=== PATIENT | male | born 1955 | race African-American/Black ===

== ENCOUNTER 2018-10-28 05:47 | Inpatient (IN) | payer OTHER ==
[2018-10-28] VITALS (26 sets, daily range): BP systolic 64–133; BP diastolic 48–82
[~2018-10-28] VITALS: Ht 170.2 cm; Wt 77.1 kg
[2018-10-28] MEDS: D5 1/2NS w/KCl 20mEq 1,000 ML IV SCH
[2018-10-28] MEDS ORDERED: LR 1000ml 1,000 ML IVLG SCH ×2 (06:23→19:17)
[2018-10-28] MEDS ORDERED: Zemuron 50mg/5ml Inj IV ONE ×2 (06:29→20:00)
[2018-10-28] MEDS ORDERED: HYDROcodone/Acetamin 5/325 tab ORAL PRN ×2 (06:30→19:30)
[2018-10-28] MEDS ORDERED: LORazepam Inj 2mg/ml 1ml IV PRN ×2 (06:30→19:30)
[2018-10-28] MEDS ORDERED: DiphenhydrAMINE 50mg/ml Inj IVP PRN ×3 (06:30→19:30)
[2018-10-28] MEDS ORDERED: Ketorolac 30mg Inj IV PRN ×4 (06:30→19:30)
[2018-10-28] MEDS ORDERED: HYDROcodone/Acetamin 7.5/325 tab ORAL PRN ×2 (06:30→19:30)
[2018-10-28] MEDS ORDERED: Acetaminophen (Non formulary) 100 ML IV ONE (06:30)
[2018-10-28] MEDS ORDERED: Hydromorphone 0.5mg/0.5ml inj IVP PRN ×2 (06:30→19:30)
[2018-10-28] MEDS ORDERED: Midazolam 2mg/2ml Inj IVP PRN ×2 (06:30→19:30)
[2018-10-28] MEDS ORDERED: Atropine Sulfate 0.4mg/ml inj IVP PRN ×2 (06:30→19:30)
[2018-10-28] MEDS ORDERED: Metoclopramide 10mg/2ml Inj IVP PRN ×3 (06:30→23:00)
[2018-10-28] MEDS ORDERED: Meperidine 50mg/ml Inj(FOR RIGORS ONLY) IVP PRN ×2 (06:30→19:30)
[2018-10-28] MEDS ORDERED: oxyCODONE HCL/Acetaminophen 5/325mg ORAL PRN ×2 (06:30→19:30)
[2018-10-28] MEDS ORDERED: fentaNYL 100 mcg/2 mL IV PRN ×2 (06:30→19:30)
[2018-10-28] MEDS ORDERED: Lidocaine 1% MPF 10mg/ml 5ml ONE ×2 (06:39→19:29)
[2018-10-28] MEDS ORDERED: Dexamethasone 4mg/ml vial ONE ×2 (06:39→19:29)
[2018-10-28] MEDS ORDERED: Sodium Chloride 10ml vial INJ ONE ×2 (06:39→19:29)
[2018-10-28] MEDS ORDERED: Lidocaine 1% Plain 30 ml INJ ONE ×2 (06:40→09:17)
[2018-10-28] MEDS ORDERED: SOMA350 MG PO (06:41)
[2018-10-28] MEDS ORDERED: IBUPROFEN600 MG ORAL (06:41)
[2018-10-28] MEDS ORDERED: fentaNYL 100 mcg/2 mL IV ONE ×3 (06:52→19:38)
[2018-10-28] MEDS ORDERED: Gelfoam Size TOPIC ONE ×2 (06:54→19:27)
[2018-10-28] MEDS ORDERED: Thrombin 5000 units TOPIC ONE ×3 (06:54→21:23)
[2018-10-28] MEDS ORDERED: Bacitracin 50000 Units Vial ONE ×2 (06:54→19:28)
[2018-10-28] MEDS ORDERED: Bupivacaine w/Epi 0.5% 30ml Vial INJ ONE ×2 (06:54→19:27)
[2018-10-28] MEDS ORDERED: LR 1000ml ONE ×2 (07:00→20:00)
--- NOTE | 2018-10-28 07:03 | Pre-Procedure Note/Attestation ---
Pre-Procedure Note/Attestation Complete Prior to Procedure Planned Procedure: not applicable Procedure Narrative: Disc degeneration with compression C3-4, C4-5, For ACDF at c3-4 and Disc arthroplasty C4-5 Indications for Procedure Pre-Operative Diagnosis: Disc Disease with compression C3-4, C4-5 Attestation I attest that I discussed the nature of the procedure; its benefits; risks and complications; and alternatives (and the risks and benefits of such alternatives ), prior to the procedure, with the patient (or the patient's legal wine sales representative). I attest that, if there was a reasonable possibility of needing a blood transfusion, the patient (or the patient's legal wine sales representative) was given the [place] Department [employer] [facility] standardized written summary, pursuant to the [employer] Blood Safety Act ([place] Health and Safety Code # 1645, as amended). I attest that I re-evaluated the patient just prior to the surgery and that there has been no change in the patient's H&P, except as documented below: Leoncio Ventura Oct 28, 2018 07:03
--- NOTE | 2018-10-28 07:07 | Anethesia Preoperative Eval ---
Anesthesia Pre-op PMH/ROS General Date of Evaluation: Oct 28, 2018 Time of Evaluation: 07:11 Anesthesiologist: Chaya ASA Score: ASA 2 Mallampati Score Class I : Soft palate, uvula, fauces, pillars visible Class II: Soft palate, uvula, fauces visible Class III: Soft palate, base of uvula visible Class IV: Only hard plate visible Mallampati Classification: Class II Surgeon: Steve Diagnosis: Neck Pain Surgical Procedure: ACDF C3-4, ADR C4-5 Anesthesia History: none Family History: no anesthesia problems Allergies: Coded Allergies: No Known Allergies (Unverified , 10/28/18) Medications: see eMAR Patient NPO?: Yes NPO Date: Oct 27, 2018 NPO Time: 2100 Past Medical History Musculoskeletal/Integumentary: Reports: OA PSxH Narrative: Bilateral Knee arthroscopy Anesthesia Pre-op Phys. Exam Physician Exam Last Vital Signs Date Time Temp Pulse Resp B/P (MAP) Pulse Ox O2 Delivery O2 Flow Rate FiO2 10/28/18 06:29 97.1 49 18 133/82 (99) 97 10/28/18 06:20 Room Air Constitutional: NAD Neurologic: CN 2-12 intact Cardiovascular: RRR Respiratory: CTA Gastrointestinal: S/NT/ND Airway Exam Mallampati Score: Class II MO: full ROM: limited Teeth: missing, intact Anesthesia Pre-op A/P Risk Assessment & Plan Assessment: ASA 2 Plan: GA, SED, GlideScope Go Status Change Before Surgery: No Pre-Antibiotics Dru grams Ancef IV Given Within 1 Hr of Incision: Yes Time Given: 07:31 Trey Larkni MD Oct 28, 2018 07:07
--- NOTE | 2018-10-28 07:08 | Immediate Post-Op Evaluation ---
Immediate Post-Op Evalulation Immediate Post-Op Evalulation Procedure: ACDF C3-4, C4-5 Date of Evaluation: Oct 28, 2018 Time of Evaluation: 11:08 IV Fluids: 900 LR Blood Products: 0 Estimated Blood Loss: 50 Urinary Output: 150 Blood Pressure Systolic: 118 Blood Pressure Diastolic: 67 Pulse Rate: 65 Respiratory Rate: 16 O2 Sat by Pulse Oximetry: 99 Temperature (Fahrenheit): 97 Pain Score (1-10): 2 Nausea: No Vomiting: No Complications 0 Patient Status: awake, reacts, patent, extubated, none Hydration Status: adequate Dru Grams Ancef IV Given Within 1 Hr of Incision: Yes Time Given: 07:31 Trey Larkin MD Oct 28, 2018 07:08
[2018-10-28] MEDS ORDERED: Glycopyrrolate 0.2mg/ml 1ml Vial ONE ×3 (10:12→22:05)
[2018-10-28] MEDS ORDERED: Neostigmine 1mg/ml 10ml Inj ONE ×2 (10:12→20:00)
--- NOTE | 2018-10-28 10:13 | NUR ---
CASE MANAGEMENT:REVIEW 63 YR OLD MALE HERE FOR ELECTIVE SURGERY SI: DEGENERATIVE DISC DISEASE 97.1 49 18 133/82 97% ON RA IS: TO SURGERY FOR: ACDF AT C3-4. DISC ARTHROPLASTY C4-5 : CURRENTLY IN SURGERY : INTERQUAL CRITERIA MET
[2018-10-28] MEDS ORDERED: Naloxone 0.4mg/ml Inj ONE ×2 (10:19→22:21)
--- NOTE | 2018-10-28 10:37 | Operative Note - PDOC ---
Operative Note Operative Note Pre-op Diagnosis: Disc Disease with compression C3-4, C4-5 Procedure: ACDF C3-4, Disc Arthroplasty C4-5 Post-op Diagnosis: same as pre-op Surgeon: Steve Automotive Exhaust Emissions Technician: TROY Ventura Anesthesiologist: Chaya Specimen: yes Complications: none Estimated Blood Loss: minimal Drains: none Implant(s) used?: Yes - Medtronic Zevo Plate, Bone C3-4, Synthes ProDisc C C4-5 Leoncio Ventura Oct 28, 2018 10:37
[2018-10-28] MEDS ORDERED: PCA Education Pamphlet MISC ONE ×5 (10:45→11:00)
[2018-10-28] MEDS ORDERED: Rate Change PCA 1 Each MISC PRN ×5 (10:45→11:00)
[2018-10-28] MEDS ORDERED: Naloxone 0.4mg/ml Inj IVP PRN ×2 (11:00→23:00)
[2018-10-28] MEDS ORDERED: PCA HYDROmorphone 1mg/ml 30 ML IV PRN (12:00)
--- NOTE | 2018-10-28 12:40 | NUR ---
NURSE NOTES: Received report from Mamie Kidd RN. Patient drowsy and 3L O2 on. Elkins catheter is patent. Cervical surgical site dressing is stained. No strength on bilateral hands and foot noted. INDUSTRIAL PSYCHOLOGIST will contact to MD. IV patent. Call light within reach and will continue to monitor.
--- NOTE | 2018-10-28 12:50 | NUR ---
NURSE NOTES: Lorenzo LORA called asked about the patient's condition. Information for neurological assessment was given. Lorenzo LORA said will call later.
--- NOTE | 2018-10-28 13:00 | NUR ---
PATIENT BARELY WIGGLE TOES NO FLEXION OR DORSI FLEXION OF BOTH LOWER EXTREMITIES. ALSO BARELY MOVE ARMS AND ABSENT HAND GAS PUMPING STATION HELPER . STATES WITH SENSATION OF BOTH UPPER AND LOWER EXTREMITIES . Eleanor GOMEZ CALLED TO NOTIFY MESSAGE LEFT AND CALLED BACK SPOKE TO FLOOR RN
--- NOTE | 2018-10-28 13:15 | NUR ---
NURSE NOTES: GUIDO Ventura called and ordered CT of cervical spinal. Noted and carried out.
--- NOTE | 2018-10-28 13:30 | NUR ---
NURSE NOTES: Patient off the unit for checking CT of cervical spine.
[2018-10-28] MEDS ORDERED: D5 1/2NS w/KCl 20mEq 1,000 ML IV SCH (14:00)
--- NOTE | 2018-10-28 14:00 | NUR ---
NURSE NOTES: Patient came back to the unit.
--- NOTE | 2018-10-28 14:36 | Diagnostic Imaging Report ---
Indication: Neck pain. Technique: Continuous helical imaging of the cervical spine was obtained transaxially from the skull base to the upper thoracic spine. 2-D coronal and sagittal reformatted images were obtained. Automatic Exposure Control was utilized. Total Dose length Product (DLP): 463.[address] Dose Index Volume (CTDIvol): 19.77 mGy Comparison: None Findings: Patient is status post anterior discectomy and fusion at C3-4 with the vertebral screws and anterior plate noted. There is also evidence of a prior discectomy at C4-5. Moderate ossification of the posterior longitudinal ligament from C3 through C7. There is no obvious hematoma or fluid collection identified postoperatively. Postoperative changes also include moderate degree of prevertebral and right-sided soft tissue air. Foramen magnum, C1-2 and C2-3 unremarkable. C3-4 shows evidence of a moderate to severe central stenosis of the bony canal secondary to ossification of the posterior longitudinal ligament which extends posteriorly. There is moderate bilateral foraminal stenosis. C4-5 shows evidence of disc replacement. Stenosis of the central canal also suspected at this level. Moderate bilateral foraminal stenosis as well. C5-6 shows bilateral foraminal stenosis and suspected mild central stenosis. C6-7 shows similar findings with mild to moderate bilateral foraminal stenosis and probable central stenosis. Impression: No obvious postoperative hematoma or abnormal fluid collection. Status post anterior cervical corpectomy-discectomy at C3-4 and corpectomy/discectomy C4-5. Multilevel central spinal stenosis of the bony canal largely on the basis of posterior longitudinal ligament ossification. Multilevel neural foraminal stenosis. Findings discussed via telephone with the neurosurgical physician periodicals library assistant at approximately 2:30 PM, 10/28/[address] scanner at [facility] is accredited by the [employer] and the scans are performed using dose optimization techniques as appropriate to a performed exam including Automatic Exposure control.
--- NOTE | 2018-10-28 15:49 | Diagnostic Imaging Report ---
Indication: Neck Pain Findings: 4 fluoroscopic views of the cervical spine were obtained. Intraoperative imaging demonstrating anterior cervical discectomy and fusion at C3-4 and disc replacement at C4-5. Fluoroscopic time 16 seconds. IMPRESSION: Intraoperative imaging
--- NOTE | 2018-10-28 17:20 | NUR ---
NURSE NOTES: GUIDO Ventura came and ordered NPO except for ice chips and meds. Noted and carried out.
[2018-10-28] MEDS: DEXAMETHASONE IVPB SCH (18:08)
[2018-10-28] MEDS: D5W IVPB SCH (18:08)
--- NOTE | 2018-10-28 18:35 | NUR ---
NURSE NOTES: Got the consent for surgery from his daughter.
[2018-10-28] MEDS ORDERED: PCA shift volume MISC SCH ×4 (19:00)
[2018-10-28] MEDS: PCA shift volume MISC SCH (19:00)
--- NOTE | 2018-10-28 19:02 | General Surgery Progress Note ---
General Surgery-Progress Note Subjective Procedure Performed ACDF C3-4, Disc Arthroplasty C4-5 Chief Complaint: can not feel and / or move arms and legs Objective Last 24 Hour Vital Signs Date Time Temp Pulse Resp B/P (MAP) Pulse Ox O2 Delivery O2 Flow Rate FiO2 10/28/18 16:00 16 10/28/18 16:00 98.5 70 16 64/56 (59) 98 10/28/18 15:45 97.1 66 16 96/56 (69) 96 10/28/18 14:45 97.5 70 16 94/56 (69) 98 10/28/18 13:15 97.8 68 16 96/55 (69) 95 10/28/18 13:00 13 10/28/18 12:45 97.1 69 16 97/55 (69) 98 10/28/18 12:45 97.2 63 14 92/56 98 Nasal Cannula 3 10/28/18 12:35 64 13 92/54 97 Nasal Cannula 3 10/28/18 12:25 67 15 96/56 98 Nasal Cannula 3 10/28/18 12:15 12 10/28/18 12:05 60 14 95/53 99 Simple Mask 6 10/28/18 12:00 14 10/28/18 11:55 61 15 92/50 99 Simple Mask 6 10/28/18 11:45 13 10/28/18 11:45 60 13 88/54 99 Simple Mask 6 10/28/18 11:35 61 13 82/48 99 Simple Mask 6 10/28/18 11:30 63 13 88/49 99 Simple Mask 6 10/28/18 11:30 12 10/28/18 11:25 60 12 83/60 99 Simple Mask 6 10/28/18 11:15 60 12 86/50 99 Simple Mask 6 10/28/18 11:05 61 12 89/49 99 Simple Mask 6 10/28/18 11:00 68 13 96/59 98 Simple Mask 6 10/28/18 10:57 97.0 68 14 118/67 99 Simple Mask 6 10/28/18 10:56 65 16 99 10/28/18 06:29 97.1 49 18 133/82 (99) 97 10/28/18 06:20 Room Air I&O Intake and Output 10/27/18 10/28/18 18:59 06:59 # Voids 1 Dressing: dry Wound: clean Drains: none Additional Comments When this patient arrived on the floor, he complained about his arms and legs being numb. His exam before transfer showed mild weakness but recovery nurse documented arm and keg movement and sensation. the floor nurse could no elicit arm, hand nor leg movement and minimal sensation. A CT scan was done and radiologist verbally represented the canal was narrowed but not acutely. Exam at 5:15 PM documented a neuro level at C3 with minimal motor and sensation on left upper and lower extremities. aA non reactive babinski was negative. Review of CT images shows osteophyte material protruding into canal beyond screws into the upper body of C4 (ACDF level). This information was relayed to Dr. Wilson and the decision to re-operate urgently was made. The patient is aware of findings and recommendation to re=operate and agrees. Leoncio Ventura Oct 28, 2018 19:02
--- NOTE | 2018-10-28 19:37 | NUR ---
HAND-OFF: Report given to GRAHAM Flores.
[2018-10-28] MEDS ORDERED: Midazolam 2mg/2ml Inj ONE (19:39)
--- NOTE | 2018-10-28 19:45 | NUR ---
NURSE NOTES: Pt lying in bed w/bed in lowest position and call light within reach. Pt A&Ox4, VSS, and c/o 10/10 pain; will administer pain medication. IV site intact/asymptomatic w/IVF @ 100 ml/hr; F/C patent/draining well; and surgical dressing stained but otherwise C/D/I w/cervical collar in place. Pt's neuro assessment is abnormal & pt scheduled for surgical revision this evening. Will continue to monitor.
[2018-10-28] MEDS ORDERED: Sterile Water Irrig 1000ml IRRIG ONE (20:00)
--- NOTE | 2018-10-28 20:15 | NUR ---
NURSE NOTES: Pt taken down to OR in stable condition. Will continue to monitor.
--- NOTE | 2018-10-28 20:56 | Immediate Post-Op Evaluation ---
Immediate Post-Op Evalulation Immediate Post-Op Evalulation Procedure: Redo ACDF C3-4 Date of Evaluation: Oct 28, 2018 Time of Evaluation: 22:57 IV Fluids: 500 LR Blood Products: 0 Estimated Blood Loss: 25 Urinary Output: 200 Blood Pressure Systolic: 98 Blood Pressure Diastolic: 62 Pulse Rate: 56 Respiratory Rate: 16 O2 Sat by Pulse Oximetry: 100 Temperature (Fahrenheit): 97.3 Pain Score (1-10): 3 Nausea: No Vomiting: No Complications 0 Patient Status: awake, reacts, patent, extubated, none Hydration Status: adequate Dru Grams Ancef IV Given Within 1 Hr of Incision: Yes Time Given: 20:31 Trey Larkin MD Oct 28, 2018 20:56
[2018-10-28] MEDS ORDERED: NS Irrig 1000ml IRRIG ONE (21:22)
--- NOTE | 2018-10-28 22:57 | Operative Note - PDOC ---
Operative Note Operative Note Chief Complaint: can not feel and / or move arms and legs Pre-op Diagnosis: Disc Disease with compression C3-4, C4-5 Procedure: ACDF C3-4, Disc Arthroplasty C4-5 Post-op Diagnosis: Spinal Cord compression Post-op Diagnosis: same as pre-op Surgeon: Steve Middleware Consultant: TROY Ventura Anesthesiologist: Chaya Specimen: yes Complications: none Estimated Blood Loss: minimal Drains: none Implant(s) used?: Yes - Replace same implants as initial surgery, see dictated op note Leoncio Ventura Oct 28, 2018 22:57
[2018-10-29] VITALS (27 sets, daily range): BP systolic 93–120; BP diastolic 51–68
--- NOTE | 2018-10-29 | NUR ---
NURSE NOTES: : pt s/p revision of discectomy and fusion cervical 3-4 exploration of acdf c3 4pt awake and alert no movement upper and lower extremities md aware NO C/O PAIN COLD BAG TO S/P WOUND
--- NOTE | 2018-10-29 | Operative Note - Dictated ---
DATE OF OPERATION: 10/28/2018 SURGEON: Leoncio Wilson M.D. [employer]PER[employer]ENT [employer]CHO[employer]: GUIDO Woodward. ANESTHESIOLOGIST: Trey Larkin M.D. ANESTHESIA: General endotracheal with arterial blood pressure monitoring. PREOPERATIVE DIAGNOSIS: Severe cervical spondylosis, posttraumatic with spinal stenosis, grade 3 at both the C3-4 and C4-5 levels causing significant neck pain, radicular pain, and limitation of cervical motion. POSTOPERATIVE DIAGNOSIS: Severe cervical spondylosis, posttraumatic with spinal stenosis, grade 3 at both the C3-4 and C4-5 levels causing significant neck pain, radicular pain, and limitation of cervical motion. OPERATIVE PROCEDURE: Right anterior approach to the cervical spine with dissection between the sternocleidomastoid and carotid sheath laterally, trachea and esophagus medially to reach the anterior spine at both levels, a complete decompression was done by anterior annulotomy, partial vertebrectomy, bilateral microneurolysis. At the C3-4 level, a fusion was done with fibula allograft using a 7 mm fibular corticocancellous allograft and a [employer] dynamic compression anterior plate 21 mm with four 15 mm compression screws at C4-5 level. After a complete decompression, a TDA medium 6 mm in height was placed at the C4-5 interval. The image intensifier was used throughout the procedure. DESCRIPTION OF PROCEDURE: The patient was induced in the supine position. Bolster was placed between the shoulder blades and the pad behind the neck to create support, normal lordosis. The arms and shoulders retracted distally and the head was retracted proximally with a canvas harness and 10 pounds of traction over a jessee. A lateral x-ray was taken to identify the level of the skin incision. A right-sided incision was made in the skin crease 2 inches in length. The platysma was divided. The jugular venous plexus was identified and protected. The sternocleidomastoid and carotid sheath were identified and protected laterally. The trachea and esophagus were dissected medially and retracted over the anterior spine. The spine was uncovered using a blunt dissection with a peanut. A North-South and East-West self-retaining retractor was then positioned and a lateral x-ray was taken to confirm the initial placement of C4-5 level. Once the position was secured, an anterior annulotomy was done with an 11 blade. The anterior lip of osteophytes from the body of C4 was then removed with a 3 mm Kerrison and larger to smaller and straight angled curettes were used to dissect posteriorly to the posterior aspect of the disc space where large superior and inferior osteophytes were noted narrowing the disc so that there was no access to the canal. The posterior osteophytes were removed sequentially using a Midas with an AMA bur. The dissection was slow and careful eventually reaching the PLL where angled curettes were used to free the posterior longitudinal ligament and then a 2 mm Kerrison was used to remove the posterior osteophytic remnant of the bodies of C4-5. The cord was well visualized over distance of 5 to 6 mm and was pulsating normally with respiration. Each foramen was widely opened using a 2 mm Kerrison. A similar dissection was then done at the C3-4 level, beginning anteriorly with an annulotomy removing the inferior osteophytic ridge of the body 3 and then working backward to the posterior third of the space using curettes. Once the posterior osteophytes were identified, they were removed similarly using a Midas until the PLL was identified and a small angled curette was used to release the PLL and then a 2 mm Kerrison to decompress the posterior canal at C3-4 as well as the C3-4 foramina on both the right and left. A 7 mm corticocancellous allograft was chosen at C3-4 and was tapped into place, checked on x-ray with good support with overall alignment and lordosis of the spine. A 21 mm Medtronic dynamic plate was then positioned, checked in AP, lateral, and fastened with four 15 mm compression screws. The total disc arthroplasty was then templated at C4-5, a 6 mm in height and standard width and depth was chosen. A template was placed, position was checked, and the jorge were placed with a drill inferiorly and superiorly. The final arthroplasty was then slowly tapped into place adjusting for its alignment in depth until good positioning was obtained. The handle was removed and it was checked on AP and lateral positioning again. There was no significant bleeding. The wound was closed in layers including the platysma, subcutaneous and skin placed in a compression bandage and a supportive cervical collar. Returned to recovery room in good condition. Leoncio Wilson M.D. DR: MEGAN JOB#: [id number] CC: JAY
--- NOTE | 2018-10-29 02:00 | NUR ---
NURSE NOTES: ASKING FOR SLEEPING PILL GIVEN ORDER
--- NOTE | 2018-10-29 03:15 | Operative Note - Dictated ---
DATE OF OPERATION: 10/28/2018 LOCATION: [facility]. SURGEON: Leoncio Wilson M.D. REAL ESTATE OPERATIONS MANAGER: GUIDO Woodward. ANESTHESIOLOGIST: Trey Larkin M.D. ANESTHESIA: General endotracheal. PREOPERATIVE DIAGNOSIS: The patient is status post procedure this morning for disk arthroplasty at the 4-5 cervical level and anterior decompression and fusion with placement of a fibular allograft and an anterior compression plate at the C3-C4 level. Postoperatively, the patient had some weakness that progressed to paresis of his arms and legs. A CT scan was done showing some material, possibly pressing on the cord just posterior to the upper edge of the C4 vertebra just at below the level of the two C4 screws, which were well contained within bone. POSTOPERATIVE DIAGNOSIS: The patient is status post procedure this morning for disk arthroplasty at the 4-5 cervical level and anterior decompression and fusion with placement of a fibular allograft and an anterior compression plate at the C3-C4 level. Postoperatively, the patient had some weakness that progressed to paresis of his arms and legs. A CT scan was done showing some material, possibly pressing on the cord just posterior to the upper edge of the C4 vertebra just at below the level of the two C4 screws, which were well contained within bone. OPERATIVE PROCEDURE: Exploration at C3-C4 with removal of fibular allograft and partial vertebrectomy at C4 with removal of about 3 to 4 mm, beginning anteriorly and bevelling posteriorly from superficial to deep in order to decompress the superior posterior edge of the body of C4 and allowed access to the canal to relieve whatever debris or pressure was visualized on the CT scan. This was done, and the anterior plate was replaced with the allograft. Two of the 15 mm lower screws were placed with 13 mm compression screws and angled more distally. Postoperative x-rays revealed good placement. DESCRIPTION OF PROCEDURE: The patient was prepped and draped supine on the operating table after induction of satisfactory general endotracheal anesthesia. His arms were tucked. A head halter was placed on his head and a bolster between the shoulder blades. His old operative incision was opened, all sutures were removed, and the wound was copiously irrigated. The path of dissection to the anterior aspect of the spine was easily reconstituted. East-West and North-South retractors were repositioned. The plate at C3-C4 was removed as was the fibular allograft and dissection was started beginning at the anterior superior edge of the body of C4 using a Midas to remove 2 mm anteriorly and 4 posteriorly in order to uncover the canal posterior to the superior posterior edge of the body of C4. Once bone had been removed, angled curettes were used to free the soft tissue, which was stabbed along with a couple of spicules of bone. Any posterior osteophytes were removed, and the dural sac was well visualized from the posterior resected body of C3 to the posterior resected body of C4 with normal pulsation flush with the posterior edge of the additionally resected posterior body of C4. The space was copiously irrigated and explored. The canal appeared nicely opened. The fibular allograft was repositioned as was the 21 mm Medtronic compression plate. The upper two screws were reutilized; however, the lower end was angled downward with shorter screws going from 15 to 13 to gain purchase in the body of C4 above the disk arthroplasty at C4-C5. Plate was checked on x-ray and found to be in good position with good stability. The graft was likewise stable. The wound was copiously irrigated and closed in layers including the subcutaneous platysma and skin. The patient was placed in a dressing and cervical collar, returned to the recovery room in good condition. Leoncio Wilson M.D. DR: TITO JOB#: [id number] CC: JAY
--- NOTE | 2018-10-29 04:00 | NUR ---
NURSE NOTES: AWAKE AND ALERT NO C/O PAIN WITH SLIGHT MOVEMENT FINGERS BUT ON LOWER EXT
[2018-10-29] MEDS: DEXAMETHASONE IVPB SCH ×4 (06:15→14:25)
[2018-10-29] MEDS: ceFAZolin sod 1 GM in D5W 55 ML IV SCH ×3 (06:15→22:04)
[2018-10-29] MEDS: D5W IVPB SCH ×4 (06:15→14:25)
[2018-10-29] MEDS: PCA shift volume MISC SCH ×2 (07:00→19:00)
--- NOTE | 2018-10-29 07:10 | NUR ---
NURSE NOTES: Report received from GRAHAM Yanes. Pt is awake, alert and oriented x4. Sinus rhythm on cardiac technologist. Pt is on cervical collar. Complaining of throat pain. Placed ice pack on front neck as per order. On N/C 2L. Kept NPO as per order. Pt is able to move shoulders but not other extremities. Temp 98.9. Bear hugger turned off. Elkins in place draining to gravity. IV t right FA G20 and left hand G18 patent and asymptomatic. D5 1/2NS with 20 meq KCL is running at 75cc/hr. Bed in lowest position. Side rails up x3. Will resume plan of care.
--- NOTE | 2018-10-29 07:30 | NUR ---
NURSE NOTES: Dr Todd, anesthesiologist, and Dr Alvarado here to see the patient. Notified Dr Todd regarding SOCIAL SCIENCE TEACHER not started since pt is not able to use it and not complaining of pain for now.
--- NOTE | 2018-10-29 07:45 | NUR ---
HAND-OFF: Report given to miguel styles rn
--- NOTE | 2018-10-29 07:51 | General Progress Note ---
Assessment/Plan Assessment/Plan Status post anterior cervical corpectomy-discectomy at C3-4 and corpectomy/ discectomy C4-5. ACDF C3-4, Disc Arthroplasty C4-5 Spinal Cord compression PLAN post op neuro evaluation ICU care pain control IV hydration Subjective Allergies: Coded Allergies: No Known Allergies (Unverified , 10/28/18) Subjective returned back for second surgery neuro called Objective Last 24 Hour Vital Signs Date Time Temp Pulse Resp B/P (MAP) Pulse Ox O2 Delivery O2 Flow Rate FiO2 10/29/18 07:00 75 16 100/63 (75) 97 10/29/18 06:00 97.8 64 16 100/57 (71) 97 10/29/18 05:00 65 16 103/55 (71) 97 10/29/18 04:00 Nasal Cannula 2.0 10/29/18 04:00 97.8 64 16 103/55 (71) 97 10/29/18 03:00 65 16 102/61 (75) 97 10/29/18 02:00 67 13 106/61 (76) 97 10/29/18 02:00 Nasal Cannula 2.0 10/29/18 01:00 66 16 100/62 (75) 97 10/29/18 00:30 55 16 120/60 (80) 97 10/29/18 00:00 97.5 60 16 120/60 (80) 97 10/29/18 00:00 Nasal Cannula 2.0 10/28/18 23:39 97.9 62 19 131/77 97 Nasal Cannula 3 10/28/18 23:30 61 14 120/70 98 Nasal Cannula 3 10/28/18 23:15 50 16 124/66 100 Simple Mask 6 10/28/18 23:05 51 14 133/79 99 Simple Mask 6 10/28/18 22:55 51 17 101/55 99 Simple Mask 6 10/28/18 22:50 52 18 93/51 99 Simple Mask 6 10/28/18 22:46 97.3 59 16 98/62 100 Simple Mask 6 10/28/18 22:44 56 16 100 10/28/18 20:30 Nasal Cannula 3.0 10/28/18 20:00 16 10/28/18 20:00 98.5 55 12 102/58 (73) 97 10/28/18 16:00 16 2/25/19 16:00 98.5 70 16 64/56 (59) 98 10/28/18 15:45 97.1 66 16 96/56 (69) 96 10/28/18 14:45 97.5 70 16 94/56 (69) 98 10/28/18 13:15 97.8 68 16 96/55 (69) 95 10/28/18 13:00 13 10/28/18 12:45 97.1 69 16 97/55 (69) 98 10/28/18 12:45 97.2 63 14 92/56 98 Nasal Cannula 3 10/28/18 12:35 64 13 92/54 97 Nasal Cannula 3 10/28/18 12:25 67 15 96/56 98 Nasal Cannula 3 10/28/18 12:15 12 10/28/18 12:05 60 14 95/53 99 Simple Mask 6 10/28/18 12:00 14 10/28/18 11:55 61 15 92/50 99 Simple Mask 6 10/28/18 11:45 13 10/28/18 11:45 60 13 88/54 99 Simple Mask 6 10/28/18 11:35 61 13 82/48 99 Simple Mask 6 10/28/18 11:30 63 13 88/49 99 Simple Mask 6 10/28/18 11:30 12 10/28/18 11:25 60 12 83/60 99 Simple Mask 6 10/28/18 11:15 60 12 86/50 99 Simple Mask 6 10/28/18 11:05 61 12 89/49 99 Simple Mask 6 10/28/18 11:00 68 13 96/59 98 Simple Mask 6 10/28/18 10:57 97.0 68 14 118/67 99 Simple Mask 6 10/28/18 10:56 65 16 99 Intake and Output 10/28/18 10/29/18 19:00 07:00 Intake Total 2465 ml 1165 ml Output Total 675 ml 735 ml Balance 1790 ml 430 ml Intake IV Total 2465 ml 1165 ml Output Urine Total 625 ml 710 ml Estimated Blood Loss 50 ml 25 ml Height (Feet): 5 Height (Inches): 7.00 Weight (Pounds): 170 Objective WDWN NAD clear breath sounds bilaterally without rhonchi or wheeze [id number] without MRG NABS nontender no HSM no CCE alert and weak Pradeep Alvarado MD Oct 29, 2018 07:51
[2018-10-29] MEDS: HYDROmorphone 1mg/ml Carpuject SUBQ PRN (08:04)
--- NOTE | 2018-10-29 09:06 | 48 Hour Post Anesthesia Eval ---
Post Anesthesia Evaluation Procedure: Redo ACDF C3-4 Date of Evaluation: Oct 29, 2018 Time of Evaluation: 07:06 Blood Pressure Systolic: 111 0: 82 Pulse Rate: 78 Respiratory Rate: 16 Temperature (Fahrenheit): 97.8 O2 Sat by Pulse Oximetry: 97 Airway: patent Nausea: No Vomiting: No Pain Intensity: 0 Hydration Status: adequate Cardiopulmonary Status: Stable Mental Status/LOC: patient returned to baseline Follow-up Care/Observations: Still has upper arm weakness and lower ext paralysis. Post-Anesthesia Complications: 0 Follow-up care needed: N/A Trey Larkin MD Oct 29, 2018 09:06
--- NOTE | 2018-10-29 09:50 | NUR ---
NURSE NOTES: Pt refused to be turned to one side completely. Pulled mid body to one side as per pt's request. Daughter at bedside. Placed pillows under bilateral arms and hands.
--- NOTE | 2018-10-29 09:58 | Diagnostic Imaging Report ---
INDICATION: Pain, intraoperative TECHNIQUE: Intraoperative imaging Fluoroscopy time: 5.6 seconds Total dose: 0.84086 mGym2 Total number of images: 2 COMPARISON: 12 hours earlier FINDINGS: Images demonstrate previously placed anterior fusion hardware and disc prosthesis IMPRESSION: Intraoperative imaging, as described
--- NOTE | 2018-10-29 10:37 | General Surgery Progress Note ---
General Surgery-Progress Note Subjective Procedure Performed ACDF C3-4, Disc Arthroplasty C4-5 Objective Last 24 Hour Vital Signs Date Time Temp Pulse Resp B/P (MAP) Pulse Ox O2 Delivery O2 Flow Rate FiO2 10/29/18 09:06 78 16 97 10/29/18 09:00 72 12 93/53 (66) 98 10/29/18 08:00 98.9 78 16 111/68 (82) 98 10/29/18 08:00 Nasal Cannula 2.0 10/29/18 07:00 75 16 100/63 (75) 97 10/29/18 06:00 97.8 64 16 100/57 (71) 97 10/29/18 05:00 65 16 103/55 (71) 97 10/29/18 04:00 Nasal Cannula 2.0 10/29/18 04:00 97.8 64 16 103/55 (71) 97 10/29/18 03:00 65 16 102/61 (75) 97 10/29/18 02:00 67 13 106/61 (76) 97 10/29/18 02:00 Nasal Cannula 2.0 10/29/18 01:00 66 16 100/62 (75) 97 10/29/18 00:30 55 16 120/60 (80) 97 10/29/18 00:00 97.5 60 16 120/60 (80) 97 10/29/18 00:00 Nasal Cannula 2.0 10/28/18 23:39 97.9 62 19 131/77 97 Nasal Cannula 3 10/28/18 23:30 61 14 120/70 98 Nasal Cannula 3 10/28/18 23:15 50 16 124/66 100 Simple Mask 6 10/28/18 23:05 51 14 133/79 99 Simple Mask 6 10/28/18 22:55 51 17 101/55 99 Simple Mask 6 10/28/18 22:50 52 18 93/51 99 Simple Mask 6 10/28/18 22:46 97.3 59 16 98/62 100 Simple Mask 6 10/28/18 22:44 56 16 100 10/28/18 20:30 Nasal Cannula 3.0 10/28/18 20:00 16 10/28/18 20:00 98.5 55 12 102/58 (73) 97 10/28/18 16:00 16 10/28/18 16:00 98.5 70 16 64/56 (59) 98 10/28/18 15:45 97.1 66 16 96/56 (69) 96 10/28/18 14:45 97.5 70 16 94/56 (69) 98 10/28/18 13:15 97.8 68 16 96/55 (69) 95 10/28/18 13:00 13 10/28/18 12:45 97.1 69 16 97/55 (69) 98 10/28/18 12:45 97.2 63 14 92/56 98 Nasal Cannula 3 10/28/18 12:35 64 13 92/54 97 Nasal Cannula 3 10/28/18 12:25 67 15 96/56 98 Nasal Cannula 3 10/28/18 12:15 12 10/28/18 12:05 60 14 95/53 99 Simple Mask 6 10/28/18 12:00 14 10/28/18 11:55 61 15 92/50 99 Simple Mask 6 10/28/18 11:45 13 10/28/18 11:45 60 13 88/54 99 Simple Mask 6 10/28/18 11:35 61 13 82/48 99 Simple Mask 6 10/28/18 11:30 63 13 88/49 99 Simple Mask 6 10/28/18 11:30 12 10/28/18 11:25 60 12 83/60 99 Simple Mask 6 10/28/18 11:15 60 12 86/50 99 Simple Mask 6 10/28/18 11:05 61 12 89/49 99 Simple Mask 6 10/28/18 11:00 68 13 96/59 98 Simple Mask 6 10/28/18 10:57 97.0 68 14 118/67 99 Simple Mask 6 10/28/18 10:56 65 16 99 I&O Intake and Output 10/28/18 10/29/18 19:00 07:00 Intake Total 2465 ml 1165 ml Output Total 675 ml 735 ml Balance 1790 ml 430 ml Intake IV Total 2465 ml 1165 ml Output Urine Total 625 ml 710 ml Estimated Blood Loss 50 ml 25 ml Additional Comments This patient was returned to operating room last evening to remove spinal cord compression. The patient is in ICU, showing improving neurological recovery. He can now feel both arms and legs and has return of motor function in left arm and both lower legs / feet. A neurology evaluation is pending. Dr. Wilson has communicated with the family. Dr. Pimentel is following. residential care may be needed and authorizations are requested from insurance carrier. Assessment Post-op Diagnosis Spinal Cord compression Leoncio Ventura Oct 29, 2018 10:37
--- NOTE | 2018-10-29 11:10 | NUR ---
NURSE NOTES: Oral care done. Head elevated and pt is watching TV. Pt is still complaining of neck pain. BP is 95/53. Will wait for next Dilaudid due.
[2018-10-29] MEDS: D5 1/2NS w/KCl 20mEq 1,000 ML IV SCH (12:16)
--- NOTE | 2018-10-29 13:08 | NUR ---
[facility] PT NOTE CONSULT RECEIVED, FLO COMPLETED ONLY, HOWEVER DUE TO PATIENT CURRENT WEAKNESS IN BUE AND BLE AND DECREASE SENSATION AND TRANSFER TO ICU. PHYSICAL THERAPY TEAM WILL HOLD PHYSICAL THERAPY FOLLOW UP AND TREATMENT OF PATIENT UNTIL CLEARED BY NEURO SURGEON FOR OOB ACTIVITY. EVALUATION AND ASSESSMENT DONE ONLY. THANK YOU FOR CONSULT. MANISH AUSTIN PT DPT Addendum: 10/29/18 at 1309 by MANISH AUSTIN PT Amended: Links added.
--- NOTE | 2018-10-29 13:39 | NUR ---
CASE MANAGEMENT:REVIEW 10/29/18 SI: POD #1 98.9 78 16 111/68 98% ON 2L/NC IS: IV ANCEF Q8HRS DILAUDID SQ Q4HRS PRN IVF@75/HR : ICU STATUS
--- NOTE | 2018-10-29 13:41 | NUR ---
NURSE NOTES: Pt refused to be turned and repositioned. Risks explained. Massage and ROM exercise done on bilateral upper and lower extremities. Temp 99.4. [place] removed. No acute distress noted. Addendum: 11/01/18 at 1105 by BECK ELAM RN RN NURSE NOTES: Pt refused to be turned and repositioned. Risks explained. Bilateral upper and lower extremities repositioned and elevated with pillows. Temp 99.4. [place] removed. No acute distress noted.
--- NOTE | 2018-10-29 14:25 | NUR ---
NURSE NOTES: Administered Decadron late since it was not available from pharmacy.
--- NOTE | 2018-10-29 14:38 | NUR ---
NURSE NOTES: Cleaned pt for moderate amount of loose bloody BM and repositioned pt. Pt is complaining of abdominal pain. Order for Morphine received, noted, and carried out. Addendum: 10/29/18 at 1440 by BECK ELAM RN RN Wrong patient
--- NOTE | 2018-10-29 14:41 | NUR ---
NURSE NOTES: Temp 98.8. Visitor at bedside. Dr Wilson is assessing the patient at bedside. Updated him with pt's current condition. Neurologist will come and assess patient as per Dr Wilson.
--- NOTE | 2018-10-29 16:17 | NUR ---
NURSE NOTES: Pt was pulled up in bed and turned to supine position. ROM exercise done on all upper and lower extremities. No acute distress noted. Pt is in high solano's position, watching TV. Addendum: 11/01/18 at 1103 by BECK ELAM RN RN NURSE NOTES: Pt was pulled up in bed and placed to supine position. Also repositioned all upper and lower extremities. No acute distress noted. Pt is in high solano's position, watching TV.
--- NOTE | 2018-10-29 17:22 | Cardiology Report ---
APPROVED REPORT EKG Measurement Heart [id number] Normal sinus rhythm T wave abnormalityin the inferior leads Abnormal ECG
--- NOTE | 2018-10-29 17:46 | NUR ---
NURSE NOTES: Dr Solorio here to see the patient. Doctor is assessing the patient at bedside. Daughter is waiting in the lounge.
[2018-10-29] MEDS ORDERED: Gadavist 7.5mMol/7.5ml vial IV PRN (19:00)
--- NOTE | 2018-10-29 19:00 | NUR ---
NURSE NOTES: Pt suddenly developed SOB due to saliva on throat. Elevated HOB to high howler's. Suctioned secretion. No much secretion suctioned. Increased O2 sat to 3.5L. O2 sat 98%. RR 13. bindery library technical assistant notified. Will hold MRI of cervical spine and notified GUIDO Woodward.
--- NOTE | 2018-10-29 19:14 | NUR ---
10/29 @1905 HRS. pt IS UNABLE TO LAY FLAT FOR MRI. C/O SOB. REQUESTING TO HAVE MRI DONE TOMORROW MORNING. BECK ELAM (GRAHAM) WAS IN THE ROOM WHILE I HAD THIS DISCUSSION WITH THE PATIENT. I LEFT A VOICE MAIL WITH DR. LUCINA LORA (SHARRON) INFORMING HIM OF THE EXAM DELAY. - CS
--- NOTE | 2018-10-29 19:35 | NUR ---
HAND-OFF: Report given to GRAHAM Saab.
--- NOTE | 2018-10-29 19:40 | NUR ---
Recvd.quiet in Bed watching TV Alert oriented,Stated positive sensation on Both upper and Lower ext.but unable to move.Denies pain.Repositioned,Pos.as desired straight align with HOB elev.Cx Collar in placed.Post-op drsng.intact clean and dry.Resp.unlabored.P.Ox-98-99%on 2L/NC inh.See V/S Scope SR-SB.NPO ice chips given per Req.
[2018-10-29] MEDS ORDERED: D5W IVPB SCH (20:00)
[2018-10-29] MEDS ORDERED: DEXAMETHASONE IVPB SCH (20:00)
--- NOTE | 2018-10-29 22:20 | NUR ---
NURSE NOTES: HS care rendered.c/o post op pain and discomfort.Medicated with releif.ice chips given per req.IV thera.in progress.F/Cath patent diuresis well.See I/O.Due internet media planner.
[2018-10-29] MEDS ORDERED: Tubing IV Secondary IV ONE (22:36)
[2018-10-30] VITALS (22 sets, daily range): BP systolic 81–107; BP diastolic 46–65
--- NOTE | 2018-10-30 00:10 | NUR ---
NURSE NOTES: Sound asleep,Resp unlabored.P.Ox-98%.Cardioscope SB goes to as low as 40's Asymptomatic.Per mother as stated its has been always like that for him for being a very athletic kathy. Aware.
--- NOTE | 2018-10-30 02:00 | NUR ---
NURSE NOTES: Asleep,Repositioned.No Distress.Sat.98%.Scope Sr.Cont.monitoring.
[2018-10-30] MEDS: D5 1/2NS w/KCl 20mEq 1,000 ML IV SCH ×2 (02:13→15:19)
--- NOTE | 2018-10-30 05:35 | NUR ---
NURSE NOTES: Slept at short interval.No resp.distress.Sat.98-99%.Neuro status same.Remain with sensation when touch on upper and Lower ext.but unable to move.Med.for c/o post op pain medicated.
[2018-10-30] MEDS: ceFAZolin sod 1 GM in D5W 55 ML IV SCH ×3 (05:39→21:51)
[2018-10-30] MEDS: PCA shift volume MISC SCH (07:00)
--- NOTE | 2018-10-30 07:09 | NUR ---
HAND-OFF: Report given to BECK LOCKE RN.
--- NOTE | 2018-10-30 07:10 | NUR ---
NURSE NOTES: Report received from GRAHAM Saab. Pt is awake, alert and oriented x4. Ex- at bedside, stayed all night with the patient. Sinus rhythm on phototypesetting equipment monitor. Pt is on cervical collar. On N/C 2L. O2 sat 98%. Kept NPO as per order. Pt is able to move shoulders but not other extremities. Pt is able to feel bilateral upper and lower extremities with some improvement compared to yesterday. Temp 99.4. Blankets removed. El[place] in place draining to gravity. IV t right FA G20 and left hand G18 patent and asymptomatic. D5 1/2NS with 20 meq KCL is running at 75cc/hr. Bed in lowest position. Side rails up x3. Will resume plan of care.
--- NOTE | 2018-10-30 09:13 | NUR ---
NURSE NOTES: Dr Alvarado here to see the patient. Updated him with pt's current condition. No new orders. Will go down for MRI of the cervical spine at 10AM.
--- NOTE | 2018-10-30 09:21 | General Progress Note ---
Assessment/Plan Assessment/Plan Status post anterior cervical corpectomy-discectomy at C3-4 and corpectomy/ discectomy C4-5. ACDF C3-4, Disc Arthroplasty C4-5 Spinal Cord compression PLAN post op neuro evaluation noted and MRI ordere ICU care pain control IV hydration monitor for aspiration Subjective Allergies: Coded Allergies: No Known Allergies (Unverified , 10/28/18) Subjective seen by neuro MRI ordered Objective Last 24 Hour Vital Signs Date Time Temp Pulse Resp B/P (MAP) Pulse Ox O2 Delivery O2 Flow Rate FiO2 10/30/18 09:00 60 11 91/52 (65) 98 10/30/18 08:00 Nasal Cannula 2.0 10/30/18 08:00 99.4 61 13 98/53 (68) 98 10/30/18 07:00 63 13 101/52 (68) 98 10/30/18 06:10 98.6 10/30/18 06:00 65 16 104/56 (72) 98 10/30/18 05:00 61 13 105/58 (74) 98 10/30/18 04:00 Nasal Cannula 2.0 10/30/18 04:00 98.6 60 12 100/54 (69) 98 10/30/18 03:00 59 15 98/53 (68) 98 10/30/18 02:00 57 12 100/54 (69) 98 10/30/18 01:00 50 16 100/48 (65) 98 10/30/18 00:00 Nasal Cannula 2.0 10/30/18 00:00 59 13 107/60 (76) 98 10/29/18 23:00 40 14 100/52 (68) 99 10/29/18 22:00 60 12 99/53 (68) 98 10/29/18 21:00 61 12 102/55 (71) 98 10/29/18 20:30 62 11 97/51 (66) 99 10/29/18 20:00 Nasal Cannula 2.0 10/29/18 20:00 98.3 60 11 97/54 (68) 99 10/29/18 19:30 63 14 98/56 (70) 98 10/29/18 19:00 65 14 103/58 (73) 98 10/29/18 18:00 62 13 98/55 (69) 98 10/29/18 17:00 64 12 98/55 (69) 97 10/29/18 16:00 Nasal Cannula 2.0 10/29/18 16:00 98.6 64 13 97/54 (68) 98 10/29/18 15:00 67 15 103/52 (69) 98 10/29/18 14:00 69 10 101/54 (70) 15 10/29/18 13:00 69 10 101/57 (72) 98 10/29/18 12:00 Nasal Cannula 2.0 10/29/18 12:00 99.4 72 12 103/53 (70) 97 10/29/18 11:00 70 11 99/54 (69) 98 10/29/18 10:00 73 11 98/53 (68) 98 Intake and Output 10/29/18 10/30/18 19:00 07:00 Intake Total 955 ml 955 ml Output Total 1680 ml 1300 ml Balance -725 ml -345 ml Intake IV Total 955 ml 955 ml Output Urine Total 1680 ml 1300 ml Height (Feet): 5 Height (Inches): 7.00 Weight (Pounds): 170 Objective WDWN NAD clear breath sounds bilaterally without rhonchi or wheeze [id number] without MRG NABS nontender no HSM no CCE alert and weak poor mobility of extremities Pradeep Alvarado MD Oct 30, 2018 09:21
--- NOTE | 2018-10-30 09:42 | NUR ---
NURSE NOTES: Dilaudid 2 mg Subq given for neck pain. Get pt ready to go for MRI. Blood work ordered to check BUN and creatinine level for contrast. Lab is on the way to ICU. emissions repair technicianMicha, is explaining about MRI and contrast at bedside. Pt is tolerating flat position good. Awaiting lab work to be done.
[2018-10-30 10:22] LABS: BASOPHILS % (AUTO) 0.5 % (0.0-2.0); HEMATOCRIT 32.5 % (42.0-52.0); HEMOGLOBIN 11.1 G/DL (14.2-18.0); MEAN CORPUSCULAR VOLUME 85 FL (80-99); MONOCYTES % (AUTO) 10.5 % (1.0-10.0); NEUTROPHILS % (AUTO) 82.1 % (45.0-75.0); PLATELET COUNT 105 K/UL (150-450); RED BLOOD COUNT 3.84 M/UL (4.70-6.10); RED CELL DISTRIBUTION WIDTH 11.9 % (11.6-14.8); WHITE BLOOD COUNT 9.8 K/UL (4.8-10.8)
[2018-10-30 10:24] LABS: ANION GAP 4 mmol/L (5-15); BLOOD UREA NITROGEN 20 mg/dL (7-18); CALCIUM 8.2 MG/DL (8.5-10.1); CARBON DIOXIDE 30 MMOL/L (21-32); CHLORIDE 102 MMOL/L (98-107); POTASSIUM 4.9 MMOL/L (3.5-5.1); SODIUM 136 MMOL/L (136-145)
--- NOTE | 2018-10-30 10:37 | NUR ---
*-* INSURANCE *-* ALL CLINICALS, REVIEW AND INTERQUAL FAXED TO: [employer] FAXED TO : FX: [phone] PER BAR NOTES
--- NOTE | 2018-10-30 12:36 | NUR ---
MRI CERVICAL W/WO COMPLETED.
--- NOTE | 2018-10-30 12:52 | NUR ---
NURSE NOTES: Pt came back from MRI. Daughter and ex- at bedside. Repositioned pt. Oral care done. VSS. Pt is on 2L Oxygen.
[2018-10-30] MEDS: HYDROmorphone 1mg/ml Carpuject SUBQ PRN ×3 (13:26→21:20)
--- NOTE | 2018-10-30 13:26 | NUR ---
NURSE NOTES: Dilaudid 1mg subq given for neck pain. Suction as needed. Attended all needs.
--- NOTE | 2018-10-30 13:51 | Diagnostic Imaging Report ---
Indication: History of recent cervical discectomy fusion. Postoperative neurologic symptoms/signs. Technique: MRI examination of the cervical spine was performed in a 1.5 Lesa magnet. Sequences obtained include sagittal and axial T1 and T2 fast spin echo, and sagittal STIR. Comparison: CT 10/28/2018 Findings: Since 10/28/2018 patient had a second surgery for decompression of the canal. Current examination demonstrates susceptibility artifact at C3-4 due to presence of a anterior compression plate and screws and the disc prosthesis. C4-5 discectomy/prosthesis related susceptibility also noted. The susceptibility artifact results in nonvisualization of the central canal at C4-5. There is distortion of the central canal and spinal cord at C3-4. These 2 levels are therefore not adequately visualized or evaluated on the current study. 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 Above C3-4, the spinal cord appears normal without evidence of intrinsic edema or hemorrhage or compression of the cord from an extrinsic focus such as a hematoma or fluid collection. Similarly, below C4-5 the canal and cord appear unremarkable. Gadolinium-enhanced sequences are noncontributory. There is prevertebral edema as expected in keeping with recent surgery. IMPRESSION: Essentially nondiagnostic examination at the level of C4-5 and very limited evaluation of C3-4 due to hardware-related magnetic susceptibility artifact. The visualized portions of the spinal canal and cord show no acute findings above and below these levels. Findings discussed via telephone with Dr. Wilson 12:20 pm, 10/30/2018.
--- NOTE | 2018-10-30 14:41 | NUR ---
CASE MANAGEMENT:REVIEW 10/30/18 SI: POD #2 S/P DISC ARTHROPLASTY AND DECOMPRESSION 99.4 61 13 98/53 98% ON 2L/NC H/H-11.1/32.5 PLT-105 BUN+20 GLUCOSE+123 IS: IV ANCEF Q8HRS DILAUDID SQ Q4HRS PRN IVF@75/HR : ICU STATUS
--- NOTE | 2018-10-30 15:06 | NUR ---
INSURANCE FAXED TO [facility] CONSULTANT: ENRIQUETA T:[phone] F: [phone] CLAIM #[id number] CALLED TO SPEAK WITH ENRIQUETA REGARDING DISCHARGE PLANNING POSSIBLY AT [facility] IN[facility] BY ENRIQUETA TO CONTACT THEIR UR NURSE [place] T:[phone] F: [phone] SPOKE WITH NATHANIEL WHO REQUESTED CLINICALS BE FAXED TO HER. SHE ALSO SAID PLACEMENT AT [facility] MIGHT BE A POSSIBILITY ONCE WE HAVE A DOCTORS ORDER CLINICALS FAXED TO [place]
--- NOTE | 2018-10-30 15:40 | NUR ---
NURSE NOTES: Suctioned PRN. Scant amount of white secretion noted. Head of the bed elevated in high howler's position. Repositioned pt. O2 sat 100%. RR 13. Will continue to monitor.
--- NOTE | 2018-10-30 16:12 | NUR ---
NURSE NOTES: Repositioned pt with supine position. Oral care done. at bedside. Notified Dr Alvarado regarding thick gurgling secretion that bothers pt's breathing. Order for ST eval and breathing tx from Dr Alvarado received, noted, and carried out. Notified RT.
--- NOTE | 2018-10-30 16:19 | NUR ---
Social Service Note Possible IDT meeting once determined services upon discharge and authorized by machine adjuster leader. SW has been in communication with CM and GUIDO Ventura. Will continue to monitor and assist as needed.
--- NOTE | 2018-10-30 17:28 | General Surgery Progress Note ---
General Surgery-Progress Note Subjective Procedure Performed ACDF C3-4, Disc Arthroplasty C4-5 Objective Last 24 Hour Vital Signs Date Time Temp Pulse Resp B/P (MAP) Pulse Ox O2 Delivery O2 Flow Rate FiO2 10/30/18 13:00 98.8 59 12 81/65 (70) 100 10/30/18 12:00 Nasal Cannula 2.0 10/30/18 10:00 58 13 92/52 (65) 98 10/30/18 09:00 60 11 91/52 (65) 98 10/30/18 08:00 Nasal Cannula 2.0 10/30/18 08:00 99.4 61 13 98/53 (68) 98 10/30/18 07:00 63 13 101/52 (68) 98 10/30/18 06:10 98.6 10/30/18 06:00 65 16 104/56 (72) 98 10/30/18 05:00 61 13 105/58 (74) 98 10/30/18 04:00 Nasal Cannula 2.0 10/30/18 04:00 98.6 60 12 100/54 (69) 98 10/30/18 03:00 59 15 98/53 (68) 98 10/30/18 02:00 57 12 100/54 (69) 98 10/30/18 01:00 50 16 100/48 (65) 98 10/30/18 00:00 Nasal Cannula 2.0 10/30/18 00:00 59 13 107/60 (76) 98 10/29/18 23:00 40 14 100/52 (68) 99 10/29/18 22:00 60 12 99/53 (68) 98 10/29/18 21:00 61 12 102/55 (71) 98 10/29/18 20:30 62 11 97/51 (66) 99 10/29/18 20:00 Nasal Cannula 2.0 10/29/18 20:00 98.3 60 11 97/54 (68) 99 10/29/18 19:30 63 14 98/56 (70) 98 10/29/18 19:00 65 14 103/58 (73) 98 10/29/18 18:00 62 13 98/55 (69) 98 10/29/18 17:00 64 12 98/55 (69) 97 I&O Intake and Output 10/29/18 10/30/18 19:00 07:00 Intake Total 955 ml 955 ml Output Total 1680 ml 1300 ml Balance -725 ml -345 ml Intake IV Total 955 ml 955 ml Output Urine Total 1680 ml 1300 ml Laboratory Tests Test 10/30/18 10:05 White Blood Count 9.8 K/UL (4.8-10.8) Red Blood Count 3.84 M/UL (4.70-6.10) L Hemoglobin 11.1 G/DL (14.2-18.0) L Hematocrit 32.5 % (42.0-52.0) L Mean Corpuscular Volume 85 FL (80-99) Mean Corpuscular Hemoglobin 28.8 PG (27.0-31.0) Mean Corpuscular Hemoglobin Concent 34.0 G/DL (32.0-36.0) Red Cell Distribution Width 11.9 % (11.6-14.8) Platelet Count 105 K/UL (150-450) L Mean Platelet Volume 5.9 FL (6.5-10.1) L Neutrophils (%) (Auto) 82.1 % (45.0-75.0) H Lymphocytes (%) (Auto) 7.0 % (20.0-45.0) L Monocytes (%) (Auto) 10.5 % (1.0-10.0) H Eosinophils (%) (Auto) 0.0 % (0.0-3.0) Basophils (%) (Auto) 0.5 % (0.0-2.0) Sodium Level 136 MMOL/L (136-145) Potassium Level 4.9 MMOL/L (3.5-5.1) Chloride Level 102 MMOL/L (98-107) Carbon Dioxide Level 30 MMOL/L (21-32) Anion Gap 4 mmol/L (5-15) L Blood Urea Nitrogen 20 mg/dL (7-18) H Creatinine 1.0 MG/DL (0.55-1.30) Estimat Glomerular Filtration Rate > 60 mL/min (>60) Glucose Level 123 MG/DL (74-106) H Calcium Level 8.2 MG/DL (8.5-10.1) L Additional Comments General Update: Dr Misty Solorio / Neurologist consulted on this patients condition and recommended MRI of Cervical Spine. The patient was not considered stable by ICU staff last night, therefore exam was completed today with some difficulty. This patient had Contrast and non-contrast MRI of cervical spine today. Dr. Wilson reviewed findings with radiologist: Conclusion: no pressure found on spinal cord at C3-4 and C4-5, thus no further surgical intervention. The immediate plan is to observe and support patient awaiting improvement in neuro function. Physical Therapy is engaged in appropriate therapy modalities and will assist with preservation of function bracing. Dr. Alvarado / Internal Medicine is following. Request for Reducer support is pending. Assessment Post-op Diagnosis Spinal Cord compression Plan Additional Comments The patient is very frightened of his current situation and is complaining to family that he is not getting the care he needs. His requests are out of fear and do not reflect the care he is receiving by the ICU Staff. A multi-disciplinary conference with family may be needed. Leoncio Ventura Oct 30, 2018 17:28
[2018-10-30] MEDS ORDERED: Tubing IV Secondary IV ONE (18:08)
[2018-10-30] MEDS: Albuterol ud Inhalation HHN SCH ×2 (18:22→22:36)
--- NOTE | 2018-10-30 19:30 | NUR ---
NURSE NOTES: Received pt in no acute distress. On High solano's position with all extremities elevated. Pt also wearing cervical collar. Awake, alert, oriented x4, currently denies pain, denies SOB. Pt able to shrug shoulders but still unable to move hands and feet. Pt able to feel touch on fingers and feet. Anterior neck with clean and dry surgical dressing. Currently afebrile, SR/SB on the monitor, on O2 at 3l/m via NC, saturating 92-97%. encouraged to do deep breathing and coughing exercises. at the bedside, plan of care explained. Will continue to monitor neuro/motor status. PIV site on RFA intact; IVF of D51/2NS with 20meqKCL infuses at 75ml/h. FCpatent, good UOP.
--- NOTE | 2018-10-30 19:41 | NUR ---
HAND-OFF: Report given to GRAHAM Kirby.
--- NOTE | 2018-10-30 20:00 | Consultation ---
DATE OF CONSULTATION: 10/29/2018 NOTE: POOR AUDIO. CONSULTING PHYSICIAN: Jeffrey Solorio M.D. HISTORY OF PRESENT ILLNESS: The patient is a 63-year-old right-handed man who had cervical spine surgery yesterday. I was asked the see the patient due to muscle weakness and lkkoss okkfkkkkk sensation after his first surgery. The patient is a [employer] patient. His date of injury was 03/25/2015. The patient was admitted here through [employer] for surgery because he had progressive neck pain 05/13, radiating down both arms and hands with numbness and tingling. He also had headache, loss of balance. The patient has not had incontinence, hesitancy, or urgency prior to this surgery. The patient noted to have numbness on his feet prior to his surgery. He was brought in to the hospital for surgery. He was also seen by Dr. Pradeep Alvarado. The patient's laboratory data on 10/01/2018 revealed a normal chemistry profile, normal CBC, normal PT and PTT. The patient's MRI done on 07/31/2017 in the chart with mild to severe bilateral neuroforaminal stenosis, degenerative disc disease at C4-C5 and neuroforaminal stenosis. He had bilateral C5 nerve root compression. degenerative joint disease at C6-C7. It is also suggested at C3- C4 that he might have bilateral C4 nerve root impingement. The patient underwent a surgery had severe cord compression at C3-C4 and C4-C5. After the first surgery, he had a second surgery later that day. The patient had a CT scan of the cervical spine after the surgery, which showed some material possibly he had exploration in C3-C4 at that time. The patient was placed on steroids. I was called this morning to see the . The patient states that he can feel when he has to urinate. He denies any diplopia, dysarthria, dysphagia. mouth. Denies any hearing loss or tinnitus. The patient could walk prior to surgery. He had neck pain for about a year. He also had EMG and nerve conduction study of the upper and lower extremities. The patient states he has muscle spasms in his lower extremities. He can shrug his shoulders. The patient has no family history of neurologic disease. PAST MEDICAL HISTORY/PAST ILLNESSES: Degenerative joint disease in his ALLERGIES: He denies any allergies. HABITS: He drank occasionally. Did not smoke. Occasionally uses drugs. SOCIAL HISTORY: He is . He lives in the city of [place]. 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 He has 1 child in good health. FAMILY HISTORY: His father of myocardial infarction. SURGERIES: He had bilateral surgeries on his knees. REVIEW OF SYSTEMS: Appetite is good. Weight is stable. PHYSICAL EXAMINATION: GENERAL: He is a well-developed, well-nourished man. VITAL SIGNS: The blood pressure 98/55, pulse of 64, respirations 12, pulse oximetry is 97. HEENT: Examination of the head is normal. NECK: Could not be examined. CHEST: The anterior chest sounds are intact. LUNGS: Clear. CARDIOVASCULAR: PMI could not be felt. JVP could not be visualized. Heart sounds are distant. No S3, S4, murmurs, or rubs. ABDOMEN: Mildly obese. Bowel sounds are increased. There is no tenderness, masses, or organomegaly. EXTREMITIES: There is no pitting edema, lower extremities. Peripheral pulses are +2. NEUROLOGIC: MENTAL STATUS: . Judgment cannot be tested. Affect is appropriate. He can spell world backwards. Apprehension is intact. Orientation, . CRANIAL NERVE EXAMINATION: CRANIAL NERVE II: Visual nickerson are intact to confrontation. Fundi are not well visualized. CRANIAL NERVES III, IV, AND : Extraocular motility is full. Pupils were approximately 4 mm, round, and reactive. CRANIAL NERVE V: Facial and corneal sensation was intact to fine touch. CRANIAL NERVE VII: Facial strength was 5/5 bilaterally. CRANIAL NERVE VIII: Auditory acuity was impaired bilaterally. CRANIAL NERVES IX AND X: Gag was basically intact bilaterally; however, could swallow ice chips. CRANIAL NERVE XI: Could not be tested. CRANIAL NERVE XII: Tongue protrudes in the midline without fasciculations or atrophy. MUSCLE EXAMINATION: Muscle appears to be normal bulk and tone is flacid. Strength is 0/5 except for shoulder shrug. Reflexes are 0 in the right upper extremity, +1 in the left upper extremity, 0 at the knees and ankles. The toes were mute on testing for Babinski response. COORDINATION: Could not be done. GAIT AND STATION: The patient is bedbound. SENSORY: Had a pinprick along the left side up to c-4. On the right side, it was up to c-3. He had loss of vibration, appeared to be in all 4 extremities. Proprioception absent probably in all 4 extremities.. IMPRESSION: The patient has spinal shock, probably at c-3,4 spinal cord at the cervical level. The shoulder shrug is intact. Steroids should be stopped since it is not effective and causing more complications. PLAN: 1. MRI of the cervical spine. 2. Stop the decadron. 3. The patient should have a good bowel clearance. 4. Per Dr. Wilson. 5. Continue to treat deep venous thrombosis prevention. 6. The patient thinks he has actually improved somewhat probably after the second surgery. Prognosis, however, may be guarded. Thank you for this interesting case, Dr. Wilson. Jeffrey Solorio MD DR: LATIA JOB#: [id number] CC: JAY
--- NOTE | 2018-10-30 21:20 | NUR ---
NURSE NOTES: c/o pain on operated area 06/12. Dilaudid 1 mg subcut given. Oral care and suctioning done.
--- NOTE | 2018-10-30 23:00 | NUR ---
NURSE NOTES: Remains on high solano's position. Denies pain. Breathing treatment given by RT
[2018-10-31] VITALS (24 sets, daily range): BP systolic 99–131; BP diastolic 48–68
--- NOTE | 2018-10-31 00:15 | Progress Note ---
DATE: 10/30/2018 NOTE: POOR AUDIO SUBJECTIVE: The patient is not changed from yesterday. He was complaining of some difficulty breathing, expressed to have pulmonary treatment this evening. He does not appear to have much in the way of improvement in his muscle strength or sensation. PHYSICAL EXAMINATION: VITAL SIGNS: Blood pressure is 81/65, pulse is 59, temperature is 98.8 degrees, pulse oximetry is 100% on nasal cannula. MENTAL STATUS: The patient is more awake and answers questions. CRANIAL NERVE EXAMINATION: CRANIAL NERVE II: Visual nickerson intact to confrontation. CRANIAL NERVES III, IV, AND : Extraocular motility is full. CRANIAL NERVE V: Facial and corneal sensation was intact. CRANIAL NERVE VII: Facial strength was 5/5. CRANIAL NERVE VIII: Auditory acuity was intact. CRANIAL NERVES IX AND X: Gag was decreased. CRANIAL NERVE XI: Could not be tested. CRANIAL NERVE XII: Tongue protrudes in the midline. MUSCLE EXAMINATION: He has flaccid quadriplegia. SENSORY EXAMINATION: no change. IMPRESSION: The patient is unchanged. His prognosis is guarded to poor. MRI scan of the cervical spine c-3,4 not well visualized because of susceptibility artifact. above and below the spinal cord appeared to be normal . There is prevertebral edema noted prior to surgery. No acute findings noted on the MRI enhancement is noncontributory. he has a patchy cord lesion with associated dorsal and ventral cord damage. I notified Dr. Alvarado today about the spinal cord problems. His lungs revealed some bilateral rhonchi, little worse on the right than the left. No rales could be appreciated. PLAN: 1. Maintain good and respiratory function. 2. Physical therapy consultation. Jeffrey Solorio MD DR: LATIA JOB#: [id number] CC: JAY
--- NOTE | 2018-10-31 00:30 | NUR ---
NURSE NOTES: Feels chilly; extra blankets given, Fede Hugger applied at mod heat. Sensory intact; still unable to move fingers and toes but able to shrug shoulders. Will continue to monitor neuro status
[2018-10-31] MEDS: Albuterol ud Inhalation HHN SCH ×3 (02:55→10:47)
--- NOTE | 2018-10-31 03:00 | NUR ---
NURSE NOTES: Awake and c/o pain on ant. neck area. Also c/o "something stuck on my throat" pt verbalized. RT suctioned orally, breathing treatment administered and pain med with Dilaudid 1mg subcut given. Pt anxious, demanded that he speak with his daughter Mar on the phone. Mar will call again later.
[2018-10-31] MEDS: HYDROmorphone 1mg/ml Carpuject SUBQ PRN ×5 (03:03→23:21)
--- NOTE | 2018-10-31 04:00 | NUR ---
NURSE NOTES: Pt still c/o some short of breath; O2 sat 95%; no distress otherwise, on High solano's position; O2 @ 4l/m via NC. Stat ABg done. No significant changes. Feels hot and cold.
[2018-10-31] MEDS: D5 1/2NS w/KCl 20mEq 1,000 ML IV SCH ×2 (04:37→17:49)
[2018-10-31] MEDS: Acetaminophen 650 MG SUPP RECTAL PRN ×3 (04:59→19:59)
--- NOTE | 2018-10-31 05:00 | NUR ---
NURSE NOTES: Skin hot to touch; face flushed. Temp 102.4 orally. Tylenol 650mg supp given; Tepid sponge bath given. No BM. IV site intact. Still no movement of hands and toes but feels touch. Still able to shrug shoulders. Denies choking. DB&C exercise done.
[2018-10-31] MEDS: ceFAZolin sod 1 GM in D5W 55 ML IV SCH (05:40)
--- NOTE | 2018-10-31 06:00 | NUR ---
NURSE NOTES: Ex at the bedside and concerned about the fever. Explained all the measures done to relieve it. Called GUIDO Silva of Dr Bhatia who suggested I also call the manager career, Dr Alvarado. Dr Alvarado paged twice
--- NOTE | 2018-10-31 06:30 | NUR ---
NURSE NOTES: Cooling measures continues. Temp 100.5 orally. Orders received from Dr Alvarado.
--- NOTE | 2018-10-31 07:23 | NUR ---
HAND-OFF: Report given to Shanon Ley.
--- NOTE | 2018-10-31 07:40 | NUR ---
NURSE NOTES: Report received from Myrtle Brown RN. Patient received sleeping, easily arousable to speech. No s/sx of distress with oxygen saturation of 97% on oxygen via NC at 3.5LPM. C-collar in place. SR on the monitor with rate on 60s. 2 family members at the bedside and made aware of the plans for today. With on going IVF of D5 1/2 NS with 20 mEq KCL at 75 ml/hour. With patent and intact indwelling apodaca catheter, noted yellow colored urine. Will be monitoring for fever, neuro checks as ordered. Encouraged and will do more instructions and informed on the importance on incentive spirometer. On IV abt. Repositioning done. Pending swallow eval today and will follow up on the scheduled PT. Will do passive ROM. Placed bed on lowest position. SCDs in place. Addendum: 10/31/18 at 1152 by Shanon Ley RN NURSE NOTES: Patient noted alert and oriented x4, follows commands but noted only able to move left upper extremity, very minimal movement noted. Normal sensation on left upper and left lower extremities and noted diminished sensation on right upper extremity and no noted sensation on right lower extremity. Equal and normal sensation noted on face. PERRLA, 2-3 mm in size. No visual neglect noted, follows all directions, no nystagmus noted. Able to move head with minimal movement of shoulders.
[2018-10-31 07:45] LABS: ALANINE AMINOTRANSFERASE 29 U/L (12-78); ALBUMIN 2.8 G/DL (3.4-5.0); ALBUMIN/GLOBULIN RATIO 0.9 (1.0-2.7); ALKALINE PHOSPHATASE 96 U/L (46-116); ANION GAP 3 mmol/L (5-15); ASPARTATE AMINO TRANSFERASE 24 U/L (15-37); BILIRUBIN,TOTAL 0.6 MG/DL (0.2-1.0); BLOOD UREA NITROGEN 23 mg/dL (7-18); CALCIUM 8.3 MG/DL (8.5-10.1); CARBON DIOXIDE 32 MMOL/L (21-32); CHLORIDE 100 MMOL/L (98-107); CREATININE 1.2 MG/DL (0.55-1.30); POTASSIUM 3.8 MMOL/L (3.5-5.1); SODIUM 135 MMOL/L (136-145)
[2018-10-31 07:46] LABS: HEMATOCRIT 31.5 % (42.0-52.0); MEAN CORPUSCULAR VOLUME 84 FL (80-99); PLATELET COUNT 90 K/UL (150-450); RED BLOOD COUNT 3.77 M/UL (4.70-6.10); RED CELL DISTRIBUTION WIDTH 11.4 % (11.6-14.8); WHITE BLOOD COUNT 4.6 K/UL (4.8-10.8)
--- NOTE | 2018-10-31 08:00 | NUR ---
NURSE NOTES: Incentive spirometry done and patient was able to do x5 at 600 ml level.
--- NOTE | 2018-10-31 08:31 | General Progress Note ---
Assessment/Plan Assessment/Plan Status post anterior cervical corpectomy-discectomy at C3-4 and corpectomy/ discectomy C4-5. ACDF C3-4, Disc Arthroplasty C4-5 Spinal Cord compression fevers concern for aspiration spinal cord shock PLAN post op neuro evaluation appreciated pancultures IV antibiotics ID evaluation ICU care pain control IV hydration likely will need extensive rehab swallow evaluation monitor for aspiration Subjective Allergies: Coded Allergies: No Known Allergies (Unverified , 10/28/18) Subjective seen by neuro- discussed concerns MRI ordered and reviewed had fevers Objective Last 24 Hour Vital Signs Date Time Temp Pulse Resp B/P (MAP) Pulse Ox O2 Delivery O2 Flow Rate FiO2 10/31/18 06:00 77 17 119/60 (79) 96 10/31/18 05:30 102.4 10/31/18 05:00 102.4 93 23 123/57 (79) 95 10/31/18 04:00 Nasal Cannula 2.0 10/31/18 04:00 83 15 117/50 (72) 95 10/31/18 03:04 87 20 96 Nasal Cannula 3.0 32 10/31/18 03:00 86 22 118/52 (74) 95 10/31/18 02:54 85 19 93 Nasal Cannula 2.0 28 10/31/18 02:00 86 19 109/54 (72) 96 10/31/18 01:00 74 16 103/48 (66) 96 10/31/18 00:00 100.5 69 13 102/52 (69) 95 10/31/18 00:00 Nasal Cannula 2.0 10/30/18 23:00 72 17 107/51 (69) 90 10/30/18 22:46 68 19 97 Nasal Cannula 2.0 28 10/30/18 22:36 61 15 97 Nasal Cannula 2.0 28 10/30/18 22:00 56 12 95/49 (64) 97 10/30/18 21:00 60 13 103/56 (72) 96 10/30/18 20:00 Nasal Cannula 2.0 10/30/18 20:00 98.6 55 12 94/57 (69) 92 10/30/18 19:00 57 16 98/56 (70) 91 10/30/18 18:33 99 Nasal Cannula 2.0 28 10/30/18 18:33 Nasal Cannula 2.0 28 10/30/18 18:32 51 12 99 Nasal Cannula 2.0 28 10/30/18 18:22 52 19 97 Nasal Cannula 2.0 10/30/18 18:20 52 19 Nasal Cannula 2.0 10/30/18 18:00 98.3 64 18 93/56 (68) 96 10/30/18 17:00 52 16 95/54 (68) 100 10/30/18 16:00 48 14 91/46 (61) 100 10/30/18 16:00 Nasal Cannula 2.0 10/30/18 15:00 54 16 86/50 (62) 100 10/30/18 14:00 53 13 90/54 (66) 100 10/30/18 13:00 98.8 59 12 81/65 (70) 100 10/30/18 12:00 Nasal Cannula 2.0 10/30/18 10:00 58 13 92/52 (65) 98 10/30/18 09:00 60 11 91/52 (65) 98 Intake and Output 10/30/18 10/31/18 19:00 07:00 Intake Total 730 ml 860.0 ml Output Total 475 ml 930 ml Balance 255 ml -70.0 ml Intake Oral 0 ml 0 ml IV Total 730 ml 860.0 ml Output Urine Total 475 ml 930 ml Laboratory Tests 10/30/18 10:05: White Blood Count 9.8, Red Blood Count 3.84L, Hemoglobin 11.1L, Hematocrit 32.5L , Mean Corpuscular Volume 85, Mean Corpuscular Hemoglobin 28.8, Mean Corpuscular Hemoglobin Concent 34.0, Red Cell Distribution Width 11.9, Platelet Count 105L, Mean Platelet Volume 5.9L, Neutrophils (%) (Auto) 82.1H, Lymphocytes (%) (Auto) 7.0L, Monocytes (%) (Auto) 10.5H, Eosinophils (%) (Auto) 0.0, Basophils (%) (Auto) 0.5, Sodium Level 136, Potassium Level 4.9, Chloride Level 102, Carbon Dioxide Level 30, Anion Gap 4L, Blood Urea Nitrogen 20H, Creatinine 1.0, Estimat Glomerular Filtration Rate > 60, Glucose Level 123H, Calcium Level 8.2L 10/31/18 04:11: Arterial Blood pH 7.466H, Arterial Blood Partial Pressure CO2 41.8, Arterial Blood Partial Pressure O2 79.9, Arterial Blood HCO3 29.5H, Arterial Blood Oxygen Saturation 95.5, Arterial Blood Base Excess 5.3H, Carroll Test Positive 10/31/18 06:45: White Blood Count 4.6#L, Red Blood Count 3.77L, Hemoglobin 11.0L, Hematocrit 31.5L, Mean Corpuscular Volume 84, Mean Corpuscular Hemoglobin 29.3, Mean Corpuscular Hemoglobin Concent 35.0, Red Cell Distribution Width 11.4L, Platelet Count 90L, Mean Platelet Volume 6.9, Neutrophils (%) (Auto) , Lymphocytes (%) (Auto) , Monocytes (%) (Auto) , Eosinophils (%) (Auto) , Basophils (%) (Auto) , Sodium Level 135L, Potassium Level 3.8, Chloride Level 100, Carbon Dioxide Level 32, Anion Gap 3L, Blood Urea Nitrogen 23H, Creatinine 1.2, Estimat Glomerular Filtration Rate > 60, Glucose Level 112H, Calcium Level 8.3L, Neutrophils % (Manual) [Pending], Lymphocytes % (Manual) [Pending], Platelet Estimate [Pending], Platelet Morphology [Pending], Lactic Acid Level 1.40, Total Bilirubin 0.6, Aspartate Amino Transf (AST/SGOT) 24, Alanine Aminotransferase (ALT/SGPT) 29, Alkaline Phosphatase 96, Total Protein 5.8L, Albumin 2.8L, Globulin 3.0, Albumin/Globulin Ratio 0.9L Height (Feet): 5 Height (Inches): 7.00 Weight (Pounds): 170 Objective WDWN NAD clear breath sounds bilaterally without rhonchi or wheeze [id number] without MRG NABS nontender no HSM no CCE alert and weak poor mobility of extremities Pradeep Alvarado MD Oct 31, 2018 08:31
[2018-10-31] MEDS: Cefepime HCl 1 GM in D5W 55 ML IVPB SCH ×2 (08:52→21:13)
[2018-10-31] MEDS: Vancomycin 1gm/D5W 275ml IVPB SCH ×4 (08:53→20:09)
--- NOTE | 2018-10-31 09:15 | NUR ---
NURSE NOTES: Incentive spirometry done and patient was able to have more control and was able to do 10 x at 500 ml level. Reports of dizziness noted after staring but improved per patient as compared when it was first done. He stated that breathing is better and congestion is better.
--- NOTE | 2018-10-31 09:58 | NUR ---
NURSE NOTES: Patient and family voiced out concern on the surgical wound. Called and spoke with GUIDO Ventura and made aware of the concern and that patient and family reports it has not been seen yet. GUIDO Ventura stated dressing was changed and no complication on wound. Asked if it is okay to remove collar and assess wound but not advisable at this time. Explained to family and patient and all verbalized understanding.
--- NOTE | 2018-10-31 10:16 | NUR ---
NURSE NOTES: Called Dr. Alvarado and informed on the report of feelings of anxiety, chest tightness and tingling sensations when he gets albuterol treatments and is now concern and afraid to have the medication. Education given to patient and family but requests if another medication can be administered. Awaiting for further orders. Addendum: 10/31/18 at 1102 by Shanon Ley RN NURSE NOTES: ordered Xopenex TID and DC albuterol. Patient also did IS with RT.
--- NOTE | 2018-10-31 10:54 | NUR ---
RADIOLOGY DEPT CHEST X-RAY DONE.-P.DYE
--- NOTE | 2018-10-31 11:01 | NUR ---
NURSE NOTES: Called and spoke with Dr. Alvarado because ST came and assessed pt with recommendation of Liquid pureed consistency with nectar thickened liquid. ordered okay to order diet.
--- NOTE | 2018-10-31 11:06 | NUR ---
ST NOTES: SEE SWALLOW EVAL REPORT REFERRED BY DR YU PATIENT OF DR MARIE DYSPHAGIA RISK FACTORS FOR THIS 63 Y.O.AA MALE: ADMITTED WITH DEGENERATIVE DISC DZ AND INSTABILITY AT C3-4 ACD AND F AND TDA C4-6 (SEE REPORT FOR OTHER RISKS FACTORS) H/O WORK-RELATED INJURY 03/27/15, THROAT AND NECK PAIN, OA, NEED FOR ASPEN RIGID CERVICAL COLLAR POLST AND ADVANCE DIRECTIVE NOT IN CHART REGARDING TF PRIOR TO ADMIT ON A REG DIET/THIN LIQUIDS C/O GERD AND WAS TAKING MEDS BEFORE. WANTS BLAND DIET. CURRENTLY NPO PER DR GOMEZ. GOOD DENTITION, NO THROAT PAIN DENIES SWALLOWING PROBLEMS WITH ICE CHIPS TAKEN PREVIOUSLY. ON 2 LITERS 02 NC INITIAL IMPRESSIONS S/S OF AT LEAST A MILD MOSTLY PHARYNGEAL DYSPHAGIA 3 DAYS POST SURGERY MOSTLY WITH THIN LIQUIDS APPARENT REDUCED HYOLARYNEGAL EXCURSION GIVEN SIP VIA CUP NEEDS 2 SWALLOWS TO CLEAR RESIDUE FROM THROAT NO OVERT S/S OF ASP (?SILENT RISK) BUT FEELS RESIDUE GROSSLY FUNCTIONAL WITH PUREED AND REFUSED MASTICATED SOLIDS COUGH REDUCED BUT FUNCTIONAL VOLITIONAL (NOT OBSERVED FOR SPONTANEOUS) PT SAID VOICE GURGLY YESTERDAY COUGHED OUT, NO NEED FOR SUCTION TODAY. RECOMMENDATIONS: CONSIDER MOD BARIUM SWALLOW STUDY IP OR OP IF DC TO FURTHER ASSESS SWALLOW, DETERMINE SILENT ASP RISK/ETIOLOGY, AND ATTEMPT TRIAL TX IF PO GIVEN FOR QOL, (PT WANTS TO EAT/DRINK NOW), CONSIDER INITIATING LIQUIFIED PUREED LIKE NECTAR THICK SOUP DIET AND NECTAR THICK LIQUIDS WITH POSTED ASP/REFLUX PRECAUTIONS. OK TO HAVE TSP THIN LIQUIDS IF SO DESIRES FOR QOL PURPOSES VERY TIRED (SLEEP-DEPRIVED) AND ON PAIN MEDS (NO PAIN NOW) PREFERS BLAND SOUP DIET NOT PUREED AT THIS TIME. SEND HIGH NENA SUP PER RD F/UP WITH DYSPHAGIA MANAGEMENT AND TX (SEE REPORT) D/W RN BÁRBARA, PT AND HIS RN TO CALL DR YU
--- NOTE | 2018-10-31 11:09 | Diagnostic Imaging Report ---
Indication: Cough Technique: One view of the chest Comparison: none Findings: There is some atelectasis at the right lung base. The lungs and pleural spaces are otherwise clear. Heart size is normal. Impression: Right basilar atelectasis No acute process otherwise
--- NOTE | 2018-10-31 12:20 | NUR ---
REHAB MED PT NOTE REASSESSMENT(GROSS SCREENING) AND RECOMMENDATIONS S. PATIENT VISITED AT BEDSIDE, STABLE IN NO SIGN OF DISTRESS. PATIENT STATES HE FEELS TIRED AND IS TRYING TO DEAL WITH SPASMS IN HIS BUE TRICEPS O. VITALS 112/61 78 96% O2, MMT: 5/5 SHOULDER SHRUGS, 0/5 IN ALL OTHER EXTREMITIES. UPON ASSESSING AROM OF BUE PATIENT INVOLUNTARILY EXTENDS BILATERAL UE. SENSATION: INTACT BUE AND LLE, DIMINISHED IN RIGHT LE. PROPRIOCEPTION DIMINISHED THROUGHOUT. 10/10 PAIN CENTRALIZED TO HEAD AND NECK AND UPPER TRAPS, RN NOTIFIED. MAXIMAL ASSISTANCE FOR ALL TRANSFERS AND MOBILITY. C-COLLAR INTACT, ICU MONITORING. PILLOWS PROPPED AT BUE AND BLE WITH HEEL CUSHIONS AND SCD PUMPS INTACT. A. PATIENT CURRENTLY PRESENTS WITH DECREASED MOVEMENT IN ALL EXTREMITIES EXCEPT BUE SHOULDER SHRUGS. SENSATION SEEMS TO BE IMPROVING BUT REMAINS DIMINISHED IN RIGHT LE. PATIENT HOPEFUL FOR CONTINUED PROGRESS WITH MOVEMENT AND SENSATION. PATIENT FAMILY PRESENT, ROM TRAINING FOR FAMILY COMPLETED. P. AT THIS TIME, PATIENT REMAINS LIMITED IN MOBILITY, BUT IS MOTIVATED FOR CONTINUED REHAB, RECOMMEND ACUTE REHAB FOR INTENSIVE PHYSICAL THERAPY AND FAMILY TRAINING. AT THIS TIME, PATIENT WILL BE UNDER THE CARE OF NURSING STAFF FOR COMFORT AND CARE ROM, AND BODY POSITIONING. WILL CONTINUE TO SCREEN DAILY FOR ADDITIONAL QUESTIONS THE FAMILY MAY HAVE PATIENT PROGRESSES BUT NO SKILLED PT WILL BE PERFORMED AT INPATIENT ACUTE LEVEL AT THIS TIME, UNLESS CHANGE IN FUNCTIONAL MOBILITY FULL EVAL IN ASSESSMENT SECTION OF CHART. THANK YOU MANISH AUSTIN PT DPT
[2018-10-31] MEDS: Levalbuterol Inh UD 1.25mg/0.5ml HHN SCH ×2 (13:10→19:37)
--- NOTE | 2018-10-31 13:25 | NUR ---
RD ASSESSMENT & RECOMMENDATIONS SEE CARE ACTIVITY FOR COMPLETE ASSESSMENT DAILY ESTIMATED NEEDS: Needs based on Surgery, bedbound currently 75kg 25-30 kcals/kg [id number] total kcals 1-2 g protein/kg 75-150 g total protein 25-30 mL/kg [id number] total fluid mLs NUTRITION DIAGNOSIS: Swallowing difficulty r/t cervical spinal surgery as evidenced by pt is s/p anterior cervical corpectomy-discectomy at C3-4 and corpectomy/discectomy, currently w/ cervical collar, s/p ZYGLO TECHNICIAN eval w/ recs for liquify puree texture w/ NTL. CURRENT DIET: Regular liquify puree NTL per ZYGLO TECHNICIAN PO DIET RECOMMENDATIONS: REGULAR DIET (maintain current texture as per ZYGLO TECHNICIAN) ADDITIONAL RECOMMENDATIONS: 1) Add Ensure Enlive TID w/ liquify puree diet 2) Obtain a calibrated bed scale wt as able 3) Monitor lytes daily, replete as needed 4) Consider ATIYA BID to maintain skin integrity as pt is currently bedbound - At risk for pressure related skin injuries
--- NOTE | 2018-10-31 14:00 | NUR ---
NURSE NOTES: Resting comfortably at this time. Warm to touch. Temperature of 100.4F, Tylenol suppository given as ordered. Family at bedside. Noted secretions on thoat, patient encouraged and isntructions of proper deep breathing and coughing given but patient noted with very weak cough. Apolinar SINGH was called and he suctioned patient. Patient verbalized relief. Offered but patient refused ice pack for the fever. Agreed to remove 2 covers. informed the importance of preventing or managing fever and he verbalized understanding. Also IS done every hours no 400-500 ml level. Patient reports he feels tired at this time. Repositioned to comfortable position, kept HOB elevated.
--- NOTE | 2018-10-31 15:39 | General Surgery Progress Note ---
General Surgery-Progress Note Subjective Procedure Performed ACDF C3-4, Disc Arthroplasty C4-5 Objective Last 24 Hour Vital Signs Date Time Temp Pulse Resp B/P (MAP) Pulse Ox O2 Delivery O2 Flow Rate FiO2 10/31/18 15:00 71 17 131/68 (89) 96 10/31/18 14:00 72 17 129/65 (86) 96 10/31/18 13:10 82 20 95 Nasal Cannula 2.0 28 10/31/18 13:00 66 17 123/67 (85) 96 10/31/18 12:00 Nasal Cannula 3.5 10/31/18 12:00 99.0 65 13 112/61 (78) 96 10/31/18 11:00 64 17 104/53 (70) 96 10/31/18 10:30 Nasal Cannula 10/31/18 10:30 Nasal Cannula 10/31/18 10:00 66 17 106/56 (73) 96 10/31/18 09:00 99.4 65 23 101/55 (70) 95 10/31/18 08:05 99 Nasal Cannula 2.0 28 10/31/18 08:05 Nasal Cannula 2.0 28 10/31/18 08:05 Nasal Cannula 10/31/18 08:05 Nasal Cannula 10/31/18 08:00 Nasal Cannula 3.5 10/31/18 08:00 100.0 93 23 99/51 (67) 95 10/31/18 07:18 102.4 10/31/18 07:00 77 17 99/50 (66) 96 10/31/18 06:00 77 17 119/60 (79) 96 10/31/18 05:30 102.4 10/31/18 05:00 102.4 93 23 123/57 (79) 95 10/31/18 04:00 Nasal Cannula 2.0 10/31/18 04:00 83 15 117/50 (72) 95 10/31/18 03:04 87 20 96 Nasal Cannula 3.0 32 10/31/18 03:00 86 22 118/52 (74) 95 10/31/18 02:54 85 19 93 Nasal Cannula 2.0 28 10/31/18 02:00 86 19 109/54 (72) 96 10/31/18 01:00 74 16 103/48 (66) 96 10/31/18 00:00 100.5 69 13 102/52 (69) 95 10/31/18 00:00 Nasal Cannula 2.0 10/30/18 23:00 72 17 107/51 (69) 90 10/30/18 22:46 68 19 97 Nasal Cannula 2.0 28 10/30/18 22:36 61 15 97 Nasal Cannula 2.0 28 10/30/18 22:00 56 12 95/49 (64) 97 10/30/18 21:00 60 13 103/56 (72) 96 10/30/18 20:00 Nasal Cannula 2.0 10/30/18 20:00 98.6 55 12 94/57 (69) 92 10/30/18 19:00 57 16 98/56 (70) 91 10/30/18 18:33 99 Nasal Cannula 2.0 28 10/30/18 18:33 Nasal Cannula 2.0 28 10/30/18 18:32 51 12 99 Nasal Cannula 2.0 28 10/30/18 18:22 52 19 97 Nasal Cannula 2.0 10/30/18 18:20 52 19 Nasal Cannula 2.0 10/30/18 18:00 98.3 64 18 93/56 (68) 96 10/30/18 17:00 52 16 95/54 (68) 100 10/30/18 16:00 48 14 91/46 (61) 100 10/30/18 16:00 Nasal Cannula 2.0 I&O Intake and Output 10/30/18 10/31/18 19:00 07:00 Intake Total 730 ml 935.0 ml Output Total 475 ml 1005 ml Balance 255 ml -70.0 ml Intake Oral 0 ml 0 ml IV Total 730 ml 935.0 ml Output Urine Total 475 ml 1005 ml Laboratory Tests Test 10/31/18 04:11 10/31/18 06:45 Arterial Blood pH 7.466 (7.350-7.450) Arterial Blood Partial Pressure CO2 41.8 mmHg (35.0-45.0) Arterial Blood Partial Pressure O2 79.9 mmHg (75.0-100.0) Arterial Blood HCO3 29.5 mmol/L (22.0-26.0) H Arterial Blood Oxygen Saturation 95.5 % (95-100) Arterial Blood Base Excess 5.3 (-2-2) H Carroll Test Positive White Blood Count 4.6 K/UL (4.8-10.8) #L Red Blood Count 3.77 M/UL (4.70-6.10) L Hemoglobin 11.0 G/DL (14.2-18.0) L Hematocrit 31.5 % (42.0-52.0) L Mean Corpuscular Volume 84 FL (80-99) Mean Corpuscular Hemoglobin 29.3 PG (27.0-31.0) Mean Corpuscular Hemoglobin Concent 35.0 G/DL (32.0-36.0) Red Cell Distribution Width 11.4 % (11.6-14.8) L Platelet Count 90 K/UL (150-450) L Mean Platelet Volume 6.9 FL (6.5-10.1) Neutrophils (%) (Auto) % (45.0-75.0) Lymphocytes (%) (Auto) % (20.0-45.0) Monocytes (%) (Auto) % (1.0-10.0) Eosinophils (%) (Auto) % (0.0-3.0) Basophils (%) (Auto) % (0.0-2.0) Differential Total Cells Counted 100 Neutrophils % (Manual) 84 % (45-75) H Lymphocytes % (Manual) 10 % (20-45) L Monocytes % (Manual) 6 % (1-10) Eosinophils % (Manual) 0 % (0-3) Basophils % (Manual) 0 % (0-2) Band Neutrophils 0 % (0-8) Platelet Estimate Decreased L Platelet Morphology Normal Hypochromasia 1+ Sodium Level 135 MMOL/L (136-145) L Potassium Level 3.8 MMOL/L (3.5-5.1) Chloride Level 100 MMOL/L (98-107) Carbon Dioxide Level 32 MMOL/L (21-32) Anion Gap 3 mmol/L (5-15) L Blood Urea Nitrogen 23 mg/dL (7-18) H Creatinine 1.2 MG/DL (0.55-1.30) Estimat Glomerular Filtration Rate > 60 mL/min (>60) Glucose Level 112 MG/DL (74-106) H Lactic Acid Level 1.40 mmol/L (0.4-2.0) Calcium Level 8.3 MG/DL (8.5-10.1) L Total Bilirubin 0.6 MG/DL (0.2-1.0) Aspartate Amino Transf (AST/SGOT) 24 U/L (15-37) Alanine Aminotransferase (ALT/SGPT) 29 U/L (12-78) Alkaline Phosphatase 96 U/L (46-116) Total Protein 5.8 G/DL (6.4-8.2) L Albumin 2.8 G/DL (3.4-5.0) L Globulin 3.0 g/dL Albumin/Globulin Ratio 0.9 (1.0-2.7) L Additional Comments Patient had feaver spike this AM and is being addressed by Dr. Alvarado. His overall neurological status has not changed. 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 Assessment Post-op Diagnosis Spinal Cord compression Leoncio Ventura Oct 31, 2018 15:39
--- NOTE | 2018-10-31 16:00 | NUR ---
NURSE NOTES: Patient's fever improved with current temperature of 99.5F. Sponge bath given. Oral care done. Done IS with noted improved result. Was able to do 600-800ml level. Patient reports lesser dizziness when doing IS. Denies pain at this time. Patient still refuses ice compress and agreed to remove blanket. Seen on rounds by GUIDO Ventura and he was made aware that patient has been having temperature and asked if it will benefit patient from Tylenol RTC since after surgery with instruction to ask Dr. Small. Also informed that there is no noted BM since admission, no new order at this time. He added will monitor and will plan to give suppository if needed but not at this time. Also informed on the secretions after nasotracheal suctioning. With order to keep HOB atleast 45 degrees to help facilitate lung expansion. Also instructed to call Dr. small if MD may add saline HHN every 4 hours in between current HHN therapy.
--- NOTE | 2018-10-31 16:06 | NUR ---
CASE MANAGEMENT:REVIEW 10/31/18 SI: POD #3 S/P DISC ARTHROPLASTY AND DECOMPRESSION 102.4 93 99/51 95% ON 3.5L/NC H/H-11.0/31.5 PLT-90 BUN+23 PH+7.466 HCO3+29.5 IS: XOPENEX HHN TID IV CEFEPIME Q12 IV VANCOMYCIN Q12 DILAUDID SQ Q3 TYLENOL PO Q4HRS PRN TEMP IVF@75/HR : ICU STATUS
--- NOTE | 2018-10-31 16:30 | Consultation ---
DATE OF CONSULTATION: 10/31/2018 INFECTIOUS DISEASE CONSULT: This consult for coverage of Dr. Moran. CONSULTING PHYSICIAN: Robert Ellison M.D. PRIMARY ATTENDING: Leoncio Wilson M.D. REASON FOR CONSULT: Postoperative fever, likely aspiration pneumonia. HISTORY OF PRESENT ILLNESS: This 63-year-old male admitted on 10/28/2018 for elective cervical spine surgery. On the day of admission, the patient had anterior central corpectomy and diskectomy at C3 and C4 and C4 and C5. The patient states that after operation cannot move the legs. According to neurologist, also gag was decreased. The patient developed fever since this morning with a maximum temperature of 102.4. Currently he is in ICU. PAST MEDICAL HISTORY: Work-related cervical spine injury in 2015. ALLERGIES: No known drug allergies. MEDICATIONS: Getting cefepime, vancomycin, albuterol, hydromorphone, naloxone, Zofran, metoclopramide, Tylenol. REVIEW OF SYSTEMS: [place] cold yesterday. Fever today. Denies cough, chest pain. Significant nausea, vomiting. Has Elkins catheter. Weakness especially in the lower extremities. States that he can move shoulders. PHYSICAL EXAMINATION: VITAL SIGNS: Temperature 102.4, blood pressure 119/60, pulse is 99. GENERAL APPEARANCE: No acute distress. HEAD AND NECK: Has neck collar. Getting oxygen by nasal cannula. HEART: Normal rate. LUNGS: Clear. ABDOMEN: Soft, nontender. GENITOURINARY: Has Elkins catheter. EXTREMITIES: Have no edema. 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 LABORATORIES: Sodium 135, potassium 3.8, chloride 100, bicarbonate 32, BUN 23, creatinine 1.2, glucose 112, albumin 2.8. WBC 4.6, hemoglobin 11, hematocrit 31.5, platelets 90. Blood gas showed pH of 7.466, pCO2 of 41, pO2 of 79.9. MRSA screen was negative. Chest x-ray was done today, report is pending. IMPRESSION: 1. Postoperative fever. 2. May have aspiration pneumonia. 3. Spinal cord compression, status post cervical diskectomy, corpectomy of C3-C4 and C4-C5. 4. Paraplegia. 5. spinal cord shock RECOMMENDATION: 1. We will continue with cefepime and vancomycin. 2. We will follow up chest x-ray report. 3. We will ask for UA, urine culture. At the end of my exam, I thank Dr. Wilson and Dr. Alvarado, for involving me in the care of this patient. Robert Ellison M.D. DR: TIKI JOB#: [id number] CC: JAY
--- NOTE | 2018-10-31 17:00 | NUR ---
NURSE NOTES: Patient sleepy at this time, with report that he got tired after the sponge bath. IS done with results at 400-500 ml.
--- NOTE | 2018-10-31 17:09 | General Surgery Progress Note ---
General Surgery-Progress Note Subjective Procedure Performed ACDF C3-4, Disc Arthroplasty C4-5 Objective Last 24 Hour Vital Signs Date Time Temp Pulse Resp B/P (MAP) Pulse Ox O2 Delivery O2 Flow Rate FiO2 10/31/18 15:00 71 17 131/68 (89) 96 10/31/18 14:00 72 17 129/65 (86) 96 10/31/18 13:10 82 20 95 Nasal Cannula 2.0 28 10/31/18 13:00 66 17 123/67 (85) 96 10/31/18 12:00 Nasal Cannula 3.5 10/31/18 12:00 99.0 65 13 112/61 (78) 96 10/31/18 11:00 64 17 104/53 (70) 96 10/31/18 10:30 Nasal Cannula 10/31/18 10:30 Nasal Cannula 10/31/18 10:00 66 17 106/56 (73) 96 10/31/18 09:00 99.4 65 23 101/55 (70) 95 10/31/18 08:05 99 Nasal Cannula 2.0 28 10/31/18 08:05 Nasal Cannula 2.0 28 10/31/18 08:05 Nasal Cannula 10/31/18 08:05 Nasal Cannula 10/31/18 08:00 Nasal Cannula 3.5 10/31/18 08:00 100.0 93 23 99/51 (67) 95 10/31/18 07:18 102.4 10/31/18 07:00 77 17 99/50 (66) 96 10/31/18 06:00 77 17 119/60 (79) 96 10/31/18 05:30 102.4 10/31/18 05:00 102.4 93 23 123/57 (79) 95 10/31/18 04:00 Nasal Cannula 2.0 10/31/18 04:00 83 15 117/50 (72) 95 10/31/18 03:04 87 20 96 Nasal Cannula 3.0 32 10/31/18 03:00 86 22 118/52 (74) 95 10/31/18 02:54 85 19 93 Nasal Cannula 2.0 28 10/31/18 02:00 86 19 109/54 (72) 96 10/31/18 01:00 74 16 103/48 (66) 96 10/31/18 00:00 100.5 69 13 102/52 (69) 95 10/31/18 00:00 Nasal Cannula 2.0 10/30/18 23:00 72 17 107/51 (69) 90 10/30/18 22:46 68 19 97 Nasal Cannula 2.0 28 10/30/18 22:36 61 15 97 Nasal Cannula 2.0 28 10/30/18 22:00 56 12 95/49 (64) 97 10/30/18 21:00 60 13 103/56 (72) 96 10/30/18 20:00 Nasal Cannula 2.0 10/30/18 20:00 98.6 55 12 94/57 (69) 92 10/30/18 19:00 57 16 98/56 (70) 91 10/30/18 18:33 99 Nasal Cannula 2.0 28 10/30/18 18:33 Nasal Cannula 2.0 28 10/30/18 18:32 51 12 99 Nasal Cannula 2.0 28 10/30/18 18:22 52 19 97 Nasal Cannula 2.0 10/30/18 18:20 52 19 Nasal Cannula 2.0 10/30/18 18:00 98.3 64 18 93/56 (68) 96 10/30/18 17:00 52 16 95/54 (68) 100 I&O Intake and Output 10/30/18 10/31/18 19:00 07:00 Intake Total 730 ml 935.0 ml Output Total 475 ml 1005 ml Balance 255 ml -70.0 ml Intake Oral 0 ml 0 ml IV Total 730 ml 935.0 ml Output Urine Total 475 ml 1005 ml Dressing: dry Wound: clean Drains: none Laboratory Tests Test 10/31/18 04:11 10/31/18 06:45 Arterial Blood pH 7.466 (7.350-7.450) Arterial Blood Partial Pressure CO2 41.8 mmHg (35.0-45.0) Arterial Blood Partial Pressure O2 79.9 mmHg (75.0-100.0) Arterial Blood HCO3 29.5 mmol/L (22.0-26.0) H Arterial Blood Oxygen Saturation 95.5 % (95-100) Arterial Blood Base Excess 5.3 (-2-2) H Carroll Test Positive White Blood Count 4.6 K/UL (4.8-10.8) #L Red Blood Count 3.77 M/UL (4.70-6.10) L Hemoglobin 11.0 G/DL (14.2-18.0) L Hematocrit 31.5 % (42.0-52.0) L Mean Corpuscular Volume 84 FL (80-99) Mean Corpuscular Hemoglobin 29.3 PG (27.0-31.0) Mean Corpuscular Hemoglobin Concent 35.0 G/DL (32.0-36.0) Red Cell Distribution Width 11.4 % (11.6-14.8) L Platelet Count 90 K/UL (150-450) L Mean Platelet Volume 6.9 FL (6.5-10.1) Neutrophils (%) (Auto) % (45.0-75.0) Lymphocytes (%) (Auto) % (20.0-45.0) Monocytes (%) (Auto) % (1.0-10.0) Eosinophils (%) (Auto) % (0.0-3.0) Basophils (%) (Auto) % (0.0-2.0) Differential Total Cells Counted 100 Neutrophils % (Manual) 84 % (45-75) H Lymphocytes % (Manual) 10 % (20-45) L Monocytes % (Manual) 6 % (1-10) Eosinophils % (Manual) 0 % (0-3) Basophils % (Manual) 0 % (0-2) Band Neutrophils 0 % (0-8) Platelet Estimate Decreased L Platelet Morphology Normal Hypochromasia 1+ Sodium Level 135 MMOL/L (136-145) L Potassium Level 3.8 MMOL/L (3.5-5.1) Chloride Level 100 MMOL/L (98-107) Carbon Dioxide Level 32 MMOL/L (21-32) Anion Gap 3 mmol/L (5-15) L Blood Urea Nitrogen 23 mg/dL (7-18) H Creatinine 1.2 MG/DL (0.55-1.30) Estimat Glomerular Filtration Rate > 60 mL/min (>60) Glucose Level 112 MG/DL (74-106) H Lactic Acid Level 1.40 mmol/L (0.4-2.0) Calcium Level 8.3 MG/DL (8.5-10.1) L Total Bilirubin 0.6 MG/DL (0.2-1.0) Aspartate Amino Transf (AST/SGOT) 24 U/L (15-37) Alanine Aminotransferase (ALT/SGPT) 29 U/L (12-78) Alkaline Phosphatase 96 U/L (46-116) Total Protein 5.8 G/DL (6.4-8.2) L Albumin 2.8 G/DL (3.4-5.0) L Globulin 3.0 g/dL Albumin/Globulin Ratio 0.9 (1.0-2.7) L Additional Comments Neuro: sensation intact in both uppers and [place] lowers. DTR"S: Rt. Upper Trace BR, Absent TRI, Biceps, LT Upper; 2+ BR and Biceps Absent Tr Lowers: Right Absent, [place] Tr Patella, Absent Ach. Gordon's: absent both. Assessment Post-op Diagnosis Spinal Cord compression Plan Additional Comments Patient will begin Oral intake. Dr. Alvarado following. Leoncio Ventura Oct 31, 2018 17:09
--- NOTE | 2018-10-31 18:00 | NUR ---
NURSE NOTES: Patient resting comfortably. No s/sx of distress with oxygen saturation of 97% while on nasal cannula at 4 LPM. Denies pain at this time. Repositioning done. Placed bed on lowest position. Ex- at the bedside.
--- NOTE | 2018-10-31 18:25 | NUR ---
NURSE NOTES: Called Dr. Alvarado to inform on the recommendation of GUIDO Ventura on the additional Saline HHN every 4 hours in between Xopenex. Also informed that patient still has fever and asked if patient will benefit on RTC tylenol and instructed to ask by PA. Awaiting for further orders.
--- NOTE | 2018-10-31 19:32 | NUR ---
HAND-OFF: Report given to Myrtle Brown RN. Endorsed that Dr. small was called for the recommendation of additional HHN and to ask for tylenol for the fever. Also endorsed on the order to check patient every 30 minutes. Patient has been checked every 30 minutes during shift.
--- NOTE | 2018-10-31 20:00 | NUR ---
NURSE NOTES: Received pt in no acute distress. Awake, alert, oriented x4, on high solano's position with cervical collar on.Breathing without difficulty on 3.5l/m via NC, saturating 96-98%. Anterior neck with clean and dry dressing. Denies any choking. Still with weak cough. Pt able to shrug shoulders and move upper arms but still with difficulty moving fingers and toes. Sensation on those extremities intact. PIV site on RFA and R hand intact, IVf of D51/2NS with 20meqKCL infuses at 75ml/h. NSR on the monitor. FC patent, draining good amt of urine. Skin warm to touch, temp 100.8 orally. c/O neck pain 10/10. Tylenol supp 650mg given and Dilaudid 1mg subcut given. Plan of care explained to family and pt. RT here and gave breathing tx as well as instructions on IS.
--- NOTE | 2018-10-31 22:00 | NUR ---
NURSE NOTES: remains at the bedside. Repositioned pt for comfort. Able to do IS at 750 with mod effort. Denies pain, denies choking and SOB.
[2018-11-01] VITALS (24 sets, daily range): BP systolic 98–119; BP diastolic 54–69
--- NOTE | 2018-11-01 | NUR ---
NURSE NOTES: Skin sl warm to touch, temp 99 orally. Repositioned. VSS. No SOB, no distress. Still with sensations on hands and feet but 0-1 motor.
[2018-11-01 00:28] LABS: APPEARANCE,URINE CLEAR; BILIRUBIN, URINE NEGATIVE (NEGATIVE); GLUCOSE, URINE (UA) 2+ (NEGATIVE); KETONES,URINE NEGATIVE (NEGATIVE); LEUKOCYTE ESTERASE ,URINE 1+ (NEGATIVE); NITRITE,URINE NEGATIVE (NEGATIVE); PH,URINE 7 (4.5-8.0); PROTEIN,URINE 2+ (NEGATIVE); UROBILINOGEN,URINE 4 MG/DL (0.0-1.0)
[2018-11-01 00:36] LABS: COLOR,URINE YELLOW
[2018-11-01] MEDS: HYDROmorphone 1mg/ml Carpuject SUBQ PRN ×4 (03:00→13:23)
--- NOTE | 2018-11-01 03:00 | NUR ---
NURSE NOTES: awake and c/o pain on ant neck. Op area dry and intact; cervical collar remains in place. Dilaudid 1 mg subcut given. Pt slept thereafter
--- NOTE | 2018-11-01 05:30 | NUR ---
NURSE NOTES: Awake and complete bed bath done. Oral hygiene given as well. Temp 99 orally. Rest of VS stable. Wants his pain med but explained that its not due yet. Repositioned for comfort. Skin intact, no BM. good UOP. Denies swallowing difficulty. Encouraged on the use of IS, pt able to blow up to 750x10 with mod effort.
[2018-11-01] MEDS: D5 1/2NS w/KCl 20mEq 1,000 ML IV SCH ×2 (07:00→19:40)
[2018-11-01] MEDS: Levalbuterol Inh UD 1.25mg/0.5ml HHN SCH ×3 (07:06→20:10)
--- NOTE | 2018-11-01 07:26 | NUR ---
HAND-OFF: Report given to Raquel STEVENSON.
--- NOTE | 2018-11-01 08:00 | NUR ---
NURSE NOTES: Received pt from GRAHAM Kirby Pt in no acute distress. Awake, alert, oriented x4, on high solano's position with cervical collar on.Breathing without difficulty on 3.5l/m via NC, saturating 96-98%. Anterior neck with clean and dry dressing. Denies any choking. Still with weak cough. Pt able to shrug shoulders and move upper arms but still with difficulty moving fingers and toes. Sensation on those extremities intact. PIV site on RFA and R hand intact, IVf of D51/2NS with 20meqKCL infuses at 75ml/h. NSR on the monitor. FC patent, draining good amt of urine. Skin warm to touch, temp 100.8 orally. c/O neck pain 10/10. Tylenol supp 650mg given and Dilaudid 1mg subcut given. Plan of care explained to family and pt. RT here and gave breathing tx as well as instructions on IS.
[2018-11-01] MEDS: Cefepime HCl 1 GM in D5W 55 ML IVPB SCH ×2 (09:19→21:25)
[2018-11-01] MEDS: Vancomycin 1gm/D5W 275ml IVPB SCH ×4 (09:19→19:40)
--- NOTE | 2018-11-01 09:31 | NUR ---
CASE MANAGEMENT:REVIEW 11/01/18 SI: POD #4 S/P DISC ARTHROPLASTY AND DECOMPRESSION 99.0 53 11 105/55 98% ON 3.5L/NC NO CURRENT LABS NOTED AT THIS TIME IS: XOPENEX HHN TID IV CEFEPIME Q12 IV VANCOMYCIN Q12 DILAUDID SQ Q3 TYLENOL PO Q4HRS PRN TEMP IVF@75/HR : ICU STATUS PLAN: PHYSICAL THERAPY DAILY CONTINUE TO MONITOR
--- NOTE | 2018-11-01 09:45 | NUR ---
INSURANCE CLINICALS AND REVIEWS FAXED TO [employer] T: [phone] F: [phone] CLAIM# [id number] AND [facility] [employer] SET UP OPERATOR: ENRIQUETA T: [phone] F: [phone] CLAIM#[id number]
--- NOTE | 2018-11-01 09:46 | NUR ---
REHAB MED PT NOTE SCREENING S. PATIENT VISITED AT BEDSIDE, STABLE IN NO SIGN OF DISTRESS. C-COLLAR INTACT, ICU MONITORING. PILLOWS PROPPED AT BUE AND BLE WITH HEEL CUSHIONS AND SCD PUMPS INTACT. O. VITALS 114/64 76 99%, MMT: 5/5 SHOULDER SHRUGS, 0/5 IN ALL OTHER EXTREMITIES. SENSATION: INTACT BUE AND LLE, DIMINISHED IN RIGHT LE. PROPRIOCEPTION DIMINISHED THROUGHOUT. 4/10 PAIN CENTRALIZED TO HEAD AND NECK AND UPPER TRAPS(RECENT PAIN MEDICATION ADMINISTERED), RN NOTIFIED. MAXIMAL ASSISTANCE FOR ALL TRANSFERS AND MOBILITY. A. PATIENT REMAINS LIMITED BY NEUROLOGICAL DEFICITS, STILL NO MOVEMENT IN EXTREMITIES. SENSATION INTACT HOWEVER DIMINISHED IN BLE RLE>LLE. PRESSURE RELIEF AND TURNING PROTOCOL REINFORCED P. RECOMMEND ACUTE REHAB, REHAB TEAM WILL CONTINUE TO FOLLOW MANISH AUSTIN PT DPT
--- NOTE | 2018-11-01 10:00 | NUR ---
NURSE NOTES: Fed patient, repositioned, oral care provided. Explained to him plan of care. We are in contact with his daughter via his cellphone at bedside. No concerns at the moment. will continue to monitor.
--- NOTE | 2018-11-01 10:11 | General Surgery Progress Note ---
General Surgery-Progress Note Subjective Procedure Performed ACDF C3-4, Disc Arthroplasty C4-5 Chief Complaint: i has some movement in my left toe. Objective Last 24 Hour Vital Signs Date Time Temp Pulse Resp B/P (MAP) Pulse Ox O2 Delivery O2 Flow Rate FiO2 11/01/18 07:15 62 18 96 Nasal Cannula 2.0 28 11/01/18 07:06 Nasal Cannula 4.0 36 11/01/18 07:06 97 Nasal Cannula 4.0 36 11/01/18 07:06 57 14 97 Nasal Cannula 4.0 36 11/01/18 06:00 57 10 110/62 (78) 97 11/01/18 05:00 61 11 106/59 (75) 96 11/01/18 04:00 Nasal Cannula 3.5 11/01/18 04:00 99.0 53 11 105/55 (72) 98 11/01/18 03:00 57 11 113/60 (77) 98 11/01/18 02:00 61 11 102/57 (72) 98 11/01/18 01:00 57 11 98/59 (72) 98 11/01/18 00:00 97.5 52 10 104/54 (71) 98 11/01/18 00:00 Nasal Cannula 3.5 10/31/18 23:00 55 12 101/60 (74) 97 10/31/18 22:00 59 12 113/55 (74) 97 10/31/18 21:00 61 11 113/55 (74) 98 10/31/18 20:30 100.1 10/31/18 20:00 100.8 67 17 117/55 (75) 95 10/31/18 20:00 Nasal Cannula 3.5 10/31/18 19:48 64 14 97 Nasal Cannula 4.0 36 10/31/18 19:47 36 10/31/18 19:43 95 Nasal Cannula 4.0 36 10/31/18 19:43 Nasal Cannula 4.0 36 10/31/18 19:43 66 16 Nasal Cannula 4.0 36 10/31/18 19:40 66 16 96 Nasal Cannula 4.0 36 10/31/18 19:00 64 17 114/62 (79) 96 10/31/18 18:00 66 17 123/63 (83) 96 10/31/18 17:00 66 17 114/57 (76) 96 10/31/18 16:00 99.5 69 17 129/68 (88) 92 10/31/18 16:00 63 10/31/18 16:00 Nasal Cannula 3.5 10/31/18 15:58 100.4 10/31/18 15:00 71 17 131/68 (89) 96 10/31/18 15:00 100.4 10/31/18 14:00 72 17 129/65 (86) 96 10/31/18 13:10 82 20 95 Nasal Cannula 2.0 28 10/31/18 13:00 66 17 123/67 (85) 96 10/31/18 12:00 Nasal Cannula 3.5 10/31/18 12:00 99.0 65 13 112/61 (78) 96 10/31/18 12:00 60 10/31/18 11:00 64 17 104/53 (70) 96 10/31/18 10:30 Nasal Cannula 10/31/18 10:30 Nasal Cannula 10/31/18 10:00 66 17 106/56 (73) 96 I&O Intake and Output 10/31/18 11/01/18 19:00 07:00 Intake Total 1382.416 ml 1117.500 ml Output Total 1100 ml 1195 ml Balance 282.416 ml -77.500 ml Intake Oral 60 ml IV Total 1322.416 ml 1117.500 ml Output Urine Total 1100 ml 1195 ml Dressing: dry Wound: clean Drains: none Extremities: no edema Laboratory Tests Test 10/31/18 23:00 Urine Color Yellow Urine Appearance Clear Urine pH 7 (4.5-8.0) Urine Specific [place] 1.005 (1.005-1.035) Urine Protein 2+ (NEGATIVE) H Urine Glucose (UA) 2+ (NEGATIVE) H Urine Ketones Negative (NEGATIVE) Urine Blood 2+ (NEGATIVE) H Urine Nitrite Negative (NEGATIVE) Urine Bilirubin Negative (NEGATIVE) Urine Urobilinogen 4 MG/DL (0.0-1.0) H Urine Leukocyte Esterase 1+ (NEGATIVE) H Urine RBC 10-15 /HPF (0 - 0) H Urine WBC 5-10 /HPF (0 - 0) H Urine Squamous Epithelial Cells Few /LPF (NONE/OCC) Urine Bacteria Few /HPF (NONE) Additional Comments Sensation in both upper and lower extremities intact (per patient). DTR's: absent at Biceps, Triceps, Brachioradialis, Patellar and Achilles. Babinski no response. Assessment Post-op Diagnosis Spinal Cord compression Additional Comments Dr. Alvarado managing cardiac, pulmonary and internal medicine issues. Oral feeding to begin. Requested nurse to elevate head of bed to 70 degrees (as tolerated) to improve pulmonary function. Had discussion with patient / family about motivation and outlook last night and patient is more alert and engaged today. Eyes open and asking appropriate questions. Plans for Rehabilitation are pending. Patient to remain in ICU until rehab is available. Leoncio Ventura Nov 01, 2018 10:10
--- NOTE | 2018-11-01 10:24 | Infectious Diseases Prog Note ---
Assessment/Plan Assessment/Plan antibiotics : vancomycin iv, cefepime A 1. aspiration pneumonia 2. cervical spondylosis s/p surgery 3. fever P 1. continue iv vancomycin, cefepime 2. UA and urine culture 3. sputum culture Subjective ROS Limited/Unobtainable: Yes Constitutional: Denies: fever, chills Respiratory: Reports: shortness of breath; Denies: dry cough Gastrointestinal/Abdominal: Denies: nausea, vomiting, diarrhea Musculoskeletal: Reports: pain Allergies: Coded Allergies: No Known Allergies (Unverified , 10/28/18) Objective Vital Signs Last 24 Hour Vital Signs Date Time Temp Pulse Resp B/P (MAP) Pulse Ox O2 Delivery O2 Flow Rate FiO2 11/01/18 09:52 100.0 11/01/18 07:15 62 18 96 Nasal Cannula 2.0 28 11/01/18 07:06 Nasal Cannula 4.0 36 11/01/18 07:06 97 Nasal Cannula 4.0 36 11/01/18 07:06 57 14 97 Nasal Cannula 4.0 36 11/01/18 06:00 57 10 110/62 (78) 97 11/01/18 05:00 61 11 106/59 (75) 96 11/01/18 04:00 Nasal Cannula 3.5 11/01/18 04:00 99.0 53 11 105/55 (72) 98 11/01/18 03:00 57 11 113/60 (77) 98 11/01/18 02:00 61 11 102/57 (72) 98 11/01/18 01:00 57 11 98/59 (72) 98 11/01/18 00:00 97.5 52 10 104/54 (71) 98 11/01/18 00:00 Nasal Cannula 3.5 10/31/18 23:00 55 12 101/60 (74) 97 10/31/18 22:00 59 12 113/55 (74) 97 10/31/18 21:00 61 11 113/55 (74) 98 10/31/18 20:30 100.1 10/31/18 20:00 100.8 67 17 117/55 (75) 95 10/31/18 20:00 Nasal Cannula 3.5 10/31/18 19:48 64 14 97 Nasal Cannula 4.0 36 10/31/18 19:47 36 2/28/19 19:43 95 Nasal Cannula 4.0 36 10/31/18 19:43 Nasal Cannula 4.0 36 10/31/18 19:43 66 16 Nasal Cannula 4.0 36 10/31/18 19:40 66 16 96 Nasal Cannula 4.0 36 10/31/18 19:00 64 17 114/62 (79) 96 10/31/18 18:00 66 17 123/63 (83) 96 10/31/18 17:00 66 17 114/57 (76) 96 10/31/18 16:00 99.5 69 17 129/68 (88) 92 10/31/18 16:00 63 10/31/18 16:00 Nasal Cannula 3.5 10/31/18 15:00 71 17 131/68 (89) 96 10/31/18 15:00 100.4 10/31/18 14:00 72 17 129/65 (86) 96 10/31/18 13:10 82 20 95 Nasal Cannula 2.0 28 10/31/18 13:00 66 17 123/67 (85) 96 10/31/18 12:00 Nasal Cannula 3.5 10/31/18 12:00 99.0 65 13 112/61 (78) 96 10/31/18 12:00 60 10/31/18 11:00 64 17 104/53 (70) 96 10/31/18 10:30 Nasal Cannula 10/31/18 10:30 Nasal Cannula Height (Feet): 5 Height (Inches): 7.00 Weight (Pounds): 170 HEENT: other - neck in collar, dressings Respiratory/Chest: lungs clear Cardiovascular: normal rate, regular rhythm, no gallop/murmur Abdomen: soft, non tender Extremities: no edema Laboratory Tests Test 10/31/18 23:00 Urine Color Yellow Urine Appearance Clear Urine pH 7 (4.5-8.0) Urine Specific [place] 1.005 (1.005-1.035) Urine Protein 2+ (NEGATIVE) H Urine Glucose (UA) 2+ (NEGATIVE) H Urine Ketones Negative (NEGATIVE) Urine Blood 2+ (NEGATIVE) H Urine Nitrite Negative (NEGATIVE) Urine Bilirubin Negative (NEGATIVE) Urine Urobilinogen 4 MG/DL (0.0-1.0) H Urine Leukocyte Esterase 1+ (NEGATIVE) H Urine RBC 10-15 /HPF (0 - 0) H Urine WBC 5-10 /HPF (0 - 0) H Urine Squamous Epithelial Cells Few /LPF (NONE/OCC) Urine Bacteria Few /HPF (NONE) Current Medications Medications (Trade) Dose Ordered Sig/Sharon Route PRN Reason Start Time Stop Time Status Last Admin Dose Admin Acetaminophen (Tylenol) 650 mg Q4H PRN ORAL headache or temp>101 10/28/18 23:00 11/27/18 22:59 Acetaminophen (Tylenol) 650 mg Q4H PRN RECTAL headache or temp>101 10/28/18 23:00 11/27/18 22:59 10/31/18 19:59 Acetaminophen (Tylenol) 650 mg Q6H PRN ORAL Mild Pain (Pain Scale 1-3) 10/28/18 23:00 11/27/18 22:59 Cefepime HCl 1 gm/ Dextrose 55 ml @ 110 mls/hr EVERY 12 HOURS IVPB 10/31/18 09:00 11/07/18 08:59 11/01/18 09:19 Dextrose/ Electrolytes 1,000 ml @ 75 mls/hr [id number] IV 10/28/18 22:46 11/27/18 22:45 11/01/18 07:00 Gadobutrol (Gadavist) 7.5 mmol NOW PRN IV Radiology Procedure 10/29/18 19:00 11/02/18 18:47 Hydromorphone HCl (Dilaudid) 1 mg Q3H PRN SUBQ Moderate Pain (Pain Scale 4-6) 10/30/18 16:15 11/06/18 16:14 11/01/18 09:20 Levalbuterol HCl (Xopenex) 0.63 mg TIDRT HHN 10/31/18 13:00 11/05/18 12:59 11/01/18 07:06 Metoclopramide HCl (Reglan) 10 mg Q6H PRN IVP Nausea & Vomiting 10/28/18 23:00 11/27/18 22:59 Naloxone HCl (Narcan) 0.1 mg PRN PRN IVP RR<12/min, pt unarousable 10/28/18 23:00 11/27/18 22:59 Ondansetron HCl (Zofran) 4 mg Q6H PRN IVP Nausea & Vomiting 10/28/18 23:00 11/27/18 22:59 Vancomycin HCl (Vanco rx to dose) 1 ea DAILY PRN MISC Per rx protocol 10/31/18 06:30 11/30/18 06:29 Vancomycin HCl 1 gm/Dextrose 275 ml @ 183.708 mls/hr Q12HR@0800,2000 IVPB 10/31/18 08:00 11/05/18 07:59 11/01/18 09:19 Kenyon Moran MD Nov 01, 2018 10:24
--- NOTE | 2018-11-01 12:00 | NUR ---
NURSE NOTES: Dr. Wilson rounded on patient, new orders in- will continue plan of care.
--- NOTE | 2018-11-01 14:00 | NUR ---
NURSE NOTES: Changed patients collar to soft collar via Dr. Wilson's orders. Patients vitals stable at the moment.
--- NOTE | 2018-11-01 16:00 | NUR ---
NURSE NOTES: Pt resting in bed, at bedside. VSS. Will continue plan of care.
[2018-11-01] MEDS ORDERED: NS 275ml ONE ×2 (16:40→16:44)
[2018-11-01] MEDS: Albuterol/Ipratropium 3ml neb HHN PRN (16:40)
[2018-11-01] MEDS ORDERED: Tubing IV Secondary IV ONE (16:44)
--- NOTE | 2018-11-01 19:03 | NUR ---
HAND-OFF: Report given to GRAHAM Blankenship.
--- NOTE | 2018-11-01 19:15 | NUR ---
NURSE NOTES: Report received from GRAHAM García. Pt A/Ox4, bedridden. monitoring engineer shows SR. Pt currently on 3L NC, O2 saturation @ 99%. Pt on a nectar thick diet. Elkins catheter present and draining well. No skin issues noted. Pt has a RFA20 and a RH18g with D1/2BJ82YBp running @ 75 ml/hr. Family at bedside. Bed in lowest position. Bed alarms placed. Call light within reach. Will continue to monitor and with patients plan of care.
--- NOTE | 2018-11-01 19:17 | Pulmonolgy Critical Care Note ---
Critical Care - Asmt/Plan Assessment/Plan: Pulmonary CCM Progress Note Assessment/Plan Status post anterior cervical corpectomy-discectomy at C3-4 and corpectomy/ discectomy C4-5. ACDF C3-4, Disc Arthroplasty C4-5 Spinal Cord compression fevers concern for aspiration spinal cord shock PLAN post op neuro evaluation appreciated pancultures IV antibiotics ID evaluation ICU care pain control IV hydration likely will need extensive rehab swallow evaluation monitor for aspiration Subjective Allergies: Coded Allergies: No Known Allergies (Unverified , 10/28/18) Subjective seen by neuro- discussed concerns MRI ordered and reviewed had fevers Objective Vital Signs Noted Laboratory Tests 10/30/18 10:05: White Blood Count 9.8, Red Blood Count 3.84L, Hemoglobin 11.1L, Hematocrit 32.5L , Mean Corpuscular Volume 85, Mean Corpuscular Hemoglobin 28.8, Mean Corpuscular Hemoglobin Concent 34.0, Red Cell Distribution Width 11.9, Platelet Count 105L, Mean Platelet Volume 5.9L, Neutrophils (%) (Auto) 82.1H, Lymphocytes (%) (Auto) 7.0L, Monocytes (%) (Auto) 10.5H, Eosinophils (%) (Auto) 0.0, Basophils (%) (Auto) 0.5, Sodium Level 136, Potassium Level 4.9, Chloride Level 102, Carbon Dioxide Level 30, Anion Gap 4L, Blood Urea Nitrogen 20H, Creatinine 1.0, Estimat Glomerular Filtration Rate > 60, Glucose Level 123H, Calcium Level 8.2L 10/31/18 04:11: Arterial Blood pH 7.466H, Arterial Blood Partial Pressure CO2 41.8, Arterial Blood Partial Pressure O2 79.9, Arterial Blood HCO3 29.5H, Arterial Blood Oxygen Saturation 95.5, Arterial Blood Base Excess 5.3H, Carroll Test Positive 10/31/18 06:45: White Blood Count 4.6#L, Red Blood Count 3.77L, Hemoglobin 11.0L, Hematocrit 31.5L, Mean Corpuscular Volume 84, Mean Corpuscular Hemoglobin 29.3, Mean Corpuscular Hemoglobin Concent 35.0, Red Cell Distribution Width 11.4L, Platelet Count 90L, Mean Platelet Volume 6.9, Neutrophils (%) (Auto) , Lymphocytes (%) (Auto) , Monocytes (%) (Auto) , Eosinophils (%) (Auto) , Basophils (%) (Auto) , Sodium Level 135L, Potassium Level 3.8, Chloride Level 100, Carbon Dioxide Level 32, Anion Gap 3L, Blood Urea Nitrogen 23H, Creatinine 1.2, Estimat Glomerular Filtration Rate > 60, Glucose Level 112H, Calcium Level 8.3L, Neutrophils % (Manual) [Pending], Lymphocytes % (Manual) [Pending], Platelet Estimate [Pending], Platelet Morphology [Pending], Lactic Acid Level 1.40, Total Bilirubin 0.6, Aspartate Amino Transf (AST/SGOT) 24, Alanine Aminotransferase (ALT/SGPT) 29, Alkaline Phosphatase 96, Total Protein 5.8L, Albumin 2.8L, Globulin 3.0, Albumin/Globulin Ratio 0.9L Height (Feet): 5 Height (Inches): 7.00 Weight (Pounds): 170 Objective WDWN NAD clear breath sounds bilaterally without rhonchi or wheeze [id number] without MRG NABS nontender no HSM no CCE alert and weak poor mobility of extremities Critical Care - Objective Last 24 Hour Vital Signs Date Time Temp Pulse Resp B/P (MAP) Pulse Ox O2 Delivery O2 Flow Rate FiO2 11/01/18 19:00 65 14 105/62 (76) 97 11/01/18 18:00 68 14 111/58 (75) 97 11/01/18 17:00 62 10 106/68 (81) 97 11/01/18 16:51 68 14 99 Nasal Cannula 3.0 32 11/01/18 16:41 60 16 97 Room Air 3.0 32 11/01/18 16:00 Nasal Cannula 3.5 11/01/18 16:00 98.2 60 12 110/57 (74) 98 11/01/18 15:00 68 10 100/69 (79) 97 11/01/18 14:00 70 10 99/66 (77) 97 11/01/18 13:52 98.9 11/01/18 13:00 66 10 102/65 (77) 97 11/01/18 12:10 59 18 97 Nasal Cannula 2.0 28 11/01/18 12:00 58 18 98 Nasal Cannula 2.0 28 11/01/18 12:00 98.7 69 12 105/57 (73) 98 11/01/18 12:00 Nasal Cannula 3.5 11/01/18 11:00 66 10 100/65 (77) 97 11/01/18 10:00 70 14 112/62 (79) 97 11/01/18 09:52 100.0 11/01/18 09:00 65 12 115/67 (83) 97 11/01/18 08:00 Nasal Cannula 3.5 11/01/18 08:00 99.0 67 12 102/55 (71) 98 11/01/18 07:15 62 18 96 Nasal Cannula 2.0 28 11/01/18 07:06 Nasal Cannula 4.0 36 11/01/18 07:06 97 Nasal Cannula 4.0 36 11/01/18 07:06 57 14 97 Nasal Cannula 4.0 36 11/01/18 07:00 62 10 99/59 (72) 97 11/01/18 06:00 57 10 110/62 (78) 97 11/01/18 05:00 61 11 106/59 (75) 96 11/01/18 04:00 Nasal Cannula 3.5 11/01/18 04:00 99.0 53 11 105/55 (72) 98 11/01/18 03:00 57 11 113/60 (77) 98 11/01/18 02:00 61 11 102/57 (72) 98 11/01/18 01:00 57 11 98/59 (72) 98 11/01/18 00:00 97.5 52 10 104/54 (71) 98 11/01/18 00:00 Nasal Cannula 3.5 10/31/18 23:00 55 12 101/60 (74) 97 10/31/18 22:00 59 12 113/55 (74) 97 10/31/18 21:00 61 11 113/55 (74) 98 10/31/18 20:30 100.1 10/31/18 20:00 100.8 67 17 117/55 (75) 95 10/31/18 20:00 Nasal Cannula 3.5 10/31/18 19:48 64 14 97 Nasal Cannula 4.0 36 10/31/18 19:47 36 10/31/18 19:43 95 Nasal Cannula 4.0 36 10/31/18 19:43 Nasal Cannula 4.0 36 10/31/18 19:43 66 16 Nasal Cannula 4.0 36 10/31/18 19:40 66 16 96 Nasal Cannula 4.0 36 Micro: Microbiology Date/Time Source Procedure Growth Status 10/31/18 07:00 Blood Blood Culture - Preliminary NO GROWTH AFTER 24 HOURS Resulted 10/31/18 06:45 Blood Blood Culture - Preliminary NO GROWTH AFTER 24 HOURS Resulted Critical Care - Subjective ROS Limited/Unobtainable: No FI02: 32 Sputum Amount: None I&O: Intake and Output 10/31/18 11/01/18 19:00 07:00 Intake Total 1382.416 ml 1117.500 ml Output Total 1100 ml 1295 ml Balance 282.416 ml -177.500 ml Intake Oral 60 ml IV Total 1322.416 ml 1117.500 ml Output Urine Total 1100 ml 1295 ml Ho Painter MD Nov 01, 2018 19:17
--- NOTE | 2018-11-01 20:30 | NUR ---
NURSE NOTES: Temperature rechecked. Continues to stay at 102. Cooling measures applied. VSS otherwise. Will continue to monitor.
--- NOTE | 2018-11-01 22:00 | NUR ---
NURSE NOTES: Temperature now down to 100.1. Oral care provided. All needs were met. Daughter at bedside. VSS. Will continue to monitor.
[2018-11-02] VITALS (24 sets, daily range): BP systolic 102–123; BP diastolic 53–72
--- NOTE | 2018-11-02 | NUR ---
NURSE NOTES: Pt continues with elevated temp. Tylenol administered. Cooling measures applied. VSS otherwise.
--- NOTE | 2018-11-02 02:00 | NUR ---
NURSE NOTES: Pt awake and alert. Bed wilkins provided for excretion. States he is experiencing nausea once more. Will administer zofran once due. Addendum: 11/02/18 at 0230 by Felisa Zavala RN NOTE FOR INCORRECT PATIENT.
--- NOTE | 2018-11-02 02:15 | Progress Note ---
DATE: 11/01/2018 NOTE: POOR AUDIO SUBJECTIVE: The patient has not changed. Still cannot move except for shoulder shrugs. The patient has fevers and has been put on antibiotics by Dr. Alvarado. Lactic acid on 10/31/2018 was 1.4. The patient's chest x-ray on 10/31/2018 revealed some atelectasis in the right lung base. has been normal. PHYSICAL EXAMINATION: VITAL SIGNS: Temperature is 99 degrees, pulse rate is 53, respiratory rate is 11, pulse oximetry is 98% on nasal cannula, the blood pressure is 110/62. MENTAL STATUS: The patient is alert and . The patient has been able to spell world forwards and backwards. from the ICU. CRANIAL NERVE EXAMINATION: CRANIAL NERVE II: Visual nickerson intact to confrontation. CRANIAL NERVES III, IV, AND : Extraocular motility is full. Pupils approximately 3 mm, round, reactive to light. CRANIAL NERVE V: Corneal and facial sensations are intact. CRANIAL NERVE VII: Facial strength is 5/5. CRANIAL NERVE VIII: Auditory acuity is intact. CRANIAL NERVES IX AND X: Gag was decreased. CRANIAL NERVE XI: Could not be tested. CRANIAL NERVE XII: Tongue protrudes in the midline without fasciculations or atrophy. MUSCLE EXAMINATION: He has flaccid quadriplegia except for shoulder shrug. SENSORY EXAMINATION: toes are positive for Babinski response. The patient states he can feel touching, but he has a sensory level still about on the left, little bit higher on the right. There is no pain sensation in the extremities. IMPRESSION: Spinal shock at C3-C4 level. The patient is unchanged. I think he may be developing ICU delirium, probably related to his infection and/or ICU psychosis. We will have to watch this. The patient is not a candidate of a skilled rehabilitation at this point because of possible infection. PLAN: 1. As above. 2. I explained . Jeffrey Solorio MD DR: LATIA JOB#: [id number] CC:
--- NOTE | 2018-11-02 02:30 | NUR ---
NURSE NOTES: Pt resting comfortably. Continuing cooling measures. Temperature remains elevated after tylenol. Resting comfortably. Will continue to monitor.
[2018-11-02] MEDS: Vancomycin 1gm/D5W 275ml IVPB SCH ×4 (05:07→12:38)
--- NOTE | 2018-11-02 05:15 | NUR ---
NURSE NOTES: After cleaning pt, O2 saturation dropped down to 81%. Pt states he felt fine and no SOB. Pt placed on venturi mask 15 L @ 45%. Will continue to monitor.
--- NOTE | 2018-11-02 06:00 | NUR ---
NURSE NOTES: Pt resting comfortably. Pain medication given. Currently on venturi mask 15 L @ 45%. O2 saturation @ 96%. Shows no signs of distress. VSS. Will continue to monitor.
[2018-11-02] MEDS: Levalbuterol Inh UD 1.25mg/0.5ml HHN SCH ×3 (06:54→19:25)
--- NOTE | 2018-11-02 07:15 | NUR ---
NURSE NOTES: Report received from GRAHAM DRISCOLL. Pt A/Ox4, bedridden, drowsy. awake to name and light shaking. environmental monitoring technician SR. Pt currently on venturi mask 15L 45% 99%. Pt on a nectar thick diet. request lots of fluid for thirst. Elkins catheter present and draining well, dark kahlil urine. skin- surgical wound, dressing minimal drainage. Pt has a RFA 20G and a RT Hand 18G with D1/2NS +20KCl running @ 75 ml/hr. Bed in lowest position. Bed alarms placed. Call light within reach. Will continue to monitor and with patients plan of care.
[2018-11-02] MEDS: D5 1/2NS w/KCl 20mEq 1,000 ML IV SCH ×2 (08:32→21:01)
[2018-11-02] MEDS: Cefepime HCl 1 GM in D5W 55 ML IVPB SCH ×2 (08:38→21:27)
--- NOTE | 2018-11-02 09:00 | NUR ---
NURSE NOTES: temperature now down to 100. Oral care provided. All needs were met. VSS. Will continue to monitor.
--- NOTE | 2018-11-02 09:14 | General Surgery Progress Note ---
General Surgery-Progress Note Subjective Procedure Performed ACDF C3-4, Disc Arthroplasty C4-5 Additional Comments having pulmonary issues. Objective Last 24 Hour Vital Signs Date Time Temp Pulse Resp B/P (MAP) Pulse Ox O2 Delivery O2 Flow Rate FiO2 11/02/18 06:56 62 16 98 Venturi Mask 10.0 45 11/02/18 06:54 Venturi Mask 10.0 45 11/02/18 06:54 97 Nasal Cannula 14.0 55 11/02/18 06:50 54 16 97 Venturi Mask 14.0 55 11/02/18 06:23 99.4 11/02/18 06:23 99.4 11/02/18 06:00 99.4 65 13 119/60 (79) 96 11/02/18 05:00 66 16 120/66 (84) 87 11/02/18 04:00 Nasal Cannula 3.5 11/02/18 04:00 59 11/02/18 04:00 52 14 109/60 (76) 97 11/02/18 03:00 52 12 117/72 (87) 98 11/02/18 02:00 54 9 118/62 (80) 98 11/02/18 01:00 61 10 108/55 (72) 97 11/02/18 00:00 Nasal Cannula 3.5 11/02/18 00:00 69 11/02/18 00:00 100.1 63 10 118/61 (80) 97 11/01/18 23:00 102.0 63 11 119/63 (81) 98 11/01/18 22:00 100.4 67 13 118/62 (80) 98 11/01/18 21:00 102.1 67 10 117/59 (78) 97 11/01/18 20:21 66 18 99 Nasal Cannula 2.0 28 11/01/18 20:10 64 16 98 Nasal Cannula 3.0 32 11/01/18 20:10 Nasal Cannula 3.0 32 11/01/18 20:10 98 Nasal Cannula 3.0 32 11/01/18 20:00 Nasal Cannula 3.5 11/01/18 20:00 65 11/01/18 20:00 68 12 111/58 (75) 97 11/01/18 19:00 65 14 105/62 (76) 97 11/01/18 18:00 68 14 111/58 (75) 97 11/01/18 17:00 62 10 106/68 (81) 97 11/01/18 16:51 68 14 99 Nasal Cannula 3.0 32 11/01/18 16:41 60 16 97 Room Air 3.0 32 11/01/18 16:00 Nasal Cannula 3.5 11/01/18 16:00 98.2 60 12 110/57 (74) 98 11/01/18 15:00 68 10 100/69 (79) 97 11/01/18 14:00 70 10 99/66 (77) 97 11/01/18 13:00 66 10 102/65 (77) 97 11/01/18 12:10 59 18 97 Nasal Cannula 2.0 28 11/01/18 12:00 58 18 98 Nasal Cannula 2.0 28 11/01/18 12:00 98.7 69 12 105/57 (73) 98 11/01/18 12:00 Nasal Cannula 3.5 11/01/18 11:00 66 10 100/65 (77) 97 11/01/18 10:00 70 14 112/62 (79) 97 11/01/18 09:52 100.0 I&O Intake and Output 11/01/18 11/02/18 19:00 07:00 Intake Total 1105.000 ml 1380.000 ml Output Total 1040 ml 1500 ml Balance 65.000 ml -120.000 ml Intake Oral 250 ml IV Total 855.000 ml 1380.000 ml Output Urine Total 1040 ml 1500 ml Dressing: dry Wound: clean Drains: none Laboratory Tests Test 11/01/18 18:49 Vancomycin Level Trough 8.0 ug/mL (5.0-12.0) Additional Comments Random movement (flexion) Left Great toe, not on command. Sensation present in both uppers and left lower. decreased in right low leg. DTR"s 1+ Right upper, 2+ Left upper Trace Left lower, absent Right lower, Babinski non reactive. Assessment Post-op Diagnosis Spinal Cord compression Additional Comments Lorenzo Ma Michael PA Nov 02, 2018 09:14
--- NOTE | 2018-11-02 09:24 | NUR ---
NURSE NOTES: pt c/o pain 10/10 neck sharp to shoulders. Dilaudid 2mg ivp q3hr.
--- NOTE | 2018-11-02 12:30 | NUR ---
NURSE NOTES: Pt resting comfortably. Continuing cooling measures. Temperature remains elevated after tylenol. Resting comfortably. Will continue to monitor.
--- NOTE | 2018-11-02 12:30 | General Progress Note ---
Assessment/Plan Problem List: (1) Weakness ICD Codes: R53.1 - Weakness SNOMED: 93232692 (2) Cervical spine arthritis ICD Codes: M47.812 - Spondylosis without myelopathy or radiculopathy, cervical region SNOMED: 602677735 (3) Cervical disc disorder ICD Codes: M50.90 - Cervical disc disorder, unspecified, unspecified cervical region SNOMED: 402320825 Status: stable, not improved Assessment/Plan resp care o2 pain rx ivf spine follow up Subjective ROS Limited/Unobtainable: No Constitutional: Reports: weakness HEENT: Reports: no symptoms Cardiovascular: Reports: no symptoms Respiratory: Reports: no symptoms Gastrointestinal/Abdominal: Reports: no symptoms Genitourinary: Reports: no symptoms Neurologic/Psychiatric: Reports: no symptoms Endocrine: Reports: no symptoms Hematologic/Lymphatic: Reports: no symptoms Allergies: Coded Allergies: No Known Allergies (Unverified , 10/28/18) All Systems: reviewed and negative except above Subjective c/o pain in the shoulders and arms. still unable to move arms or legs. Objective Last 24 Hour Vital Signs Date Time Temp Pulse Resp B/P (MAP) Pulse Ox O2 Delivery O2 Flow Rate FiO2 11/02/18 06:56 62 16 98 Venturi Mask 10.0 45 11/02/18 06:54 Venturi Mask 10.0 45 11/02/18 06:54 97 Nasal Cannula 14.0 55 11/02/18 06:50 54 16 97 Venturi Mask 14.0 55 11/02/18 06:23 99.4 11/02/18 06:23 99.4 11/02/18 06:00 99.4 65 13 119/60 (79) 96 11/02/18 05:00 66 16 120/66 (84) 87 11/02/18 04:00 Nasal Cannula 3.5 11/02/18 04:00 59 11/02/18 04:00 52 14 109/60 (76) 97 11/02/18 03:00 52 12 117/72 (87) 98 11/02/18 02:00 54 9 118/62 (80) 98 11/02/18 01:00 61 10 108/55 (72) 97 11/02/18 00:00 Nasal Cannula 3.5 11/02/18 00:00 69 11/02/18 00:00 100.1 63 10 118/61 (80) 97 11/01/18 23:00 102.0 63 11 119/63 (81) 98 11/01/18 22:00 100.4 67 13 118/62 (80) 98 11/01/18 21:00 102.1 67 10 117/59 (78) 97 11/01/18 20:21 66 18 99 Nasal Cannula 2.0 28 11/01/18 20:10 64 16 98 Nasal Cannula 3.0 32 11/01/18 20:10 Nasal Cannula 3.0 32 11/01/18 20:10 98 Nasal Cannula 3.0 32 11/01/18 20:00 Nasal Cannula 3.5 11/01/18 20:00 65 11/01/18 20:00 68 12 111/58 (75) 97 11/01/18 19:00 65 14 105/62 (76) 97 11/01/18 18:00 68 14 111/58 (75) 97 11/01/18 17:00 62 10 106/68 (81) 97 11/01/18 16:51 68 14 99 Nasal Cannula 3.0 32 11/01/18 16:41 60 16 97 Room Air 3.0 32 11/01/18 16:00 Nasal Cannula 3.5 11/01/18 16:00 98.2 60 12 110/57 (74) 98 11/01/18 15:00 68 10 100/69 (79) 97 11/01/18 14:00 70 10 99/66 (77) 97 11/01/18 13:00 66 10 102/65 (77) 97 Intake and Output 11/01/18 11/02/18 19:00 07:00 Intake Total 1105.000 ml 1380.000 ml Output Total 1040 ml 1500 ml Balance 65.000 ml -120.000 ml Intake Oral 250 ml IV Total 855.000 ml 1380.000 ml Output Urine Total 1040 ml 1500 ml Laboratory Tests 11/01/18 18:49: Vancomycin Level Trough 8.0 Height (Feet): 5 Height (Inches): 7.00 Weight (Pounds): 170 General Appearance: WD/WN, alert Neck: supple Cardiovascular: normal rate Respiratory/Chest: chest wall non-tender, lungs clear, normal breath sounds Abdomen: normal bowel sounds, non tender, soft, no organomegaly Edema: no edema noted Arm (L), no edema noted Arm (R), no edema noted Leg (L), no edema noted Leg (R), no edema noted Pedal (L), no edema noted Pedal (R), no edema noted Generalized Neurologic: no motor/sensory deficits Terrance Donahue MD Nov 02, 2018 12:30
--- NOTE | 2018-11-02 14:02 | NUR ---
NURSE NOTES: pt c/o pain 10/10 neck sharp to shoulders. Dilaudid 2mg ivp q3hr.
[2018-11-02 14:52] LABS: HEMATOCRIT 29.4 % (42.0-52.0); HEMOGLOBIN 10.4 G/DL (14.2-18.0); MEAN CORPUSCULAR VOLUME 83 FL (80-99); PLATELET COUNT 99 K/UL (150-450); RED BLOOD COUNT 3.54 M/UL (4.70-6.10); RED CELL DISTRIBUTION WIDTH 11.2 % (11.6-14.8)
--- NOTE | 2018-11-02 16:00 | NUR ---
NURSE NOTES: cleaning and lying pt supine, O2 saturation dropped down to 86%. Pt states he feels SOB. Pt placed on venturi mask 15 L @ 100%. pt c/o cervical collar too big and causing pain around neck and ears. will contact central supply, closed early. Will continue to monitor.
[2018-11-02 17:08] LABS: ALANINE AMINOTRANSFERASE 178 U/L (12-78); ALBUMIN 2.2 G/DL (3.4-5.0); ALBUMIN/GLOBULIN RATIO 0.8 (1.0-2.7); ALKALINE PHOSPHATASE 277 U/L (46-116); ANION GAP 5 mmol/L (5-15); ASPARTATE AMINO TRANSFERASE 82 U/L (15-37); BILIRUBIN,TOTAL 3.6 MG/DL (0.2-1.0); BLOOD UREA NITROGEN 19 mg/dL (7-18); CALCIUM 8.2 MG/DL (8.5-10.1); CARBON DIOXIDE 30 MMOL/L (21-32); CHLORIDE 99 MMOL/L (98-107); POTASSIUM 4.4 MMOL/L (3.5-5.1); SODIUM 134 MMOL/L (136-145)
[2018-11-02 17:32] LABS: BILIRUBIN,DIRECT 2.6 MG/DL (0.0-0.3)
--- NOTE | 2018-11-02 20:07 | NUR ---
HAND-OFF: Report given to ellie. pt in no acute distress.:
--- NOTE | 2018-11-02 20:16 | NUR ---
NURSE NOTES: Report received from GRAHAM Porter. Pt awake, alert X4, able to verbalize needs to staff. family member at bedside.embedded software programmer SR 77. Pt currently on venturi mask 15L 45% 99%. Pt on a nectar thick diet. complained of 8/10 neck and shoulder pain repositioned and talk therapy provided not effective, Dilaudid 2mg IVP given. Temp 98.4 axillary. Elkins catheter present and draining well, dark kahlil urine. cervical collar checked. HOB elevated. Pt has a RFA 20G and a RT Hand 18G with D1/2NS +20KCl running @ 75 ml/hr. Bed in lowest position. Bed alarms placed. Call light within reach. Will continue to monitor plan of care.
--- NOTE | 2018-11-02 20:42 | NUR ---
NURSE NOTES: Patient in bed awake, denies any pain or discomfort at this time. Family at bedside patients ate 25% dinner tolerated well, no coughing. HOB elevated. Patient able to use incentive spirometer X10 , volume 500ml. Oral care done. Will continue plan of care.
--- NOTE | 2018-11-02 22:32 | NUR ---
NURSE NOTES: Temp 101.2 oral Tylenol 650mg given, cooling measure provided. Will continue to monitor patient.
[2018-11-02] MEDS: Vancomycin 1.5gm/D5W 275ml IVPB SCH ×2 (23:00)
--- NOTE | 2018-11-02 23:00 | NUR ---
NURSE NOTES: Recheck Temp 99.0 oral, offered ice chips. Encouraged patient to verbalize needs, fears and feelings to staff. at bedside. Offered to repositioned patient, per patient he is okay, Inform patient and to call when patient wants to repositioned. Frequent visual checks continued.
[2018-11-03] VITALS (23 sets, daily range): BP systolic 100–128; BP diastolic 53–66
--- NOTE | 2018-11-03 00:37 | NUR ---
NURSE NOTES: Temp 100.2 oral, offered ice chips and cooling measure continue. Removed socks and offered Fan. patient awake,alert denies any pain or discomfort. No s/s of acute distress noted. On Oxygen 2L N/C satting 98%. HOB elevated. Skin warm to dry to touch. Patient and refused turning and repositioning and cooling blanket explained the importance v/s the risk and benefits per and patient later. Will continue to monitor patient and plan of care.
--- NOTE | 2018-11-03 01:09 | NUR ---
NURSE NOTES: Patient complained of 8/10- neck and shoulder pain, repositioned, TV and talk therapy provided not effective. Dilaudid 2mg IVP given BP 122/59 HR 66 Resp 16. Will continue to monitor patient.
--- NOTE | 2018-11-03 01:30 | Progress Note ---
DATE: 11/02/2018 SUBJECTIVE: The patient desaturated last night and is on a gentle mask, cause of which is unclear and otherwise is unchanged. PHYSICAL EXAMINATION: VITAL SIGNS: His temperature is 99.4. Pulse oximetry is 97 on the Venturi mask at 14 liters/min. FiO2 is 55%. Pulse rate is 65. Respiratory rate is 14. Blood pressure earlier at 6 a.m. is 119/60. MENTAL STATUS: Little bit lethargic. The patient is taking Dilaudid and on Sunday [facility] person. He did spell world backwards wound. CRANIAL NERVE EXAMINATION: Cranial Nerves III, IV, and : Extraocular motility is full. CRANIAL NERVE V: Corneal and facial sensation are intact. CRANIAL NERVE VII: Facial strength 5/5. CRANIAL NERVE VIII: Auditory acuity intact. CRANIAL NERVES IX AND X: The patient is swallowing his food. CRANIAL NERVE XII: Tongue protrudes in midline. MUSCLE EXAMINATION: He has flaccid quadriplegia except for shoulder shrugs. Reflexes are 0 in the upper and lower extremities and he has upgoing toe on the left. Indefinite toe on the right on testing for Babinski response. SENSORY EXAMINATION: He has a sensory level at about T2-T3 in the left and about T1-T2 on the right. IMPRESSION: Neurologically, the patient has not changed. He does have medical problems, which will be taken care of by his other physicians. He is a candidate for rehabilitation after he is stabilized. PLAN: As above. Jeffrey Solorio MD DR: REGLA JOB#: [id number] CC:
--- NOTE | 2018-11-03 03:09 | NUR ---
NURSE NOTES: Patient in bed sleeping comfortably. at bedside. No s/s of acute distress. Temp 97.9 Oral. Will continue plan of care.
[2018-11-03] MEDS: Vancomycin 1.5gm/D5W 275ml IVPB SCH ×4 (04:00→09:19)
--- NOTE | 2018-11-03 04:00 | NUR ---
NURSE NOTES: Temp 98.0 oral. Oxygen 2L via N/C satting 96%. HOB elevated.
[2018-11-03] MEDS: Albuterol/Ipratropium 3ml neb HHN PRN ×2 (05:32→23:51)
--- NOTE | 2018-11-03 05:58 | NUR ---
NURSE NOTES: Repositioned patient in bed. Temp 100.6 continue cooling measure. Patient complained of 8/10 neck and shoulders pain repositioned, talk therapy provided not effective. Dilaudid 2mg IVP given will continue to monitor patient. at bedside.
--- NOTE | 2018-11-03 06:39 | NUR ---
NURSE NOTES: Changed soft cervical collar to small size per Patient request. Per patient its much better than the big soft cervical Collar. Denies any pain or discomfort. Patient and verbalized appreciation of taking care of the patient. Continue cooling measure. Patient awake,alert no s/s of cardiac and acute distress noted. Will continue plan of care.
[2018-11-03] MEDS: Levalbuterol Inh UD 1.25mg/0.5ml HHN SCH ×3 (07:11→19:29)
--- NOTE | 2018-11-03 07:15 | NUR ---
HAND-OFF: Report given to GRAHAM Porter. patient in bed awake,alert RT at bedside giving Breathing treatment. at bedside. Continue cooling measure. Denies any pain or discomfort. No s/s of cardiac and acute distress noted.
--- NOTE | 2018-11-03 07:35 | NUR ---
NURSE NOTES: Report received from GRAHAM DRISCOLL. Pt A/Ox4, bedridden, drowsy. awakes to name. pvc monitor SR. Pt on 3L NC, sating 99%. Pt remains on regular nectar thick diet. Placed call to dietary per pt request for additional beverage with each meal. Elkins catheter secure and draining well, dark kahlil urine. skin-surgical wound, dressing minimal drainage. Pt has a RFA 20G and a RT Hand 18G with D1/2NS +20KCl running @ 75 ml/hr. Bed in lowest position. Bed alarms placed. Call light within reach. Will continue to monitor and with patients plan of care.
--- NOTE | 2018-11-03 08:00 | NUR ---
NURSE NOTES: md morton here to see pt. no new orders.
[2018-11-03] MEDS: Cefepime HCl 1 GM in D5W 55 ML IVPB SCH ×2 (08:09→20:40)
--- NOTE | 2018-11-03 09:53 | General Surgery Progress Note ---
General Surgery-Progress Note Subjective Procedure Performed ACDF C3-4, Disc Arthroplasty C4-5 Additional Comments Patient taking PO feedings. Objective Last 24 Hour Vital Signs Date Time Temp Pulse Resp B/P (MAP) Pulse Ox O2 Delivery O2 Flow Rate FiO2 11/03/18 07:20 77 15 95 Nasal Cannula 3.0 32 11/03/18 07:12 68 13 98 Nasal Cannula 3.0 32 11/03/18 07:12 Nasal Cannula 2.0 28 11/03/18 07:12 98 Nasal Cannula 3.0 32 11/03/18 07:00 64 13 117/62 (80) 95 11/03/18 06:28 100.0 11/03/18 06:00 100.3 69 13 112/56 (74) 94 11/03/18 05:40 66 17 99 Nasal Cannula 3.0 32 11/03/18 05:32 66 17 95 Nasal Cannula 3.0 32 11/03/18 05:00 100.2 62 13 116/63 (80) 97 11/03/18 04:00 Nasal Cannula 2.0 11/03/18 04:00 98.0 58 14 108/59 (75) 98 11/03/18 03:00 97.9 52 12 100/53 (69) 97 11/03/18 02:00 58 11 104/54 (71) 98 11/03/18 01:00 67 13 122/59 (80) 97 11/03/18 00:00 68 13 120/63 (82) 98 11/03/18 00:00 100.2 68 13 120/63 (82) 98 11/03/18 00:00 Nasal Cannula 2.0 11/02/18 23:00 99.0 69 15 119/56 (77) 96 11/02/18 22:54 99.0 11/02/18 22:15 101.2 11/02/18 22:00 99.4 68 14 118/56 (76) 95 11/02/18 21:00 66 14 118/56 (76) 98 11/02/18 20:00 98.4 71 14 111/53 (72) 98 11/02/18 20:00 Venturi Mask 15.0 11/02/18 19:43 71 11/02/18 19:35 67 13 99 Venturi Mask 14.0 55 11/02/18 19:25 60 13 98 Venturi Mask 14.0 55 11/02/18 19:22 Venturi Mask 14.0 55 11/02/18 19:21 97 Venturi Mask 14.0 55 11/02/18 19:00 66 14 116/57 (76) 98 11/02/18 18:00 62 14 123/64 (83) 97 11/02/18 17:00 65 13 120/66 (84) 98 11/02/18 16:00 101.0 60 12 121/66 (84) 97 11/02/18 16:00 Venturi Mask 15.0 11/02/18 15:00 61 16 115/57 (76) 95 11/02/18 14:00 67 14 120/66 (84) 95 11/02/18 13:00 79 14 121/58 (79) 96 11/02/18 12:57 65 14 97 Venturi Mask 14.0 55 11/02/18 12:50 64 13 97 Venturi Mask 14.0 55 11/02/18 12:00 Venturi Mask 15.0 11/02/18 12:00 101.8 58 14 111/54 (73) 95 11/02/18 11:00 63 16 110/59 (76) 91 11/02/18 10:00 56 14 114/59 (77) 88 I&O Intake and Output 11/02/18 11/03/18 18:59 06:59 Intake Total 1527.416 ml 1865.0 ml Output Total 1377 ml 860 ml Balance 150.416 ml 1005.0 ml Intake Oral 300 ml 360 ml IV Total 1227.416 ml 1505.0 ml Output Urine Total 1377 ml 860 ml Dressing: dry Wound: clean Drains: none Cardiovascular: RSR Respiratory: clear Abdomen: soft, flat Laboratory Tests Test 11/02/18 14:10 11/02/18 19:15 White Blood Count 5.0 K/UL (4.8-10.8) Red Blood Count 3.54 M/UL (4.70-6.10) L Hemoglobin 10.4 G/DL (14.2-18.0) L Hematocrit 29.4 % (42.0-52.0) L Mean Corpuscular Volume 83 FL (80-99) Mean Corpuscular Hemoglobin 29.3 PG (27.0-31.0) Mean Corpuscular Hemoglobin Concent 35.3 G/DL (32.0-36.0) Red Cell Distribution Width 11.2 % (11.6-14.8) L Platelet Count 99 K/UL (150-450) L Mean Platelet Volume 8.1 FL (6.5-10.1) Neutrophils (%) (Auto) % (45.0-75.0) Lymphocytes (%) (Auto) % (20.0-45.0) Monocytes (%) (Auto) % (1.0-10.0) Eosinophils (%) (Auto) % (0.0-3.0) Basophils (%) (Auto) % (0.0-2.0) Neutrophils % (Manual) 78 % (45-75) H Lymphocytes % (Manual) 10 % (20-45) L Monocytes % (Manual) 10 % (1-10) Eosinophils % (Manual) 2 % (0-3) Basophils % (Manual) 0 % (0-2) Band Neutrophils 0 % (0-8) Platelet Estimate Decreased L Platelet Morphology Normal Hypochromasia 1+ Sodium Level 134 MMOL/L (136-145) L Potassium Level 4.4 MMOL/L (3.5-5.1) Chloride Level 99 MMOL/L (98-107) Carbon Dioxide Level 30 MMOL/L (21-32) Anion Gap 5 mmol/L (5-15) Blood Urea Nitrogen 19 mg/dL (7-18) H Creatinine 1.0 MG/DL (0.55-1.30) Estimat Glomerular Filtration Rate > 60 mL/min (>60) Glucose Level 149 MG/DL (74-106) H Calcium Level 8.2 MG/DL (8.5-10.1) L Total Bilirubin 3.6 MG/DL (0.2-1.0) H Direct Bilirubin 2.6 MG/DL (0.0-0.3) H Aspartate Amino Transf (AST/SGOT) 82 U/L (15-37) H Alanine Aminotransferase (ALT/SGPT) 178 U/L (12-78) H Alkaline Phosphatase 277 U/L (46-116) H Total Protein 5.1 G/DL (6.4-8.2) L Albumin 2.2 G/DL (3.4-5.0) L Globulin 2.9 g/dL Albumin/Globulin Ratio 0.8 (1.0-2.7) L Vancomycin Level Trough 5.8 ug/mL (5.0-12.0) Additional Comments Sensation intact in both upper and lower extremities. DTR's: R Upper Triceps 1= , BR2+, BIP 1+. L Upper: Triceps 1+, Tri 1+ Biceps 1+ BR 2+. Babinski no response. Assessment Post-op Diagnosis Spinal Cord compression Additional Comments Dr. Alvarado following. Infectious disease consulting. Neurology following. Patient stable last 24 hours. Leoncio Ventura Nov 03, 2018 09:53
--- NOTE | 2018-11-03 09:58 | Infectious Diseases Prog Note ---
Assessment/Plan Assessment/Plan A 1. aspiration pneumonia 2. cervical spondylosis s/p surgery 3. fever 4. Quadriplegia 5. Spinal canal shock P 1. continue iv vancomycin, cefepime 2. will f/u cultures Subjective ROS Limited/Unobtainable: Yes Constitutional: Reports: fever, other - low grade Respiratory: Reports: shortness of breath Gastrointestinal/Abdominal: Reports: no symptoms Neurologic: Reports: weakness Allergies: Coded Allergies: No Known Allergies (Unverified , 10/28/18) Objective Vital Signs Last 24 Hour Vital Signs Date Time Temp Pulse Resp B/P (MAP) Pulse Ox O2 Delivery O2 Flow Rate FiO2 11/03/18 07:20 77 15 95 Nasal Cannula 3.0 32 11/03/18 07:12 68 13 98 Nasal Cannula 3.0 32 11/03/18 07:12 Nasal Cannula 2.0 28 11/03/18 07:12 98 Nasal Cannula 3.0 32 11/03/18 07:00 64 13 117/62 (80) 95 11/03/18 06:28 100.0 11/03/18 06:00 100.3 69 13 112/56 (74) 94 11/03/18 05:40 66 17 99 Nasal Cannula 3.0 32 11/03/18 05:32 66 17 95 Nasal Cannula 3.0 32 11/03/18 05:00 100.2 62 13 116/63 (80) 97 11/03/18 04:00 Nasal Cannula 2.0 11/03/18 04:00 98.0 58 14 108/59 (75) 98 11/03/18 03:00 97.9 52 12 100/53 (69) 97 11/03/18 02:00 58 11 104/54 (71) 98 11/03/18 01:00 67 13 122/59 (80) 97 11/03/18 00:00 68 13 120/63 (82) 98 11/03/18 00:00 100.2 68 13 120/63 (82) 98 11/03/18 00:00 Nasal Cannula 2.0 11/02/18 23:00 99.0 69 15 119/56 (77) 96 11/02/18 22:54 99.0 11/02/18 22:15 101.2 11/02/18 22:00 99.4 68 14 118/56 (76) 95 11/02/18 21:00 66 14 118/56 (76) 98 11/02/18 20:00 98.4 71 14 111/53 (72) 98 11/02/18 20:00 Venturi Mask 15.0 11/02/18 19:43 71 11/02/18 19:35 67 13 99 Venturi Mask 14.0 55 11/02/18 19:25 60 13 98 Venturi Mask 14.0 55 11/02/18 19:22 Venturi Mask 14.0 55 11/02/18 19:21 97 Venturi Mask 14.0 55 11/02/18 19:00 66 14 116/57 (76) 98 11/02/18 18:00 62 14 123/64 (83) 97 11/02/18 17:00 65 13 120/66 (84) 98 11/02/18 16:00 101.0 60 12 121/66 (84) 97 11/02/18 16:00 Venturi Mask 15.0 11/02/18 15:00 61 16 115/57 (76) 95 11/02/18 14:00 67 14 120/66 (84) 95 11/02/18 13:00 79 14 121/58 (79) 96 11/02/18 12:57 65 14 97 Venturi Mask 14.0 55 11/02/18 12:50 64 13 97 Venturi Mask 14.0 55 11/02/18 12:00 Venturi Mask 15.0 11/02/18 12:00 101.8 58 14 111/54 (73) 95 11/02/18 11:00 63 16 110/59 (76) 91 11/02/18 10:00 56 14 114/59 (77) 88 Height (Feet): 5 Height (Inches): 7.00 Weight (Pounds): 170 General Appearance: no acute distress HEENT: other - neck collar Cardiovascular: normal rate Abdomen: soft, non tender Extremities: no edema Neurologic/Psychiatric: alert, responsive, motor weakness, sensory deficit, other - Quadriplegia Microbiology Date/Time Source Procedure Growth Status 11/02/18 12:30 Sputum Gram Stain - Final Resulted 11/02/18 12:30 Sputum Sputum Culture Pending Resulted 10/31/18 23:00 Indwelling Cath Urine Culture - Final NO GROWTH AFTER 48 HOURS Complete Laboratory Tests Test 11/02/18 14:10 3/2/19 19:15 White Blood Count 5.0 K/UL (4.8-10.8) Red Blood Count 3.54 M/UL (4.70-6.10) L Hemoglobin 10.4 G/DL (14.2-18.0) L Hematocrit 29.4 % (42.0-52.0) L Mean Corpuscular Volume 83 FL (80-99) Mean Corpuscular Hemoglobin 29.3 PG (27.0-31.0) Mean Corpuscular Hemoglobin Concent 35.3 G/DL (32.0-36.0) Red Cell Distribution Width 11.2 % (11.6-14.8) L Platelet Count 99 K/UL (150-450) L Mean Platelet Volume 8.1 FL (6.5-10.1) Neutrophils (%) (Auto) % (45.0-75.0) Lymphocytes (%) (Auto) % (20.0-45.0) Monocytes (%) (Auto) % (1.0-10.0) Eosinophils (%) (Auto) % (0.0-3.0) Basophils (%) (Auto) % (0.0-2.0) Neutrophils % (Manual) 78 % (45-75) H Lymphocytes % (Manual) 10 % (20-45) L Monocytes % (Manual) 10 % (1-10) Eosinophils % (Manual) 2 % (0-3) Basophils % (Manual) 0 % (0-2) Band Neutrophils 0 % (0-8) Platelet Estimate Decreased L Platelet Morphology Normal Hypochromasia 1+ Sodium Level 134 MMOL/L (136-145) L Potassium Level 4.4 MMOL/L (3.5-5.1) Chloride Level 99 MMOL/L (98-107) Carbon Dioxide Level 30 MMOL/L (21-32) Anion Gap 5 mmol/L (5-15) Blood Urea Nitrogen 19 mg/dL (7-18) H Creatinine 1.0 MG/DL (0.55-1.30) Estimat Glomerular Filtration Rate > 60 mL/min (>60) Glucose Level 149 MG/DL (74-106) H Calcium Level 8.2 MG/DL (8.5-10.1) L Total Bilirubin 3.6 MG/DL (0.2-1.0) H Direct Bilirubin 2.6 MG/DL (0.0-0.3) H Aspartate Amino Transf (AST/SGOT) 82 U/L (15-37) H Alanine Aminotransferase (ALT/SGPT) 178 U/L (12-78) H Alkaline Phosphatase 277 U/L (46-116) H Total Protein 5.1 G/DL (6.4-8.2) L Albumin 2.2 G/DL (3.4-5.0) L Globulin 2.9 g/dL Albumin/Globulin Ratio 0.8 (1.0-2.7) L Vancomycin Level Trough 5.8 ug/mL (5.0-12.0) Current Medications Medications (Trade) Dose Ordered Sig/Sharon Route PRN Reason Start Time Stop Time Status Last Admin Dose Admin Acetaminophen (Tylenol) 650 mg Q4H PRN ORAL headache or temp>101 10/28/18 23:00 11/27/18 22:59 11/03/18 08:11 Acetaminophen (Tylenol) 650 mg Q4H PRN RECTAL headache or temp>101 10/28/18 23:00 11/27/18 22:59 10/31/18 19:59 Acetaminophen (Tylenol) 650 mg Q6H PRN ORAL Mild Pain (Pain Scale 1-3) 10/28/18 23:00 11/27/18 22:59 Albuterol/ Ipratropium (Albuterol/ Ipratropium) 3 ml Q4H PRN HHN Shortness of Breath 11/01/18 16:30 11/06/18 16:29 11/03/18 05:32 Cefepime HCl 1 gm/ Dextrose 55 ml @ 110 mls/hr EVERY 12 HOURS IVPB 10/31/18 09:00 11/07/18 08:59 11/03/18 08:09 Dextrose/ Electrolytes 1,000 ml @ 75 mls/hr [id number] IV 10/28/18 22:46 11/27/18 22:45 11/02/18 21:01 Hydromorphone HCl (Dilaudid) 2 mg Q3H PRN IVP Severe Breakthru Pain (>7) 11/01/18 14:00 11/08/18 13:59 11/03/18 08:55 Levalbuterol HCl (Xopenex) 0.63 mg TIDRT HHN 10/31/18 13:00 11/05/18 12:59 11/03/18 07:11 Metoclopramide HCl (Reglan) 10 mg Q6H PRN IVP Nausea & Vomiting 10/28/18 23:00 11/27/18 22:59 Naloxone HCl (Narcan) 0.1 mg PRN PRN IVP RR<12/min, pt unarousable 10/28/18 23:00 11/27/18 22:59 Ondansetron HCl (Zofran) 4 mg Q6H PRN IVP Nausea & Vomiting 10/28/18 23:00 11/27/18 22:59 Vancomycin HCl (Vanco rx to dose) 1 ea DAILY PRN MISC Per rx protocol 10/31/18 06:30 11/30/18 06:29 Vancomycin HCl 1.5 gm/Dextrose 275 ml @ 137.5 mls/ hr Q6H IVPB 11/02/18 22:00 11/07/18 21:59 11/03/18 09:19 Robert Ellison MD Nov 03, 2018 09:58
--- NOTE | 2018-11-03 10:00 | NUR ---
NURSE NOTES: MD GOMEZ HERE TO SEE PT. INQUIRED MEDIUM SIZED NECK COLLAR, ON INSTEAD OF LARGE COLLAR. OK WHILE PT STATIONARY, NEEDS LARGE COLLAR ON FOR REPOSITIONING. PER MD REQUEST HE WILL DO DRESSING CHANGE. NO NEW ORDERS AT THIS TIME.
[2018-11-03] MEDS ORDERED: NS 275ml ONE (11:48)
[2018-11-03] MEDS: D5 1/2NS w/KCl 20mEq 1,000 ML IV SCH (12:46)
--- NOTE | 2018-11-03 13:05 | General Progress Note ---
Assessment/Plan Problem List: (1) Weakness ICD Codes: R53.1 - Weakness SNOMED: 52672888 (2) Cervical spine arthritis ICD Codes: M47.812 - Spondylosis without myelopathy or radiculopathy, cervical region SNOMED: 162579841 (3) Cervical disc disorder ICD Codes: M50.90 - Cervical disc disorder, unspecified, unspecified cervical region SNOMED: 502502862 Status: stable, not improved Assessment/Plan resp care o2 pain rx ivf spine follow up repeat lfts abd ricardo gi eval Subjective ROS Limited/Unobtainable: No Constitutional: Reports: malaise, weakness HEENT: Reports: no symptoms Cardiovascular: Reports: no symptoms Respiratory: Reports: no symptoms Gastrointestinal/Abdominal: Reports: no symptoms Genitourinary: Reports: no symptoms Neurologic/Psychiatric: Reports: pre-existing deficit Endocrine: Reports: no symptoms Hematologic/Lymphatic: Reports: no symptoms Allergies: Coded Allergies: No Known Allergies (Unverified , 10/28/18) All Systems: reviewed and negative except above Subjective no events. w/o complaints. still cant move arms or legs. elevated lfts noted. denies abd pain Objective Last 24 Hour Vital Signs Date Time Temp Pulse Resp B/P (MAP) Pulse Ox O2 Delivery O2 Flow Rate FiO2 11/03/18 10:00 66 12 119/58 (78) 97 11/03/18 09:00 67 12 114/65 (81) 96 11/03/18 08:00 74 14 94 11/03/18 08:00 Nasal Cannula 3.0 11/03/18 07:20 77 15 95 Nasal Cannula 3.0 32 11/03/18 07:12 68 13 98 Nasal Cannula 3.0 32 11/03/18 07:12 Nasal Cannula 2.0 28 11/03/18 07:12 98 Nasal Cannula 3.0 32 11/03/18 07:00 64 13 117/62 (80) 95 11/03/18 06:28 100.0 11/03/18 06:00 100.3 69 13 112/56 (74) 94 11/03/18 05:40 66 17 99 Nasal Cannula 3.0 32 11/03/18 05:32 66 17 95 Nasal Cannula 3.0 32 11/03/18 05:00 100.2 62 13 116/63 (80) 97 11/03/18 04:00 Nasal Cannula 2.0 11/03/18 04:00 98.0 58 14 108/59 (75) 98 11/03/18 03:00 97.9 52 12 100/53 (69) 97 11/03/18 02:00 58 11 104/54 (71) 98 11/03/18 01:00 67 13 122/59 (80) 97 11/03/18 00:00 68 13 120/63 (82) 98 11/03/18 00:00 100.2 68 13 120/63 (82) 98 11/03/18 00:00 Nasal Cannula 2.0 11/02/18 23:00 99.0 69 15 119/56 (77) 96 11/02/18 22:54 99.0 11/02/18 22:15 101.2 11/02/18 22:00 99.4 68 14 118/56 (76) 95 11/02/18 21:00 66 14 118/56 (76) 98 11/02/18 20:00 98.4 71 14 111/53 (72) 98 11/02/18 20:00 Venturi Mask 15.0 11/02/18 19:43 71 11/02/18 19:35 67 13 99 Venturi Mask 14.0 55 11/02/18 19:25 60 13 98 Venturi Mask 14.0 55 11/02/18 19:22 Venturi Mask 14.0 55 11/02/18 19:21 97 Venturi Mask 14.0 55 11/02/18 19:00 66 14 116/57 (76) 98 11/02/18 18:00 62 14 123/64 (83) 97 11/02/18 17:00 65 13 120/66 (84) 98 11/02/18 16:00 101.0 60 12 121/66 (84) 97 11/02/18 16:00 Venturi Mask 15.0 11/02/18 15:00 61 16 115/57 (76) 95 11/02/18 14:00 67 14 120/66 (84) 95 Intake and Output 11/02/18 11/03/18 19:00 07:00 Intake Total 1502.416 ml 1865.0 ml Output Total 1372 ml 855 ml Balance 130.416 ml 1010.0 ml Intake Oral 200 ml 360 ml IV Total 1302.416 ml 1505.0 ml Output Urine Total 1372 ml 855 ml Laboratory Tests 11/02/18 14:10: White Blood Count 5.0, Red Blood Count 3.54L, Hemoglobin 10.4L, Hematocrit 29.4L , Mean Corpuscular Volume 83, Mean Corpuscular Hemoglobin 29.3, Mean Corpuscular Hemoglobin Concent 35.3, Red Cell Distribution Width 11.2L, Platelet Count 99L, Mean Platelet Volume 8.1, Neutrophils (%) (Auto) , Lymphocytes (%) (Auto) , Monocytes (%) (Auto) , Eosinophils (%) (Auto) , Basophils (%) (Auto) , Neutrophils % (Manual) 78H, Lymphocytes % (Manual) 10L, Monocytes % (Manual) 10, Eosinophils % (Manual) 2, Basophils % (Manual) 0, Band Neutrophils 0, Platelet Estimate DecreasedL, Platelet Morphology Normal, Hypochromasia 1+, Sodium Level 134L, Potassium Level 4.4, Chloride Level 99, Carbon Dioxide Level 30, Anion Gap 5, Blood Urea Nitrogen 19H, Creatinine 1.0, Estimat Glomerular Filtration Rate > 60, Glucose Level 149H, Calcium Level 8.2L , Total Bilirubin 3.6H, Direct Bilirubin 2.6H, Aspartate Amino Transf (AST/SGOT ) 82H, Alanine Aminotransferase (ALT/SGPT) 178H, Alkaline Phosphatase 277H, Total Protein 5.1L, Albumin 2.2L, Globulin 2.9, Albumin/Globulin Ratio 0.8L 11/02/18 19:15: Vancomycin Level Trough 5.8 Height (Feet): 5 Height (Inches): 7.00 Weight (Pounds): 170 General Appearance: WD/WN, alert Cardiovascular: regular rhythm Respiratory/Chest: lungs clear Abdomen: normal bowel sounds, non tender, soft, no organomegaly Edema: no edema noted Arm (L), no edema noted Arm (R), no edema noted Leg (L), no edema noted Leg (R), no edema noted Pedal (L), no edema noted Pedal (R), no edema noted Generalized Terrance Donahue MD Nov 03, 2018 13:05
--- NOTE | 2018-11-03 13:28 | NUR ---
NURSE NOTES: pt will be made NPO after Lunch, pt started eating at 1235. pt ate 25% lunch. no c/o n/v. will continue to monitor pt.
--- NOTE | 2018-11-03 13:38 | NUR ---
NURSE NOTES: house worker general here to draw blood.
--- NOTE | 2018-11-03 14:08 | NUR ---
RD ASSESSMENT & RECOMMENDATIONS SEE CARE ACTIVITY FOR COMPLETE ASSESSMENT DAILY ESTIMATED NEEDS: Needs based on Surgery, bedbound currently 75kg 25-30 kcals/kg 4913-1726 total kcals 1-2 g protein/kg 75-150 g total protein 25-30 mL/kg 1811-2467 total fluid mLs NUTRITION DIAGNOSIS: Swallowing difficulty r/t cervical spinal surgery as evidenced by pt is s/p anterior cervical corpectomy-discectomy at C3-4 and corpectomy/discectomy, currently w/ cervical collar, s/p LAUNCH ENGINEER eval w/ recs for liquify puree texture w/ NTL. CURRENT DIET: Regular liquify puree NTL per LAUNCH ENGINEER PO DIET RECOMMENDATIONS: REGULAR DIET (texture per LAUNCH ENGINEER) ADDITIONAL RECOMMENDATIONS: 1) Add Ensure Enlive TID w/ liquify puree diet 2) Obtain a calibrated bed scale wt as able 3) Monitor lytes daily, replete as needed 4) Consider ATIYA BID to maintain skin integrity as pt is currently bedbound - At risk for pressure related skin injuries 5) F/up w/ Abd US as pt is NPO at this time
[2018-11-03 14:32] LABS: ALANINE AMINOTRANSFERASE 126 U/L (12-78); ALBUMIN/GLOBULIN RATIO 0.6 (1.0-2.7); ALKALINE PHOSPHATASE 297 U/L (46-116); ANION GAP 6 mmol/L (5-15); ASPARTATE AMINO TRANSFERASE 50 U/L (15-37); BILIRUBIN,TOTAL 4.6 MG/DL (0.2-1.0); BLOOD UREA NITROGEN 21 mg/dL (7-18); CALCIUM 8.3 MG/DL (8.5-10.1); CARBON DIOXIDE 28 MMOL/L (21-32); CHLORIDE 99 MMOL/L (98-107); CREATININE 1.1 MG/DL (0.55-1.30); POTASSIUM 4.8 MMOL/L (3.5-5.1); SODIUM 133 MMOL/L (136-145)
[2018-11-03 14:34] LABS: BILIRUBIN,DIRECT 3.6 MG/DL (0.0-0.3)
--- NOTE | 2018-11-03 15:00 | NUR ---
NURSE NOTES: md nixon removed surgical dressing. applied 4x4 and tape. will remove steri strips by sunday
[2018-11-03] MEDS ORDERED: Hydromorphone 0.5mg/0.5ml inj IVP PRN ×2 (15:45→17:45)
[2018-11-03] MEDS: Docusate 250mg cap ORAL SCH (17:32)
--- NOTE | 2018-11-03 18:50 | NUR ---
HAND-OFF: Report given to justyna. assisted pt with repositioning. in no acute distress
--- NOTE | 2018-11-03 19:15 | NUR ---
NURSE NOTES: Received pt in bed, sinus rhythm on the monitor with HR 60's. AOx4. Able to verbalize needs. Patient has no movements at this time. On 3L NC sat 98-100%. Patient is on thicken liquids with meds. NPO at this time for Abdominal ultrasound in the AM. Right FA and Right Hand IV sites patent and intact. running 1/2 NS with 20 KCL @ 75 cc/hr. Elkins cath draining dark kahlil urine by gravity. Family at the bedside. Will continue to monitor
--- NOTE | 2018-11-03 19:35 | NUR ---
NURSE NOTES: Patient has a temp of 101 oral. tylenol 650 mg given at this time with thicken liquids. Will continue to monitor
--- NOTE | 2018-11-03 20:25 | NUR ---
NURSE NOTES: Temp now 99.6, Fan on at this time. surrounding pillows removed at this time. Two pillows placed on each side to provide support. Will continue to monitor.
--- NOTE | 2018-11-03 22:01 | NUR ---
NURSE NOTES: patient sleeping at this time. sinus rhythm on the monitor with HR 62, Room door open, patient viable from the nurse station. High fowlers positions. bed in lowest position. Elkins cath draining by gravity. Sat 95% on 3 L NC. No SOB or distress noted. Patient noted to have left leg twitching movement when sleeping. Will continue to monitor
--- NOTE | 2018-11-03 22:33 | NUR ---
NURSE NOTES: Mar Daughter at the Bedside at this time. Provided me with her number and wants to be called when Father is awake. Patient sleeping. Will continue to monitor.
--- NOTE | 2018-11-03 23:45 | NUR ---
NURSE NOTES: Patient able to converse with daughter on the phone. Pain meds given for pain 10/10. Repositioned patient at this time. Will continue to monitor
[2018-11-04] VITALS (24 sets, daily range): BP systolic 94–138; BP diastolic 53–80
[2018-11-04] MEDS: D5 1/2NS w/KCl 20mEq 1,000 ML IV SCH ×2 (01:32→15:43)
--- NOTE | 2018-11-04 01:35 | NUR ---
NURSE NOTES: Temp 99.6 oral. patient request for Tylenol. 650 MG given. Will continue to monitor
--- NOTE | 2018-11-04 02:00 | NUR ---
NURSE NOTES: Patient noted to desaturate to 86%. Congested when arrived. Called RT to deep suction the patient. After suctioning patient sats 94%.
--- NOTE | 2018-11-04 04:00 | NUR ---
NURSE NOTES: Morning bath given at this time. patient request pain medication or Tylenol but they are due yet. Will continue to monitor
--- NOTE | 2018-11-04 05:00 | NUR ---
NURSE NOTES: Patient noted to desaturate 86%. RT called for Deep suctioning. Patient noted to have Rhonchi on right side. saturation back up to 98%
--- NOTE | 2018-11-04 05:50 | NUR ---
NURSE NOTES: Message left for MD Alvarado in regards to patient right lung sounds Ronchi. Current sats 95% on 4 L NC. awaiting call back
--- NOTE | 2018-11-04 05:57 | NUR ---
NURSE NOTES: MD Alvarado called back with orders for chest X-ray this morning.
--- NOTE | 2018-11-04 06:56 | NUR ---
NURSE NOTES: 650 mg Tylenol wasted at this time. patient reached limit of Tylenol given. Wasted medication with Krzysztof STEVENSON,
[2018-11-04] MEDS: Levalbuterol Inh UD 1.25mg/0.5ml HHN SCH ×3 (07:09→19:44)
--- NOTE | 2018-11-04 07:33 | NUR ---
HAND-OFF: Report given to Velia STEVENSON using SBAR.
--- NOTE | 2018-11-04 07:46 | NUR ---
NURSE NOTES: Report received from GRAHAM Norris
--- NOTE | 2018-11-04 08:00 | NUR ---
NURSE NOTES: Report received from GRAHAM Norris. Patient awake and alert and oriented x4, able to make needs known. Afebrile and on nasal canula at 3LPM with no apparent acute distress.NPO at this time,pending US abdomen. Right FA and Right Hand peripheral line intact with no apparent infiltration. Bowel sounds hypoactive with abdomen soft and rounded. Refused repositioning and incentive spirometer at this time.Spinal and cervical precaution to be maintained at all the times.Denied of any sensation on both lower extremities at this time.HOB elevated at all the time to prevent aspiration. Kept clean and dry, goal is to maintained patient free of pain at this time.Elkins catheter draining dark kahlil urine with no apparent sediments. Patient kept on close monitoring.
--- NOTE | 2018-11-04 08:14 | General Progress Note ---
Assessment/Plan Assessment/Plan Status post anterior cervical corpectomy-discectomy at C3-4 and corpectomy/ discectomy C4-5. ACDF C3-4, Disc Arthroplasty C4-5 Spinal Cord compression fevers concern for aspiration spinal cord shock elevated LFT PLAN post op neuro follow up cultures negative IV antibiotics ? dc ICU care pain control plan for extensive rehab monitor for aspiration Subjective Allergies: Coded Allergies: No Known Allergies (Unverified , 10/28/18) Subjective seen by neuro- needs rehab taking PO Objective Last 24 Hour Vital Signs Date Time Temp Pulse Resp B/P (MAP) Pulse Ox O2 Delivery O2 Flow Rate FiO2 11/04/18 07:09 49 12 99 Nasal Cannula 4.0 36 11/04/18 07:08 Nasal Cannula 4.0 36 11/04/18 07:08 99 Nasal Cannula 4.0 36 11/04/18 07:00 54 12 99 Nasal Cannula 4.0 36 11/04/18 07:00 61 13 101/61 (74) 98 11/04/18 06:00 57 13 94/57 (69) 98 11/04/18 05:00 98.9 59 14 108/60 (76) 97 11/04/18 04:00 57 13 105/58 (74) 98 11/04/18 04:00 Nasal Cannula 3.0 Nasal Cannula 3.0 11/04/18 04:00 55 11/04/18 03:00 60 14 106/55 (72) 95 11/04/18 02:05 99.3 11/04/18 02:00 99.6 65 16 119/57 (77) 94 11/04/18 01:00 62 11 114/57 (76) 96 11/04/18 00:00 58 11/04/18 00:00 Nasal Cannula 3.0 11/04/18 00:00 99.5 66 14 112/53 (72) 98 11/03/18 23:52 62 14 96 Nasal Cannula 4.0 36 11/03/18 23:00 72 15 128/65 (86) 96 11/03/18 22:00 60 14 115/64 (81) 96 11/03/18 21:00 61 12 119/62 (81) 96 11/03/18 20:00 72 11/03/18 20:00 79 15 119/57 (77) 92 11/03/18 20:00 Nasal Cannula 3.0 3/3/19 19:40 77 18 98 Nasal Cannula 4.0 36 11/03/18 19:30 75 16 95 Nasal Cannula 4.0 36 11/03/18 19:30 Nasal Cannula 4.0 36 11/03/18 19:30 95 Nasal Cannula 4.0 36 11/03/18 19:00 66 12 121/61 (81) 90 11/03/18 18:00 99.7 72 14 127/64 (85) 93 11/03/18 17:00 69 16 120/61 (80) 98 11/03/18 16:00 65 13 123/62 (82) 98 11/03/18 16:00 Nasal Cannula 3.0 11/03/18 15:00 59 12 112/60 (77) 96 11/03/18 14:00 70 15 118/61 (80) 97 11/03/18 13:19 Nasal Cannula 3.0 32 11/03/18 13:19 Nasal Cannula 3.0 32 11/03/18 13:00 100.5 70 17 120/66 (84) 97 11/03/18 12:00 65 13 116/58 (77) 97 11/03/18 12:00 Nasal Cannula 3.0 11/03/18 11:00 65 15 118/58 (78) 97 11/03/18 10:00 66 12 119/58 (78) 97 11/03/18 09:00 67 12 114/65 (81) 96 Intake and Output 11/03/18 11/04/18 19:00 07:00 Intake Total 1545.0 ml 955 ml Output Total 1045 ml 1445 ml Balance 500.0 ml -490 ml Intake Oral 390 ml IV Total 1155.0 ml 955 ml Output Urine Total 1045 ml 1445 ml Laboratory Tests 11/03/18 13:20: Sodium Level 133L, Potassium Level 4.8, Chloride Level 99, Carbon Dioxide Level 28, Anion Gap 6, Blood Urea Nitrogen 21H, Creatinine 1.1, Estimat Glomerular Filtration Rate > 60, Glucose Level 157H, Calcium Level 8.3L, Total Bilirubin 4.6H, Direct Bilirubin 3.6H, Aspartate Amino Transf (AST/SGOT) 50H, Alanine Aminotransferase (ALT/SGPT) 126H, Alkaline Phosphatase 297H, Total Protein 5.1L , Albumin 2.0L, Globulin 3.1, Albumin/Globulin Ratio 0.6L 11/03/18 14:00: Vancomycin Level Trough 31.2H 11/04/18 05:05: Random Vancomycin Level 12.0 Height (Feet): 5 Height (Inches): 7.00 Weight (Pounds): 170 Objective WDWN NAD clear breath sounds bilaterally without rhonchi or wheeze [id number] without MRG NABS nontender no HSM no CCE alert and weak poor mobility of extremities Pradeep Alvarado MD Nov 04, 2018 08:14
[2018-11-04] MEDS: Cefepime HCl 1 GM in D5W 55 ML IVPB SCH ×2 (08:27→21:23)
[2018-11-04] MEDS: Vancomycin 750mg/NS 275ml IVPB SCH ×4 (08:28→15:43)
[2018-11-04] MEDS: Docusate 250mg cap ORAL SCH (08:28)
--- NOTE | 2018-11-04 08:46 | NUR ---
RADIOLOGY DEPT CHEST X-RAY DONE.-P.DYE
--- NOTE | 2018-11-04 09:02 | NUR ---
NURSE NOTES: Patient seen by Dr Solorio and Dr Alvarado,will follow up with new orders
--- NOTE | 2018-11-04 09:21 | NUR ---
INSURANCE THIS ACADEMIC INTERN RECEIVED VMM THAT WAS LEFT ON VOICE MAIL ON Sunday11/01/18 @ 1830 FROM PATIENT'S DAUGHTER,ELIANA, REQUESTING HER FATHER BE TRANSFERRED TO A DIFFERENT HOSPITAL. ACADEMIC INTERN CALLED ELIANA BACK @ [phone] AND LEFT A MESSAGE STATING SHE WOULD CONTACT HER FATHERS WORKERS COMP SHEAR ASSEMBLER AND NURSE REGARDING HER REQUEST ACADEMIC INTERN LEFT VMM FOR SHEAR ASSEMBLER~ ENRIQUETA REGARDING DAUGHTERS REQUEST ACADEMIC INTERN ALSO CALLED [facility] COMP NURSE NATHANIEL AND PASSED ON DAUGHTER'S REQUEST FOR TRANSFER. ASKED NATHANIEL IF SHE OR SOMEONE FROM [facility] WOULD BE COMING OUT TO VISUALIZE PATIENT WE DISCUSSED LAST WEEK. NATHANIEL SAID SHE WOULD LOOK INTO IT FURTHER PROVIDED [facility] WITH NAMES AND PHONE NUMBERS LISTED BELOW ELIANA EDWARD T: [phone] PADMINI EDWARD T: [phone] DR MARIE T: [phone] DR YU T: [phone] [facility] SAID SHE WOULD CONTACT ALL OF THE ABOVE AND COME UP WITH A PLAN [facility] WORKERS COMP SHEAR ASSEMBLER: ENRIQUETA Lugo; [phone] F: [phone] [facility] WORK[employer] COMP NURSE ACADEMIC INTERN : CAMERON T: [phone] F: [phone] ALL OF 'S WEEKEND PROGRESS NOTES FAXED TO BOTH ENRIQUETA AND [facility] Addendum: 11/04/18 at 1536 by ANSLEY KELLY LVN LVN SPOKE WITH [facility] ACADEMIC INTERN AKASH T: [phone] AKASH WILL BE OUT TOMORROW TO SEE PATIENT SPOKE WITH , PADMINI [facility] FAXED TO BOTH LISETTE ROBISON AND ACADEMIC INTERN CAMERON
--- NOTE | 2018-11-04 10:15 | NUR ---
NURSE NOTES: Ongoing US abdomen,assisting tech in positioning.Patient comfortable at this time.Spinal and cervical precaution observed at all the times
--- NOTE | 2018-11-04 10:35 | General Surgery Progress Note ---
General Surgery-Progress Note Subjective Procedure Performed ACDF C3-4, Disc Arthroplasty C4-5 Objective Last 24 Hour Vital Signs Date Time Temp Pulse Resp B/P (MAP) Pulse Ox O2 Delivery O2 Flow Rate FiO2 11/04/18 10:00 57 15 111/64 (80) 96 11/04/18 09:00 60 14 105/61 (76) 97 11/04/18 08:00 Nasal Cannula 3.0 Nasal Cannula 3.0 11/04/18 08:00 97.7 64 17 111/60 (77) 95 11/04/18 07:09 49 12 99 Nasal Cannula 4.0 36 11/04/18 07:08 Nasal Cannula 4.0 36 11/04/18 07:08 99 Nasal Cannula 4.0 36 11/04/18 07:00 54 12 99 Nasal Cannula 4.0 36 11/04/18 07:00 61 13 101/61 (74) 98 11/04/18 06:00 57 13 94/57 (69) 98 11/04/18 05:00 98.9 59 14 108/60 (76) 97 11/04/18 04:00 57 13 105/58 (74) 98 11/04/18 04:00 Nasal Cannula 3.0 Nasal Cannula 3.0 11/04/18 04:00 55 11/04/18 03:00 60 14 106/55 (72) 95 11/04/18 02:05 99.3 11/04/18 02:00 99.6 65 16 119/57 (77) 94 11/04/18 01:00 62 11 114/57 (76) 96 11/04/18 00:00 58 11/04/18 00:00 Nasal Cannula 3.0 11/04/18 00:00 99.5 66 14 112/53 (72) 98 11/03/18 23:52 62 14 96 Nasal Cannula 4.0 36 11/03/18 23:00 72 15 128/65 (86) 96 11/03/18 22:00 60 14 115/64 (81) 96 11/03/18 21:00 61 12 119/62 (81) 96 11/03/18 20:00 72 11/03/18 20:00 79 15 119/57 (77) 92 11/03/18 20:00 Nasal Cannula 3.0 11/03/18 19:40 77 18 98 Nasal Cannula 4.0 36 11/03/18 19:30 75 16 95 Nasal Cannula 4.0 36 11/03/18 19:30 Nasal Cannula 4.0 36 11/03/18 19:30 95 Nasal Cannula 4.0 36 11/03/18 19:00 66 12 121/61 (81) 90 11/03/18 18:00 99.7 72 14 127/64 (85) 93 11/03/18 17:00 69 16 120/61 (80) 98 11/03/18 16:00 65 13 123/62 (82) 98 11/03/18 16:00 Nasal Cannula 3.0 11/03/18 15:00 59 12 112/60 (77) 96 11/03/18 14:00 70 15 118/61 (80) 97 11/03/18 13:19 Nasal Cannula 3.0 32 11/03/18 13:19 Nasal Cannula 3.0 32 11/03/18 13:00 100.5 70 17 120/66 (84) 97 11/03/18 12:00 65 13 116/58 (77) 97 11/03/18 12:00 Nasal Cannula 3.0 11/03/18 11:00 65 15 118/58 (78) 97 I&O Intake and Output 11/03/18 11/04/18 18:59 06:59 Intake Total 1545.0 ml 955 ml Output Total 945 ml 1470 ml Balance 600.0 ml -515 ml Intake Oral 390 ml IV Total 1155.0 ml 955 ml Output Urine Total 945 ml 1470 ml Dressing: dry Wound: clean Drains: none Laboratory Tests Test 11/03/18 13:20 11/03/18 14:00 11/04/18 05:05 Sodium Level 133 MMOL/L (136-145) L Potassium Level 4.8 MMOL/L (3.5-5.1) Chloride Level 99 MMOL/L (98-107) Carbon Dioxide Level 28 MMOL/L (21-32) Anion Gap 6 mmol/L (5-15) Blood Urea Nitrogen 21 mg/dL (7-18) H Creatinine 1.1 MG/DL (0.55-1.30) Estimat Glomerular Filtration Rate > 60 mL/min (>60) Glucose Level 157 MG/DL (74-106) H Calcium Level 8.3 MG/DL (8.5-10.1) L Total Bilirubin 4.6 MG/DL (0.2-1.0) H Direct Bilirubin 3.6 MG/DL (0.0-0.3) H Aspartate Amino Transf (AST/SGOT) 50 U/L (15-37) H Alanine Aminotransferase (ALT/SGPT) 126 U/L (12-78) H Alkaline Phosphatase 297 U/L (46-116) H Total Protein 5.1 G/DL (6.4-8.2) L Albumin 2.0 G/DL (3.4-5.0) L Globulin 3.1 g/dL Albumin/Globulin Ratio 0.6 (1.0-2.7) L Vancomycin Level Trough 31.2 ug/mL (5.0-12.0) H Random Vancomycin Level 12.0 ug/mL Additional Comments DTR"s: Right Upper: Trace, Left Upper: 2+, Right Lower: Absent, Left Lower: 1+, Gordon's: Absent, Babinski: non reactive. Sensory: present in all extremities, decreased in Right Leg. Assessment Post-op Diagnosis Spinal Cord compression Additional Comments Dr. Alvarado following. ID following. Neurology following. Awaiting rehabilitation placement. Leocnio Ventura Nov 04, 2018 10:35
--- NOTE | 2018-11-04 11:00 | Infectious Diseases Prog Note ---
Assessment/Plan Assessment/Plan antibiotics : vancomycin iv, cefepime A 1. aspiration pneumonia 2. cervical spondylosis s/p surgery 3. fever P 1. continue iv vancomycin, cefepime 2. will follow up cultures Subjective Constitutional: Denies: fever, chills Respiratory: Reports: shortness of breath, dry cough Gastrointestinal/Abdominal: Denies: nausea, vomiting, diarrhea Musculoskeletal: Reports: pain Allergies: Coded Allergies: No Known Allergies (Unverified , 10/28/18) Objective Vital Signs Last 24 Hour Vital Signs Date Time Temp Pulse Resp B/P (MAP) Pulse Ox O2 Delivery O2 Flow Rate FiO2 11/04/18 10:00 57 15 111/64 (80) 96 11/04/18 09:00 60 14 105/61 (76) 97 11/04/18 08:00 Nasal Cannula 3.0 Nasal Cannula 3.0 11/04/18 08:00 97.7 64 17 111/60 (77) 95 11/04/18 07:09 49 12 99 Nasal Cannula 4.0 36 11/04/18 07:08 Nasal Cannula 4.0 36 11/04/18 07:08 99 Nasal Cannula 4.0 36 11/04/18 07:00 54 12 99 Nasal Cannula 4.0 36 11/04/18 07:00 61 13 101/61 (74) 98 11/04/18 06:00 57 13 94/57 (69) 98 11/04/18 05:00 98.9 59 14 108/60 (76) 97 11/04/18 04:00 57 13 105/58 (74) 98 11/04/18 04:00 Nasal Cannula 3.0 Nasal Cannula 3.0 11/04/18 04:00 55 11/04/18 03:00 60 14 106/55 (72) 95 11/04/18 02:05 99.3 11/04/18 02:00 99.6 65 16 119/57 (77) 94 11/04/18 01:00 62 11 114/57 (76) 96 11/04/18 00:00 58 11/04/18 00:00 Nasal Cannula 3.0 11/04/18 00:00 99.5 66 14 112/53 (72) 98 11/03/18 23:52 62 14 96 Nasal Cannula 4.0 36 11/03/18 23:00 72 15 128/65 (86) 96 11/03/18 22:00 60 14 115/64 (81) 96 11/03/18 21:00 61 12 119/62 (81) 96 11/03/18 20:00 72 11/03/18 20:00 79 15 119/57 (77) 92 11/03/18 20:00 Nasal Cannula 3.0 11/03/18 19:40 77 18 98 Nasal Cannula 4.0 36 11/03/18 19:30 75 16 95 Nasal Cannula 4.0 36 11/03/18 19:30 Nasal Cannula 4.0 36 11/03/18 19:30 95 Nasal Cannula 4.0 36 11/03/18 19:00 66 12 121/61 (81) 90 11/03/18 18:00 99.7 72 14 127/64 (85) 93 11/03/18 17:00 69 16 120/61 (80) 98 11/03/18 16:00 65 13 123/62 (82) 98 11/03/18 16:00 Nasal Cannula 3.0 11/03/18 15:00 59 12 112/60 (77) 96 11/03/18 14:00 70 15 118/61 (80) 97 11/03/18 13:19 Nasal Cannula 3.0 32 11/03/18 13:19 Nasal Cannula 3.0 32 11/03/18 13:00 100.5 70 17 120/66 (84) 97 11/03/18 12:00 65 13 116/58 (77) 97 11/03/18 12:00 Nasal Cannula 3.0 11/03/18 11:00 65 15 118/58 (78) 97 Height (Feet): 5 Height (Inches): 7.00 Weight (Pounds): 170 Respiratory/Chest: lungs clear Cardiovascular: normal rate, regular rhythm, no gallop/murmur Abdomen: soft, non tender Extremities: no edema Microbiology Date/Time Source Procedure Growth Status 11/02/18 12:30 Sputum Gram Stain - Final Resulted 11/02/18 12:30 Sputum Sputum Culture - Preliminary NORMAL UPPER RESPIRATORY DORIS AT 24 ... Resulted Laboratory Tests Test 11/03/18 13:20 11/03/18 14:00 11/04/18 05:05 Sodium Level 133 MMOL/L (136-145) L Potassium Level 4.8 MMOL/L (3.5-5.1) Chloride Level 99 MMOL/L (98-107) Carbon Dioxide Level 28 MMOL/L (21-32) Anion Gap 6 mmol/L (5-15) Blood Urea Nitrogen 21 mg/dL (7-18) H Creatinine 1.1 MG/DL (0.55-1.30) Estimat Glomerular Filtration Rate > 60 mL/min (>60) Glucose Level 157 MG/DL (74-106) H Calcium Level 8.3 MG/DL (8.5-10.1) L Total Bilirubin 4.6 MG/DL (0.2-1.0) H Direct Bilirubin 3.6 MG/DL (0.0-0.3) H Aspartate Amino Transf (AST/SGOT) 50 U/L (15-37) H Alanine Aminotransferase (ALT/SGPT) 126 U/L (12-78) H Alkaline Phosphatase 297 U/L (46-116) H Total Protein 5.1 G/DL (6.4-8.2) L Albumin 2.0 G/DL (3.4-5.0) L Globulin 3.1 g/dL Albumin/Globulin Ratio 0.6 (1.0-2.7) L Vancomycin Level Trough 31.2 ug/mL (5.0-12.0) H Random Vancomycin Level 12.0 ug/mL Current Medications Medications (Trade) Dose Ordered Sig/Sharon Route PRN Reason Start Time Stop Time Status Last Admin Dose Admin Acetaminophen (Tylenol) 650 mg Q4H PRN ORAL headache or temp>101 10/28/18 23:00 11/27/18 22:59 11/04/18 01:35 Acetaminophen (Tylenol) 650 mg Q4H PRN RECTAL headache or temp>101 10/28/18 23:00 11/27/18 22:59 10/31/18 19:59 Acetaminophen (Tylenol) 650 mg Q6H PRN ORAL Mild Pain (Pain Scale 1-3) 10/28/18 23:00 11/27/18 22:59 Albuterol/ Ipratropium (Albuterol/ Ipratropium) 3 ml Q4H PRN HHN Shortness of Breath 11/01/18 16:30 11/06/18 16:29 11/03/18 23:51 Cefepime HCl 1 gm/ Dextrose 55 ml @ 110 mls/hr EVERY 12 HOURS IVPB 10/31/18 09:00 11/07/18 08:59 11/04/18 08:27 Dextrose/ Electrolytes 1,000 ml @ 75 mls/hr [id number] IV 10/28/18 22:46 11/27/18 22:45 11/04/18 01:32 Docusate Sodium (Colace) 250 mg DAILY ORAL 11/03/18 15:45 12/03/18 15:44 11/04/18 08:28 Hydromorphone HCl (Dilaudid) 0.5 mg Q3H PRN IVP Mild Pain (Pain Scale 1-3) 11/03/18 17:45 11/10/18 17:44 Hydromorphone HCl (Dilaudid) 1 mg Q3H PRN IVP moderate pain 5-7 11/03/18 17:45 11/10/18 17:44 Hydromorphone HCl (Dilaudid) 2 mg Q3H PRN IVP Severe Breakthru Pain (>7) 11/01/18 14:00 11/08/18 13:59 11/04/18 08:30 Hydromorphone HCl (Dilaudid) 2 mg Q3H PRN IVP severe pain 8-10 11/03/18 17:45 11/10/18 17:44 Levalbuterol HCl (Xopenex) 0.63 mg TIDRT HHN 10/31/18 13:00 11/05/18 12:59 11/04/18 07:09 Metoclopramide HCl (Reglan) 10 mg Q6H PRN IVP Nausea & Vomiting 10/28/18 23:00 11/27/18 22:59 Naloxone HCl (Narcan) 0.1 mg PRN PRN IVP RR<12/min, pt unarousable 10/28/18 23:00 11/27/18 22:59 Ondansetron HCl (Zofran) 4 mg Q6H PRN IVP Nausea & Vomiting 10/28/18 23:00 11/27/18 22:59 Vancomycin HCl (Vanco rx to dose) 1 ea DAILY PRN MISC Per rx protocol 10/31/18 06:30 11/30/18 06:29 Vancomycin HCl 750 mg/Sodium Chloride 275 ml @ 183.333 mls/hr Q8H IVPB 11/04/18 08:00 11/09/18 07:59 11/04/18 08:28 Kenyon Moran MD Nov 04, 2018 11:00
--- NOTE | 2018-11-04 11:09 | Diagnostic Imaging Report ---
Indication: Shortness of breath, cough Technique: One view of the chest Comparison: 10/31/2017 Findings: There is increased dense consolidation at the right lung base. There is a triangular opacity at the left lung base which is not evident previously. The heart size is normal. Impression: Increasing infiltrate at the right lung base, likely pneumonia New left basilar opacity, may reflect patchy pneumonia or atelectasis
[2018-11-04] MEDS: Albuterol/Ipratropium 3ml neb HHN PRN ×3 (11:14→23:36)
--- NOTE | 2018-11-04 12:02 | NUR ---
NURSE NOTES: US done awaiting result. Family visit and update done, per patient request " I do not want any visitor at this time, I need to rest a little bit". Family made aware and in waiting room.Keep on close monitoring and rounding done Q 30mn
--- NOTE | 2018-11-04 13:10 | NUR ---
NURSE NOTES: P200 mattress placed for skin management and comfort.Skin intact,will continue to monitor. Spinal and cervical precaution observed during positioning . Kept on close monitoring
--- NOTE | 2018-11-04 14:05 | NUR ---
NURSE NOTES: Patient asleep and refused to be turned at this time and refused to used spirometer. Explained risks and benefits still refusing as stated " I want to rest ". Patient kept comfortable,call light remains within reach. Kept on close monitoring.
--- NOTE | 2018-11-04 15:02 | Diagnostic Imaging Report ---
Indication: Abnormal liver function tests and renal function tests Technique: Junior-scale and duplex images of the upper abdomen were obtained. Doppler interrogation of the hepatic and pancreatic vessels Comparison: none Findings: Exam is limited, as patient was unable to lie supine and therefore position optimally due to neck brace. Patient also unable to suspend respiration. Gallbladder is unremarkable, without stones, wall thickening, nor pericholecystic fluid. Sonographic Allison's sign is negative. Common bile duct measures 4 mm in diameter. No intrahepatic biliary ductal dilatation. Liver demonstrates normal echogenicity, no focal abnormality. It is borderline enlarged. Portal vein and hepatic veins are patent. Pancreas is unremarkable. Spleen is unremarkable. Left kidney measures 11.8 cm in length. Right kidney measures 11.7 cm length. Both kidneys demonstrate normal echogenicity. There is no hydronephrosis. Echogenic focus in the right renal sinus may reflect a small calculus . Abdominal aorta is partially obscured by bowel gas, visualized portions are non-aneurysmal . Impression: Somewhat limited exam, as described. Note inability to visualize portions of the abdominal aorta Negative for gallstones or dilated bile ducts Borderline hepatomegaly Possible nonobstructive right renal calyceal calculus
--- NOTE | 2018-11-04 15:19 | NUR ---
CASE MANAGEMENT:REVIEW 11/04/18 SI: POD #7 S/P DISC ARTHROPLASTY AND DECOMPRESSION 100.0 65 17 100/55 95% ON 3L/NC NO LABS NOTED FOR TODAY IS: IV VANCOMYCIN Q8HRS DUONEB HHN Q4HRS PRN IV DILAUDID Q3HRS PRN XOPENEX HHN TID IV CEFEPIME Q12 TYLENOL PO Q4HRS PRN IVF@75/HR : ICU STATUS PLAN: NEEDS ACUTE REHAB
--- NOTE | 2018-11-04 16:24 | NUR ---
NURSE NOTES: Patient noted with fever 100.5 and Tylenol given and effective T 99.5.Cooling measure applied, patient encouraged to use spirometer and repositioning, as stated by the patient " I want to rest" . Diet order resumed per Dr Alvarado and also made aware of chest X ray result. Will continue to monitor.
--- NOTE | 2018-11-04 17:07 | NUR ---
NURSE NOTES: Patient seen by Dr Wilson, will follow up with new orders
--- NOTE | 2018-11-04 18:04 | NUR ---
NURSE NOTES: Patient asleep, daughter visited but awaiting in visitor room per patient request. No signs acute distress, will continue to monitor.Kept clean and dry.
--- NOTE | 2018-11-04 19:23 | NUR ---
HAND-OFF: Report given to GRAHAM Bravo.
--- NOTE | 2018-11-04 19:30 | NUR ---
NURSE NOTES:Received pt awake and alert oriented x4 , with very light movement only to 4 extremities but with sensation to all extremities. SR on the monitor, bp stable,. afebrile. IVF infusing well D51/2NS + 20meqkcl at 75ml/hr, through Rt Forearm. site atraumatic, neck brace on Ant. drsg dry and intact, Logrolled when turned, on cspine precaution, neurocheck done q 1hr and PRN.. Elkins to gravity wth lg amt of kahlil yellow urine. Monitor I and O. monitor lytes,
[2018-11-04] MEDS ORDERED: Gadavist 7.5mMol/7.5ml vial IV PRN (20:00)
[2018-11-04] MEDS ORDERED: NS 275ml ONE (20:12)
--- NOTE | 2018-11-04 20:20 | General Progress Note ---
Assessment/Plan Assessment/Plan Assessment - sudden rise in LFT, likely hypotensive liver injury - s/p C spine operation - post op fever Recommendations - Follow LFT - check viral markers, although not typically a cause of sudden rise as seen here - Avoid hepatotoxic meds - d/c Tylenol - avoid volume depletion / hypotension - If LFT continue to rise, will consider MRCP Thank you Devante Sinha MD Subjective Allergies: Coded Allergies: No Known Allergies (Unverified , 10/28/18) Objective Last 24 Hour Vital Signs Date Time Temp Pulse Resp B/P (MAP) Pulse Ox O2 Delivery O2 Flow Rate FiO2 11/04/18 19:40 65 10 99 Nasal Cannula 4.0 36 11/04/18 19:40 Nasal Cannula 4.0 36 11/04/18 19:40 99 Nasal Cannula 4.0 36 11/04/18 18:00 60 13 105/54 (71) 98 11/04/18 17:49 99.4 11/04/18 17:00 99.5 60 13 113/58 (76) 99 11/04/18 16:14 99.5 11/04/18 16:00 Nasal Cannula 3.0 Nasal Cannula 3.0 11/04/18 16:00 100.5 66 17 117/58 (77) 95 11/04/18 15:45 62 10 99 Nasal Cannula 4.0 36 11/04/18 15:40 60 12 99 Nasal Cannula 4.0 36 11/04/18 15:00 66 15 117/55 (75) 96 11/04/18 14:00 78 15 126/60 (82) 96 11/04/18 13:48 61 12 100 Nasal Cannula 4.0 36 11/04/18 13:40 61 12 98 Nasal Cannula 4.0 36 11/04/18 13:00 65 13 106/56 (73) 97 11/04/18 12:00 100.0 65 17 100/55 (70) 95 11/04/18 12:00 Nasal Cannula 3.0 Nasal Cannula 3.0 11/04/18 11:14 54 12 99 Nasal Cannula 4.0 36 11/04/18 11:04 66 12 99 Nasal Cannula 4.0 36 11/04/18 11:00 66 12 107/55 (72) 100 11/04/18 10:00 57 15 111/64 (80) 96 11/04/18 09:00 60 14 105/61 (76) 97 11/04/18 08:00 Nasal Cannula 3.0 Nasal Cannula 3.0 11/04/18 08:00 97.7 64 17 111/60 (77) 95 11/04/18 07:09 49 12 99 Nasal Cannula 4.0 36 11/04/18 07:08 Nasal Cannula 4.0 36 11/04/18 07:08 99 Nasal Cannula 4.0 36 11/04/18 07:00 54 12 99 Nasal Cannula 4.0 36 11/04/18 07:00 61 13 101/61 (74) 98 11/04/18 06:00 57 13 94/57 (69) 98 11/04/18 05:00 98.9 59 14 108/60 (76) 97 11/04/18 04:00 57 13 105/58 (74) 98 11/04/18 04:00 Nasal Cannula 3.0 Nasal Cannula 3.0 11/04/18 04:00 55 11/04/18 03:00 60 14 106/55 (72) 95 11/04/18 02:00 99.6 65 16 119/57 (77) 94 11/04/18 01:00 62 11 114/57 (76) 96 11/04/18 00:00 58 11/04/18 00:00 Nasal Cannula 3.0 11/04/18 00:00 99.5 66 14 112/53 (72) 98 11/03/18 23:52 62 14 96 Nasal Cannula 4.0 36 11/03/18 23:00 72 15 128/65 (86) 96 11/03/18 22:00 60 14 115/64 (81) 96 11/03/18 21:00 61 12 119/62 (81) 96 Intake and Output 11/03/18 11/04/18 19:00 07:00 Intake Total 1545.0 ml 955 ml Output Total 1045 ml 1445 ml Balance 500.0 ml -490 ml Intake Oral 390 ml IV Total 1155.0 ml 955 ml Output Urine Total 1045 ml 1445 ml Laboratory Tests 11/04/18 05:05: Random Vancomycin Level 12.0 Height (Feet): 5 Height (Inches): 7.00 Weight (Pounds): 170 Oscar Sinha MD Nov 04, 2018 20:20
--- NOTE | 2018-11-04 20:50 | NUR ---
NURSE NOTES:Pt complaining of neck pain radiatingto his shoulder scale of 8 characterized by stabbing pain- Dilauded 2mgivp was given.
--- NOTE | 2018-11-04 21:00 | NUR ---
NURSE NOTES:Totally feed with his thickened liquids diet. HOB at 45 degree. - Tolerated only 40%.- On aspiration precaution.
--- NOTE | 2018-11-04 22:00 | NUR ---
NURSE NOTES: at bedside. Updated with pts condition. verbalized understanding. Will continue to monitor.
--- NOTE | 2018-11-04 23:00 | NUR ---
NURSE NOTES:Encouraged to use incentive spirometer- Tolerated x5, raises up 500 ml.02 sat >95%. No SOB noted.
[2018-11-05] VITALS (24 sets, daily range): BP systolic 110–149; BP diastolic 53–69
[2018-11-05] MEDS: Vancomycin 750mg/NS 275ml IVPB SCH ×6 (00:04→16:00)
--- NOTE | 2018-11-05 00:05 | NUR ---
NURSE NOTES:Dilauded 2mg ivp given for pain in his neck radiating to shoulder scale of 8.
--- NOTE | 2018-11-05 02:00 | NUR ---
NURSE NOTES:Sleeping well at this time. frequently checked every 30min PRN as ordered.- will continue to monitor.
--- NOTE | 2018-11-05 02:15 | Consultation ---
DATE OF CONSULTATION: 11/04/2018 GASTROLOGY CONSULTATION CHIEF COMPLAINT: I was asked to see this patient by Dr. Pradeep Alvarado for evaluation of abnormal liver tests. HISTORY OF PRESENT ILLNESS: The patient is a pleasant 63-year-old man who has been admitted to the hospital after cervical spine surgery. The details of the surgery and its outcome are outlined in the chart in detail. The patient has been admitted to the ICU and his liver panel on 10/23/2018 was normal. However 2 days later on 11/02/2018, his bilirubin jumped from 0.6 to 3.6 and his transaminases and alkaline phosphatase were all also changed significantly. Bilirubin now is up to 4.6 yesterday. The patient's had an abdominal ultrasound today, which did not show any clear pathology that would explain the abnormalities. Specifically, there is no evidence of gallstones or dilated bile ducts. However, the liver did seem borderline enlarged. The patient himself denies any history of liver disease or alcohol use. He has had no history of gallstone disease or any family history of liver disease. He has no nausea or vomiting and he has had no history of liver test abnormalities in the past. He says his last colonoscopy was perhaps about 10 years ago. PAST MEDICAL HISTORY: Remarkable for cervical spine disc disease and spinal cord compression. ALLERGIES: No known drug allergies. MEDICATIONS: See the chart list for details. FAMILY HISTORY: Negative for liver disorders. SOCIAL HISTORY: The patient denies alcohol use. REVIEW OF SYSTEMS: Otherwise negative. PHYSICAL EXAMINATION: GENERAL: A pleasant man, seen in the ICU. HEENT: Normocephalic. NECK: cervical collar was not examined. CHEST: Reveals coarse breath sounds. CARDIOVASCULAR: Revealed a regular rate. ABDOMEN: Soft without tenderness. EXTREMITIES: Revealed no edema. LABORATORY DATA: Noted. ASSESSMENT: This patient had an abrupt change in his liver tests. He at times was seen with shock liver. I reviewed his blood pressure recordings and his minimal systolic blood pressure is 94 in a pattern, which is very rapid and typically seen with ischemic injury to the liver. The review of his blood pressure measurements showed that he was hypotensive down to the 80s on 10/30/2018 and hypertension was seen at other times around that date. It is possible that his liver test abnormalities are from acute ischemic liver injury, which could then resolve uneventfully once his hemodynamics have improved. The patient has already had an ultrasound, which did not show any biliary ductal dilation. However should his liver test abnormalities progress or worsen, then an MRI and MRCP of his liver can be done to rule out any common bile duct stones. In the meantime, I would follow his liver tests and also I would also order infectious etiologies of the liver. However, typically these infections dont change sudden liver test abnormalities. The patient's blood pressure should be supported as much as possible and I would hold any medications, which may have side effects on the liver. RECOMMENDATIONS: 1. Follow liver profile on a daily basis. 2. Check hepatitis serology. 3. Avoid hypotension. 4. Avoid hepatotoxic medications. 5. Should liver tests progressively worsen, then an MRCP of the abdomen will be ordered. Thank you for asking me to participate in the care of this patient. Oscar Sinha M.D. DR: HUBERT JOB#: [id number] CC: JAY
--- NOTE | 2018-11-05 03:13 | NUR ---
NURSE NOTES:[id number] ivp given due to stabbing pain on pts neck radiating to shoulder scale of 8.
--- NOTE | 2018-11-05 04:15 | NUR ---
NURSE NOTES:Pain free and resting well at this time.
[2018-11-05] MEDS: D5 1/2NS w/KCl 20mEq 1,000 ML IV SCH ×2 (05:45→17:46)
--- NOTE | 2018-11-05 06:00 | NUR ---
NURSE NOTES:Temp 102.4F- cooling measures was done - called to Dr Moran- Awaiting for md to call back
--- NOTE | 2018-11-05 06:20 | NUR ---
NURSE NOTES:Dilauded 2mg ivp was given due to stabbing pain on pts neck radiating to shoulder scale of 10.
--- NOTE | 2018-11-05 06:23 | NUR ---
NURSE NOTES:Daughter at bedside -updated with p[ts condition- Verbalized understanding.
--- NOTE | 2018-11-05 06:30 | NUR ---
NURSE NOTES:Re called Dr Moran- awaiting for md to call back
--- NOTE | 2018-11-05 06:55 | NUR ---
NURSE NOTES:called dr Donahue for pts fever- awaiting for md to call back
--- NOTE | 2018-11-05 07:00 | NUR ---
NURSE NOTES:Neuro unchanged. Temp 100.8F
[2018-11-05 07:06] LABS: BASOPHILS % (AUTO) 0.7 % (0.0-2.0); EOSINOPHILS % (AUTO) 0.6 % (0.0-3.0); HEMOGLOBIN 9.8 G/DL (14.2-18.0); LYMPHOCYTES % (AUTO) 4.4 % (20.0-45.0); MEAN CORPUSCULAR VOLUME 84 FL (80-99); MONOCYTES % (AUTO) 10.9 % (1.0-10.0); NEUTROPHILS % (AUTO) 83.4 % (45.0-75.0); PLATELET COUNT 131 K/UL (150-450); RED BLOOD COUNT 3.34 M/UL (4.70-6.10); RED CELL DISTRIBUTION WIDTH 11.8 % (11.6-14.8); WHITE BLOOD COUNT 6.8 K/UL (4.8-10.8)
[2018-11-05 07:18] LABS: ALANINE AMINOTRANSFERASE 98 U/L (12-78); ALBUMIN 1.8 G/DL (3.4-5.0); ALBUMIN/GLOBULIN RATIO 0.4 (1.0-2.7); ALKALINE PHOSPHATASE 441 U/L (46-116); ANION GAP 6 mmol/L (5-15); ASPARTATE AMINO TRANSFERASE 65 U/L (15-37); BILIRUBIN,TOTAL 3.1 MG/DL (0.2-1.0); BLOOD UREA NITROGEN 27 mg/dL (7-18); CARBON DIOXIDE 30 MMOL/L (21-32); CHLORIDE 101 MMOL/L (98-107); CREATININE 1.2 MG/DL (0.55-1.30); POTASSIUM 4.6 MMOL/L (3.5-5.1); SODIUM 136 MMOL/L (136-145)
[2018-11-05 07:19] LABS: BILIRUBIN,DIRECT 2.4 MG/DL (0.0-0.3)
[2018-11-05] MEDS: Levalbuterol Inh UD 1.25mg/0.5ml HHN SCH ×2 (07:29→12:38)
--- NOTE | 2018-11-05 07:45 | NUR ---
HAND-OFF: Report given to Raquel STEVENSON.
--- NOTE | 2018-11-05 08:00 | NUR ---
NURSE NOTES: Received pt from GRAHAM Bravo. Pt awake and alert oriented x4 , with very light movement only to 4 extremities but with sensation to all extremities. SR on the monitor, bp stable,. afebrile. IVF infusing well D51/2NS + 20meqkcl at 75ml/hr, through Rt Forearm. site atraumatic, neck brace on Ant. drsg dry and intact, Logrolled when turned, on cspine precaution, neurocheck done q 1hr and PRN.. Elkins to gravity wth lg amt of kahlil yellow urine. Monitor I and O. monitor lytes,
--- NOTE | 2018-11-05 08:21 | General Progress Note ---
Assessment/Plan Assessment/Plan Status post anterior cervical corpectomy-discectomy at C3-4 and corpectomy/ discectomy C4-5. ACDF C3-4, Disc Arthroplasty C4-5 Spinal Cord compression fevers concern for aspiration spinal cord shock elevated LFT possible shock liver PLAN post op care neuro follow up cultures negative IV antibiotics ID follow up ICU care pain control plan for extensive rehab monitor for aspiration repeat cultures Subjective Allergies: Coded Allergies: No Known Allergies (Unverified , 10/28/18) Subjective spoking fevers d/w ID and surgery Objective Last 24 Hour Vital Signs Date Time Temp Pulse Resp B/P (MAP) Pulse Ox O2 Delivery O2 Flow Rate FiO2 11/05/18 07:47 76 17 97 Nasal Cannula 4.0 36 11/05/18 07:29 Nasal Cannula 4.0 36 11/05/18 07:29 98 Nasal Cannula 4.0 36 11/05/18 07:29 73 16 99 Nasal Cannula 4.0 36 11/05/18 06:00 83 18 140/58 (85) 97 11/05/18 05:00 103.2 79 16 143/66 (91) 97 11/05/18 04:00 Nasal Cannula 3.0 Nasal Cannula 3.0 Nasal Cannula 3.0 11/05/18 04:00 80 16 140/64 (89) 97 11/05/18 03:00 81 15 149/61 (90) 95 11/05/18 02:00 79 15 140/63 (88) 96 11/05/18 01:00 79 15 140/63 (88) 96 11/05/18 00:00 83 11/05/18 00:00 99.0 74 15 139/63 (88) 96 11/05/18 00:00 Nasal Cannula 3.0 Nasal Cannula 3.0 Nasal Cannula 3.0 11/04/18 23:54 85 15 98 Nasal Cannula 3.0 32 11/04/18 23:34 71 14 95 Nasal Cannula 3.0 32 11/04/18 23:00 74 16 138/71 (93) 96 11/04/18 22:00 68 16 120/80 (93) 96 11/04/18 21:00 69 17 118/60 (79) 96 11/04/18 20:00 76 11/04/18 20:00 Nasal Cannula 3.0 Nasal Cannula 3.0 Nasal Cannula 3.0 11/04/18 20:00 98.5 68 13 111/61 (78) 99 11/04/18 19:53 67 11 100 Nasal Cannula 4.0 36 11/04/18 19:40 65 10 99 Nasal Cannula 4.0 36 11/04/18 19:40 Nasal Cannula 4.0 36 11/04/18 19:40 99 Nasal Cannula 4.0 36 11/04/18 19:00 66 13 111/61 (78) 99 11/04/18 18:00 60 13 105/54 (71) 98 11/04/18 17:49 99.4 11/04/18 17:00 99.5 60 13 113/58 (76) 99 11/04/18 16:14 99.5 11/04/18 16:00 Nasal Cannula 3.0 Nasal Cannula 3.0 11/04/18 16:00 100.5 66 17 117/58 (77) 95 11/04/18 15:45 62 10 99 Nasal Cannula 4.0 36 11/04/18 15:40 60 12 99 Nasal Cannula 4.0 36 11/04/18 15:00 66 15 117/55 (75) 96 11/04/18 14:00 78 15 126/60 (82) 96 11/04/18 13:48 61 12 100 Nasal Cannula 4.0 36 11/04/18 13:40 61 12 98 Nasal Cannula 4.0 36 11/04/18 13:00 65 13 106/56 (73) 97 11/04/18 12:00 100.0 65 17 100/55 (70) 95 11/04/18 12:00 Nasal Cannula 3.0 Nasal Cannula 3.0 11/04/18 11:14 54 12 99 Nasal Cannula 4.0 36 11/04/18 11:04 66 12 99 Nasal Cannula 4.0 36 11/04/18 11:00 66 12 107/55 (72) 100 11/04/18 10:00 57 15 111/64 (80) 96 11/04/18 09:00 60 14 105/61 (76) 97 Intake and Output 11/04/18 11/05/18 19:00 07:00 Intake Total 1551.999 ml 1123.333 ml Output Total 1140 ml 1260 ml Balance 411.999 ml -136.667 ml Intake Oral 30 ml 60 ml IV Total 1521.999 ml 1063.333 ml Output Urine Total 1140 ml 1260 ml Laboratory Tests 11/05/18 06:26: White Blood Count 6.8, Red Blood Count 3.34L, Hemoglobin 9.8L, Hematocrit 28.0L , Mean Corpuscular Volume 84, Mean Corpuscular Hemoglobin 29.4, Mean Corpuscular Hemoglobin Concent 35.1, Red Cell Distribution Width 11.8, Platelet Count 131L, Mean Platelet Volume 6.3L, Neutrophils (%) (Auto) 83.4H, Lymphocytes (%) (Auto) 4.4L, Monocytes (%) (Auto) 10.9H, Eosinophils (%) (Auto) 0.6, Basophils (%) (Auto) 0.7, Sodium Level 136, Potassium Level 4.6, Chloride Level 101, Carbon Dioxide Level 30, Anion Gap 6, Blood Urea Nitrogen 27H, Creatinine 1.2, Estimat Glomerular Filtration Rate > 60, Glucose Level 125H, Lactic Acid Level 1.20, Calcium Level 9.0, Total Bilirubin 3.1H, Direct Bilirubin 2.4H, Aspartate Amino Transf (AST/SGOT) 65H, Alanine Aminotransferase (ALT/SGPT) 98H, Alkaline Phosphatase 441H, Total Protein 6.1L, Albumin 1.8L, Globulin 4.3, Albumin/Globulin Ratio 0.4L, Vancomycin Level Trough 15.3H, Evens-Church Virus Capsid Ag IgM Ab [Pending], Hepatitis A IgM Antibody [Pending ], Hepatitis B Surface Antigen [Pending], Hepatitis B Core IgM Antibody [Pending ], Hepatitis C Antibody [Pending], Herpes Simplex Virus I IgM Ab (IFA) [Pending] , Herpes Simplex Virus II IgM Ab (IFA [Pending], Monoscreen [Pending] Height (Feet): 5 Height (Inches): 7.00 Weight (Pounds): 170 Objective WDWN NAD clear breath sounds bilaterally without rhonchi or wheeze [id number] without MRG NABS nontender no HSM no CCE alert and weak poor mobility of extremities Pradeep Alvarado MD Nov 05, 2018 08:21
[2018-11-05] MEDS: Docusate 250mg cap ORAL SCH (09:19)
[2018-11-05] MEDS: Cefepime HCl 1 GM in D5W 55 ML IVPB SCH (09:19)
--- NOTE | 2018-11-05 10:00 | NUR ---
NURSE NOTES: Pt refused repositioning. Ate 50% of breakfast. Will continue plan of care.
--- NOTE | 2018-11-05 10:12 | NUR ---
ST NOTE: SWALLOW STATUS: FOLLOWED UP PT'S CONDITIONS. CHART REVIEWED. PER RECENT CXR: Increasing infiltrate at the right lung base, likely pneumonia New left basilar opacity, may reflect patchy pneumonia or atelectasis. CONCERN ASPIRATION OBSERVED PT DURING MEAL, PT HAS SOFT COLLAR, NO OVERT S/S OF ASPIRATION WAS NOTED. AND PER PT, NO SWALLOWING WAS NOTED. VIDEOSWALLOW STUDY IS RECOMMENDED. DISCUSSED WITH ESTEBAN STEVENSON RE:PT'S CONDITIONS AND VIDEOSWALLOW STUDY. RN AGREED WITH THE RECOMMENDATIONS, BUT NEEDED TO CHECK WITH , DR. MARIE RE: TRANSPORTATION AND POSITIONING PT DURING THE VIDEOS. WILL FOLLOW UP.
--- NOTE | 2018-11-05 10:44 | NUR ---
CASE MANAGEMENT:REVIEW 11/05/18 SI: POD #8 S/P DISC ARTHROPLASTY AND DECOMPRESSION 100.5 83 18 120/62 97% ON 3L/NC H/H-9.8/28.0 BUN+27 TBILI+3.1 DBILI+2.4 AST/ALT+65/98 ALB-1.8 IS: IV VANCOMYCIN Q8HRS DUONEB HHN Q4HRS PRN IV DILAUDID Q3HRS PRN XOPENEX HHN TID IV CEFEPIME Q12 TYLENOL PO Q4HRS PRN IVF@75/HR : ICU STATUS PLAN: NEEDS ACUTE REHAB
--- NOTE | 2018-11-05 11:15 | Infectious Diseases Prog Note ---
Assessment/Plan Assessment/Plan antibiotics : vancomycin iv, cefepime A 1. aspiration pneumonia 2. cervical spondylosis s/p surgery 3. fever increased P 1. continue iv vancomycin 2. d/c cefepime 3. start zosyn 4. blood culture 5. UA and urine culture 6. sputum culture 7. will follow up cultures Subjective Constitutional: Denies: fever, chills Respiratory: Denies: shortness of breath, dry cough Gastrointestinal/Abdominal: Denies: nausea, vomiting, diarrhea Musculoskeletal: Denies: pain Allergies: Coded Allergies: No Known Allergies (Unverified , 10/28/18) Objective Vital Signs Last 24 Hour Vital Signs Date Time Temp Pulse Resp B/P (MAP) Pulse Ox O2 Delivery O2 Flow Rate FiO2 11/05/18 10:00 83 18 110/60 (77) 97 11/05/18 09:56 100.5 11/05/18 09:00 80 18 120/62 (81) 97 11/05/18 08:00 100.0 79 16 129/66 (87) 97 11/05/18 08:00 Nasal Cannula 3.0 Nasal Cannula 3.0 Nasal Cannula 3.0 11/05/18 07:47 76 17 97 Nasal Cannula 4.0 36 11/05/18 07:29 Nasal Cannula 4.0 36 11/05/18 07:29 98 Nasal Cannula 4.0 36 11/05/18 07:29 73 16 99 Nasal Cannula 4.0 36 11/05/18 07:00 83 18 145/58 (87) 97 11/05/18 06:00 83 18 140/58 (85) 97 11/05/18 05:00 103.2 79 16 143/66 (91) 97 11/05/18 04:00 Nasal Cannula 3.0 Nasal Cannula 3.0 Nasal Cannula 3.0 11/05/18 04:00 80 16 140/64 (89) 97 11/05/18 03:00 81 15 149/61 (90) 95 11/05/18 02:00 79 15 140/63 (88) 96 11/05/18 01:00 79 15 140/63 (88) 96 11/05/18 00:00 83 11/05/18 00:00 99.0 74 15 139/63 (88) 96 11/05/18 00:00 Nasal Cannula 3.0 Nasal Cannula 3.0 Nasal Cannula 3.0 3/4/19 23:54 85 15 98 Nasal Cannula 3.0 32 11/04/18 23:34 71 14 95 Nasal Cannula 3.0 32 11/04/18 23:00 74 16 138/71 (93) 96 11/04/18 22:00 68 16 120/80 (93) 96 11/04/18 21:00 69 17 118/60 (79) 96 11/04/18 20:00 76 11/04/18 20:00 Nasal Cannula 3.0 Nasal Cannula 3.0 Nasal Cannula 3.0 11/04/18 20:00 98.5 68 13 111/61 (78) 99 11/04/18 19:53 67 11 100 Nasal Cannula 4.0 36 11/04/18 19:40 65 10 99 Nasal Cannula 4.0 36 11/04/18 19:40 Nasal Cannula 4.0 36 11/04/18 19:40 99 Nasal Cannula 4.0 36 11/04/18 19:00 66 13 111/61 (78) 99 11/04/18 18:00 60 13 105/54 (71) 98 11/04/18 17:00 99.5 60 13 113/58 (76) 99 11/04/18 16:14 99.5 11/04/18 16:00 Nasal Cannula 3.0 Nasal Cannula 3.0 11/04/18 16:00 100.5 66 17 117/58 (77) 95 11/04/18 15:45 62 10 99 Nasal Cannula 4.0 36 11/04/18 15:40 60 12 99 Nasal Cannula 4.0 36 11/04/18 15:00 66 15 117/55 (75) 96 11/04/18 14:00 78 15 126/60 (82) 96 11/04/18 13:48 61 12 100 Nasal Cannula 4.0 36 11/04/18 13:40 61 12 98 Nasal Cannula 4.0 36 11/04/18 13:00 65 13 106/56 (73) 97 11/04/18 12:00 100.0 65 17 100/55 (70) 95 11/04/18 12:00 Nasal Cannula 3.0 Nasal Cannula 3.0 11/04/18 11:14 54 12 99 Nasal Cannula 4.0 36 Height (Feet): 5 Height (Inches): 7.00 Weight (Pounds): 170 Respiratory/Chest: lungs clear Cardiovascular: normal rate, regular rhythm, no gallop/murmur Abdomen: soft, non tender Extremities: no edema Microbiology Date/Time Source Procedure Growth Status 11/02/18 12:30 Sputum Gram Stain - Final Complete 11/02/18 12:30 Sputum Sputum Culture - Final NORMAL UPPER RESPIRATORY DORIS PRESENT Complete Laboratory Tests Test 11/05/18 06:26 White Blood Count 6.8 K/UL (4.8-10.8) Red Blood Count 3.34 M/UL (4.70-6.10) L Hemoglobin 9.8 G/DL (14.2-18.0) L Hematocrit 28.0 % (42.0-52.0) L Mean Corpuscular Volume 84 FL (80-99) Mean Corpuscular Hemoglobin 29.4 PG (27.0-31.0) Mean Corpuscular Hemoglobin Concent 35.1 G/DL (32.0-36.0) Red Cell Distribution Width 11.8 % (11.6-14.8) Platelet Count 131 K/UL (150-450) L Mean Platelet Volume 6.3 FL (6.5-10.1) L Neutrophils (%) (Auto) 83.4 % (45.0-75.0) H Lymphocytes (%) (Auto) 4.4 % (20.0-45.0) L Monocytes (%) (Auto) 10.9 % (1.0-10.0) H Eosinophils (%) (Auto) 0.6 % (0.0-3.0) Basophils (%) (Auto) 0.7 % (0.0-2.0) Sodium Level 136 MMOL/L (136-145) Potassium Level 4.6 MMOL/L (3.5-5.1) Chloride Level 101 MMOL/L (98-107) Carbon Dioxide Level 30 MMOL/L (21-32) Anion Gap 6 mmol/L (5-15) Blood Urea Nitrogen 27 mg/dL (7-18) H Creatinine 1.2 MG/DL (0.55-1.30) Estimat Glomerular Filtration Rate > 60 mL/min (>60) Glucose Level 125 MG/DL (74-106) H Lactic Acid Level 1.20 mmol/L (0.4-2.0) Calcium Level 9.0 MG/DL (8.5-10.1) Total Bilirubin 3.1 MG/DL (0.2-1.0) H Direct Bilirubin 2.4 MG/DL (0.0-0.3) H Aspartate Amino Transf (AST/SGOT) 65 U/L (15-37) H Alanine Aminotransferase (ALT/SGPT) 98 U/L (12-78) H Alkaline Phosphatase 441 U/L (46-116) H Total Protein 6.1 G/DL (6.4-8.2) L Albumin 1.8 G/DL (3.4-5.0) L Globulin 4.3 g/dL Albumin/Globulin Ratio 0.4 (1.0-2.7) L Vancomycin Level Trough 15.3 ug/mL (5.0-12.0) H Evens-Church Virus Capsid Ag IgM Ab Pending Hepatitis A IgM Antibody Pending Hepatitis B Surface Antigen Pending Hepatitis B Core IgM Antibody Pending Hepatitis C Antibody Pending Herpes Simplex Virus I IgM Ab (IFA) Pending Herpes Simplex Virus II IgM Ab (IFA Pending Monoscreen Pending Current Medications Medications (Trade) Dose Ordered Sig/Sharon Route PRN Reason Start Time Stop Time Status Last Admin Dose Admin Albuterol/ Ipratropium (Albuterol/ Ipratropium) 3 ml Q4H PRN HHN Shortness of Breath 11/01/18 16:30 11/06/18 16:29 11/04/18 23:36 Cefepime HCl 1 gm/ Dextrose 55 ml @ 110 mls/hr EVERY 12 HOURS IVPB 10/31/18 09:00 11/07/18 08:59 11/05/18 09:19 Dextrose/ Electrolytes 1,000 ml @ 75 mls/hr [id number] IV 10/28/18 22:46 11/27/18 22:45 11/05/18 05:45 Docusate Sodium (Colace) 250 mg DAILY ORAL 11/03/18 15:45 12/03/18 15:44 11/05/18 09:19 Hydromorphone HCl (Dilaudid) 0.5 mg Q3H PRN IVP Mild Pain (Pain Scale 1-3) 11/03/18 17:45 11/10/18 17:44 Hydromorphone HCl (Dilaudid) 1 mg Q3H PRN IVP moderate pain 5-7 11/03/18 17:45 11/10/18 17:44 Hydromorphone HCl (Dilaudid) 2 mg Q3H PRN IVP Severe Breakthru Pain (>7) 11/01/18 14:00 11/08/18 13:59 11/05/18 09:26 Levalbuterol HCl (Xopenex) 0.63 mg TIDRT HHN 10/31/18 13:00 11/05/18 12:59 11/05/18 07:29 Metoclopramide HCl (Reglan) 10 mg Q6H PRN IVP Nausea & Vomiting 10/28/18 23:00 11/27/18 22:59 Naloxone HCl (Narcan) 0.1 mg PRN PRN IVP RR<12/min, pt unarousable 10/28/18 23:00 11/27/18 22:59 Ondansetron HCl (Zofran) 4 mg Q6H PRN IVP Nausea & Vomiting 10/28/18 23:00 11/27/18 22:59 Vancomycin HCl (Vanco rx to dose) 1 ea DAILY PRN MISC Per rx protocol 10/31/18 06:30 11/30/18 06:29 Vancomycin HCl 750 mg/Sodium Chloride 275 ml @ 183.333 mls/hr Q8H IVPB 11/04/18 08:00 11/09/18 07:59 11/05/18 08:00 Kenyon Moran MD Nov 05, 2018 11:15
--- NOTE | 2018-11-05 12:00 | NUR ---
NURSE NOTES: Pt resting in bed, pain medication given. will continue plan of care.
[2018-11-05] MEDS: Piperacillin/Tazobactam 3.375 GM in D5W 110 ML IVPB SCH ×2 (14:00→22:41)
--- NOTE | 2018-11-05 14:00 | NUR ---
NURSE NOTES: NURSE NOTES: Pt resting in bed. refused to be turned. will continue plan of care
--- NOTE | 2018-11-05 16:00 | NUR ---
NURSE NOTES: Pt resting in bed. family at bedside.
[2018-11-05] MEDS ORDERED: NS 275ml ONE (16:05)
--- NOTE | 2018-11-05 19:17 | NUR ---
HAND-OFF: Report given to GRAHAM Cross.
--- NOTE | 2018-11-05 19:18 | NUR ---
NURSE NOTES: Endorsement received from GRAHAM García. Patient awake and alert x4. On 2 liters oxygen per nasal cannula. Elkins catheter draining to urimeter. Noted with dark kahlil color urine. Dressing at anterior neck dry and intact. With right forearm g 20 and right hand g20. Ongoing D5 1/2NS with KCl 20meq at 75 ml/hr. On P200 mattress. Head of bed kept at 45degrees. Bed alarm on
--- NOTE | 2018-11-05 19:38 | NUR ---
NURSE NOTES: Patient reported 8/10 pain. PRN dilaudid given.
[2018-11-05] MEDS: Albuterol/Ipratropium 3ml neb HHN PRN (20:01)
--- NOTE | 2018-11-05 21:01 | General Progress Note ---
Assessment/Plan Assessment/Plan Assessment - sudden rise in LFT, likely hypotensive liver injury - improving - s/p C spine operation - post op fever Recommendations - Follow LFT - check viral markers, although not typically a cause of sudden rise as seen here - Avoid hepatotoxic meds - avoid volume depletion / hypotension Subjective Allergies: Coded Allergies: No Known Allergies (Unverified , 10/28/18) Subjective Above noted feels OK no new complaints Objective Last 24 Hour Vital Signs Date Time Temp Pulse Resp B/P (MAP) Pulse Ox O2 Delivery O2 Flow Rate FiO2 11/05/18 20:08 99.8 11/05/18 20:00 69 16 100 Nasal Cannula 3.0 32 11/05/18 19:55 Nasal Cannula 3.0 32 11/05/18 19:54 98 Nasal Cannula 3.0 32 11/05/18 19:45 64 18 98 Nasal Cannula 3.0 32 11/05/18 19:00 70 16 120/59 (79) 97 11/05/18 18:00 69 16 116/59 (78) 97 11/05/18 17:00 75 16 110/59 (76) 97 11/05/18 16:00 99.0 79 16 129/69 (89) 97 11/05/18 16:00 Nasal Cannula 3.0 Nasal Cannula 3.0 Nasal Cannula 3.0 11/05/18 15:00 66 16 110/59 (76) 97 11/05/18 14:00 65 16 116/69 (85) 97 11/05/18 13:00 72 16 110/59 (76) 97 11/05/18 12:45 60 16 100 Nasal Cannula 4.0 36 11/05/18 12:39 66 18 98 Nasal Cannula 4.0 36 11/05/18 12:00 98.7 79 16 130/66 (87) 97 11/05/18 12:00 Nasal Cannula 3.0 Nasal Cannula 3.0 Nasal Cannula 3.0 11/05/18 11:00 69 16 113/59 (77) 97 11/05/18 10:00 83 18 110/60 (77) 97 11/05/18 09:00 80 18 120/62 (81) 97 11/05/18 08:00 100.0 79 16 129/66 (87) 97 11/05/18 08:00 Nasal Cannula 3.0 Nasal Cannula 3.0 Nasal Cannula 3.0 11/05/18 07:47 76 17 97 Nasal Cannula 4.0 36 11/05/18 07:29 Nasal Cannula 4.0 36 11/05/18 07:29 98 Nasal Cannula 4.0 36 11/05/18 07:29 73 16 99 Nasal Cannula 4.0 36 11/05/18 07:00 83 18 145/58 (87) 97 11/05/18 06:00 83 18 140/58 (85) 97 11/05/18 05:00 103.2 79 16 143/66 (91) 97 11/05/18 04:00 Nasal Cannula 3.0 Nasal Cannula 3.0 Nasal Cannula 3.0 11/05/18 04:00 80 16 140/64 (89) 97 11/05/18 03:00 81 15 149/61 (90) 95 11/05/18 02:00 79 15 140/63 (88) 96 11/05/18 01:00 79 15 140/63 (88) 96 11/05/18 00:00 83 11/05/18 00:00 99.0 74 15 139/63 (88) 96 11/05/18 00:00 Nasal Cannula 3.0 Nasal Cannula 3.0 Nasal Cannula 3.0 11/04/18 23:54 85 15 98 Nasal Cannula 3.0 32 11/04/18 23:34 71 14 95 Nasal Cannula 3.0 32 11/04/18 23:00 74 16 138/71 (93) 96 11/04/18 22:00 68 16 120/80 (93) 96 11/04/18 21:00 69 17 118/60 (79) 96 Intake and Output 11/04/18 11/05/18 19:00 07:00 Intake Total 1551.999 ml 1123.333 ml Output Total 1140 ml 1360 ml Balance 411.999 ml -236.667 ml Intake Oral 30 ml 60 ml IV Total 1521.999 ml 1063.333 ml Output Urine Total 1140 ml 1360 ml Laboratory Tests 11/05/18 06:26: White Blood Count 6.8, Red Blood Count 3.34L, Hemoglobin 9.8L, Hematocrit 28.0L , Mean Corpuscular Volume 84, Mean Corpuscular Hemoglobin 29.4, Mean Corpuscular Hemoglobin Concent 35.1, Red Cell Distribution Width 11.8, Platelet Count 131L, Mean Platelet Volume 6.3L, Neutrophils (%) (Auto) 83.4H, Lymphocytes (%) (Auto) 4.4L, Monocytes (%) (Auto) 10.9H, Eosinophils (%) (Auto) 0.6, Basophils (%) (Auto) 0.7, Sodium Level 136, Potassium Level 4.6, Chloride Level 101, Carbon Dioxide Level 30, Anion Gap 6, Blood Urea Nitrogen 27H, Creatinine 1.2, Estimat Glomerular Filtration Rate > 60, Glucose Level 125H, Lactic Acid Level 1.20, Calcium Level 9.0, Total Bilirubin 3.1H, Direct Bilirubin 2.4H, Aspartate Amino Transf (AST/SGOT) 65H, Alanine Aminotransferase (ALT/SGPT) 98H, Alkaline Phosphatase 441H, Total Protein 6.1L, Albumin 1.8L, Globulin 4.3, Albumin/Globulin Ratio 0.4L, Vancomycin Level Trough 15.3H, Evens-Church Virus Capsid Ag IgM Ab [Pending], Hepatitis A IgM Antibody [Pending ], Hepatitis B Surface Antigen [Pending], Hepatitis B Core IgM Antibody [Pending ], Hepatitis C Antibody [Pending], Herpes Simplex Virus I IgM Ab (IFA) [Pending] , Herpes Simplex Virus II IgM Ab (IFA [Pending], Monoscreen [Pending] Height (Feet): 5 Height (Inches): 7.00 Weight (Pounds): 170 Objective Thin AA man NCAT C spine collar CTA RRR soft ND NT no edema Oscar Sinha MD Nov 05, 2018 21:01
--- NOTE | 2018-11-05 21:30 | NUR ---
NURSE NOTES: Eleanor Solorio ([employer] BOSS for Dr Wilson) called. Updated him of patient's current status. No new order was given.
--- NOTE | 2018-11-05 23:00 | NUR ---
NURSE NOTES: Patient with eyes closed. Daughter at bedside.
[2018-11-06] VITALS (24 sets, daily range): BP systolic 111–136; BP diastolic 53–64
[2018-11-06] MEDS: Vancomycin 750mg/NS 275ml IVPB SCH ×8 (00:01→23:30)
[2018-11-06] MEDS: Albuterol/Ipratropium 3ml neb HHN PRN ×6 (00:04→23:54)
--- NOTE | 2018-11-06 01:00 | NUR ---
NURSE NOTES: Patient with eyes closed. Sinus rhythm on the monitor.
--- NOTE | 2018-11-06 01:00 | Progress Note ---
DATE: 11/05/2018 NOTE: "POOR AUDIO QUALITY" SUBJECTIVE: The patient notes he can feel some tingling in his dorsum of forearms, otherwise it has not changed much. PHYSICAL EXAMINATION: VITAL SIGNS: The pulse is 60 and regular, blood pressure is 113/59, pulse oximetry is 100% on nasal cannula, his temperature is 100.5 degrees. NEUROLOGIC: Mental status, his mental status is unchanged. He is alert, awake, and talking with his family. CRANIAL NERVE II: Visual nickerson intact to confrontation. CRANIAL NERVES III, IV, AND : Extraocular motility is full. Saccadic smooth pursuit noted. CRANIAL NERVE V: Corneal sensation is intact to fine touch and facial sensation is intact to fine touch. CRANIAL NERVE VII: Facial strength is 5/5 bilaterally. CRANIAL NERVE VIII: Auditory acuity is intact. CRANIAL NERVES IX AND X: Gag was decreased. CRANIAL NERVE XI: Could not be tested. CRANIAL NERVE XII: Tongue protrudes in the midline without fasciculations or atrophy. MUSCLE EXAMINATION: Muscle tone is decreased. Bulk is unchanged. He has flaccid quadriplegia although he can shrug both shoulders. There is no movement from the deltoids and below. REFLEXES: Zero in the extremities with an upgoing toe on the left and downgoing toe on the right side in testing for Babinski response. SENSORY: Pinprick is lost in the extremities and the trunk. He has about a sensory level at the cervical spine level on the right and at T2 on the left. He can feel fine touch on the C6 dermatomes bilaterally. IMPRESSION: This patient has both ventral and dorsal cord injury and he is pretty much fairly stable with perhaps minimal improvement. The patient will need aggressive physical therapy and see how he does. I think still the prognosis is somewhat guarded; however, it is still early. The patient is still . White count is today 6800. His hemoglobin is dropping. The sodium is now 136. His bilirubin is going up. His liver functions are increasing, the cause of that is unclear at this time. PLAN: 1. Set up for physical therapy. 2. Investigate elevated liver function tests. 3. I will follow this patient with you. Jeffrey Solorio MD DR: LATIA JOB#: [id number] CC:
--- NOTE | 2018-11-06 01:46 | NUR ---
NURSE NOTES: Offered patient bed bath after giving the PRN Dilaudid so that he will be more comfortable during the activity. Patient refused bath tonight. As per him he would like to get more rest and sleep for tonight.
[2018-11-06] MEDS: Acetaminophen 500mg (ES) tab ORAL PRN ×3 (03:44→23:30)
--- NOTE | 2018-11-06 03:50 | NUR ---
NURSE NOTES: Temperature noted 102.2F. Cooling measures initiated. PRN tylenol given. Refused bed bath and repositioning.
[2018-11-06] MEDS: Piperacillin/Tazobactam 3.375 GM in D5W 110 ML IVPB SCH ×3 (05:52→21:38)
--- NOTE | 2018-11-06 06:00 | NUR ---
NURSE NOTES: Repositioned. Refused bed bath or change of pads at this time
--- NOTE | 2018-11-06 07:32 | NUR ---
HAND-OFF: Report given to
[2018-11-06] MEDS: Docusate 250mg cap ORAL SCH (08:17)
--- NOTE | 2018-11-06 08:30 | NUR ---
NURSE NOTES: patient assessed to be alert and oriented to name, time, place, and situation, patient is on the neck region radiating to the shoulders, and describes it at 10/10 sharp, he is on nasal cannula at 2L/min with no distress noted, patient has a Elkins draining clear urine, patient is unable to move upper and lower but has a slight 0.5/5 pincher squeeze on basilateral hands, will continue plan of care.
[2018-11-06] MEDS: D5 1/2NS w/KCl 20mEq 1,000 ML IV SCH ×2 (08:39→20:38)
--- NOTE | 2018-11-06 10:15 | NUR ---
NURSE NOTES: Dr. Wilson rounded and assessed patient at the bedside, no verbal orders given at this time.
--- NOTE | 2018-11-06 11:14 | Infectious Diseases Prog Note ---
Assessment/Plan Assessment/Plan A 1. aspiration pneumonia 2. cervical spondylosis s/p surgery 3. fever 4. Quadriplegia 5. Spinal canal shock P 1. continue iv vancomycin, Zosyn 2. will f/u CXR Subjective ROS Limited/Unobtainable: Yes Constitutional: Reports: fever Respiratory: Reports: no symptoms Cardiovascular: Reports: no symptoms Gastrointestinal/Abdominal: Reports: no symptoms Neurologic: Reports: weakness Allergies: Coded Allergies: No Known Allergies (Unverified , 10/28/18) Objective Vital Signs Last 24 Hour Vital Signs Date Time Temp Pulse Resp B/P (MAP) Pulse Ox O2 Delivery O2 Flow Rate FiO2 11/06/18 11:00 68 13 121/63 (82) 98 11/06/18 10:00 99.8 74 12 117/55 (75) 97 11/06/18 09:00 85 17 127/64 (85) 94 11/06/18 08:09 75 18 95 Nasal Cannula 3.0 28 11/06/18 08:07 66 16 Nasal Cannula 3.0 11/06/18 08:06 98 Nasal Cannula 3.0 32 11/06/18 08:05 Nasal Cannula 3.0 32 11/06/18 08:00 100.4 76 16 129/58 (81) 95 11/06/18 07:00 82 17 127/60 (82) 96 11/06/18 06:31 100.8 11/06/18 06:00 100.8 83 16 130/58 (82) 96 11/06/18 05:00 101.0 93 17 136/58 (84) 93 11/06/18 04:37 103.3 11/06/18 04:04 82 18 100 Nasal Cannula 3.0 32 11/06/18 04:00 102.2 100 16 133/58 (83) 95 11/06/18 04:00 74 11/06/18 04:00 Nasal Cannula 2.0 Nasal Cannula 2.0 Nasal Cannula 2.0 11/06/18 03:50 81 18 99 Nasal Cannula 2.0 28 11/06/18 03:00 102.2 78 16 126/60 (82) 95 11/06/18 02:00 75 16 134/61 (85) 95 11/06/18 01:00 80 16 134/61 (85) 95 11/06/18 00:05 76 18 100 Nasal Cannula 3.0 32 11/06/18 00:00 81 11/06/18 00:00 99.5 80 18 127/60 (82) 97 11/06/18 00:00 Nasal Cannula 3.0 Nasal Cannula 3.0 Nasal Cannula 3.0 11/06/18 00:00 72 18 99 Nasal Cannula 3.0 32 11/05/18 23:00 99.5 77 15 115/56 (75) 97 11/05/18 22:00 71 14 121/53 (75) 97 11/05/18 21:00 78 15 123/55 (77) 96 11/05/18 20:00 Nasal Cannula 3.0 Nasal Cannula 3.0 Nasal Cannula 3.0 11/05/18 20:00 99.7 67 12 117/56 (76) 100 11/05/18 20:00 69 16 100 Nasal Cannula 3.0 32 11/05/18 20:00 65 11/05/18 19:55 Nasal Cannula 3.0 32 11/05/18 19:54 98 Nasal Cannula 3.0 32 11/05/18 19:45 64 18 98 Nasal Cannula 3.0 32 11/05/18 19:00 70 16 120/59 (79) 97 11/05/18 18:00 69 16 116/59 (78) 97 11/05/18 17:00 75 16 110/59 (76) 97 11/05/18 16:00 99.0 79 16 129/69 (89) 97 11/05/18 16:00 Nasal Cannula 3.0 Nasal Cannula 3.0 Nasal Cannula 3.0 11/05/18 15:00 66 16 110/59 (76) 97 11/05/18 14:00 65 16 116/69 (85) 97 11/05/18 13:00 72 16 110/59 (76) 97 11/05/18 12:45 60 16 100 Nasal Cannula 4.0 36 11/05/18 12:39 66 18 98 Nasal Cannula 4.0 36 11/05/18 12:00 98.7 79 16 130/66 (87) 97 11/05/18 12:00 Nasal Cannula 3.0 Nasal Cannula 3.0 Nasal Cannula 3.0 Height (Feet): 5 Height (Inches): 7.00 Weight (Pounds): 170 General Appearance: no acute distress HEENT: mucous membranes moist Respiratory/Chest: lungs clear Cardiovascular: normal rate Abdomen: soft, non tender Extremities: no edema Neurologic/Psychiatric: alert, responsive, other - flaccid quadriplegia Current Medications Medications (Trade) Dose Ordered Sig/Sharon Route PRN Reason Start Time Stop Time Status Last Admin Dose Admin Acetaminophen (Tylenol) 500 mg Q4H PRN ORAL Mild Pain/Temp > 100.5 11/05/18 19:00 12/05/18 18:59 11/06/18 03:44 Albuterol/ Ipratropium (Albuterol/ Ipratropium) 3 ml Q4H PRN HHN Shortness of Breath 11/01/18 16:30 11/06/18 16:29 11/06/18 08:09 Dextrose/ Electrolytes 1,000 ml @ 75 mls/hr [id number] IV 10/28/18 22:46 11/27/18 22:45 11/06/18 08:39 Docusate Sodium (Colace) 250 mg DAILY ORAL 11/03/18 15:45 12/03/18 15:44 11/06/18 08:17 Hydromorphone HCl (Dilaudid) 0.5 mg Q3H PRN IVP Mild Pain (Pain Scale 1-3) 11/03/18 17:45 11/10/18 17:44 Hydromorphone HCl (Dilaudid) 1 mg Q3H PRN IVP moderate pain 5-7 11/03/18 17:45 11/10/18 17:44 Hydromorphone HCl (Dilaudid) 2 mg Q3H PRN IVP Severe Breakthru Pain (>7) 11/01/18 14:00 11/08/18 13:59 11/06/18 08:16 Metoclopramide HCl (Reglan) 10 mg Q6H PRN IVP Nausea & Vomiting 10/28/18 23:00 11/27/18 22:59 Naloxone HCl (Narcan) 0.1 mg PRN PRN IVP RR<12/min, pt unarousable 10/28/18 23:00 11/27/18 22:59 Ondansetron HCl (Zofran) 4 mg Q6H PRN IVP Nausea & Vomiting 10/28/18 23:00 11/27/18 22:59 Piperacillin Sod/ Tazobactam Sod 3.375 gm/Dextrose 110 ml @ 27.5 mls/hr EVERY 8 HOURS IVPB 11/05/18 14:00 11/10/18 13:59 11/06/18 05:52 Vancomycin HCl (Vanco rx to dose) 1 ea DAILY PRN MISC Per rx protocol 10/31/18 06:30 11/30/18 06:29 Vancomycin HCl 750 mg/Sodium Chloride 275 ml @ 183.333 mls/hr Q8H IVPB 11/04/18 08:00 11/09/18 07:59 11/06/18 08:17 Robert Ellison MD Nov 06, 2018 11:14
--- NOTE | 2018-11-06 11:15 | NUR ---
NURSE NOTES: Dr. Sinha updated of patient condition at the bedside, ordered to have patient given sorbitol since patient has not had a bowel movement, will place orders.
--- NOTE | 2018-11-06 11:30 | NUR ---
NURSE NOTES: Patient remains on 2L/min nasal cannula with no distress noted, patient is sleeping with light turned off, he remains alert to name and situation able to answer question coherently and accurately, will continue plan of care.
[2018-11-06] MEDS ORDERED: Sorbitol Solution UD 30ml ORAL SCH (11:50)
--- NOTE | 2018-11-06 12:11 | NUR ---
RD ASSESSMENT & RECOMMENDATIONS SEE CARE ACTIVITY FOR COMPLETE ASSESSMENT DAILY ESTIMATED NEEDS: Needs based on Surgery, bedbound currently 75kg 25-30 kcals/kg 7073-5474 total kcals 1-2 g protein/kg 75-150 g total protein 25-30 mL/kg 3024-1877 total fluid mLs NUTRITION DIAGNOSIS: Swallowing difficulty r/t cervical spinal surgery as evidenced by pt is s/p anterior cervical corpectomy-discectomy at C3-4 and corpectomy/discectomy, currently w/ cervical collar, s/p CODING QUALITY COORDINATOR eval w/ recs for liquify puree texture w/ NTL. CURRENT DIET:Regular liquify puree NTL + Ensure Enlive TID PO DIET RECOMMENDATIONS: REGULAR DIET (texture per CODING QUALITY COORDINATOR) ADDITIONAL RECOMMENDATIONS: 1) Continue Ensure Enlive TID 2) Obtain a calibrated bed scale wt as able 3) Monitor lytes daily, replete as needed 4) Consider ATIYA BID to maintain skin integrity as pt is currently bedbound - At risk for pressure related skin injuries .
--- NOTE | 2018-11-06 12:24 | NUR ---
RADIOLOGY DEPT CHEST X-RAY DONE.-P.DYE
--- NOTE | 2018-11-06 12:47 | Diagnostic Imaging Report ---
Indication: Shortness of breath Technique: One view of the chest Comparison: 11/04/2018 Findings: Less optimal inspiration currently. Bilateral basilar infiltrates are probably unchanged. Increased density in the upper lungs bilaterally may be an artifact of portable less optimal inspiration, but could indicate developing congestion. Impression: Probably unchanged; cannot rule out increasing upper lobe congestion however.
--- NOTE | 2018-11-06 12:52 | General Surgery Progress Note ---
General Surgery-Progress Note Subjective Procedure Performed ACDF C3-4, Disc Arthroplasty C4-5 Additional Comments Patient seen afternoon 11/05 and morning 11/[address] Wilson Objective Last 24 Hour Vital Signs Date Time Temp Pulse Resp B/P (MAP) Pulse Ox O2 Delivery O2 Flow Rate FiO2 11/06/18 12:32 70 13 92 Nasal Cannula 3.0 28 11/06/18 12:00 100.0 65 10 122/60 (80) 97 11/06/18 11:00 68 13 121/63 (82) 98 11/06/18 10:00 99.8 74 12 117/55 (75) 97 11/06/18 09:00 85 17 127/64 (85) 94 11/06/18 08:19 77 18 98 Nasal Cannula 3.0 32 11/06/18 08:09 75 18 95 Nasal Cannula 3.0 28 11/06/18 08:07 66 16 Nasal Cannula 3.0 11/06/18 08:06 98 Nasal Cannula 3.0 32 11/06/18 08:05 Nasal Cannula 3.0 32 11/06/18 08:00 100.4 76 16 129/58 (81) 95 11/06/18 08:00 80 11/06/18 07:00 82 17 127/60 (82) 96 11/06/18 06:31 100.8 11/06/18 06:00 100.8 83 16 130/58 (82) 96 11/06/18 05:00 101.0 93 17 136/58 (84) 93 11/06/18 04:37 103.3 11/06/18 04:04 82 18 100 Nasal Cannula 3.0 32 11/06/18 04:00 102.2 100 16 133/58 (83) 95 11/06/18 04:00 74 11/06/18 04:00 Nasal Cannula 2.0 Nasal Cannula 2.0 Nasal Cannula 2.0 11/06/18 03:50 81 18 99 Nasal Cannula 2.0 28 11/06/18 03:00 102.2 78 16 126/60 (82) 95 11/06/18 02:00 75 16 134/61 (85) 95 11/06/18 01:00 80 16 134/61 (85) 95 11/06/18 00:05 76 18 100 Nasal Cannula 3.0 32 11/06/18 00:00 81 11/06/18 00:00 99.5 80 18 127/60 (82) 97 11/06/18 00:00 Nasal Cannula 3.0 Nasal Cannula 3.0 Nasal Cannula 3.0 11/06/18 00:00 72 18 99 Nasal Cannula 3.0 32 11/05/18 23:00 99.5 77 15 115/56 (75) 97 11/05/18 22:00 71 14 121/53 (75) 97 11/05/18 21:00 78 15 123/55 (77) 96 11/05/18 20:00 Nasal Cannula 3.0 Nasal Cannula 3.0 Nasal Cannula 3.0 11/05/18 20:00 99.7 67 12 117/56 (76) 100 11/05/18 20:00 69 16 100 Nasal Cannula 3.0 32 11/05/18 20:00 65 11/05/18 19:55 Nasal Cannula 3.0 32 11/05/18 19:54 98 Nasal Cannula 3.0 32 11/05/18 19:45 64 18 98 Nasal Cannula 3.0 32 11/05/18 19:00 70 16 120/59 (79) 97 11/05/18 18:00 69 16 116/59 (78) 97 11/05/18 17:00 75 16 110/59 (76) 97 11/05/18 16:00 99.0 79 16 129/69 (89) 97 11/05/18 16:00 Nasal Cannula 3.0 Nasal Cannula 3.0 Nasal Cannula 3.0 11/05/18 15:00 66 16 110/59 (76) 97 11/05/18 14:00 65 16 116/69 (85) 97 11/05/18 13:00 72 16 110/59 (76) 97 11/05/18 12:45 60 16 100 Nasal Cannula 4.0 36 11/05/18 12:39 66 18 98 Nasal Cannula 4.0 36 I&O Intake and Output 11/05/18 11/06/18 19:00 07:00 Intake Total 1575.000 ml 1260.0 ml Output Total 1270 ml 1150 ml Balance 305.000 ml 110.0 ml Intake Oral 550 ml 400 ml IV Total 1025.000 ml 860.0 ml Output Urine Total 1270 ml 1150 ml Dressing: dry Wound: clean Drains: none Additional Comments As of this morning, patient has return of voluntary movement of Left foot of 20- 30 degrees. Sensation present but slightly decreased in Right lower leg. Normal sensation in both uppers and Left leg. DTR'S: 1+ Right Upper and Lower extremities, 2+ Left Upper and Lower extremity. Non reactive Babinski both. Assessment Post-op Diagnosis Spinal Cord compression Additional Comments Dr. Alvarado following. Infectious disease following. Neurology following. Transfer to [facility] pending resolution of recent febrile episode. Physical therapy working with patient to maintain functionality and prevent deformities. Leoncio Ventura Nov 06, 2018 12:52
--- NOTE | 2018-11-06 13:45 | NUR ---
NURSE NOTES: Patient tolerated small amount of lunch, patient remains awake and alert with no distress, he remains on 2L/min with saturations at 94-98%, stomach remains soft and rounded, denies any pain on stomach region, will continue plan of care.
--- NOTE | 2018-11-06 15:30 | NUR ---
NURSE NOTES: patient remains with pain on posterior with a sharp stabbing 10/10, Dilaudid given IVP, patient remains sleeping but awakes with name or light shaking, Patient repositioned to alleviate pressure on the neck region, will continue plan of care.
--- NOTE | 2018-11-06 17:15 | NUR ---
CASE MANAGEMENT:REVIEW 11/06/2018 SI: POD #9 S/P DISC ARTHROPLASTY AND DECOMPRESSION T 100 HR 65 RR 10 B/P 122/60 SATS 97% ON 2L/NC NO LABS TODAY. HEP PANEL PENDING IS: IV VANCOMYCIN Q8HRS DUONEB HHN Q4HRS PRN IV DILAUDID Q3HRS PRN XOPENEX HHN TID IV CEFEPIME Q12 TYLENOL PO Q4HRS PRN IVF@75 mL/HR ZOSYN IV Q8H : ICU STATUS PLAN: CXR URINE AND BLOOD CX
--- NOTE | 2018-11-06 17:15 | NUR ---
NURSE NOTES: Fan placed in room and patient remains awake and alert to name, large BM noted with soft consistency and color brown, patient is able to sense sensation on all extremities, temperature is 98.7 taken orally, will continue to monitor.
--- NOTE | 2018-11-06 17:20 | NUR ---
INSURANCE CLINICALS FAXED TO [facility] [employer] SUPERVISOR: ENRIQUETA Lugo; [phone] F: [phone] [facility] [employer] COMP NURSE CHILI PEPPER GRINDER : CAMERON T: [phone] F: [phone]
--- NOTE | 2018-11-06 18:30 | General Progress Note ---
Assessment/Plan Assessment/Plan Assessment - sudden rise in LFT, likely hypotensive liver injury - improving - s/p C spine operation - post op fever Recommendations - Follow LFT - check viral markers, although not typically a cause of sudden rise as seen here - Avoid hepatotoxic meds - avoid volume depletion / hypotension Subjective Allergies: Coded Allergies: No Known Allergies (Unverified , 10/28/18) Subjective Above noted feels OK no new complaints d/w RN Objective Last 24 Hour Vital Signs Date Time Temp Pulse Resp B/P (MAP) Pulse Ox O2 Delivery O2 Flow Rate FiO2 11/06/18 18:00 64 12 126/63 (84) 98 11/06/18 18:00 72 15 118/61 (80) 97 11/06/18 17:00 72 15 118/61 (80) 97 11/06/18 16:00 Nasal Cannula 2.0 11/06/18 16:00 98.0 71 14 112/53 (72) 97 11/06/18 15:00 74 14 112/53 (72) 95 11/06/18 14:00 71 11 112/55 (74) 95 11/06/18 13:30 98.9 11/06/18 13:00 76 11 120/54 (76) 94 11/06/18 12:32 70 13 92 Nasal Cannula 3.0 28 11/06/18 12:00 100.0 65 10 122/60 (80) 97 11/06/18 12:00 80 11/06/18 12:00 Nasal Cannula 2.0 11/06/18 11:00 68 13 121/63 (82) 98 11/06/18 10:00 99.8 74 12 117/55 (75) 97 11/06/18 09:00 85 17 127/64 (85) 94 11/06/18 08:19 77 18 98 Nasal Cannula 3.0 32 11/06/18 08:09 75 18 95 Nasal Cannula 3.0 28 11/06/18 08:07 66 16 Nasal Cannula 3.0 11/06/18 08:06 98 Nasal Cannula 3.0 32 11/06/18 08:05 Nasal Cannula 3.0 32 11/06/18 08:00 100.4 76 16 129/58 (81) 95 11/06/18 08:00 80 11/06/18 08:00 Nasal Cannula 2.0 11/06/18 07:00 82 17 127/60 (82) 96 11/06/18 06:31 100.8 11/06/18 06:00 100.8 83 16 130/58 (82) 96 11/06/18 05:00 101.0 93 17 136/58 (84) 93 11/06/18 04:04 82 18 100 Nasal Cannula 3.0 32 11/06/18 04:00 102.2 100 16 133/58 (83) 95 11/06/18 04:00 74 11/06/18 04:00 Nasal Cannula 2.0 Nasal Cannula 2.0 Nasal Cannula 2.0 11/06/18 03:50 81 18 99 Nasal Cannula 2.0 28 11/06/18 03:00 102.2 78 16 126/60 (82) 95 11/06/18 02:00 75 16 134/61 (85) 95 11/06/18 01:00 80 16 134/61 (85) 95 11/06/18 00:05 76 18 100 Nasal Cannula 3.0 32 11/06/18 00:00 81 11/06/18 00:00 99.5 80 18 127/60 (82) 97 11/06/18 00:00 Nasal Cannula 3.0 Nasal Cannula 3.0 Nasal Cannula 3.0 11/06/18 00:00 72 18 99 Nasal Cannula 3.0 32 11/05/18 23:00 99.5 77 15 115/56 (75) 97 11/05/18 22:00 71 14 121/53 (75) 97 11/05/18 21:00 78 15 123/55 (77) 96 11/05/18 20:00 Nasal Cannula 3.0 Nasal Cannula 3.0 Nasal Cannula 3.0 11/05/18 20:00 99.7 67 12 117/56 (76) 100 11/05/18 20:00 69 16 100 Nasal Cannula 3.0 32 11/05/18 20:00 65 11/05/18 19:55 Nasal Cannula 3.0 32 11/05/18 19:54 98 Nasal Cannula 3.0 32 11/05/18 19:45 64 18 98 Nasal Cannula 3.0 32 11/05/18 19:00 70 16 120/59 (79) 97 Intake and Output 11/05/18 11/06/18 18:59 06:59 Intake Total 1500.000 ml 1335.0 ml Output Total 1270 ml 1200 ml Balance 230.000 ml 135.0 ml Intake Oral 550 ml 400 ml IV Total 950.000 ml 935.0 ml Output Urine Total 1270 ml 1200 ml Height (Feet): 5 Height (Inches): 7.00 Weight (Pounds): 170 Objective Thin AA man NCAT C spine collar CTA RRR soft ND NT no edema Oscar Sinha MD Nov 06, 2018 18:30
[2018-11-06 19:01] LABS: APPEARANCE,URINE CLEAR; BILIRUBIN, URINE 2+ (NEGATIVE); COLOR,URINE BROWN; GLUCOSE, URINE (UA) 3+ (NEGATIVE); KETONES,URINE NEGATIVE (NEGATIVE); LEUKOCYTE ESTERASE ,URINE 1+ (NEGATIVE); NITRITE,URINE NEGATIVE (NEGATIVE); PH,URINE 6.5 (4.5-8.0); PROTEIN,URINE 3+ (NEGATIVE); UROBILINOGEN,URINE 8 MG/DL (0.0-1.0)
--- NOTE | 2018-11-06 19:30 | NUR ---
NURSE NOTES: Patient awake and alert x4. Sinus rhythm on the monitor. On 2 liters oxygen per nasal cannula. Right AC and Right Hand IV sites patent and intact at this time. Anterior Neck dressing dry and intact. Abdomen noted to be soft, non tender. Elkins cath draining by gravity. Patient noted with no extremities movement but has sensation. On P200 mattress at this time. Bed at 41 degrees. Bed in lowest position. Side rails upx3. Daughter at the bedside. Will continue to monitor
--- NOTE | 2018-11-06 19:36 | NUR ---
HAND-OFF: Report given to GRAHAM Norris.
--- NOTE | 2018-11-06 21:40 | NUR ---
NURSE NOTES: Turned and repositioned patient at this time. pain med has been given. Water provided for patient. Informed patient about next pain mediation and breathing treatment time. No signs of distress noted. will continue to monitor.
--- NOTE | 2018-11-06 22:43 | Pulmonolgy Critical Care Note ---
Critical Care - Asmt/Plan Assessment/Plan: Pulmonary CCM Progress Note Assessment/Plan Status post anterior cervical corpectomy-discectomy at C3-4 and corpectomy/ discectomy C4-5. ACDF C3-4, Disc Arthroplasty C4-5 Spinal Cord compression fevers concern for aspiration spinal cord shock elevated LFT possible shock liver PLAN post op care neuro follow up cultures negative IV antibiotics ID follow up ICU care pain control plan for extensive rehab monitor for aspiration repeat cultures Subjective Allergies: Coded Allergies: No Known Allergies (Unverified , 10/28/18) Subjective Intermittent fevers ID following, cultures pending Objective Vital Signs Noted Laboratory Tests 11/05/18 06:26: White Blood Count 6.8, Red Blood Count 3.34L, Hemoglobin 9.8L, Hematocrit 28.0L , Mean Corpuscular Volume 84, Mean Corpuscular Hemoglobin 29.4, Mean Corpuscular Hemoglobin Concent 35.1, Red Cell Distribution Width 11.8, Platelet Count 131L, Mean Platelet Volume 6.3L, Neutrophils (%) (Auto) 83.4H, Lymphocytes (%) (Auto) 4.4L, Monocytes (%) (Auto) 10.9H, Eosinophils (%) (Auto) 0.6, Basophils (%) (Auto) 0.7, Sodium Level 136, Potassium Level 4.6, Chloride Level 101, Carbon Dioxide Level 30, Anion Gap 6, Blood Urea Nitrogen 27H, Creatinine 1.2, Estimat Glomerular Filtration Rate > 60, Glucose Level 125H, Lactic Acid Level 1.20, Calcium Level 9.0, Total Bilirubin 3.1H, Direct Bilirubin 2.4H, Aspartate Amino Transf (AST/SGOT) 65H, Alanine Aminotransferase (ALT/SGPT) 98H, Alkaline Phosphatase 441H, Total Protein 6.1L, Albumin 1.8L, Globulin 4.3, Albumin/Globulin Ratio 0.4L, Vancomycin Level Trough 15.3H, Evens-[employer] Virus Capsid Ag IgM Ab [Pending], Hepatitis A IgM Antibody [Pending ], Hepatitis B Surface Antigen [Pending], Hepatitis B Core IgM Antibody [Pending ], Hepatitis C Antibody [Pending], Herpes Simplex Virus I IgM Ab (IFA) [Pending] , Herpes Simplex Virus II IgM Ab (IFA [Pending], Monoscreen [Pending] Height (Feet): 5 Height (Inches): 7.00 Weight (Pounds): 170 Objective WDWN NAD clear breath sounds bilaterally without rhonchi or wheeze [id number] without MRG NABS nontender no HSM no CCE alert and weak poor mobility of extremities Critical Care - Objective Last 24 Hour Vital Signs Date Time Temp Pulse Resp B/P (MAP) Pulse Ox O2 Delivery O2 Flow Rate FiO2 11/06/18 20:21 81 18 99 Nasal Cannula 3.0 32 11/06/18 20:06 Nasal Cannula 3.0 32 11/06/18 20:06 68 17 98 Nasal Cannula 3.0 32 11/06/18 20:06 98 Nasal Cannula 3.0 32 11/06/18 20:05 70 17 Nasal Cannula 3.0 32 11/06/18 18:00 64 12 126/63 (84) 98 11/06/18 18:00 72 15 118/61 (80) 97 11/06/18 17:00 72 15 118/61 (80) 97 11/06/18 16:00 Nasal Cannula 2.0 11/06/18 16:00 98.0 71 14 112/53 (72) 97 11/06/18 15:00 74 14 112/53 (72) 95 11/06/18 14:00 71 11 112/55 (74) 95 11/06/18 13:30 98.9 11/06/18 13:00 76 11 120/54 (76) 94 11/06/18 12:32 70 13 92 Nasal Cannula 3.0 28 11/06/18 12:00 100.0 65 10 122/60 (80) 97 11/06/18 12:00 80 11/06/18 12:00 Nasal Cannula 2.0 11/06/18 11:00 68 13 121/63 (82) 98 11/06/18 10:00 99.8 74 12 117/55 (75) 97 11/06/18 09:00 85 17 127/64 (85) 94 11/06/18 08:19 77 18 98 Nasal Cannula 3.0 32 11/06/18 08:09 75 18 95 Nasal Cannula 3.0 28 11/06/18 08:07 66 16 Nasal Cannula 3.0 11/06/18 08:06 98 Nasal Cannula 3.0 32 11/06/18 08:05 Nasal Cannula 3.0 32 11/06/18 08:00 100.4 76 16 129/58 (81) 95 11/06/18 08:00 80 11/06/18 08:00 Nasal Cannula 2.0 11/06/18 07:00 82 17 127/60 (82) 96 11/06/18 06:31 100.8 11/06/18 06:00 100.8 83 16 130/58 (82) 96 11/06/18 05:00 101.0 93 17 136/58 (84) 93 11/06/18 04:04 82 18 100 Nasal Cannula 3.0 32 11/06/18 04:00 102.2 100 16 133/58 (83) 95 11/06/18 04:00 74 11/06/18 04:00 Nasal Cannula 2.0 Nasal Cannula 2.0 Nasal Cannula 2.0 11/06/18 03:50 81 18 99 Nasal Cannula 2.0 28 11/06/18 03:00 102.2 78 16 126/60 (82) 95 11/06/18 02:00 75 16 134/61 (85) 95 11/06/18 01:00 80 16 134/61 (85) 95 11/06/18 00:05 76 18 100 Nasal Cannula 3.0 32 11/06/18 00:00 81 11/06/18 00:00 99.5 80 18 127/60 (82) 97 11/06/18 00:00 Nasal Cannula 3.0 Nasal Cannula 3.0 Nasal Cannula 3.0 11/06/18 00:00 72 18 99 Nasal Cannula 3.0 32 11/05/18 23:00 99.5 77 15 115/56 (75) 97 Critical Care - Subjective ROS Limited/Unobtainable: No FI02: 32 Sputum Amount: Small I&O: Intake and Output 11/05/18 11/06/18 19:00 07:00 Intake Total 1575.000 ml 1335.0 ml Output Total 1270 ml 1150 ml Balance 305.000 ml 185.0 ml Intake Oral 550 ml 400 ml IV Total 1025.000 ml 935.0 ml Output Urine Total 1270 ml 1150 ml Ho Painter MD Nov 06, 2018 22:43
--- NOTE | 2018-11-06 23:00 | NUR ---
NURSE NOTES: Patient does not want to be turned at this time. Water given to him. Patient asked for pain med but not due yet. head at 41 degree.
[2018-11-07] VITALS (24 sets, daily range): BP systolic 120–147; BP diastolic 63–80
--- NOTE | 2018-11-07 00:45 | NUR ---
NURSE NOTES: PRN pain med given at this time. All needs met at this time. Will continue to monitor
--- NOTE | 2018-11-07 03:00 | NUR ---
NURSE NOTES: patient noted to have temp 103.3 at this time. placed on a cooling blanket. Will continue to monitor
--- NOTE | 2018-11-07 03:30 | NUR ---
NURSE NOTES: After morning care patient noted to be SOB. Noted desaturate 80%. RT at the bedside. Breath tx given and deep suctioning provided. Will continue to monitor
[2018-11-07] MEDS: Albuterol/Ipratropium 3ml neb HHN PRN ×7 (03:45→23:19)
--- NOTE | 2018-11-07 06:00 | NUR ---
NURSE NOTES: Oral care provided at this time. All needs met at this time. Waiting pain med but not due at this time. Will continue to monitor
[2018-11-07] MEDS: Piperacillin/Tazobactam 3.375 GM in D5W 110 ML IVPB SCH ×3 (06:19→22:10)
[2018-11-07 06:24] LABS: ALANINE AMINOTRANSFERASE 196 U/L (12-78); ALBUMIN 1.6 G/DL (3.4-5.0); ALBUMIN/GLOBULIN RATIO 0.4 (1.0-2.7); ALKALINE PHOSPHATASE 580 U/L (46-116); ANION GAP 4 mmol/L (5-15); ASPARTATE AMINO TRANSFERASE 117 U/L (15-37); BILIRUBIN,TOTAL 3.5 MG/DL (0.2-1.0); BLOOD UREA NITROGEN 23 mg/dL (7-18); CALCIUM 8.6 MG/DL (8.5-10.1); CARBON DIOXIDE 29 MMOL/L (21-32); CHLORIDE 98 MMOL/L (98-107); CREATININE 1.1 MG/DL (0.55-1.30); POTASSIUM 5.3 MMOL/L (3.5-5.1); SODIUM 131 MMOL/L (136-145)
[2018-11-07 06:26] LABS: BILIRUBIN,DIRECT 2.8 MG/DL (0.0-0.3)
--- NOTE | 2018-11-07 07:14 | NUR ---
HAND-OFF: Report given to Savannah STEVENSON using SBAR. VS Stable. Cooling blanket off at this time.Temp 98.3 rectal.
--- NOTE | 2018-11-07 07:44 | NUR ---
NURSE NOTES: Report received from Myrna STEVENSON. Pt alert and oriented x4, able to make needs known. Pt on 2 L O2 via nasal cannula, saturating 100%. Elkins intact and draining clear yellow urine to gravity. Neck incision covered with gauze clean, dry and intact. RFA 20 G and RH 20 G intact. D5 1/2 NS + 20 K running at 75 cc/hr. Safety measures in place with bed locked and in lowest position, side rails x 3 up and bed alarm on. Will continue to monitor and continue plan of care.
[2018-11-07] MEDS: Vancomycin 750mg/NS 275ml IVPB SCH ×4 (08:06→16:43)
[2018-11-07] MEDS: Docusate 250mg cap ORAL SCH (09:02)
[2018-11-07] MEDS: D5 1/2NS w/KCl 20mEq 1,000 ML IV SCH ×2 (09:02→22:46)
--- NOTE | 2018-11-07 09:09 | General Progress Note ---
Assessment/Plan Assessment/Plan Status post anterior cervical corpectomy-discectomy at C3-4 and corpectomy/ discectomy C4-5. ACDF C3-4, Disc Arthroplasty C4-5 Spinal Cord compression fevers concern for aspiration spinal cord shock elevated LFT possible shock liver PLAN post op care neuro follow up cultures negative IV antibiotics ID follow up ? dc antibiotics and monitor GI follow up ICU care pain control plan for extensive rehab once cleared monitor for aspiration repeat cultures Subjective Allergies: Coded Allergies: No Known Allergies (Unverified , 10/28/18) Subjective still with fevers all noted Objective Last 24 Hour Vital Signs Date Time Temp Pulse Resp B/P (MAP) Pulse Ox O2 Delivery O2 Flow Rate FiO2 11/07/18 08:00 Nasal Cannula 2.0 11/07/18 08:00 99.0 78 14 137/66 (89) 96 11/07/18 07:29 67 16 100 Nasal Cannula 3.0 32 11/07/18 07:19 66 14 98 Nasal Cannula 3.0 32 11/07/18 07:18 Nasal Cannula 3.0 32 11/07/18 07:17 98 Nasal Cannula 3.0 32 11/07/18 07:16 66 16 Nasal Cannula 3.0 32 11/07/18 07:00 98.3 65 14 141/72 (95) 98 11/07/18 06:00 98.1 65 14 141/72 (95) 98 11/07/18 05:00 98.0 72 13 144/80 (101) 98 11/07/18 04:00 81 20 94 Nasal Cannula 3.0 32 11/07/18 04:00 78 11/07/18 04:00 Nasal Cannula 2.0 11/07/18 04:00 101.4 82 16 133/70 (91) 97 11/07/18 03:45 84 22 94 Nasal Cannula 3.0 32 11/07/18 03:00 103.3 77 13 144/76 (98) 98 11/07/18 02:00 68 13 135/67 (89) 99 11/07/18 01:00 69 11 125/63 (83) 98 11/07/18 00:14 76 15 98 Nasal Cannula 3.0 32 11/07/18 00:00 77 11/07/18 00:00 Nasal Cannula 2.0 11/07/18 00:00 78 11/07/18 00:00 99.6 3/7/19 00:00 99.6 66 11 130/64 (86) 98 11/06/18 23:54 70 14 98 Nasal Cannula 3.0 32 11/06/18 23:00 66 11 130/64 (86) 98 11/06/18 22:00 65 11 122/59 (80) 97 11/06/18 21:00 82 14 135/64 (87) 96 11/06/18 20:21 81 18 99 Nasal Cannula 3.0 32 11/06/18 20:06 Nasal Cannula 3.0 32 11/06/18 20:06 68 17 98 Nasal Cannula 3.0 32 11/06/18 20:06 98 Nasal Cannula 3.0 32 11/06/18 20:05 70 17 Nasal Cannula 3.0 32 11/06/18 20:00 Nasal Cannula 2.0 11/06/18 20:00 59 12 123/64 (83) 99 11/06/18 19:00 99.3 59 11 111/60 (77) 98 11/06/18 18:00 64 12 126/63 (84) 98 11/06/18 18:00 72 15 118/61 (80) 97 11/06/18 17:00 72 15 118/61 (80) 97 11/06/18 16:00 Nasal Cannula 2.0 11/06/18 16:00 98.0 71 14 112/53 (72) 97 11/06/18 15:00 74 14 112/53 (72) 95 11/06/18 14:00 71 11 112/55 (74) 95 11/06/18 13:00 76 11 120/54 (76) 94 11/06/18 12:32 70 13 92 Nasal Cannula 3.0 28 11/06/18 12:00 100.0 65 10 122/60 (80) 97 11/06/18 12:00 80 11/06/18 12:00 Nasal Cannula 2.0 11/06/18 11:00 68 13 121/63 (82) 98 11/06/18 10:00 99.8 74 12 117/55 (75) 97 Intake and Output 11/06/18 11/07/18 19:00 07:00 Intake Total 2850.666 ml 1792.500 ml Output Total 1335 ml 1065 ml Balance 1515.666 ml 727.500 ml Intake Oral 1230 ml 480 ml IV Total 1560.666 ml 1312.500 ml Other 60 ml Output Urine Total 1335 ml 1065 ml # Bowel Movements 2 3 Laboratory Tests 11/06/18 16:00: Urine Color Brown, Urine Appearance Clear, Urine pH 6.5, Urine Specific [place] 1.010, Urine Protein 3+H, Urine Glucose (UA) 3+H, Urine Ketones Negative, Urine Blood 4+H, Urine Nitrite Negative, Urine Bilirubin 2+H, Urine Ictotest Positive , Urine Urobilinogen 8H, Urine Leukocyte Esterase 1+H, Urine RBC 10-15H, Urine WBC 2-4, Urine Squamous Epithelial Cells None, Urine Bacteria Few 11/06/18 21:25: Cytomegalovirus DNA PCR copies/ml [Pending], Cytomegalovirus DNA PCR log10 [ Pending] 11/07/18 04:50: Sodium Level 131L, Potassium Level 5.3H, Chloride Level 98, Carbon Dioxide Level 29, Anion Gap 4L, Blood Urea Nitrogen 23H, Creatinine 1.1, Estimat Glomerular Filtration Rate > 60, Glucose Level 129H, Calcium Level 8.6, Total Bilirubin 3.5H, Direct Bilirubin 2.8H, Aspartate Amino Transf (AST/SGOT) 117H, Alanine Aminotransferase (ALT/SGPT) 196H, Alkaline Phosphatase 580H, Total Protein 5.7L, Albumin 1.6L, Globulin 4.1, Albumin/Globulin Ratio 0.4L Height (Feet): 5 Height (Inches): 7.00 Weight (Pounds): 170 Objective WDWN NAD clear breath sounds bilaterally without rhonchi or wheeze [id number] without MRG NABS nontender no HSM no CCE alert and weak poor mobility of extremities Pradeep Alvarado MD Nov 07, 2018 09:09
--- NOTE | 2018-11-07 09:13 | NUR ---
NURSE NOTES: Lorenzo LORA came to see pt. Neck dressing was taken off, neck incision now open to air with steri strips. Will continue to monitor.
--- NOTE | 2018-11-07 09:28 | General Surgery Progress Note ---
General Surgery-Progress Note Subjective Procedure Performed ACDF C3-4, Disc Arthroplasty C4-5 Additional Comments "patient feels cold all the time" Objective Last 24 Hour Vital Signs Date Time Temp Pulse Resp B/P (MAP) Pulse Ox O2 Delivery O2 Flow Rate FiO2 11/07/18 09:00 99.7 76 14 147/69 (95) 98 11/07/18 08:00 Nasal Cannula 2.0 11/07/18 08:00 99.0 78 14 137/66 (89) 96 11/07/18 07:29 67 16 100 Nasal Cannula 3.0 32 11/07/18 07:19 66 14 98 Nasal Cannula 3.0 32 11/07/18 07:18 Nasal Cannula 3.0 32 11/07/18 07:17 98 Nasal Cannula 3.0 32 11/07/18 07:16 66 16 Nasal Cannula 3.0 32 11/07/18 07:00 98.3 65 14 141/72 (95) 98 11/07/18 06:00 98.1 65 14 141/72 (95) 98 11/07/18 05:00 98.0 72 13 144/80 (101) 98 11/07/18 04:00 81 20 94 Nasal Cannula 3.0 32 11/07/18 04:00 78 11/07/18 04:00 Nasal Cannula 2.0 11/07/18 04:00 101.4 82 16 133/70 (91) 97 11/07/18 03:45 84 22 94 Nasal Cannula 3.0 32 11/07/18 03:00 103.3 77 13 144/76 (98) 98 11/07/18 02:00 68 13 135/67 (89) 99 11/07/18 01:00 69 11 125/63 (83) 98 11/07/18 00:14 76 15 98 Nasal Cannula 3.0 32 11/07/18 00:00 77 11/07/18 00:00 Nasal Cannula 2.0 11/07/18 00:00 78 11/07/18 00:00 99.6 11/07/18 00:00 99.6 66 11 130/64 (86) 98 11/06/18 23:54 70 14 98 Nasal Cannula 3.0 32 11/06/18 23:00 66 11 130/64 (86) 98 11/06/18 22:00 65 11 122/59 (80) 97 11/06/18 21:00 82 14 135/64 (87) 96 11/06/18 20:21 81 18 99 Nasal Cannula 3.0 32 11/06/18 20:06 Nasal Cannula 3.0 32 11/06/18 20:06 68 17 98 Nasal Cannula 3.0 32 11/06/18 20:06 98 Nasal Cannula 3.0 32 11/06/18 20:05 70 17 Nasal Cannula 3.0 32 11/06/18 20:00 Nasal Cannula 2.0 11/06/18 20:00 59 12 123/64 (83) 99 11/06/18 19:00 99.3 59 11 111/60 (77) 98 11/06/18 18:00 64 12 126/63 (84) 98 11/06/18 18:00 72 15 118/61 (80) 97 11/06/18 17:00 72 15 118/61 (80) 97 11/06/18 16:00 Nasal Cannula 2.0 11/06/18 16:00 98.0 71 14 112/53 (72) 97 11/06/18 15:00 74 14 112/53 (72) 95 11/06/18 14:00 71 11 112/55 (74) 95 11/06/18 13:00 76 11 120/54 (76) 94 11/06/18 12:32 70 13 92 Nasal Cannula 3.0 28 11/06/18 12:00 100.0 65 10 122/60 (80) 97 11/06/18 12:00 80 11/06/18 12:00 Nasal Cannula 2.0 11/06/18 11:00 68 13 121/63 (82) 98 11/06/18 10:00 99.8 74 12 117/55 (75) 97 I&O Intake and Output 11/06/18 11/07/18 19:00 07:00 Intake Total 2850.666 ml 1792.500 ml Output Total 1335 ml 1065 ml Balance 1515.666 ml 727.500 ml Intake Oral 1230 ml 480 ml IV Total 1560.666 ml 1312.500 ml Other 60 ml Output Urine Total 1335 ml 1065 ml # Bowel Movements 2 3 Dressing: dry Wound: clean Drains: none Laboratory Tests Test 11/06/18 16:00 11/06/18 21:25 11/07/18 04:50 Urine Color Brown Urine Appearance Clear Urine pH 6.5 (4.5-8.0) Urine Specific [place] 1.010 (1.005-1.035) Urine Protein 3+ (NEGATIVE) H Urine Glucose (UA) 3+ (NEGATIVE) H Urine Ketones Negative (NEGATIVE) Urine Blood 4+ (NEGATIVE) H Urine Nitrite Negative (NEGATIVE) Urine Bilirubin 2+ (NEGATIVE) H Urine Ictotest Positive (NEGATIVE) Urine Urobilinogen 8 MG/DL (0.0-1.0) H Urine Leukocyte Esterase 1+ (NEGATIVE) H Urine RBC 10-15 /HPF (0 - 0) H Urine WBC 2-4 /HPF (0 - 0) Urine Squamous Epithelial Cells None /LPF (NONE/OCC) Urine Bacteria Few /HPF (NONE) Cytomegalovirus DNA PCR copies/ml Pending Cytomegalovirus DNA PCR log10 Pending Sodium Level 131 MMOL/L (136-145) L Potassium Level 5.3 MMOL/L (3.5-5.1) H Chloride Level 98 MMOL/L (98-107) Carbon Dioxide Level 29 MMOL/L (21-32) Anion Gap 4 mmol/L (5-15) L Blood Urea Nitrogen 23 mg/dL (7-18) H Creatinine 1.1 MG/DL (0.55-1.30) Estimat Glomerular Filtration Rate > 60 mL/min (>60) Glucose Level 129 MG/DL (74-106) H Calcium Level 8.6 MG/DL (8.5-10.1) Total Bilirubin 3.5 MG/DL (0.2-1.0) H Direct Bilirubin 2.8 MG/DL (0.0-0.3) H Aspartate Amino Transf (AST/SGOT) 117 U/L (15-37) H Alanine Aminotransferase (ALT/SGPT) 196 U/L (12-78) H Alkaline Phosphatase 580 U/L (46-116) H Total Protein 5.7 G/DL (6.4-8.2) L Albumin 1.6 G/DL (3.4-5.0) L Globulin 4.1 g/dL Albumin/Globulin Ratio 0.4 (1.0-2.7) L Additional Comments Neck wound clean dry, dressing and sutures removed. Neuro: DTR/s right Trace triceps, 1+ biceps, 2+ Brachioradialis. Lowers absent. Left Upper 2+ all, and absent patella, Trace Achilles, Babinski no response both. Patient moves left toes 20=30 degrees to command. Sensation present in right upper and both upper and lowers on Left, decreased Right low leg. Assessment Post-op Diagnosis Spinal Cord compression Additional Comments Patient afebrile at this visit but TMax [address] Alvarado following. ID following. Neuro following. Pending transfer to [facility]. Leoncio Ventura Nov 07, 2018 09:28
--- NOTE | 2018-11-07 09:38 | Diagnostic Imaging Report ---
Indication: Shortness of breath Technique: One view of the chest Comparison: 11/06/2018 Findings: Better inspiration on current exam. Right basilar opacity persists. Bilateral pulmonary venous congestion persists. The heart remains enlarged Impression: Unchanged right basilar opacity, likely combination of infiltrate and pleural effusion Unchanged generalized pulmonary venous congestion
--- NOTE | 2018-11-07 09:56 | NUR ---
NURSE NOTES: Dr Alvarado and Dr Sinha here to see pt. No new orders. Will continue to monitor.
--- NOTE | 2018-11-07 10:47 | Infectious Diseases Prog Note ---
Assessment/Plan Assessment/Plan antibiotics : vancomycin iv, zosyn A 1. aspiration pneumonia 2. cervical spondylosis s/p surgery 3. fever improving P 1. continue iv vancomycin, zosyn 2. will follow up cultures Subjective Constitutional: Denies: fever, chills Respiratory: Reports: shortness of breath, dry cough Gastrointestinal/Abdominal: Denies: nausea, vomiting, diarrhea Musculoskeletal: Denies: pain Allergies: Coded Allergies: No Known Allergies (Unverified , 10/28/18) Objective Vital Signs Last 24 Hour Vital Signs Date Time Temp Pulse Resp B/P (MAP) Pulse Ox O2 Delivery O2 Flow Rate FiO2 11/07/18 10:00 100.4 66 11 130/65 (86) 98 11/07/18 09:00 99.7 76 14 147/69 (95) 98 11/07/18 08:00 Nasal Cannula 2.0 11/07/18 08:00 99.0 78 14 137/66 (89) 96 11/07/18 07:29 67 16 100 Nasal Cannula 3.0 32 11/07/18 07:19 66 14 98 Nasal Cannula 3.0 32 11/07/18 07:18 Nasal Cannula 3.0 32 11/07/18 07:17 98 Nasal Cannula 3.0 32 11/07/18 07:16 66 16 Nasal Cannula 3.0 32 11/07/18 07:00 98.3 65 14 141/72 (95) 98 11/07/18 06:00 98.1 65 14 141/72 (95) 98 11/07/18 05:00 98.0 72 13 144/80 (101) 98 11/07/18 04:00 81 20 94 Nasal Cannula 3.0 32 11/07/18 04:00 78 11/07/18 04:00 Nasal Cannula 2.0 11/07/18 04:00 101.4 82 16 133/70 (91) 97 11/07/18 03:45 84 22 94 Nasal Cannula 3.0 32 11/07/18 03:00 103.3 77 13 144/76 (98) 98 11/07/18 02:00 68 13 135/67 (89) 99 11/07/18 01:00 69 11 125/63 (83) 98 11/07/18 00:14 76 15 98 Nasal Cannula 3.0 32 11/07/18 00:00 77 11/07/18 00:00 Nasal Cannula 2.0 11/07/18 00:00 78 11/07/18 00:00 99.6 11/07/18 00:00 99.6 66 11 130/64 (86) 98 11/06/18 23:54 70 14 98 Nasal Cannula 3.0 32 11/06/18 23:00 66 11 130/64 (86) 98 11/06/18 22:00 65 11 122/59 (80) 97 11/06/18 21:00 82 14 135/64 (87) 96 11/06/18 20:21 81 18 99 Nasal Cannula 3.0 32 11/06/18 20:06 Nasal Cannula 3.0 32 11/06/18 20:06 68 17 98 Nasal Cannula 3.0 32 11/06/18 20:06 98 Nasal Cannula 3.0 32 11/06/18 20:05 70 17 Nasal Cannula 3.0 32 11/06/18 20:00 Nasal Cannula 2.0 11/06/18 20:00 59 12 123/64 (83) 99 11/06/18 19:00 99.3 59 11 111/60 (77) 98 11/06/18 18:00 64 12 126/63 (84) 98 11/06/18 18:00 72 15 118/61 (80) 97 11/06/18 17:00 72 15 118/61 (80) 97 11/06/18 16:00 Nasal Cannula 2.0 11/06/18 16:00 98.0 71 14 112/53 (72) 97 11/06/18 15:00 74 14 112/53 (72) 95 11/06/18 14:00 71 11 112/55 (74) 95 11/06/18 13:00 76 11 120/54 (76) 94 11/06/18 12:32 70 13 92 Nasal Cannula 3.0 28 11/06/18 12:00 100.0 65 10 122/60 (80) 97 11/06/18 12:00 80 11/06/18 12:00 Nasal Cannula 2.0 11/06/18 11:00 68 13 121/63 (82) 98 Height (Feet): 5 Height (Inches): 7.00 Weight (Pounds): 170 HEENT: other - neck wound clean Respiratory/Chest: lungs clear Cardiovascular: normal rate, regular rhythm, no gallop/murmur Abdomen: soft, non tender Extremities: no edema Microbiology Date/Time Source Procedure Growth Status 11/05/18 06:26 Blood Peripheral Blood Culture - Preliminary NO GROWTH AFTER 24 HOURS Resulted 11/05/18 06:11 Blood Peripheral Blood Culture - Preliminary NO GROWTH AFTER 24 HOURS Resulted 11/06/18 16:00 Indwelling Cath Urine Culture - Preliminary NO GROWTH Resulted Laboratory Tests Test 11/06/18 16:00 11/06/18 21:25 11/07/18 04:50 Urine Color Brown Urine Appearance Clear Urine pH 6.5 (4.5-8.0) Urine Specific [place] 1.010 (1.005-1.035) Urine Protein 3+ (NEGATIVE) H Urine Glucose (UA) 3+ (NEGATIVE) H Urine Ketones Negative (NEGATIVE) Urine Blood 4+ (NEGATIVE) H Urine Nitrite Negative (NEGATIVE) Urine Bilirubin 2+ (NEGATIVE) H Urine Ictotest Positive (NEGATIVE) Urine Urobilinogen 8 MG/DL (0.0-1.0) H Urine Leukocyte Esterase 1+ (NEGATIVE) H Urine RBC 10-15 /HPF (0 - 0) H Urine WBC 2-4 /HPF (0 - 0) Urine Squamous Epithelial Cells None /LPF (NONE/OCC) Urine Bacteria Few /HPF (NONE) Cytomegalovirus DNA PCR copies/ml Pending Cytomegalovirus DNA PCR log10 Pending Sodium Level 131 MMOL/L (136-145) L Potassium Level 5.3 MMOL/L (3.5-5.1) H Chloride Level 98 MMOL/L (98-107) Carbon Dioxide Level 29 MMOL/L (21-32) Anion Gap 4 mmol/L (5-15) L Blood Urea Nitrogen 23 mg/dL (7-18) H Creatinine 1.1 MG/DL (0.55-1.30) Estimat Glomerular Filtration Rate > 60 mL/min (>60) Glucose Level 129 MG/DL (74-106) H Calcium Level 8.6 MG/DL (8.5-10.1) Total Bilirubin 3.5 MG/DL (0.2-1.0) H Direct Bilirubin 2.8 MG/DL (0.0-0.3) H Aspartate Amino Transf (AST/SGOT) 117 U/L (15-37) H Alanine Aminotransferase (ALT/SGPT) 196 U/L (12-78) H Alkaline Phosphatase 580 U/L (46-116) H Total Protein 5.7 G/DL (6.4-8.2) L Albumin 1.6 G/DL (3.4-5.0) L Globulin 4.1 g/dL Albumin/Globulin Ratio 0.4 (1.0-2.7) L Current Medications Medications (Trade) Dose Ordered Sig/Sharon Route PRN Reason Start Time Stop Time Status Last Admin Dose Admin Acetaminophen (Tylenol) 500 mg Q4H PRN ORAL Mild Pain/Temp > 100.5 11/05/18 19:00 12/05/18 18:59 11/06/18 23:30 Albuterol/ Ipratropium (Albuterol/ Ipratropium) 3 ml Q4H PRN HHN Shortness of Breath 11/06/18 19:45 11/11/18 19:44 11/07/18 07:19 Dextrose/ Electrolytes 1,000 ml @ 75 mls/hr [id number] IV 10/28/18 22:46 11/27/18 22:45 11/07/18 09:02 Docusate Sodium (Colace) 250 mg DAILY ORAL 11/03/18 15:45 12/03/18 15:44 11/07/18 09:02 Hydromorphone HCl (Dilaudid) 0.5 mg Q3H PRN IVP Mild Pain (Pain Scale 1-3) 11/03/18 17:45 11/10/18 17:44 Hydromorphone HCl (Dilaudid) 1 mg Q3H PRN IVP moderate pain 5-7 11/03/18 17:45 11/10/18 17:44 Hydromorphone HCl (Dilaudid) 2 mg Q3H PRN IVP Severe Breakthru Pain (>7) 11/01/18 14:00 11/08/18 13:59 11/07/18 09:50 Metoclopramide HCl (Reglan) 10 mg Q6H PRN IVP Nausea & Vomiting 10/28/18 23:00 11/27/18 22:59 Naloxone HCl (Narcan) 0.1 mg PRN PRN IVP RR<12/min, pt unarousable 10/28/18 23:00 11/27/18 22:59 Ondansetron HCl (Zofran) 4 mg Q6H PRN IVP Nausea & Vomiting 10/28/18 23:00 11/27/18 22:59 Piperacillin Sod/ Tazobactam Sod 3.375 gm/Dextrose 110 ml @ 27.5 mls/hr EVERY 8 HOURS IVPB 11/05/18 14:00 11/10/18 13:59 11/07/18 06:19 Vancomycin HCl (Vanco rx to dose) 1 ea DAILY PRN MISC Per rx protocol 10/31/18 06:30 11/30/18 06:29 Vancomycin HCl 750 mg/Sodium Chloride 275 ml @ 183.333 mls/hr Q8H IVPB 11/04/18 08:00 11/09/18 07:59 11/07/18 08:06 Kenyon Moran MD Nov 07, 2018 10:47
--- NOTE | 2018-11-07 11:37 | NUR ---
NURSE NOTES: Physical therapist came to see pt. Pt refusing PT at this time because he isnt feeling well. Will continue to monitor.
--- NOTE | 2018-11-07 12:45 | NUR ---
CASE MANAGEMENT:REVIEW 11/07/2018 SI: POD #10 S/P DISC ARTHROPLASTY AND DECOMPRESSION 100.2 64 24 126/67 98% ON 3L/NC NA-131 K+5.3 TBILI+3.5 DBILI+2.8 AST/ALT+117/196 IS: IV ZOSYN Q8HRS IV VANCOMYCIN Q8HRS IVF@75/HR IV DILAUDID Q3HRS PRN : ICU STATUS PLAN: REFER TO [facility] UPON DISCHARGE MUST BE AFEBRILE FOR 48HRS PRIOR TO DISCHARGE
--- NOTE | 2018-11-07 13:39 | NUR ---
NURSE NOTES: Pt turned and repositioned. Family at bedside visiting with pt. No acute distress. Will continue to monitor.
--- NOTE | 2018-11-07 13:56 | NUR ---
NURSE NOTES: Pt noted to have labored breathing. Oxygen increased, ABG done. Dr Linares here to see pt. Will continue to monitor.
--- NOTE | 2018-11-07 15:19 | Diagnostic Imaging Report ---
Indication: Shortness of breath Technique: One view of the chest Comparison: 6 hours earlier Findings: There is improved aeration of the right lung base, right diaphragmatic silhouette now visible. Considerable basilar consolidation persists, however. Generalized interstitial edema persists, probably unchanged allowing for exposure differences. Atelectatic bands or scarring is again demonstrated in the left infrahilar region and left lung base. The heart is enlarged. Impression: Decreased but persistent right basilar consolidation and/or pleural fluid, over 6 hours Other stable findings as described
--- NOTE | 2018-11-07 15:21 | NUR ---
P.T Note: P.T session on hold per RN request due to patient having labored breathing. Pt was put on bibap. Will follow up tomorrow.
--- NOTE | 2018-11-07 16:49 | NUR ---
NURSE NOTES: Pt reports breathing is better on bipap machine. Will continue to monitor.
--- NOTE | 2018-11-07 19:31 | NUR ---
HAND-OFF: Report given to Kj STEVENSON.
--- NOTE | 2018-11-07 19:32 | NUR ---
NURSE NOTES: Report received from Leilani STEVENSON. Pt alert and oriented x4, able to make needs known. Pt on Bipap 17/04, FiO2 50% saturating 100%. Afebrile at this time, VS stable, SR on hospital monitor. [place] intact and draining clear yellow urine to gravity. Neck incision clean, dry and intact with steri strips. Right FA 20 G and R hand 20 G intact. D5 1/2 NS + 20meq KCl running at 75 cc/hr. Unable to move bilateral upper and lower extremities. Safety measures in place with bed locked and in lowest position, side rails x 3 up and bed alarm on. Call light within reach. Will continue to monitor and continue plan of care.
--- NOTE | 2018-11-07 22:00 | NUR ---
NURSE NOTES: Pt's resting in bed, in no acute distress. VS stable. Will continue to monitor.
--- NOTE | 2018-11-07 23:49 | General Progress Note ---
Assessment/Plan Assessment/Plan Assessment - sudden rise in LFT, likely hypotensive liver injury - was improving, but now rise noted - s/p C spine operation - Fever, ? etiology - need to r/o CBD stone/obstruction Recommendations - Follow LFT - Abx per ID - MRCP of abdomen in am - Avoid hepatotoxic meds - avoid volume depletion / hypotension Subjective Allergies: Coded Allergies: No Known Allergies (Unverified , 10/28/18) Subjective Above noted recurrent fever noted LFT noted higher now d/w RN Objective Last 24 Hour Vital Signs Date Time Temp Pulse Resp B/P (MAP) Pulse Ox O2 Delivery O2 Flow Rate FiO2 11/07/18 23:18 54 14 99 Bi-pap 50 11/07/18 23:17 59 14 99 Facial 50 11/07/18 20:57 60 17 97 Facial 50 11/07/18 19:26 Bi-pap 11/07/18 19:26 Bi-pap 11/07/18 19:25 60 19 Bi-pap 50 11/07/18 19:21 60 19 98 Bi-pap 50 11/07/18 19:20 60 19 98 Facial 50 11/07/18 19:00 98.5 61 16 137/75 (95) 99 11/07/18 18:10 64 20 97 Bi-pap 50 11/07/18 18:00 99.2 61 15 121/70 (87) 99 11/07/18 18:00 60 16 98 Bi-pap 50 11/07/18 17:27 62 16 98 Facial 50 11/07/18 17:00 99.4 58 16 123/76 (92) 98 11/07/18 16:00 98.7 70 17 130/69 (89) 95 11/07/18 16:00 Nasal Cannula 2.0 Bi-pap 11/07/18 16:00 71 11/07/18 15:00 98.0 63 15 129/73 (91) 98 11/07/18 14:30 72 17 98 Facial 50 11/07/18 14:13 76 20 96 Nasal Cannula 3.0 32 11/07/18 14:03 64 10 94 Nasal Cannula 3.0 32 11/07/18 14:00 97.6 62 18 124/63 (83) 94 11/07/18 13:00 98.0 67 13 139/70 (93) 98 11/07/18 12:00 70 11/07/18 12:00 Nasal Cannula 2.0 11/07/18 12:00 99.2 67 13 130/72 (91) 98 11/07/18 11:31 78 24 97 Nasal Cannula 3.0 32 11/07/18 11:19 69 19 98 Nasal Cannula 3.0 32 11/07/18 11:00 100.2 64 15 126/67 (86) 98 11/07/18 10:00 100.4 66 11 130/65 (86) 98 11/07/18 09:00 99.7 76 14 147/69 (95) 98 11/07/18 08:00 Nasal Cannula 2.0 11/07/18 08:00 71 11/07/18 08:00 99.0 78 14 137/66 (89) 96 11/07/18 07:29 67 16 100 Nasal Cannula 3.0 32 11/07/18 07:19 66 14 98 Nasal Cannula 3.0 32 11/07/18 07:18 Nasal Cannula 3.0 32 11/07/18 07:17 98 Nasal Cannula 3.0 32 11/07/18 07:16 66 16 Nasal Cannula 3.0 32 11/07/18 07:00 98.3 65 14 141/72 (95) 98 11/07/18 06:00 98.1 65 14 141/72 (95) 98 11/07/18 05:00 98.0 72 13 144/80 (101) 98 11/07/18 04:00 81 20 94 Nasal Cannula 3.0 32 11/07/18 04:00 78 11/07/18 04:00 Nasal Cannula 2.0 11/07/18 04:00 101.4 82 16 133/70 (91) 97 11/07/18 03:45 84 22 94 Nasal Cannula 3.0 32 11/07/18 03:00 103.3 77 13 144/76 (98) 98 11/07/18 02:00 68 13 135/67 (89) 99 11/07/18 01:00 69 11 125/63 (83) 98 11/07/18 00:14 76 15 98 Nasal Cannula 3.0 32 11/07/18 00:00 77 11/07/18 00:00 Nasal Cannula 2.0 11/07/18 00:00 78 11/07/18 00:00 99.6 11/07/18 00:00 99.6 66 11 130/64 (86) 98 11/06/18 23:54 70 14 98 Nasal Cannula 3.0 32 Intake and Output 11/06/18 11/07/18 18:59 06:59 Intake Total 2850.666 ml 1765.000 ml Output Total 1325 ml 1045 ml Balance 1525.666 ml 720.000 ml Intake Oral 1230 ml 480 ml IV Total 1560.666 ml 1285.000 ml Other 60 ml Output Urine Total 1325 ml 1045 ml # Bowel Movements 2 3 Laboratory Tests 11/07/18 04:50: Sodium Level 131L, Potassium Level 5.3H, Chloride Level 98, Carbon Dioxide Level 29, Anion Gap 4L, Blood Urea Nitrogen 23H, Creatinine 1.1, Estimat Glomerular Filtration Rate > 60, Glucose Level 129H, Calcium Level 8.6, Total Bilirubin 3.5H, Direct Bilirubin 2.8H, Aspartate Amino Transf (AST/SGOT) 117H, Alanine Aminotransferase (ALT/SGPT) 196H, Alkaline Phosphatase 580H, Total Protein 5.7L, Albumin 1.6L, Globulin 4.1, Albumin/Globulin Ratio 0.4L 11/07/18 13:56: Arterial Blood pH 7.398, Arterial Blood Partial Pressure CO2 48.5H, Arterial Blood Partial Pressure O2 89.5, Arterial Blood HCO3 29.2H, Arterial Blood Oxygen Saturation 95.4, Arterial Blood Base Excess 3.8H, Carroll Test Positive Height (Feet): 5 Height (Inches): 7.00 Weight (Pounds): 170 Objective Thin AA man NCAT C spine collar CTA RRR soft ND NT no edema Oscar Sinha MD Nov 07, 2018 23:49
[2018-11-08] VITALS (24 sets, daily range): BP systolic 109–140; BP diastolic 60–77
[2018-11-08] MEDS ORDERED: Gadavist 7.5mMol/7.5ml vial IV PRN
--- NOTE | 2018-11-08 | NUR ---
NURSE NOTES: Pt's resting in bed, asleep with eyes closed, in no acute distress. VS stable. Will continue to monitor.
[2018-11-08] MEDS: Vancomycin 750mg/NS 275ml IVPB SCH ×4 (00:45→08:43)
[2018-11-08] MEDS: D5 1/2NS w/KCl 20mEq 1,000 ML IV SCH ×2 (00:45→18:35)
--- NOTE | 2018-11-08 02:00 | NUR ---
NURSE NOTES: Pt's resting in bed, in no acute distress. VS stable. Will continue to monitor.
[2018-11-08] MEDS: Albuterol/Ipratropium 3ml neb HHN PRN ×5 (03:18→23:51)
--- NOTE | 2018-11-08 04:00 | NUR ---
NURSE NOTES: Pt's resting in bed, in no acute distress. VS stable. Will continue to monitor.
[2018-11-08 05:31] LABS: HEMATOCRIT 25.2 % (42.0-52.0); HEMOGLOBIN 8.8 G/DL (14.2-18.0); MEAN CORPUSCULAR VOLUME 84 FL (80-99); PLATELET COUNT 178 K/UL (150-450); RED CELL DISTRIBUTION WIDTH 11.8 % (11.6-14.8); WHITE BLOOD COUNT 12.6 K/UL (4.8-10.8)
[2018-11-08] MEDS: Piperacillin/Tazobactam 3.375 GM in D5W 110 ML IVPB SCH ×3 (05:49→21:56)
--- NOTE | 2018-11-08 06:00 | NUR ---
NURSE NOTES: Pt's resting in bed, in no acute distress. VS stable. Will continue to monitor. Refused morning care at this time. Will check back with the pt.
[2018-11-08 06:07] LABS: ALANINE AMINOTRANSFERASE 149 U/L (12-78); ALBUMIN 1.6 G/DL (3.4-5.0); ALBUMIN/GLOBULIN RATIO 0.4 (1.0-2.7); ALKALINE PHOSPHATASE 526 U/L (46-116); ANION GAP 5 mmol/L (5-15); ASPARTATE AMINO TRANSFERASE 62 U/L (15-37); BILIRUBIN,TOTAL 2.1 MG/DL (0.2-1.0); BLOOD UREA NITROGEN 25 mg/dL (7-18); CALCIUM 8.6 MG/DL (8.5-10.1); CARBON DIOXIDE 29 MMOL/L (21-32); CHLORIDE 97 MMOL/L (98-107); POTASSIUM 5.1 MMOL/L (3.5-5.1); SODIUM 131 MMOL/L (136-145)
[2018-11-08 06:16] LABS: BILIRUBIN,DIRECT 1.5 MG/DL (0.0-0.3)
--- NOTE | 2018-11-08 07:30 | NUR ---
HAND-OFF: Report given to GRAHAM Longoria.
--- NOTE | 2018-11-08 07:32 | NUR ---
NURSE NOTES: Report received from GRAHAM swo. Pt A/Ox3, bedridden, drowsy. awakes to name. pvc monitor SR HR 67. Pt on BIPAP 15/8, sating 99%.BP 128/66. RR 16. Pt remains on regular nectar thick diet. Abdomen distended, tender to touch. No BM. Elkins catheter secure and draining dark kahlil urine. skin-surgical wound, steri strips present, SAMPLE STEAMER. Pt has a RFA 20G and a RT Hand 18G with D1/2NS +20KCl running @ 75 ml/hr. cooling blanket temp reading 97.7 rectal. Bed in lowest position. Bed alarms placed. Call light within reach. Will continue to monitor and with patients plan of care.
--- NOTE | 2018-11-08 07:50 | NUR ---
NURSE NOTES: Lorenzo Hartmann here to see pt.
--- NOTE | 2018-11-08 07:52 | NUR ---
RESPIRATORY NOTE: Received pt on ordered BiPAP settings. BiPAP mask removed to offset pressure and to assess for any skin breakdown. Redness noted around the bridge of the nose. Curaplex Protecta-Gel was around the bridge of the nose of the pt. Replaced that with Curad Elastic Foam Tape. apparatus lineman notified of redness. BiPAP placed back on pt. BiPAP alarms are on and audible. BiPAP is plugged into red outlet. Will monitor pt progress.
--- NOTE | 2018-11-08 08:30 | NUR ---
NURSE NOTES: magi here to see pt
[2018-11-08] MEDS: Docusate 250mg cap ORAL SCH (08:43)
--- NOTE | 2018-11-08 08:57 | NUR ---
11/08 Hold, pt to speak to family 1st. Sister is an MD and assists in his decisions. Dr. Sinha and GRAHAM Longoria has been informed. amberb 8:51am
--- NOTE | 2018-11-08 09:40 | General Surgery Progress Note ---
General Surgery-Progress Note Subjective Day of Surgery: 11/25/2018 Procedure Performed ACDF C3-4, Disc Arthroplasty C4-5 Objective Last 24 Hour Vital Signs Date Time Temp Pulse Resp B/P (MAP) Pulse Ox O2 Delivery O2 Flow Rate FiO2 11/08/18 07:52 60 19 Room Air 50 11/08/18 07:52 Bi-pap 50 11/08/18 07:52 100 Bi-pap 50 11/08/18 07:52 62 20 100 Nasal Cannula 4.0 36 11/08/18 07:52 60 18 100 Nasal Cannula 36 11/08/18 07:50 65 20 100 Facial 50 11/08/18 07:00 99.6 58 14 124/67 (86) 99 11/08/18 06:00 98.5 58 12 123/64 (83) 99 11/08/18 05:26 60 19 100 Facial 50 11/08/18 05:00 98.5 54 14 119/70 (86) 99 11/08/18 04:00 Bi-pap Bi-pap 11/08/18 04:00 97.8 69 17 134/71 (92) 94 11/08/18 03:35 54 15 100 Bi-pap 50 11/08/18 03:17 55 14 99 Bi-pap 50 11/08/18 03:16 55 14 99 Facial 50 11/08/18 03:00 98.1 53 15 121/69 (86) 99 11/08/18 02:00 98.9 59 17 140/77 (98) 99 11/08/18 01:00 98.9 63 14 127/68 (87) 98 11/08/18 00:55 65 18 99 Facial 50 11/08/18 00:00 99.6 66 14 130/66 (87) 98 11/08/18 00:00 Bi-pap Bi-pap 11/07/18 23:28 68 15 99 Bi-pap 50 11/07/18 23:18 54 14 99 Bi-pap 50 11/07/18 23:17 59 14 99 Facial 50 11/07/18 23:00 99.4 58 16 125/70 (88) 98 11/07/18 22:00 98.9 62 16 131/70 (90) 98 11/07/18 21:00 98.6 62 15 120/63 (82) 97 3/7/19 20:57 60 17 97 Facial 50 11/07/18 20:00 Bi-pap Bi-pap 11/07/18 20:00 98.6 67 18 123/71 (88) 96 11/07/18 19:26 Bi-pap 11/07/18 19:26 Bi-pap 11/07/18 19:25 60 19 Bi-pap 50 11/07/18 19:21 60 19 98 Bi-pap 50 11/07/18 19:20 60 19 98 Facial 50 11/07/18 19:00 98.5 61 16 137/75 (95) 99 11/07/18 18:10 64 20 97 Bi-pap 50 11/07/18 18:00 99.2 61 15 121/70 (87) 99 11/07/18 18:00 60 16 98 Bi-pap 50 11/07/18 17:27 62 16 98 Facial 50 11/07/18 17:00 99.4 58 16 123/76 (92) 98 11/07/18 16:00 98.7 70 17 130/69 (89) 95 11/07/18 16:00 Nasal Cannula 2.0 Bi-pap 11/07/18 16:00 71 11/07/18 15:00 98.0 63 15 129/73 (91) 98 11/07/18 14:30 72 17 98 Facial 50 11/07/18 14:13 76 20 96 Nasal Cannula 3.0 32 11/07/18 14:03 64 10 94 Nasal Cannula 3.0 32 11/07/18 14:00 97.6 62 18 124/63 (83) 94 11/07/18 13:00 98.0 67 13 139/70 (93) 98 11/07/18 12:00 70 11/07/18 12:00 Nasal Cannula 2.0 11/07/18 12:00 99.2 67 13 130/72 (91) 98 11/07/18 11:31 78 24 97 Nasal Cannula 3.0 32 11/07/18 11:19 69 19 98 Nasal Cannula 3.0 32 11/07/18 11:00 100.2 64 15 126/67 (86) 98 11/07/18 10:00 100.4 66 11 130/65 (86) 98 I&O Intake and Output 11/07/18 11/08/18 19:00 07:00 Intake Total 862.83 ml 1317.083 ml Output Total 780 ml 660 ml Balance 82.83 ml 657.083 ml IV Total 862.83 ml 1317.083 ml Output Urine Total 780 ml 660 ml # Bowel Movements 3 Dressing: dry Wound: clean Drains: none Laboratory Tests Test 11/07/18 13:56 11/08/18 04:30 Arterial Blood pH 7.398 (7.350-7.450) Arterial Blood Partial Pressure CO2 48.5 mmHg (35.0-45.0) H Arterial Blood Partial Pressure O2 89.5 mmHg (75.0-100.0) Arterial Blood HCO3 29.2 mmol/L (22.0-26.0) H Arterial Blood Oxygen Saturation 95.4 % (95-100) Arterial Blood Base Excess 3.8 (-2-2) H Carroll Test Positive White Blood Count 12.6 K/UL (4.8-10.8) H Red Blood Count 3.00 M/UL (4.70-6.10) L Hemoglobin 8.8 G/DL (14.2-18.0) L Hematocrit 25.2 % (42.0-52.0) L Mean Corpuscular Volume 84 FL (80-99) Mean Corpuscular Hemoglobin 29.5 PG (27.0-31.0) Mean Corpuscular Hemoglobin Concent 35.1 G/DL (32.0-36.0) Red Cell Distribution Width 11.8 % (11.6-14.8) Platelet Count 178 K/UL (150-450) Mean Platelet Volume 6.5 FL (6.5-10.1) Neutrophils (%) (Auto) % (45.0-75.0) Lymphocytes (%) (Auto) % (20.0-45.0) Monocytes (%) (Auto) % (1.0-10.0) Eosinophils (%) (Auto) % (0.0-3.0) Basophils (%) (Auto) % (0.0-2.0) Differential Total Cells Counted 100 Neutrophils % (Manual) 82 % (45-75) H Lymphocytes % (Manual) 5 % (20-45) L Monocytes % (Manual) 11 % (1-10) H Eosinophils % (Manual) 2 % (0-3) Basophils % (Manual) 0 % (0-2) Band Neutrophils 0 % (0-8) Platelet Estimate Adequate Platelet Morphology Normal Hypochromasia 1+ Sodium Level 131 MMOL/L (136-145) L Potassium Level 5.1 MMOL/L (3.5-5.1) Chloride Level 97 MMOL/L (98-107) L Carbon Dioxide Level 29 MMOL/L (21-32) Anion Gap 5 mmol/L (5-15) Blood Urea Nitrogen 25 mg/dL (7-18) H Creatinine 1.0 MG/DL (0.55-1.30) Estimat Glomerular Filtration Rate > 60 mL/min (>60) Glucose Level 129 MG/DL (74-106) H Calcium Level 8.6 MG/DL (8.5-10.1) Total Bilirubin 2.1 MG/DL (0.2-1.0) H Direct Bilirubin 1.5 MG/DL (0.0-0.3) H Aspartate Amino Transf (AST/SGOT) 62 U/L (15-37) H Alanine Aminotransferase (ALT/SGPT) 149 U/L (12-78) H Alkaline Phosphatase 526 U/L (46-116) H Total Protein 5.9 G/DL (6.4-8.2) L Albumin 1.6 G/DL (3.4-5.0) L Globulin 4.3 g/dL Albumin/Globulin Ratio 0.4 (1.0-2.7) L Additional Comments Sensation: normal on left upper / lower. Normal on right upper and diminished right leg. DTR's: 1+ right upper, absent right lower, 2+ Left upper, trace left lower. Babinski non reactive. Motor: patient moving both feet (toes) to command. Note: mild edema in right forearm / hand. Assessment Post-op Diagnosis Spinal Cord compression Additional Comments TMax: 99.6. Patient to have MRI Abdomen this AM as part of evaluation of elevated LFT's. Appears to be more comfortable on BIPAP mask this AM. Dr. Alvarado following. ID following. Neurology following. Rehab transfer pending. Leoncio Ventura Nov 08, 2018 09:40
--- NOTE | 2018-11-08 10:27 | Infectious Diseases Prog Note ---
Assessment/Plan Assessment/Plan antibiotics : vancomycin iv, zosyn A 1. aspiration pneumonia 2. cervical spondylosis s/p surgery 3. fever improving P 1. continue iv vancomycin, zosyn 2. will follow up cultures Subjective Constitutional: Denies: fever, chills Respiratory: Reports: shortness of breath - decreased cough, productive cough - decreased Gastrointestinal/Abdominal: Reports: nausea; Denies: vomiting, diarrhea Musculoskeletal: Reports: pain Allergies: Coded Allergies: No Known Allergies (Unverified , 10/28/18) Objective Vital Signs Last 24 Hour Vital Signs Date Time Temp Pulse Resp B/P (MAP) Pulse Ox O2 Delivery O2 Flow Rate FiO2 11/08/18 07:52 60 19 Room Air 50 11/08/18 07:52 Bi-pap 50 11/08/18 07:52 100 Bi-pap 50 11/08/18 07:52 62 20 100 Nasal Cannula 4.0 36 11/08/18 07:52 60 18 100 Nasal Cannula 36 11/08/18 07:50 65 20 100 Facial 50 11/08/18 07:00 99.6 58 14 124/67 (86) 99 11/08/18 06:00 98.5 58 12 123/64 (83) 99 11/08/18 05:26 60 19 100 Facial 50 11/08/18 05:00 98.5 54 14 119/70 (86) 99 11/08/18 04:00 Bi-pap Bi-pap 11/08/18 04:00 97.8 69 17 134/71 (92) 94 11/08/18 03:35 54 15 100 Bi-pap 50 11/08/18 03:17 55 14 99 Bi-pap 50 11/08/18 03:16 55 14 99 Facial 50 11/08/18 03:00 98.1 53 15 121/69 (86) 99 11/08/18 02:00 98.9 59 17 140/77 (98) 99 11/08/18 01:00 98.9 63 14 127/68 (87) 98 11/08/18 00:55 65 18 99 Facial 50 11/08/18 00:00 99.6 66 14 130/66 (87) 98 11/08/18 00:00 Bi-pap Bi-pap 11/07/18 23:28 68 15 99 Bi-pap 50 3/7/19 23:18 54 14 99 Bi-pap 50 11/07/18 23:17 59 14 99 Facial 50 11/07/18 23:00 99.4 58 16 125/70 (88) 98 11/07/18 22:00 98.9 62 16 131/70 (90) 98 11/07/18 21:00 98.6 62 15 120/63 (82) 97 11/07/18 20:57 60 17 97 Facial 50 11/07/18 20:00 Bi-pap Bi-pap 11/07/18 20:00 98.6 67 18 123/71 (88) 96 11/07/18 19:26 Bi-pap 11/07/18 19:26 Bi-pap 11/07/18 19:25 60 19 Bi-pap 50 11/07/18 19:21 60 19 98 Bi-pap 50 11/07/18 19:20 60 19 98 Facial 50 11/07/18 19:00 98.5 61 16 137/75 (95) 99 11/07/18 18:10 64 20 97 Bi-pap 50 11/07/18 18:00 99.2 61 15 121/70 (87) 99 11/07/18 18:00 60 16 98 Bi-pap 50 11/07/18 17:27 62 16 98 Facial 50 11/07/18 17:00 99.4 58 16 123/76 (92) 98 11/07/18 16:00 98.7 70 17 130/69 (89) 95 11/07/18 16:00 Nasal Cannula 2.0 Bi-pap 11/07/18 16:00 71 11/07/18 15:00 98.0 63 15 129/73 (91) 98 11/07/18 14:30 72 17 98 Facial 50 11/07/18 14:13 76 20 96 Nasal Cannula 3.0 32 11/07/18 14:03 64 10 94 Nasal Cannula 3.0 32 11/07/18 14:00 97.6 62 18 124/63 (83) 94 11/07/18 13:00 98.0 67 13 139/70 (93) 98 11/07/18 12:00 70 11/07/18 12:00 Nasal Cannula 2.0 11/07/18 12:00 99.2 67 13 130/72 (91) 98 11/07/18 11:31 78 24 97 Nasal Cannula 3.0 32 11/07/18 11:19 69 19 98 Nasal Cannula 3.0 32 11/07/18 11:00 100.2 64 15 126/67 (86) 98 Height (Feet): 5 Height (Inches): 7.00 Weight (Pounds): 170 HEENT: other - neck wound clean Respiratory/Chest: lungs clear Cardiovascular: normal rate, regular rhythm, no gallop/murmur Abdomen: soft, non tender Extremities: no edema Microbiology Date/Time Source Procedure Growth Status 11/06/18 17:30 Blood Blood Culture - Preliminary NO GROWTH AFTER 24 HOURS Resulted 11/06/18 17:20 Blood Blood Culture - Preliminary NO GROWTH AFTER 24 HOURS Resulted 11/06/18 16:00 Indwelling Cath Urine Culture - Preliminary NO GROWTH AFTER 24 HOURS Resulted Laboratory Tests Test 11/07/18 13:56 11/08/18 04:30 Arterial Blood pH 7.398 (7.350-7.450) Arterial Blood Partial Pressure CO2 48.5 mmHg (35.0-45.0) H Arterial Blood Partial Pressure O2 89.5 mmHg (75.0-100.0) Arterial Blood HCO3 29.2 mmol/L (22.0-26.0) H Arterial Blood Oxygen Saturation 95.4 % (95-100) Arterial Blood Base Excess 3.8 (-2-2) H Carroll Test Positive White Blood Count 12.6 K/UL (4.8-10.8) H Red Blood Count 3.00 M/UL (4.70-6.10) L Hemoglobin 8.8 G/DL (14.2-18.0) L Hematocrit 25.2 % (42.0-52.0) L Mean Corpuscular Volume 84 FL (80-99) Mean Corpuscular Hemoglobin 29.5 PG (27.0-31.0) Mean Corpuscular Hemoglobin Concent 35.1 G/DL (32.0-36.0) Red Cell Distribution Width 11.8 % (11.6-14.8) Platelet Count 178 K/UL (150-450) Mean Platelet Volume 6.5 FL (6.5-10.1) Neutrophils (%) (Auto) % (45.0-75.0) Lymphocytes (%) (Auto) % (20.0-45.0) Monocytes (%) (Auto) % (1.0-10.0) Eosinophils (%) (Auto) % (0.0-3.0) Basophils (%) (Auto) % (0.0-2.0) Differential Total Cells Counted 100 Neutrophils % (Manual) 82 % (45-75) H Lymphocytes % (Manual) 5 % (20-45) L Monocytes % (Manual) 11 % (1-10) H Eosinophils % (Manual) 2 % (0-3) Basophils % (Manual) 0 % (0-2) Band Neutrophils 0 % (0-8) Platelet Estimate Adequate Platelet Morphology Normal Hypochromasia 1+ Sodium Level 131 MMOL/L (136-145) L Potassium Level 5.1 MMOL/L (3.5-5.1) Chloride Level 97 MMOL/L (98-107) L Carbon Dioxide Level 29 MMOL/L (21-32) Anion Gap 5 mmol/L (5-15) Blood Urea Nitrogen 25 mg/dL (7-18) H Creatinine 1.0 MG/DL (0.55-1.30) Estimat Glomerular Filtration Rate > 60 mL/min (>60) Glucose Level 129 MG/DL (74-106) H Calcium Level 8.6 MG/DL (8.5-10.1) Total Bilirubin 2.1 MG/DL (0.2-1.0) H Direct Bilirubin 1.5 MG/DL (0.0-0.3) H Aspartate Amino Transf (AST/SGOT) 62 U/L (15-37) H Alanine Aminotransferase (ALT/SGPT) 149 U/L (12-78) H Alkaline Phosphatase 526 U/L (46-116) H Total Protein 5.9 G/DL (6.4-8.2) L Albumin 1.6 G/DL (3.4-5.0) L Globulin 4.3 g/dL Albumin/Globulin Ratio 0.4 (1.0-2.7) L Current Medications Medications (Trade) Dose Ordered Sig/Sharon Route PRN Reason Start Time Stop Time Status Last Admin Dose Admin Acetaminophen (Tylenol) 500 mg Q4H PRN ORAL Mild Pain/Temp > 100.5 11/05/18 19:00 12/05/18 18:59 11/06/18 23:30 Albuterol/ Ipratropium (Albuterol/ Ipratropium) 3 ml Q4H PRN HHN Shortness of Breath 11/06/18 19:45 11/11/18 19:44 11/08/18 07:52 Dextrose/ Electrolytes 1,000 ml @ 75 mls/hr [id number] IV 10/28/18 22:46 11/27/18 22:45 11/08/18 00:45 Docusate Sodium (Colace) 250 mg DAILY ORAL 11/03/18 15:45 12/03/18 15:44 11/08/18 08:43 Gadobutrol (Gadavist) 7.5 mmol NOW PRN IV Radiology Procedure 11/08/18 00:00 11/11/18 23:46 Hydromorphone HCl (Dilaudid) 0.5 mg Q3H PRN IVP Mild Pain (Pain Scale 1-3) 11/03/18 17:45 11/10/18 17:44 Hydromorphone HCl (Dilaudid) 1 mg Q3H PRN IVP moderate pain 5-7 11/03/18 17:45 11/10/18 17:44 Hydromorphone HCl (Dilaudid) 2 mg Q3H PRN IVP Severe Breakthru Pain (>7) 11/01/18 14:00 11/08/18 13:59 11/08/18 09:03 Metoclopramide HCl (Reglan) 10 mg Q6H PRN IVP Nausea & Vomiting 10/28/18 23:00 11/27/18 22:59 Naloxone HCl (Narcan) 0.1 mg PRN PRN IVP RR<12/min, pt unarousable 10/28/18 23:00 11/27/18 22:59 Ondansetron HCl (Zofran) 4 mg Q6H PRN IVP Nausea & Vomiting 10/28/18 23:00 11/27/18 22:59 Piperacillin Sod/ Tazobactam Sod 3.375 gm/Dextrose 110 ml @ 27.5 mls/hr EVERY 8 HOURS IVPB 11/05/18 14:00 11/10/18 13:59 11/08/18 05:49 Vancomycin HCl (Vanco rx to dose) 1 ea DAILY PRN MISC Per rx protocol 10/31/18 06:30 11/30/18 06:29 Vancomycin HCl 750 mg/Sodium Chloride 275 ml @ 183.333 mls/hr Q8H IVPB 11/04/18 08:00 11/09/18 07:59 11/08/18 08:43 Kenyon Moran MD Nov 08, 2018 10:27
--- NOTE | 2018-11-08 11:25 | NUR ---
NURSE NOTES: CALLED EVELIO PER PT REQUEST. REGARDING CONSENT FOR MRI W/ CONTRAST. NOT WILLING TO AGREE TO ANOTHER TEST IF PT UNCOMFORTABLE, WOULD LIKE GI MD TO CONSIDER OTHER TEST SUCH PORTABLE KUB WITH MIRALAX FIRST STEP. WILL CONTACT MD EVANGELISTA WITH UPDATE.
--- NOTE | 2018-11-08 11:35 | NUR ---
ST NOTE: ST WEEKLY AND CURRENT STATUS: PT PARTIALLY MET PO INTAKE GOALS. NURSING STAFF MET ASPIRATION PRECAUTIONS GOALS. CONTINUE SKILLED ST SERVICE. CURRENT STATUS: PT IS ON BIPAP. UNABLE TO COMPLETE VIDEOSWALLOW STUDY AT THIS TIME. CONSIDER NPO. WILL FOLLOW UP.
--- NOTE | 2018-11-08 12:00 | NUR ---
NURSE NOTES: PT NPO FOR US OF ABD. PT POSITIONED FOR COMFORT
--- NOTE | 2018-11-08 14:00 | NUR ---
NURSE NOTES: US OF ABD UNDERWAY. PT IN NO ACUTE DISTRESS.
--- NOTE | 2018-11-08 14:02 | NUR ---
11/08..CONCERNING MRCP...PT IS UNABLE TO LAY FLAT DUE TO PAIN AND BREATHING DIFFICULTIES. I LOWERED THE PT TO ABOUT 20 DEGREES, AND THE PT TOLD ME TO STOP AND LIFT HIS HEAD UP. PT IS ON A BIPAP MACHINE. ALSO, PT REFUSES TO LEAVE THE BUILDING FOR THE EXAM. DR. EVANGELISTA STATED HE WOULD SPEAK TO THE FAMILY CONCERNING OTHER OPTIONS, AND TO GO AHEAD AND CANCEL THE MRI EXAM. GRAHAM COLLIER HAS BEEN MADE AWARE OF CANCELLATION. ANNMARIE 13:55
--- NOTE | 2018-11-08 14:16 | NUR ---
NURSE NOTES: PT C/O PAIN, DILAUDID ADMINISTERED PER MD ORDER. WILL CONTINUE TO MONITOR.
--- NOTE | 2018-11-08 14:49 | NUR ---
NURSE NOTES:WOUND CARE NOTES: Pt seen at request of Rt (Apolinar) . Pt is on Bi-pap and upon removal of preventive foam tape to assess skin Rt noted pt to have developed Non-blanchable erythema over bridge of Nose. Skin Is intact . Pt now has full facial mask and erythema is being monitored by staff in ICU. Recommendations:Apply Cavilon Skin Barrier to Bridge of nose Twice daily.
--- NOTE | 2018-11-08 15:07 | General Progress Note ---
Assessment/Plan Assessment/Plan Assessment - Elevated LFT, ? etiology, ? ischemic injury, ? CBD obstruction - s/p C spine operation - Fever Recommendations - Follow LFT - Abx per ID - Repeat abd ultrasound this afternoon - possible CT - Avoid hepatotoxic meds - d/c tylenol - avoid volume depletion / hypotension Subjective Allergies: Coded Allergies: No Known Allergies (Unverified , 10/28/18) Subjective Above noted patient unable to do MRI d/w family member, Dr. Mamie Ramsey, re options (CT vs repeat U/S) agreed to repeat U/S and then CT if U/S non diagnostic Objective Last 24 Hour Vital Signs Date Time Temp Pulse Resp B/P (MAP) Pulse Ox O2 Delivery O2 Flow Rate FiO2 11/08/18 13:20 67 20 100 Full Face 50 11/08/18 12:00 Bi-pap Bi-pap 11/08/18 12:00 97.0 63 14 137/68 (91) 100 62 11/08/18 11:51 66 20 100 Full Face 50 11/08/18 11:00 96.6 54 12 122/64 (83) 99 56 11/08/18 10:00 96.5 54 12 122/65 (84) 100 55 11/08/18 09:55 64 20 100 Full Face 50 11/08/18 09:00 97.1 62 14 128/66 (86) 99 56 11/08/18 08:00 98.6 64 12 137/70 (92) 100 67 11/08/18 08:00 61 11/08/18 08:00 Bi-pap Bi-pap 11/08/18 07:52 60 19 Room Air 50 11/08/18 07:52 Bi-pap 50 11/08/18 07:52 100 Bi-pap 50 11/08/18 07:52 62 20 100 Nasal Cannula 4.0 36 11/08/18 07:52 60 18 100 Nasal Cannula 36 11/08/18 07:50 65 20 100 Facial 50 11/08/18 07:00 99.6 58 14 124/67 (86) 99 11/08/18 06:00 98.5 58 12 123/64 (83) 99 11/08/18 05:26 60 19 100 Facial 50 11/08/18 05:00 98.5 54 14 119/70 (86) 99 11/08/18 04:00 Bi-pap Bi-pap 11/08/18 04:00 97.8 69 17 134/71 (92) 94 11/08/18 03:35 54 15 100 Bi-pap 50 11/08/18 03:17 55 14 99 Bi-pap 50 11/08/18 03:16 55 14 99 Facial 50 11/08/18 03:00 98.1 53 15 121/69 (86) 99 11/08/18 02:00 98.9 59 17 140/77 (98) 99 11/08/18 01:00 98.9 63 14 127/68 (87) 98 11/08/18 00:55 65 18 99 Facial 50 11/08/18 00:00 99.6 66 14 130/66 (87) 98 11/08/18 00:00 Bi-pap Bi-pap 11/07/18 23:28 68 15 99 Bi-pap 50 11/07/18 23:18 54 14 99 Bi-pap 50 11/07/18 23:17 59 14 99 Facial 50 11/07/18 23:00 99.4 58 16 125/70 (88) 98 11/07/18 22:00 98.9 62 16 131/70 (90) 98 11/07/18 21:00 98.6 62 15 120/63 (82) 97 11/07/18 20:57 60 17 97 Facial 50 11/07/18 20:00 Bi-pap Bi-pap 11/07/18 20:00 98.6 67 18 123/71 (88) 96 11/07/18 19:26 Bi-pap 11/07/18 19:26 Bi-pap 11/07/18 19:25 60 19 Bi-pap 50 11/07/18 19:21 60 19 98 Bi-pap 50 11/07/18 19:20 60 19 98 Facial 50 11/07/18 19:00 98.5 61 16 137/75 (95) 99 11/07/18 18:10 64 20 97 Bi-pap 50 11/07/18 18:00 99.2 61 15 121/70 (87) 99 11/07/18 18:00 60 16 98 Bi-pap 50 11/07/18 17:27 62 16 98 Facial 50 11/07/18 17:00 99.4 58 16 123/76 (92) 98 11/07/18 16:00 98.7 70 17 130/69 (89) 95 11/07/18 16:00 Nasal Cannula 2.0 Bi-pap 11/07/18 16:00 71 Intake and Output 11/07/18 11/08/18 19:00 07:00 Intake Total 862.83 ml 1317.083 ml Output Total 780 ml 660 ml Balance 82.83 ml 657.083 ml IV Total 862.83 ml 1317.083 ml Output Urine Total 780 ml 660 ml # Bowel Movements 3 Laboratory Tests 11/08/18 04:30: White Blood Count 12.6H, Red Blood Count 3.00L, Hemoglobin 8.8L, Hematocrit 25.2L, Mean Corpuscular Volume 84, Mean Corpuscular Hemoglobin 29.5, Mean Corpuscular Hemoglobin Concent 35.1, Red Cell Distribution Width 11.8, Platelet Count 178, Mean Platelet Volume 6.5, Neutrophils (%) (Auto) , Lymphocytes (%) ( Auto) , Monocytes (%) (Auto) , Eosinophils (%) (Auto) , Basophils (%) (Auto) , Differential Total Cells Counted 100, Neutrophils % (Manual) 82H, Lymphocytes % (Manual) 5L, Monocytes % (Manual) 11H, Eosinophils % (Manual) 2, Basophils % ( Manual) 0, Band Neutrophils 0, Platelet Estimate Adequate, Platelet Morphology Normal, Hypochromasia 1+, Sodium Level 131L, Potassium Level 5.1, Chloride Level 97L, Carbon Dioxide Level 29, Anion Gap 5, Blood Urea Nitrogen 25H, Creatinine 1.0, Estimat Glomerular Filtration Rate > 60, Glucose Level 129H, Calcium Level 8.6, Total Bilirubin 2.1H, Direct Bilirubin 1.5H, Aspartate Amino Transf (AST/SGOT) 62H, Alanine Aminotransferase (ALT/SGPT) 149H, Alkaline Phosphatase 526H, Total Protein 5.9L, Albumin 1.6L, Globulin 4.3, Albumin/ Globulin Ratio 0.4L Height (Feet): 5 Height (Inches): 7.00 Weight (Pounds): 170 Objective Thin AA man NCAT C spine collar CTA RRR soft ND NT no edema Oscar Sinha MD Nov 08, 2018 15:07
--- NOTE | 2018-11-08 15:34 | NUR ---
CASE MANAGEMENT:REVIEW 11/08/2018 SI: POD #11 S/P DISC ARTHROPLASTY AND DECOMPRESSION 99.6 58 14 124/67 99% ON BIPAP WBC+12.6 H/H-8.8/25.2 NA-131 IS: IV ZOSYN Q8HRS IV VANCOMYCIN Q8HRS IVF@75/HR IV DILAUDID Q3HRS PRN : ICU STATUS PLAN: REFER TO [facility] UPON DISCHARGE MUST BE AFEBRILE FOR 48HRS PRIOR TO DISCHARGE
[2018-11-08] MEDS ORDERED: Isovue-300 100ml vial INJ PRN (15:45)
--- NOTE | 2018-11-08 15:47 | NUR ---
INSURANCE CLINICALS FAXED TO [facility] WORKERS COMP TRAINING GENERALIST: ENRIQUETA T; [phone] F: [phone] AND [facility] WORK[employer] COMP NURSE [employer] REFINER BATCH MIXER : CAMERON T: [phone] F: [phone] MESSAGE LEFT FOR NCM AKASH T: [phone] CALLED CAMERON AND VERBALLY UPDATED HER
[2018-11-08] MEDS: Vancomycin 750 MG in NS 275 ML IVPB SCH (16:16)
[2018-11-08] MEDS: HYDROmorphone 1mg/ml Carpuject IVP PRN ×2 (16:16→20:50)
--- NOTE | 2018-11-08 16:38 | Diagnostic Imaging Report ---
Indication: Normal liver function tests. Abnormal renal function tests Technique: Junior-scale and duplex images of the upper abdomen were obtained. Doppler interrogation of the hepatic and pancreatic vessels Comparison: 11/04/2018 Findings: Gallbladder is unremarkable, without stones, wall thickening, nor pericholecystic fluid. Sonographic Allison's sign is negative. Common bile duct measures 3 mm in diameter. No intrahepatic biliary ductal dilatation. Liver demonstrates normal echogenicity, no focal abnormality. It is mildly enlarged. Portal vein and hepatic veins are patent. Pancreas is obscured by bowel gas. The spleen is mildly enlarged. This was not evident previously. Left kidney measures 13.1 cm in length. Right kidney measures 13 cm length. Both kidneys demonstrate normal echogenicity. There is no hydronephrosis. Possible punctate calcification is seen in the left renal sinus. Unremarkable inferior vena cava. Non-aneurysmal abdominal aorta . Trace right pleural effusion incidentally noted Impression: Mild hepatomegaly, also described on ultrasound of 4 days earlier Mild spondylitic, not definitely evident on previous exam Negative for gallstones or dilated ducts. Incidental finding trace right pleural effusion Note inability to visualize pancreas
--- NOTE | 2018-11-08 19:04 | Pulmonolgy Critical Care Note ---
Critical Care - Asmt/Plan Assessment/Plan: Pulmonary CCM Progress Note Assessment/Plan Status post anterior cervical corpectomy-discectomy at C3-4 and corpectomy/ discectomy C4-5. ACDF C3-4, Disc Arthroplasty C4-5 Spinal Cord compression fevers concern for aspiration spinal cord shock elevated LFT possible shock liver PLAN post op care neuro follow up cultures negative IV antibiotics ID follow up ICU care pain control plan for extensive rehab monitor for aspiration repeat cultures Subjective Allergies: Coded Allergies: No Known Allergies (Unverified , 10/28/18) Subjective Intermittent fevers ID following, cultures pending Objective Vital Signs Noted Laboratory Tests 11/05/18 06:26: White Blood Count 6.8, Red Blood Count 3.34L, Hemoglobin 9.8L, Hematocrit 28.0L , Mean Corpuscular Volume 84, Mean Corpuscular Hemoglobin 29.4, Mean Corpuscular Hemoglobin Concent 35.1, Red Cell Distribution Width 11.8, Platelet Count 131L, Mean Platelet Volume 6.3L, Neutrophils (%) (Auto) 83.4H, Lymphocytes (%) (Auto) 4.4L, Monocytes (%) (Auto) 10.9H, Eosinophils (%) (Auto) 0.6, Basophils (%) (Auto) 0.7, Sodium Level 136, Potassium Level 4.6, Chloride Level 101, Carbon Dioxide Level 30, Anion Gap 6, Blood Urea Nitrogen 27H, Creatinine 1.2, Estimat Glomerular Filtration Rate > 60, Glucose Level 125H, Lactic Acid Level 1.20, Calcium Level 9.0, Total Bilirubin 3.1H, Direct Bilirubin 2.4H, Aspartate Amino Transf (AST/SGOT) 65H, Alanine Aminotransferase (ALT/SGPT) 98H, Alkaline Phosphatase 441H, Total Protein 6.1L, Albumin 1.8L, Globulin 4.3, Albumin/Globulin Ratio 0.4L, Vancomycin Level Trough 15.3H, Evens-Church Virus Capsid Ag IgM Ab [Pending], Hepatitis A IgM Antibody [Pending ], Hepatitis B Surface Antigen [Pending], Hepatitis B Core IgM Antibody [Pending ], Hepatitis C Antibody [Pending], Herpes Simplex Virus I IgM Ab (IFA) [Pending] , Herpes Simplex Virus II IgM Ab (IFA [Pending], Monoscreen [Pending] Height (Feet): 5 Height (Inches): 7.00 Weight (Pounds): 170 Objective WDWN NAD clear breath sounds bilaterally without rhonchi or wheeze [id number] without MRG NABS nontender no HSM no CCE alert and weak poor mobility of extremities Critical Care - Objective Last 24 Hour Vital Signs Date Time Temp Pulse Resp B/P (MAP) Pulse Ox O2 Delivery O2 Flow Rate FiO2 11/08/18 17:30 56 20 99 Full Face 50 11/08/18 16:00 Bi-pap Bi-pap 11/08/18 15:43 47 18 100 Bi-pap 50 11/08/18 15:36 46 22 99 Bi-pap 50 11/08/18 15:17 52 14 99 Full Face 50 11/08/18 13:20 67 20 100 Full Face 50 11/08/18 12:00 Bi-pap Bi-pap 11/08/18 12:00 97.0 63 14 137/68 (91) 100 62 11/08/18 11:51 66 20 100 Full Face 50 11/08/18 11:00 96.6 54 12 122/64 (83) 99 56 11/08/18 10:00 96.5 54 12 122/65 (84) 100 55 11/08/18 09:55 64 20 100 Full Face 50 11/08/18 09:00 97.1 62 14 128/66 (86) 99 56 11/08/18 08:00 98.6 64 12 137/70 (92) 100 67 11/08/18 08:00 61 11/08/18 08:00 Bi-pap Bi-pap 11/08/18 07:52 60 19 Room Air 50 11/08/18 07:52 Bi-pap 50 11/08/18 07:52 100 Bi-pap 50 11/08/18 07:52 62 20 100 Nasal Cannula 4.0 36 11/08/18 07:52 60 18 100 Nasal Cannula 36 11/08/18 07:50 65 20 100 Facial 50 11/08/18 07:00 99.6 58 14 124/67 (86) 99 11/08/18 06:00 98.5 58 12 123/64 (83) 99 11/08/18 05:26 60 19 100 Facial 50 11/08/18 05:00 98.5 54 14 119/70 (86) 99 11/08/18 04:00 Bi-pap Bi-pap 11/08/18 04:00 97.8 69 17 134/71 (92) 94 11/08/18 03:35 54 15 100 Bi-pap 50 11/08/18 03:17 55 14 99 Bi-pap 50 11/08/18 03:16 55 14 99 Facial 50 11/08/18 03:00 98.1 53 15 121/69 (86) 99 11/08/18 02:00 98.9 59 17 140/77 (98) 99 11/08/18 01:00 98.9 63 14 127/68 (87) 98 11/08/18 00:55 65 18 99 Facial 50 11/08/18 00:00 99.6 66 14 130/66 (87) 98 11/08/18 00:00 Bi-pap Bi-pap 11/07/18 23:28 68 15 99 Bi-pap 50 11/07/18 23:18 54 14 99 Bi-pap 50 11/07/18 23:17 59 14 99 Facial 50 11/07/18 23:00 99.4 58 16 125/70 (88) 98 11/07/18 22:00 98.9 62 16 131/70 (90) 98 11/07/18 21:00 98.6 62 15 120/63 (82) 97 11/07/18 20:57 60 17 97 Facial 50 11/07/18 20:00 Bi-pap Bi-pap 11/07/18 20:00 98.6 67 18 123/71 (88) 96 11/07/18 19:26 Bi-pap 11/07/18 19:26 Bi-pap 11/07/18 19:25 60 19 Bi-pap 50 11/07/18 19:21 60 19 98 Bi-pap 50 11/07/18 19:20 60 19 98 Facial 50 Micro: Microbiology Date/Time Source Procedure Growth Status 11/06/18 17:30 Blood Blood Culture - Preliminary NO GROWTH AFTER 24 HOURS Resulted 11/06/18 17:20 Blood Blood Culture - Preliminary NO GROWTH AFTER 24 HOURS Resulted 11/06/18 16:00 Indwelling Cath Urine Culture - Preliminary NO GROWTH AFTER 24 HOURS Resulted Critical Care - Subjective ROS Limited/Unobtainable: No FI02: 50 Sputum Amount: Moderate I&O: Intake and Output 11/07/18 11/08/18 19:00 07:00 Intake Total 862.83 ml 1317.083 ml Output Total 780 ml 660 ml Balance 82.83 ml 657.083 ml IV Total 862.83 ml 1317.083 ml Output Urine Total 780 ml 660 ml # Bowel Movements 3 Ho Painter MD Nov 08, 2018 19:04
--- NOTE | 2018-11-08 19:30 | NUR ---
NURSE NOTES: Report received from GRAHAM Porter. Pt alert and oriented x4, able to make needs known. Pt on Bipap 17/04, FiO2 35% saturating 100%. Afebrile at this time, VS stable, SR on satellite project site monitor. Elkins intact and draining clear yellow urine to gravity. Neck incision clean, dry and intact with steri strips. Left FA 20 G and R hand 18 G intact. D5 1/2 NS + 20meq KCl running at 75 cc/hr. Unable to move bilateral upper and lower extremities. Safety measures in place with bed locked and in lowest position, side rails x 3 up and bed alarm on. Call light within reach. Will continue to monitor and continue plan of care.
--- NOTE | 2018-11-08 20:00 | NUR ---
NURSE NOTES: brien LORA here to see pt. Addendum: 11/08/18 at 2000 by Swati Porter RN wrong time
--- NOTE | 2018-11-08 22:00 | NUR ---
NURSE NOTES: Pt's resting in bed, in no acute distress. VS stable. Will continue to monitor.
[2018-11-08] MEDS: Morphine Sulfate 2mg/ml Inj(IV/IM USE ONLY) IVP PRN (23:23)
[2018-11-09] VITALS (24 sets, daily range): BP systolic 106–149; BP diastolic 52–76
--- NOTE | 2018-11-09 | NUR ---
NURSE NOTES: Pt's resting in bed, with eyes closed, in no acute distress. VS stable. Will continue to monitor.
[2018-11-09] MEDS: Vancomycin 750 MG in NS 275 ML IVPB SCH ×3 (01:38→16:12)
--- NOTE | 2018-11-09 02:00 | NUR ---
NURSE NOTES: Pt's resting in bed, with eyes closed, in no acute distress. VS stable. Will continue to monitor.
--- NOTE | 2018-11-09 04:00 | NUR ---
NURSE NOTES: Pt's resting in bed, with eyes closed, in no acute distress. VS stable. Will continue to monitor.
[2018-11-09] MEDS: Albuterol/Ipratropium 3ml neb HHN PRN ×3 (04:22→19:45)
[2018-11-09] MEDS: Morphine Sulfate 2mg/ml Inj(IV/IM USE ONLY) IVP PRN ×5 (05:29→22:28)
[2018-11-09] MEDS: Piperacillin/Tazobactam 3.375 GM in D5W 110 ML IVPB SCH ×3 (05:51→22:34)
--- NOTE | 2018-11-09 06:00 | NUR ---
NURSE NOTES: Pt's resting in bed, with eyes closed, in no acute distress. VS stable. Will continue to monitor.
[2018-11-09 06:56] LABS: BASOPHILS % (AUTO) 0.6 % (0.0-2.0); EOSINOPHILS % (AUTO) 2.5 % (0.0-3.0); HEMATOCRIT 25.6 % (42.0-52.0); HEMOGLOBIN 8.7 G/DL (14.2-18.0); MEAN CORPUSCULAR VOLUME 84 FL (80-99); NEUTROPHILS % (AUTO) 82.8 % (45.0-75.0); PLATELET COUNT 219 K/UL (150-450); RED BLOOD COUNT 3.03 M/UL (4.70-6.10); RED CELL DISTRIBUTION WIDTH 12.3 % (11.6-14.8); WHITE BLOOD COUNT 9.7 K/UL (4.8-10.8)
--- NOTE | 2018-11-09 07:12 | NUR ---
HAND-OFF: Report given to GRAHAM Salgado.
[2018-11-09 07:35] LABS: ALANINE AMINOTRANSFERASE 136 U/L (12-78); ALBUMIN 1.5 G/DL (3.4-5.0); ALBUMIN/GLOBULIN RATIO 0.4 (1.0-2.7); ALKALINE PHOSPHATASE 544 U/L (46-116); ANION GAP 6 mmol/L (5-15); ASPARTATE AMINO TRANSFERASE 74 U/L (15-37); BILIRUBIN,TOTAL 1.5 MG/DL (0.2-1.0); BLOOD UREA NITROGEN 19 mg/dL (7-18); CALCIUM 8.7 MG/DL (8.5-10.1); CARBON DIOXIDE 28 MMOL/L (21-32); CHLORIDE 101 MMOL/L (98-107); POTASSIUM 4.2 MMOL/L (3.5-5.1); SODIUM 135 MMOL/L (136-145)
[2018-11-09 07:36] LABS: BILIRUBIN,DIRECT 1.1 MG/DL (0.0-0.3)
--- NOTE | 2018-11-09 07:36 | NUR ---
NURSE NOTES: Report received from Kj RN. Pt alert and oriented x4, able to make needs known. Pt on bipap 17/04, 35 %, saturating 100%. Elkins intact and draining clear yellow urine to gravity. Neck incision with steri strips clean, dry and intact. RFA 20 G and RH 20 G intact. D5 1/2 NS + 20 K running at 75 cc/hr. Safety measures in place with bed locked and in lowest position, side rails x 3 up and bed alarm on. Will continue to monitor and continue plan of care.
[2018-11-09] MEDS: D5 1/2NS w/KCl 20mEq 1,000 ML IV SCH ×2 (08:41→22:01)
[2018-11-09] MEDS ORDERED: Isovue-300 100ml vial INJ PRN (08:45)
[2018-11-09] MEDS: Docusate 250mg cap ORAL SCH (09:00)
--- NOTE | 2018-11-09 10:13 | NUR ---
NURSE NOTES: Dr Sinha here to see pt. reviewed abdominal ultrasound results. Pt to have CT later. Will continue to monitor.
--- NOTE | 2018-11-09 10:36 | NUR ---
NURSE NOTES: Put pt on venturi mask for CT procedure and pt was having difficulty breathing, placed back on bipap. Pt also stated he is unable to lie flat. Dr Sinha made aware and CT was cancelled. Will continue to monitor.
--- NOTE | 2018-11-09 11:11 | NUR ---
CASE MANAGEMENT: REVIEW SI: SEVERE CERVICAL SPONDYLOSIS, POSTTRAUMATIC w/SPINAL STENOSIS ACDF C3-4, DISC ARTHROPLASTY C4-5 10/28 T 99.6 HR 55 RR 16 BP 108/57 SAT 98% BIPAP FIO2 35 H/H 8.7/25.6 NA 135 IS: VANCO IV Q8HR ZOSYN IV Q8HR D5 1/2 NS w/KCl 20mEq ICU STATUS DCP: PATIENT IS FROM
--- NOTE | 2018-11-09 11:56 | NUR ---
RD ASSESSMENT & RECOMMENDATIONS SEE CARE ACTIVITY FOR COMPLETE ASSESSMENT DAILY ESTIMATED NEEDS: Needs based on Surgery, bedbound currently 75kg 25-30 kcals/kg 6149-1406 total kcals 1-2 g protein/kg 75-150 g total protein 25-30 mL/kg 4337-0285 total fluid mLs NUTRITION DIAGNOSIS: Swallowing difficulty r/t cervical spinal surgery as evidenced by pt is s/p anterior cervical corpectomy-discectomy at C3-4 and corpectomy/discectomy, currently w/ cervical collar, previously on liquify pureed, NTL, currently NPO, on BIPAP. CURRENT DIET:NPO PO DIET RECOMMENDATIONS: IF SAFE FOR PO -> liberalized REGULAR/ texture per SECURITY RISK ANALYST ENTERAL NUTRITION RECOMMENDATIONS: Glucerna 1.5 @ 55ml/hr x 24 hrs to provide 1320ml, 1980kcal, 109g prot, 1002ml free water * IF NOT SAFE FOR PO AND TF MEDICALLY APPROPRIATE, REC TO OBTAIN GI ACCESS, INITIATE TF * Rec carb controlled formula for mildly elev FBGs. * Initiate Glucerna 1.5 @ 15ml/hr 6 hrs, advance 10ml q 4-6 hrs as tolerated to goal rate. * HOB over 30 degrees/ water flush per MD ADDITIONAL RECOMMENDATIONS: * Obtain a calibrated bed scale wt as able * Monitor NPO status, ability for feeds (pt on BIPAP, dysphagia) * Monitor need for TF (TF rec as above) - NPO/minimal intake x 10 days * Check A1C for eval of glycemic control * Monitor lytes, replete as needed * W/ GI access or diet order -> add Alex 1pkt BID for skin integrity Addendum: 11/09/18 at [address] ADDENDUM: W/ oral diet, add Ensure Enlive TID w/ meals
--- NOTE | 2018-11-09 13:14 | NUR ---
NURSE NOTES: Pt ate lunch, tolerated well. Pt hungry after being NPO since yesterday. Family here at bedside visiting. Will continue to monitor.
--- NOTE | 2018-11-09 14:50 | NUR ---
NURSE NOTES: Dr Wilson here to see pt and talk with family. Daughter is requesting for milk thistle seed extract and burdock root extract order. Will continue to monitor
--- NOTE | 2018-11-09 18:06 | NUR ---
NURSE NOTES: Pt turned and repositioned. Pt suctioned. Will continue to monitor.
--- NOTE | 2018-11-09 19:10 | NUR ---
RESPIRATORY NOTE: PT. RECEIVED STABLE ON VENTURI MASK 10LPM 45%. PT. REQUESTED TO BE PLACED ON BIPAP. PT. WAS PLACED ON BIPAP 15/8, RATE 14, 35%. PT. FACE WAS INSPECTED FOR SKIN BREAKDOWN AND REDNESS AND NONE WAS FOUND. PT. WAS RE-TAPED AND FULL FACE MASK WAS PLACED. BIPAP CIRCUIT SECURE AND OUT OF THE WAY. NO S/S OF RESPIRATORY DISTRESS NOTED AT THIS TIME. WILL CONTINUE TO MONITOR.
--- NOTE | 2018-11-09 19:26 | NUR ---
HAND-OFF: Report given to Sylvie STEVENSON.
--- NOTE | 2018-11-09 19:30 | NUR ---
NURSE NOTES: Report received from GRAHAM Sutherland. Pt alert and oriented x4, able to make needs known. Pt on Venturi at 10L saturating 100%. Elkins intact and draining clear yellow urine to gravity. Neck incision with steri strips clean, dry and intact. No s/s of acute distress. Denies any pain or discomfort. RFA 20 G and RH 20 G intact on D5 1/2 NS + 20 K running at 75 cc/hr. Family at bedside. Discussed the plan to the patient. Bed alarm on. bed locked and in lowest position, side rails x 3 up. Temp 97.8 Rectal. Will continue to monitor and continue plan of care.
--- NOTE | 2018-11-09 19:41 | Pulmonolgy Critical Care Note ---
Critical Care - Asmt/Plan Assessment/Plan: Pulmonary CCM Progress Note Assessment/Plan Status post anterior cervical corpectomy-discectomy at C3-4 and corpectomy/ discectomy C4-5. ACDF C3-4, Disc Arthroplasty C4-5 Spinal Cord compression fevers concern for aspiration spinal cord shock elevated LFT possible shock liver Stable overnight PLAN post op care neuro follow up cultures negative IV antibiotics ID follow up ICU care pain control plan for extensive rehab monitor for aspiration repeat cultures Subjective Allergies: Coded Allergies: No Known Allergies (Unverified , 10/28/18) Subjective Intermittent fevers ID following, cultures pending Objective Vital Signs Noted Laboratory Tests 11/05/18 06:26: White Blood Count 6.8, Red Blood Count 3.34L, Hemoglobin 9.8L, Hematocrit 28.0L , Mean Corpuscular Volume 84, Mean Corpuscular Hemoglobin 29.4, Mean Corpuscular Hemoglobin Concent 35.1, Red Cell Distribution Width 11.8, Platelet Count 131L, Mean Platelet Volume 6.3L, Neutrophils (%) (Auto) 83.4H, Lymphocytes (%) (Auto) 4.4L, Monocytes (%) (Auto) 10.9H, Eosinophils (%) (Auto) 0.6, Basophils (%) (Auto) 0.7, Sodium Level 136, Potassium Level 4.6, Chloride Level 101, Carbon Dioxide Level 30, Anion Gap 6, Blood Urea Nitrogen 27H, Creatinine 1.2, Estimat Glomerular Filtration Rate > 60, Glucose Level 125H, Lactic Acid Level 1.20, Calcium Level 9.0, Total Bilirubin 3.1H, Direct Bilirubin 2.4H, Aspartate Amino Transf (AST/SGOT) 65H, Alanine Aminotransferase (ALT/SGPT) 98H, Alkaline Phosphatase 441H, Total Protein 6.1L, Albumin 1.8L, Globulin 4.3, Albumin/Globulin Ratio 0.4L, Vancomycin Level Trough 15.3H, Evens-Church Virus Capsid Ag IgM Ab [Pending], Hepatitis A IgM Antibody [Pending ], Hepatitis B Surface Antigen [Pending], Hepatitis B Core IgM Antibody [Pending ], Hepatitis C Antibody [Pending], Herpes Simplex Virus I IgM Ab (IFA) [Pending] , Herpes Simplex Virus II IgM Ab (IFA [Pending], Monoscreen [Pending] Height (Feet): 5 Height (Inches): 7.00 Weight (Pounds): 170 Objective WDWN NAD clear breath sounds bilaterally without rhonchi or wheeze [id number] without MRG NABS nontender no HSM no CCE alert and weak poor mobility of extremities Critical Care - Objective Last 24 Hour Vital Signs Date Time Temp Pulse Resp B/P (MAP) Pulse Ox O2 Delivery O2 Flow Rate FiO2 11/09/18 19:00 97.5 68 16 121/66 (84) 93 11/09/18 18:00 74 17 117/63 (81) 93 11/09/18 17:00 99.3 72 17 135/72 (93) 97 11/09/18 16:00 Bi-pap Bi-pap 11/09/18 16:00 99.5 76 23 127/65 (85) 97 11/09/18 16:00 84 11/09/18 15:41 69 19 96 Facial 35 11/09/18 15:00 99.4 71 17 121/63 (82) 95 11/09/18 14:00 99.4 77 21 117/57 (77) 91 11/09/18 13:29 67 17 97 Facial 35 11/09/18 13:00 98.5 76 19 106/52 (70) 92 11/09/18 12:23 63 15 98 Bi-pap 35 11/09/18 12:00 Bi-pap Bi-pap 11/09/18 12:00 98.5 70 18 121/69 (86) 93 11/09/18 12:00 77 11/09/18 11:20 64 16 98 Full Face 35 11/09/18 11:00 99.4 74 20 112/61 (78) 90 11/09/18 10:00 99.6 62 14 115/62 (79) 98 11/09/18 09:05 61 17 98 Full Face 35 11/09/18 09:00 99.3 55 16 110/60 (77) 98 11/09/18 08:00 56 11/09/18 08:00 Bi-pap Bi-pap 11/09/18 08:00 99.2 60 12 108/57 (74) 98 11/09/18 07:54 98 Bi-pap 35 11/09/18 07:54 59 21 Bi-pap 35 11/09/18 07:54 58 21 98 Full Face 35 11/09/18 07:54 Bi-pap 35 11/09/18 07:00 98.4 60 13 110/62 (78) 98 11/09/18 06:00 98.5 63 16 118/66 (83) 98 11/09/18 05:30 66 20 97 Full Face 35 11/09/18 05:00 98.8 66 16 131/56 (81) 99 11/09/18 04:23 59 20 100 Bi-pap 35 11/09/18 04:12 57 17 100 Bi-pap 35 11/09/18 04:00 98.8 56 19 114/60 (78) 98 11/09/18 04:00 Bi-pap Bi-pap 11/09/18 03:30 61 20 96 Facial 35 11/09/18 03:00 98.0 53 17 108/58 (75) 97 11/09/18 02:00 97.9 65 16 121/61 (81) 95 11/09/18 01:30 62 21 97 Full Face 35 11/09/18 01:00 97.9 72 22 114/57 (76) 96 11/09/18 00:00 Bi-pap Bi-pap 11/09/18 00:00 97.8 68 16 126/62 (83) 100 11/09/18 00:00 59 11/08/18 23:53 64 20 100 Nasal Cannula 2.0 28 11/08/18 23:42 61 20 100 Nasal Cannula 2.0 28 11/08/18 23:30 66 25 96 Full Face 35 11/08/18 23:00 97.8 62 17 118/69 (85) 98 11/08/18 22:00 98.1 77 16 126/60 (82) 94 11/08/18 21:30 67 21 97 Full Face 35 11/08/18 21:00 98.0 77 19 120/61 (80) 92 11/08/18 20:16 62 18 100 Nasal Cannula 2.0 28 11/08/18 20:06 60 20 97 Nasal Cannula 2.0 28 11/08/18 20:00 67 16 Nasal Cannula 1.0 24 11/08/18 20:00 60 11/08/18 20:00 Bi-pap Bi-pap 11/08/18 20:00 98.0 53 17 116/60 (78) 99 11/08/18 20:00 Nasal Cannula 2.0 28 11/08/18 20:00 93 Nasal Cannula 2.0 28 Critical Care - Subjective ROS Limited/Unobtainable: No Condition: stable EKG Rhythm: Sinus Rhythm FI02: 35 Sputum Amount: None I&O: Intake and Output 11/08/18 11/09/18 19:00 07:00 Intake Total 849.58 ml 1517.083 ml Output Total 755 ml 800 ml Balance 94.58 ml 717.083 ml Intake Oral 200 ml IV Total 849.58 ml 1317.083 ml Output Urine Total 755 ml 800 ml Ho Painter MD Nov 09, 2018 19:41
[2018-11-09] MEDS ORDERED: Sterile Water For Irrig 2000ml IRRIG ONE (19:45)
[2018-11-09] MEDS ORDERED: Tubing IV Secondary IV ONE (19:45)
--- NOTE | 2018-11-09 21:20 | NUR ---
NURSE NOTES: Leoncio LORA for Dr. Linares called to hold the MRI on Abdomen with contrast for now due to elevated enzyme and per family concern. Will inform the patient.
--- NOTE | 2018-11-09 22:37 | General Progress Note ---
Assessment/Plan Assessment/Plan Assessment - Elevated LFT, ? etiology, ? ischemic injury, ? CBD obstruction - s/p C spine operation - Fever Recommendations - Follow LFT - slowly improving - Abx per ID - Avoid hepatotoxic meds - d/c tylenol - avoid volume depletion / hypotension Subjective Allergies: Coded Allergies: No Known Allergies (Unverified , 10/28/18) Subjective Above noted patient unable to do CT no new symptoms Objective Last 24 Hour Vital Signs Date Time Temp Pulse Resp B/P (MAP) Pulse Ox O2 Delivery O2 Flow Rate FiO2 11/09/18 21:05 52 15 99 Full Face 35 11/09/18 19:50 66 17 93 Bi-pap 35 11/09/18 19:42 66 18 97 Bi-pap 35 11/09/18 19:10 97 Bi-pap 35 11/09/18 19:10 66 18 97 Full Face 35 11/09/18 19:10 66 18 Bi-pap 35 11/09/18 19:10 Bi-pap 35 11/09/18 19:00 97.5 68 16 121/66 (84) 93 11/09/18 18:00 74 17 117/63 (81) 93 11/09/18 17:00 99.3 72 17 135/72 (93) 97 11/09/18 16:00 Bi-pap Bi-pap 11/09/18 16:00 99.5 76 23 127/65 (85) 97 11/09/18 16:00 84 11/09/18 15:41 69 19 96 Facial 35 11/09/18 15:00 99.4 71 17 121/63 (82) 95 11/09/18 14:00 99.4 77 21 117/57 (77) 91 11/09/18 13:29 67 17 97 Facial 35 11/09/18 13:00 98.5 76 19 106/52 (70) 92 11/09/18 12:23 63 15 98 Bi-pap 35 11/09/18 12:00 Bi-pap Bi-pap 11/09/18 12:00 98.5 70 18 121/69 (86) 93 11/09/18 12:00 77 11/09/18 11:20 64 16 98 Full Face 35 11/09/18 11:00 99.4 74 20 112/61 (78) 90 11/09/18 10:00 99.6 62 14 115/62 (79) 98 11/09/18 09:05 61 17 98 Full Face 35 11/09/18 09:00 99.3 55 16 110/60 (77) 98 11/09/18 08:00 56 11/09/18 08:00 Bi-pap Bi-pap 11/09/18 08:00 99.2 60 12 108/57 (74) 98 11/09/18 07:54 98 Bi-pap 35 11/09/18 07:54 59 21 Bi-pap 35 11/09/18 07:54 58 21 98 Full Face 35 11/09/18 07:54 Bi-pap 35 11/09/18 07:00 98.4 60 13 110/62 (78) 98 11/09/18 06:00 98.5 63 16 118/66 (83) 98 11/09/18 05:30 66 20 97 Full Face 35 11/09/18 05:00 98.8 66 16 131/56 (81) 99 11/09/18 04:23 59 20 100 Bi-pap 35 11/09/18 04:12 57 17 100 Bi-pap 35 11/09/18 04:00 98.8 56 19 114/60 (78) 98 11/09/18 04:00 Bi-pap Bi-pap 11/09/18 03:30 61 20 96 Facial 35 11/09/18 03:00 98.0 53 17 108/58 (75) 97 11/09/18 02:00 97.9 65 16 121/61 (81) 95 11/09/18 01:30 62 21 97 Full Face 35 11/09/18 01:00 97.9 72 22 114/57 (76) 96 11/09/18 00:00 Bi-pap Bi-pap 11/09/18 00:00 97.8 68 16 126/62 (83) 100 11/09/18 00:00 59 11/08/18 23:53 64 20 100 Nasal Cannula 2.0 28 11/08/18 23:42 61 20 100 Nasal Cannula 2.0 28 11/08/18 23:30 66 25 96 Full Face 35 11/08/18 23:00 97.8 62 17 118/69 (85) 98 Intake and Output 11/08/18 11/09/18 19:00 07:00 Intake Total 849.58 ml 1517.083 ml Output Total 755 ml 800 ml Balance 94.58 ml 717.083 ml Intake Oral 200 ml IV Total 849.58 ml 1317.083 ml Output Urine Total 755 ml 800 ml Laboratory Tests 11/09/18 06:35: White Blood Count 9.7, Red Blood Count 3.03L, Hemoglobin 8.7L, Hematocrit 25.6L , Mean Corpuscular Volume 84, Mean Corpuscular Hemoglobin 28.8, Mean Corpuscular Hemoglobin Concent 34.1, Red Cell Distribution Width 12.3, Platelet Count 219, Mean Platelet Volume 6.9, Neutrophils (%) (Auto) 82.8H, Lymphocytes ( %) (Auto) 7.0L, Monocytes (%) (Auto) 7.0, Eosinophils (%) (Auto) 2.5, Basophils (%) (Auto) 0.6, Sodium Level 135L, Potassium Level 4.2, Chloride Level 101, Carbon Dioxide Level 28, Anion Gap 6, Blood Urea Nitrogen 19H, Creatinine 1.0, Estimat Glomerular Filtration Rate > 60, Glucose Level 121H, Calcium Level 8.7, Total Bilirubin 1.5H, Direct Bilirubin 1.1H, Aspartate Amino Transf (AST/SGOT) 74H, Alanine Aminotransferase (ALT/SGPT) 136H, Alkaline Phosphatase 544H, Total Protein 5.7L, Albumin 1.5L, Globulin 4.2, Albumin/Globulin Ratio 0.4L 11/09/18 15:40: Arterial Blood pH 7.490H, Arterial Blood Partial Pressure CO2 38.2, Arterial Blood Partial Pressure O2 111.2H, Arterial Blood HCO3 28.8H, Arterial Blood Oxygen Saturation 97.0, Arterial Blood Base Excess 5.2H, Carroll Test Positive Height (Feet): 5 Height (Inches): 7.00 Weight (Pounds): 170 Objective Thin AA man NCAT C spine collar CTA RRR soft ND NT no edema Oscar Sinha MD Nov 09, 2018 22:37
--- NOTE | 2018-11-09 23:30 | NUR ---
NURSE NOTES: Patient complained of 7/10 neck and shoulder pain. Repositioned in bed, talk therapy provided not effective. Morphine 2mg IVP given effective. Will continue plan of care.
[2018-11-10] VITALS (24 sets, daily range): BP systolic 103–133; BP diastolic 58–80
[2018-11-10] MEDS: Vancomycin 750 MG in NS 275 ML IVPB SCH ×3 (00:59→16:33)
--- NOTE | 2018-11-10 01:30 | NUR ---
NURSE NOTES: Patient in bed sleeping comfortably. On BIPAP 17/04 Fi02 35% satting 98%. SB HR 52. No s/s of acute distress noted. Repositioned. Will continue to monitor patient.
[2018-11-10] MEDS: Albuterol/Ipratropium 3ml neb HHN PRN ×2 (03:14→07:46)
--- NOTE | 2018-11-10 03:14 | NUR ---
RESPIRATORY NOTE: FIO2 INCREASED TO 100% DUE TO DESATURATION AND INCREASED RR. PT WAS NT SX PRIOR TO FIO2 INCREASE WITH NO IMPROVEMENT IN SPO2. PRN TX GIVEN AND FIO2 WAS INCREMENTALLY INCREASED UNTIL SPO2 WAS WNL. SPO2 NOW AT 92%. WILL CONTINUE TO MONITOR.
--- NOTE | 2018-11-10 03:30 | NUR ---
NURSE NOTES: Patient desat to 64% with BIPAP fi02 35%, increase Fi02 to 60% 70 saturation, increase fi02 to 70-90 80%, increase to fi02 100% saturation increase to 100%. suctioned with clear white sputum oral care done. Repositioned and HHN given by RT. patient awake alert verbally responsive. Instructed patient to do deep breathing and relaxation technique, patient with on and off wants to removed BIPAP. will inform MD in am. Temp 98.4 rectal. Will continue to monitor patient.
--- NOTE | 2018-11-10 05:10 | NUR ---
RESPIRATORY NOTE: PT. STABLE ON BIPAP WITH CURRENT SETTINGS. FIO2 TITRATED FROM 100% TO 90% AND PT. IS TOLERATING WELL. ALL VS WNL. BIPAP CIRCUIT AND MASK SECURE AND OUT OF THE WAY. SO S/S OF RESPIRATORY DISTRESS NOTED AT THIS TIME.
--- NOTE | 2018-11-10 05:29 | NUR ---
NURSE NOTES: Patient on BIPAP Fi02 titrate to 90% saturation 98%. Patient awake,alert verbally responsive. no s/s of acute distress. Repositioned. HOB elevated. Frequent visual checks continued. Denies any pain or discomfort. Will continue plan of care.
--- NOTE | 2018-11-10 06:10 | NUR ---
NURSE NOTES: Patient in bed resting easily arousable to verbal stimuli.on BIPAP 15/8 titrate fi02 to 80% satting 98%. No s/s of acute distress. HOB elevated. Denies any pain or discomfort. Skin warm and dry to touch. Will continue plan of care.
[2018-11-10] MEDS: Piperacillin/Tazobactam 3.375 GM in D5W 110 ML IVPB SCH ×3 (06:20→22:18)
[2018-11-10 07:10] LABS: ALANINE AMINOTRANSFERASE 217 U/L (12-78); ALBUMIN 1.5 G/DL (3.4-5.0); ALBUMIN/GLOBULIN RATIO 0.4 (1.0-2.7); ALKALINE PHOSPHATASE 655 U/L (46-116); ANION GAP 2 mmol/L (5-15); ASPARTATE AMINO TRANSFERASE 153 U/L (15-37); BILIRUBIN,TOTAL 1.1 MG/DL (0.2-1.0); BLOOD UREA NITROGEN 21 mg/dL (7-18); CALCIUM 8.7 MG/DL (8.5-10.1); CARBON DIOXIDE 31 MMOL/L (21-32); CHLORIDE 106 MMOL/L (98-107); POTASSIUM 4.6 MMOL/L (3.5-5.1); SODIUM 139 MMOL/L (136-145)
[2018-11-10 07:11] LABS: BILIRUBIN,DIRECT 0.7 MG/DL (0.0-0.3)
--- NOTE | 2018-11-10 07:15 | NUR ---
HAND-OFF: Report given to Sandra STEVENSON.Dr. Sinha came and made aware of patient no BM yet after the dulcolax supp, will order meds for constipation. Endorsed to Emi Saldaña RN to follow up with Dr. Painter regrading the patient with desat episode.Patient in bed resting. No s/s of acute distress noted.
--- NOTE | 2018-11-10 07:58 | NUR ---
RESPIRATORY NOTE: Patient received on BiPAP with current ordered settings. Removed full face mask to relieve some pressure and to clean face. There is no facial redness or skin breakdown noted at this time. Added some ointment on the lips to prevent dryness. Re-tapped face with extra layer of foam tape and gel; placed on a facial mask. Inline breathing treatment was given and no adverse reaction was noted. BiPAP is connected to a red outlet. The alarms are functional and audible. Will continue to monitor.
--- NOTE | 2018-11-10 08:00 | NUR ---
NURSE NOTES: Received the patient from GRAHAM Mercer. Patient awake, alert and oriented, verbally responsive. On Bipap 15/8, increased FIO2 to 100% per RT, O2 sat 93%. Afebrile. SR noted on the monitor. Elkins cath intact and patent, draining yellow urine by gravity. Right hand 18G and left forearm 20G intact, running D51/2NS w/ 20meq KCl at 75ml/hr. Surgical site with steri strips intact, clean, and dry. CT Abd/pelvis held today. Bed in lowest position, locked, side rails upx3. Bed alarm on. Call light within reach. Will continue to monitor.
--- NOTE | 2018-11-10 08:19 | NUR ---
NURSE NOTES: Dr. Painter made aware of patient's status. MD ordered ABG and decreased morphine to 1mg q4hrs prn for severe pain. RT informed.
--- NOTE | 2018-11-10 08:21 | NUR ---
RESPIRATORY NOTE: ABG results in system and reported to RN. Will continue to monitor. Awaiting orders.
--- NOTE | 2018-11-10 08:50 | NUR ---
NURSE NOTES: Dr. Painter made aware of ABG results, new bipap settings ordered and keep the patient NPO. RT made aware.
[2018-11-10] MEDS ORDERED: Isovue-300 100ml vial INJ PRN (09:00)
[2018-11-10] MEDS ORDERED: Sorbitol Solution UD 30ml ORAL SCH (09:00)
--- NOTE | 2018-11-10 09:19 | NUR ---
RESPIRATORY NOTE: BiPAP settings changed per 's orders. RN notified. Patient is tolerating new settings well. Will continue to monitor.
[2018-11-10] MEDS: Docusate 250mg cap ORAL SCH (09:29)
--- NOTE | 2018-11-10 10:11 | Infectious Diseases Prog Note ---
Assessment/Plan Assessment/Plan A 1. aspiration pneumonia 2. cervical spondylosis s/p surgery 3. fever 4. Quadriplegia 5. Spinal canal shock 6. Hypercapnic respiratory failure P 1. continue iv vancomycin, Zosyn 2. will f/u CXR Subjective ROS Limited/Unobtainable: Yes Constitutional: Reports: other - dose not feel good Respiratory: Reports: other - Started on BIPAP after received a dose of Morphin yesterday Neurologic: Reports: weakness Allergies: Coded Allergies: No Known Allergies (Unverified , 10/28/18) Objective Vital Signs Last 24 Hour Vital Signs Date Time Temp Pulse Resp B/P (MAP) Pulse Ox O2 Delivery O2 Flow Rate FiO2 11/10/18 09:00 68 19 107/61 (76) 90 11/10/18 08:31 67 30 100 Facial 80 11/10/18 08:00 98.5 62 20 114/63 (80) 99 11/10/18 08:00 Bi-pap 100.0 Bi-pap 11/10/18 07:56 62 30 92 Bi-pap 100 11/10/18 07:53 92 Bi-pap 100 11/10/18 07:53 Bi-pap 11/10/18 07:52 65 26 Bi-pap 35 11/10/18 07:46 65 26 92 Bi-pap 100 11/10/18 07:26 65 26 92 Facial 100 11/10/18 07:00 65 15 105/59 (74) 98 11/10/18 06:05 80 11/10/18 06:00 67 18 105/61 (76) 98 11/10/18 05:10 67 20 98 Full Face 90 11/10/18 05:00 68 19 105/58 (74) 98 11/10/18 04:00 98.4 69 18 107/61 (76) 99 11/10/18 04:00 Bi-pap 100.0 Bi-pap 11/10/18 03:22 65 20 96 Bi-pap 100 11/10/18 03:14 65 31 92 Full Face 100 11/10/18 03:14 65 31 92 Bi-pap 100 11/10/18 03:00 58 21 126/70 (88) 95 11/10/18 02:00 58 21 126/70 (88) 95 11/10/18 01:10 51 20 99 Full Face 35 11/10/18 01:00 53 15 97 11/10/18 01:00 53 15 128/73 (91) 97 11/10/18 00:00 Bi-pap Bi-pap 11/10/18 00:00 98.0 64 18 131/67 (88) 95 11/09/18 23:10 59 25 98 Full Face 35 11/09/18 23:00 62 17 149/76 (100) 95 11/09/18 22:58 98.7 11/09/18 22:00 58 15 133/74 (93) 98 11/09/18 21:05 52 15 99 Full Face 35 11/09/18 21:00 64 15 117/66 (83) 96 11/09/18 20:00 Bi-pap Bi-pap 11/09/18 20:00 97.9 65 16 127/69 (88) 95 11/09/18 19:50 66 17 93 Bi-pap 35 11/09/18 19:42 66 18 97 Bi-pap 35 11/09/18 19:10 97 Bi-pap 35 11/09/18 19:10 66 18 97 Full Face 35 11/09/18 19:10 66 18 Bi-pap 35 11/09/18 19:10 Bi-pap 35 11/09/18 19:00 97.5 68 16 121/66 (84) 93 11/09/18 18:00 74 17 117/63 (81) 93 11/09/18 17:00 99.3 72 17 135/72 (93) 97 11/09/18 16:00 Bi-pap Bi-pap 11/09/18 16:00 99.5 76 23 127/65 (85) 97 11/09/18 16:00 84 11/09/18 15:41 69 19 96 Facial 35 11/09/18 15:00 99.4 71 17 121/63 (82) 95 11/09/18 14:00 99.4 77 21 117/57 (77) 91 11/09/18 13:29 67 17 97 Facial 35 11/09/18 13:00 98.5 76 19 106/52 (70) 92 11/09/18 12:23 63 15 98 Bi-pap 35 11/09/18 12:00 Bi-pap Bi-pap 11/09/18 12:00 98.5 70 18 121/69 (86) 93 11/09/18 12:00 77 11/09/18 11:20 64 16 98 Full Face 35 11/09/18 11:00 99.4 74 20 112/61 (78) 90 Height (Feet): 5 Height (Inches): 7.00 Weight (Pounds): 170 HEENT: mucous membranes moist Respiratory/Chest: rhonchi - bilaterally, other - on BIPAP Cardiovascular: normal rate Abdomen: soft, non tender Extremities: no edema Neurologic/Psychiatric: alert, responsive, other - Quadraplegic Laboratory Tests Test 11/09/18 15:40 11/10/18 06:00 11/10/18 07:30 11/10/18 08:20 Arterial Blood pH 7.490 (7.350-7.450) 7.306 (7.350-7.450) Arterial Blood Partial Pressure CO2 38.2 mmHg (35.0-45.0) 60.1 mmHg (35.0-45.0) *H Arterial Blood Partial Pressure O2 111.2 mmHg (75.0-100.0) H 125.0 mmHg (75.0-100.0) H Arterial Blood HCO3 28.8 mmol/L (22.0-26.0) H 29.3 mmol/L (22.0-26.0) H Arterial Blood Oxygen Saturation 97.0 % (95-100) 97.2 % (95-100) Arterial Blood Base Excess 5.2 (-2-2) H 2.2 (-2-2) H Carroll Test Positive Positive Sodium Level 139 MMOL/L (136-145) Potassium Level 4.6 MMOL/L (3.5-5.1) Chloride Level 106 MMOL/L (98-107) Carbon Dioxide Level 31 MMOL/L (21-32) Anion Gap 2 mmol/L (5-15) L Blood Urea Nitrogen 21 mg/dL (7-18) H Creatinine 1.0 MG/DL (0.55-1.30) Estimat Glomerular Filtration Rate > 60 mL/min (>60) Glucose Level 133 MG/DL (74-106) H Calcium Level 8.7 MG/DL (8.5-10.1) Total Bilirubin 1.1 MG/DL (0.2-1.0) H Direct Bilirubin 0.7 MG/DL (0.0-0.3) H Aspartate Amino Transf (AST/SGOT) 153 U/L (15-37) H Alanine Aminotransferase (ALT/SGPT) 217 U/L (12-78) H Alkaline Phosphatase 655 U/L (46-116) H Total Protein 5.6 G/DL (6.4-8.2) L Albumin 1.5 G/DL (3.4-5.0) L Globulin 4.1 g/dL Albumin/Globulin Ratio 0.4 (1.0-2.7) L Vancomycin Level Trough 17.9 ug/mL (5.0-12.0) H Current Medications Medications (Trade) Dose Ordered Sig/Sharon Route PRN Reason Start Time Stop Time Status Last Admin Dose Admin Albuterol/ Ipratropium (Albuterol/ Ipratropium) 3 ml Q4H PRN HHN Shortness of Breath 11/06/18 19:45 11/11/18 19:44 11/10/18 07:46 Barium Sulfate (Readi-Cat 2) 450 ml NOW PRN ORAL Radiology Procedure 11/10/18 09:00 11/11/18 17:51 Dextrose/ Electrolytes 1,000 ml @ 75 mls/hr [id number] IV 10/28/18 22:46 11/27/18 22:45 11/09/18 22:01 Docusate Sodium (Colace) 250 mg DAILY ORAL 11/03/18 15:45 12/03/18 15:44 11/10/18 09:29 Gadobutrol (Gadavist) 7.5 mmol NOW PRN IV Radiology Procedure 11/08/18 00:00 11/11/18 23:46 Iopamidol (Isovue-300 100ml) 100 ml NOW PRN INJ Radiology Procedure 11/10/18 09:00 11/12/18 08:59 Metoclopramide HCl (Reglan) 10 mg Q6H PRN IVP Nausea & Vomiting 10/28/18 23:00 11/27/18 22:59 Morphine Sulfate (Morphine Sulfate) 1 mg Q4H PRN IVP Severe Pain (Pain Scale 7-10) 11/10/18 08:19 11/15/18 08:18 Naloxone HCl (Narcan) 0.1 mg PRN PRN IVP RR<12/min, pt unarousable 10/28/18 23:00 11/27/18 22:59 Ondansetron HCl (Zofran) 4 mg Q6H PRN IVP Nausea & Vomiting 11/08/18 21:30 12/08/18 21:29 Piperacillin Sod/ Tazobactam Sod 3.375 gm/Dextrose 110 ml @ 27.5 mls/hr EVERY 8 HOURS IVPB 11/08/18 14:00 11/13/18 13:59 11/10/18 06:20 Vancomycin HCl (Vanco rx to dose) 1 ea DAILY PRN MISC Per rx protocol 10/31/18 06:30 11/30/18 06:29 Vancomycin HCl 750 mg/Sodium Chloride 275 ml @ 183.333 mls/hr Q8H IVPB 11/08/18 16:00 11/13/18 15:59 11/10/18 09:31 Robert Ellison MD Nov 10, 2018 10:11
--- NOTE | 2018-11-10 11:00 | Diagnostic Imaging Report ---
EXAM: XR Abdomen, 1 Views CLINICAL HISTORY: ABD DIST TECHNIQUE: Frontal view of the abdomen/pelvis. COMPARISON: No relevant prior studies available. FINDINGS: Lower thorax: Small left pleural effusion. Gastrointestinal tract: Dilated stomach, query stasis versus partial outlet obstruction. Gassy colon without obstruction. Normal caliber small bowel. Organs: Catheter in the bladder. Bones/joints: Unremarkable. IMPRESSION: Dilated stomach, query stasis versus partial outlet obstruction.
--- NOTE | 2018-11-10 11:01 | Diagnostic Imaging Report ---
EXAM: XR Chest, 1 View CLINICAL HISTORY: INFECT TECHNIQUE: Frontal view of the chest. COMPARISON: Chest x-ray, 11/07/18 1451 FINDINGS: Lungs: Interval bilateral perihilar airspace opacities. Pleural space: Small left pleural effusion. No pneumothorax. Heart: Cardiomegaly. Mediastinum: Unremarkable. Bones/joints: Cervical spine hardware. IMPRESSION: Interval bilateral perihilar airspace opacities. Small left pleural effusion. Query CHF.
--- NOTE | 2018-11-10 11:30 | NUR ---
NURSE NOTES: Patient had soft BMx1, pt kept clean and dry. patient was turned and repositioned. Patient on Bipap 17/8 FiO2 100%, O2 sat 96%. No acute distress noted.
--- NOTE | 2018-11-10 12:45 | NUR ---
NURSE NOTES: Dr. Sinha made aware of KUB result, new order carried out.
[2018-11-10] MEDS: D5 1/2NS w/KCl 20mEq 1,000 ML IV SCH (13:00)
[2018-11-10] MEDS: Metoclopramide 10mg/2ml Inj IVP SCH ×2 (13:56→21:09)
--- NOTE | 2018-11-10 14:47 | NUR ---
NURSE NOTES: Patient is resting in bed with eyes closed. No s/sx of pain at this time. No acute distress noted. VSS, afebrile.
--- NOTE | 2018-11-10 16:33 | NUR ---
NURSE NOTES: patient was turned and repositioned. pt tolerated well. oral care and [place]aca care provided. patient calm and resting in bed comfortably. bipap 17/8 fio2 80%, o2 sat 94%.
--- NOTE | 2018-11-10 16:39 | NUR ---
NURSE NOTES: Dr. Painter at bedside to assess the patient. MD updated on pt's status. ABG at 1700 ordered per MD. RT notified.
--- NOTE | 2018-11-10 17:15 | NUR ---
NURSE NOTES: Notified ABG results to Dr. Painter. No new orders at this time.
--- NOTE | 2018-11-10 18:00 | NUR ---
NURSE NOTES: Patient is resting in bed comfortably, easily arousable, no acute distress noted. VSS, afebrile.
--- NOTE | 2018-11-10 19:10 | NUR ---
NURSE NOTES: Patient had a massive BM, primary RN went into the room to clean the patient and to assess the patient, patient was drowsy but opened eyes spontaneously and was verbally responsive. Patient was on bipap FIO2 80%, O2 sat 98%. Patient's heart rate rapidly dropped down to 20s and patient became unconscious. Patient had no pulse. Called a code blue and started chest compression at 1847. Epinephrine given x1. At 1905, Able to get pulse back and patient woke up, patient is alert and oriented, verbally responsive, able to answer questions properly. BP 211/118. ER doctor at bedside to assess the patient. EKG was done. Patient's daughter, Lashaun Manuel, Dr. Linares's PA, Leoncio Ventura, and Dr. Painter were notified. New orders carried out.
--- NOTE | 2018-11-10 19:15 | NUR ---
RESPIRATORY THERAPY Received order for intubation with settings. RTs explained to pt about intubation. Pt refused to be intubated. GRAHAM Dowling notified. ER doctor notified, he confirmed with pt, pt said he doesn't want it.
--- NOTE | 2018-11-10 19:20 | NUR ---
NURSE NOTES: Patient to be intubated by ER doctor per Dr. Painter. Called ER and notified.
--- NOTE | 2018-11-10 19:44 | NUR ---
NURSE NOTES: Dr. Tyler quinones MD is unable to see the patient at this time. Endorsed to rehabilitation inspector nurse to follow up with Dr. Painter for another collar folder operator.
--- NOTE | 2018-11-10 19:45 | NUR ---
HAND-OFF: Report given to GRAHAM Underwood.
--- NOTE | 2018-11-10 19:46 | NUR ---
NURSE NOTES: Dr. Donahue will cover for Dr. Scott.
--- NOTE | 2018-11-10 19:47 | NUR ---
NURSE NOTES: Report received from GRAHAM Marquez. S/p code, in no acute distress at this time. Pt alert and oriented x4, able to make needs known. Pt on Bipap 17/04, FiO2 85% saturating 100%. Afebrile at this time, VS stable, SR on environmental monitoring specialist. Elkins intact and draining clear yellow urine to gravity. Neck incision clean, dry and intact with steri strips, with neck collar on. Left FA 20 G and R hand 18 G intact. D5 1/2 NS + 20meq KCl running at 75 cc/hr. Unable to move bilateral upper and lower extremities. Safety measures in place with bed locked and in lowest position, side rails x 3 up and bed alarm on. Call light within reach. Will continue to monitor and continue plan of care.
[2018-11-10 20:39] LABS: HEMATOCRIT 25.6 % (42.0-52.0); HEMOGLOBIN 8.6 G/DL (14.2-18.0); MEAN CORPUSCULAR VOLUME 86 FL (80-99); PLATELET COUNT 247 K/UL (150-450); RED BLOOD COUNT 2.97 M/UL (4.70-6.10); RED CELL DISTRIBUTION WIDTH 12.7 % (11.6-14.8); WHITE BLOOD COUNT 14.9 K/UL (4.8-10.8)
--- NOTE | 2018-11-10 20:42 | General Progress Note ---
Assessment/Plan Assessment/Plan Assessment - Elevated LFT, ? etiology, ? ischemic injury, ? CBD obstruction - s/p C spine operation - Gastric distention, ? narcotic related Recommendations - Follow LFT - Abx per ID - Avoid hepatotoxic meds - avoid volume depletion / hypotension - Add reglan Subjective Allergies: Coded Allergies: No Known Allergies (Unverified , 10/28/18) Subjective Above noted KUB ordered due to distention some gastric dilation noted on imaging Reglan added Objective Last 24 Hour Vital Signs Date Time Temp Pulse Resp B/P (MAP) Pulse Ox O2 Delivery O2 Flow Rate FiO2 11/10/18 20:35 74 18 100 Full Face 80 11/10/18 19:30 75 17 100 Full Face 80 11/10/18 19:00 110 25 133/80 (97) 99 11/10/18 18:00 68 20 128/66 (86) 99 11/10/18 17:26 67 20 100 Full Face 80 11/10/18 17:00 66 16 126/70 (88) 97 11/10/18 16:00 97.8 60 15 110/64 (79) 95 11/10/18 16:00 Bi-pap Bi-pap 11/10/18 15:59 65 11/10/18 15:17 66 30 92 Full Face 80 11/10/18 15:00 62 20 114/66 (82) 95 11/10/18 14:00 59 16 103/63 (76) 98 11/10/18 13:29 67 23 94 Full Face 80 11/10/18 13:00 60 17 107/60 (76) 99 11/10/18 12:00 Bi-pap Bi-pap 11/10/18 12:00 98.5 64 16 105/59 (74) 100 11/10/18 11:47 100 11/10/18 11:09 60 34 100 Full Face 60 11/10/18 11:00 61 16 108/61 (77) 100 11/10/18 10:41 64 11/10/18 10:00 63 17 103/58 (73) 100 11/10/18 09:00 68 19 107/61 (76) 90 11/10/18 08:31 67 30 100 Facial 80 11/10/18 08:00 98.5 62 20 114/63 (80) 99 11/10/18 08:00 Bi-pap 100.0 Bi-pap 11/10/18 07:56 62 30 92 Bi-pap 100 11/10/18 07:53 92 Bi-pap 100 11/10/18 07:53 Bi-pap 11/10/18 07:52 65 26 Bi-pap 35 11/10/18 07:46 65 26 92 Bi-pap 100 11/10/18 07:26 65 26 92 Facial 100 11/10/18 07:00 65 15 105/59 (74) 98 11/10/18 06:05 80 11/10/18 06:00 67 18 105/61 (76) 98 11/10/18 05:10 67 20 98 Full Face 90 11/10/18 05:00 68 19 105/58 (74) 98 11/10/18 04:00 98.4 69 18 107/61 (76) 99 11/10/18 04:00 Bi-pap 100.0 Bi-pap 11/10/18 03:22 65 20 96 Bi-pap 100 11/10/18 03:14 65 31 92 Full Face 100 11/10/18 03:14 65 31 92 Bi-pap 100 11/10/18 03:00 58 21 126/70 (88) 95 11/10/18 02:00 58 21 126/70 (88) 95 11/10/18 01:10 51 20 99 Full Face 35 11/10/18 01:00 53 15 97 11/10/18 01:00 53 15 128/73 (91) 97 11/10/18 00:00 Bi-pap Bi-pap 11/10/18 00:00 98.0 64 18 131/67 (88) 95 11/09/18 23:10 59 25 98 Full Face 35 11/09/18 23:00 62 17 149/76 (100) 95 11/09/18 22:58 98.7 11/09/18 22:00 58 15 133/74 (93) 98 11/09/18 21:05 52 15 99 Full Face 35 11/09/18 21:00 64 15 117/66 (83) 96 Intake and Output 11/09/18 11/10/18 19:00 07:00 Intake Total 1107.5 ml 1285.000 ml Output Total 1060 ml 1185 ml Balance 47.5 ml 100.000 ml IV Total 1107.5 ml 1285.000 ml Output Urine Total 1060 ml 1185 ml Laboratory Tests 11/10/18 06:00: Sodium Level 139, Potassium Level 4.6, Chloride Level 106, Carbon Dioxide Level 31, Anion Gap 2L, Blood Urea Nitrogen 21H, Creatinine 1.0, Estimat Glomerular Filtration Rate > 60, Glucose Level 133H, Calcium Level 8.7, Total Bilirubin 1.1H, Direct Bilirubin 0.7H, Aspartate Amino Transf (AST/SGOT) 153H, Alanine Aminotransferase (ALT/SGPT) 217H, Alkaline Phosphatase 655H, Total Protein 5.6L , Albumin 1.5L, Globulin 4.1, Albumin/Globulin Ratio 0.4L 11/10/18 07:30: Vancomycin Level Trough 17.9H 11/10/18 08:20: Arterial Blood pH 7.306L, Arterial Blood Partial Pressure CO2 60.1*H, Arterial Blood Partial Pressure O2 125.0H, Arterial Blood HCO3 29.3H, Arterial Blood Oxygen Saturation 97.2, Arterial Blood Base Excess 2.2H, Acrroll Test Positive 11/10/18 17:00: Arterial Blood pH 7.409, Arterial Blood Partial Pressure CO2 47.7H, Arterial Blood Partial Pressure O2 81.1, Arterial Blood HCO3 29.5H, Arterial Blood Oxygen Saturation 94.7L, Arterial Blood Base Excess 4.2H, Carroll Test Positive 11/10/18 19:35: Arterial Blood pH 7.371, Arterial Blood Partial Pressure CO2 51.2H, Arterial Blood Partial Pressure O2 92.8, Arterial Blood HCO3 29.0H, Arterial Blood Oxygen Saturation 95.5, Arterial Blood Base Excess 3.1H, Carroll Test Positive 11/10/18 20:30: White Blood Count [Pending], Red Blood Count [Pending], Hemoglobin [Pending], Hematocrit [Pending], Mean Corpuscular Volume [Pending], Mean Corpuscular Hemoglobin [Pending], Mean Corpuscular Hemoglobin Concent [Pending], Red Cell Distribution Width [Pending], Platelet Count [Pending], Mean Platelet Volume [ Pending], Neutrophils (%) (Auto) [Pending], Lymphocytes (%) (Auto) [Pending], Monocytes (%) (Auto) [Pending], Eosinophils (%) (Auto) [Pending], Basophils (%) (Auto) [Pending], Prothrombin Time [Pending], Prothromb Time International Ratio [Pending], Activated Partial Thromboplast Time [Pending], Sodium Level [ Pending], Potassium Level [Pending], Chloride Level [Pending], Carbon Dioxide Level [Pending], Blood Urea Nitrogen [Pending], Creatinine [Pending], Estimat Glomerular Filtration Rate [Pending], Glucose Level [Pending], Calcium Level [ Pending], Total Bilirubin [Pending], Aspartate Amino Transf (AST/SGOT) [Pending] , Alanine Aminotransferase (ALT/SGPT) [Pending], Alkaline Phosphatase [Pending] , Troponin I [Pending], Total Protein [Pending], Albumin [Pending], Globulin [ Pending] Height (Feet): 5 Height (Inches): 7.00 Weight (Pounds): 170 Objective Thin AA man NCAT C spine collar CTA RRR soft ND NT no edema Oscar Sinha MD Nov 10, 2018 20:42
[2018-11-10 20:48] LABS: ANION GAP 5 mmol/L (5-15); BLOOD UREA NITROGEN 21 mg/dL (7-18); CALCIUM 8.6 MG/DL (8.5-10.1); CARBON DIOXIDE 29 MMOL/L (21-32); CHLORIDE 106 MMOL/L (98-107); CREATININE 1.1 MG/DL (0.55-1.30); SODIUM 140 MMOL/L (136-145)
[2018-11-10 20:50] LABS: INR 1.1 (0.9-1.1)
[2018-11-10 21:05] LABS: ALANINE AMINOTRANSFERASE 244 U/L (12-78); ALBUMIN 1.6 G/DL (3.4-5.0); ALBUMIN/GLOBULIN RATIO 0.4 (1.0-2.7); ALKALINE PHOSPHATASE 746 U/L (46-116); ASPARTATE AMINO TRANSFERASE 154 U/L (15-37); BILIRUBIN,TOTAL 1.8 MG/DL (0.2-1.0)
[2018-11-10 21:06] LABS: BILIRUBIN,DIRECT 1.4 MG/DL (0.0-0.3)
[2018-11-10] MEDS: Morphine Sulfate 2mg/ml Inj(IV/IM USE ONLY) IVP PRN (21:17)
--- NOTE | 2018-11-10 22:00 | NUR ---
NURSE NOTES: Pt's resting in bed, asleep, with eyes closed. In no acute distress. VS stable. Will continue to monitor.
--- NOTE | 2018-11-10 22:32 | Pulmonolgy Critical Care Note ---
Critical Care - Asmt/Plan Assessment/Plan: Pulmonary CCM Progress Note Assessment/Plan Status post anterior cervical corpectomy-discectomy at C3-4 and corpectomy/ discectomy C4-5. ACDF C3-4, Disc Arthroplasty C4-5 Spinal Cord compression fevers concern for aspiration, bilateral infiltrates Small left pleural effusion spinal cord shock elevated LFT Episode of Bradycardia earlier, responded to Epi x 1, ABG earlier and subsequent ABG satisfactory. ED called to electively intubate patient - patient refused, [facility] d/w ED MD and Spine Surgeon as well as numerous family members (bedside and on phone) PLAN post op care BiPAP Low threshold for intubation Cardiology Consult VQ scan, LE Dupplex Echocardiogram neuro follow up cultures negative IV antibiotics ID follow up ICU care pain control plan for extensive rehab monitor for aspiration repeat cultures Subjective Allergies: Coded Allergies: No Known Allergies (Unverified , 10/28/18) Subjective Intermittent fevers ID following, cultures pending Objective Vital Signs Noted Laboratory Tests 11/05/18 06:26: White Blood Count 6.8, Red Blood Count 3.34L, Hemoglobin 9.8L, Hematocrit 28.0L , Mean Corpuscular Volume 84, Mean Corpuscular Hemoglobin 29.4, Mean Corpuscular Hemoglobin Concent 35.1, Red Cell Distribution Width 11.8, Platelet Count 131L, Mean Platelet Volume 6.3L, Neutrophils (%) (Auto) 83.4H, Lymphocytes (%) (Auto) 4.4L, Monocytes (%) (Auto) 10.9H, Eosinophils (%) (Auto) 0.6, Basophils (%) (Auto) 0.7, Sodium Level 136, Potassium Level 4.6, Chloride Level 101, Carbon Dioxide Level 30, Anion Gap 6, Blood Urea Nitrogen 27H, Creatinine 1.2, Estimat Glomerular Filtration Rate > 60, Glucose Level 125H, Lactic Acid Level 1.20, Calcium Level 9.0, Total Bilirubin 3.1H, Direct Bilirubin 2.4H, Aspartate Amino Transf (AST/SGOT) 65H, Alanine Aminotransferase (ALT/SGPT) 98H, Alkaline Phosphatase 441H, Total Protein 6.1L, Albumin 1.8L, Globulin 4.3, Albumin/Globulin Ratio 0.4L, Vancomycin Level Trough 15.3H, [place] Virus Capsid Ag IgM Ab [Pending], Hepatitis A IgM Antibody [Pending ], Hepatitis B Surface Antigen [Pending], Hepatitis B Core IgM Antibody [Pending ], Hepatitis C Antibody [Pending], Herpes Simplex Virus I IgM Ab (IFA) [Pending] , Herpes Simplex Virus II IgM Ab (IFA [Pending], Monoscreen [Pending] Height (Feet): 5 Height (Inches): 7.00 Weight (Pounds): 170 Objective WDWN NAD clear breath sounds bilaterally without rhonchi or wheeze [id number] without MRG NABS nontender no HSM no CCE alert and weak poor mobility of extremities Critical Care - Objective Last 24 Hour Vital Signs Date Time Temp Pulse Resp B/P (MAP) Pulse Ox O2 Delivery O2 Flow Rate FiO2 11/10/18 20:36 Bi-pap 80 11/10/18 20:36 72 19 Bi-pap 80 11/10/18 20:36 100 Bi-pap 80 11/10/18 20:35 74 18 100 Full Face 80 11/10/18 19:30 75 17 100 Full Face 80 11/10/18 19:00 110 25 133/80 (97) 99 11/10/18 18:00 68 20 128/66 (86) 99 11/10/18 17:26 67 20 100 Full Face 80 11/10/18 17:00 66 16 126/70 (88) 97 11/10/18 16:00 97.8 60 15 110/64 (79) 95 11/10/18 16:00 Bi-pap Bi-pap 11/10/18 15:59 65 11/10/18 15:17 66 30 92 Full Face 80 11/10/18 15:00 62 20 114/66 (82) 95 11/10/18 14:00 59 16 103/63 (76) 98 11/10/18 13:29 67 23 94 Full Face 80 11/10/18 13:00 60 17 107/60 (76) 99 11/10/18 12:00 59 11/10/18 12:00 Bi-pap Bi-pap 11/10/18 12:00 98.5 64 16 105/59 (74) 100 11/10/18 11:47 100 11/10/18 11:09 60 34 100 Full Face 60 11/10/18 11:00 61 16 108/61 (77) 100 11/10/18 10:00 63 17 103/58 (73) 100 11/10/18 09:00 68 19 107/61 (76) 90 11/10/18 08:31 67 30 100 Facial 80 11/10/18 08:00 64 11/10/18 08:00 98.5 62 20 114/63 (80) 99 11/10/18 08:00 Bi-pap 100.0 Bi-pap 11/10/18 07:56 62 30 92 Bi-pap 100 11/10/18 07:53 92 Bi-pap 100 11/10/18 07:53 Bi-pap 11/10/18 07:52 65 26 Bi-pap 35 11/10/18 07:46 65 26 92 Bi-pap 100 11/10/18 07:26 65 26 92 Facial 100 11/10/18 07:00 65 15 105/59 (74) 98 11/10/18 06:05 80 11/10/18 06:00 67 18 105/61 (76) 98 11/10/18 05:10 67 20 98 Full Face 90 11/10/18 05:00 68 19 105/58 (74) 98 11/10/18 04:00 98.4 69 18 107/61 (76) 99 11/10/18 04:00 Bi-pap 100.0 Bi-pap 11/10/18 03:22 65 20 96 Bi-pap 100 11/10/18 03:14 65 31 92 Full Face 100 11/10/18 03:14 65 31 92 Bi-pap 100 11/10/18 03:00 58 21 126/70 (88) 95 11/10/18 02:00 58 21 126/70 (88) 95 11/10/18 01:10 51 20 99 Full Face 35 11/10/18 01:00 53 15 97 11/10/18 01:00 53 15 128/73 (91) 97 11/10/18 00:00 Bi-pap Bi-pap 11/10/18 00:00 98.0 64 18 131/67 (88) 95 11/09/18 23:10 59 25 98 Full Face 35 11/09/18 23:00 62 17 149/76 (100) 95 11/09/18 22:58 98.7 Critical Care - Subjective ROS Limited/Unobtainable: No Condition: critical FI02: 80 Sputum Amount: None I&O: Intake and Output 11/09/18 11/10/18 19:00 07:00 Intake Total 1107.5 ml 1285.000 ml Output Total 1060 ml 1185 ml Balance 47.5 ml 100.000 ml IV Total 1107.5 ml 1285.000 ml Output Urine Total 1060 ml 1185 ml Ho Painter MD Nov 10, 2018 22:32
[2018-11-11] VITALS (24 sets, daily range): BP systolic 98–121; BP diastolic 57–70
--- NOTE | 2018-11-11 | NUR ---
NURSE NOTES: Pt's resting in bed, in no acute distress. Accompanied by his family member. VS stable. Will continue to monitor.
[2018-11-11] MEDS: Vancomycin 750 MG in NS 275 ML IVPB SCH ×3 (00:24→17:04)
--- NOTE | 2018-11-11 02:00 | NUR ---
NURSE NOTES: Pt's resting in bed, with HOB kept elevated, asleep, in no acute distress. VS stable. Will continue to monitor.
[2018-11-11] MEDS: Albuterol/Ipratropium 3ml neb HHN PRN ×3 (04:00→16:57)
--- NOTE | 2018-11-11 04:00 | NUR ---
NURSE NOTES: Pt's resting in bed, with HOB kept elevated, asleep, in no acute distress. VS stable. Will continue to monitor.
[2018-11-11] MEDS: Metoclopramide 10mg/2ml Inj IVP SCH ×3 (05:35→21:21)
[2018-11-11] MEDS: Piperacillin/Tazobactam 3.375 GM in D5W 110 ML IVPB SCH ×3 (05:35→22:21)
--- NOTE | 2018-11-11 06:00 | NUR ---
NURSE NOTES: Pt's resting in bed, with HOB kept elevated, asleep, in no acute distress. VS stable. Will continue to monitor.
[2018-11-11] MEDS: D5 1/2NS w/KCl 20mEq 1,000 ML IV SCH ×2 (06:17→21:21)
--- NOTE | 2018-11-11 07:00 | NUR ---
Received Patient on BIPAP 17/ PS +9 BUR 14 FIO2 80%. Patient is alert and awake. Tape is in place around face. Patient is currently stable on BIPAP settings. Alarms on and audible. Bipap plugged into red outlet. Will continue to monitor patient throughout the day.
--- NOTE | 2018-11-11 07:30 | NUR ---
HAND-OFF: Report given to GRAHAM Porter.
--- NOTE | 2018-11-11 07:35 | NUR ---
NURSE NOTES: Report received from GRAHAM diane. Pt A/Ox3, drowsy. awakes to name. pt connected to monitor. Pt on BIPAP 15/8, sating 99%. npo except meds. Abdomen round, hypoactive bowel sounds. No BM. Elkins catheter secure and draining dark kahlil urine. skin-surgical wound, PROGRAM MGR. Pt has a LFA 20G and a RT Hand 18G with D1/2NS +20KCl running @ 75 ml/hr. cooling blanket temp reading 97.7 rectal. Bed in lowest position. Bed alarms placed. Call light within reach. Will continue to monitor and with patients plan of care.
--- NOTE | 2018-11-11 09:00 | NUR ---
NURSE NOTES: 2D echo being done. pt tolerating well.
--- NOTE | 2018-11-11 09:08 | General Progress Note ---
Assessment/Plan Assessment/Plan Status post anterior cervical corpectomy-discectomy at C3-4 and corpectomy/ discectomy C4-5. ACDF C3-4, Disc Arthroplasty C4-5 Spinal Cord compression fevers concern for aspiration spinal cord shock elevated LFT possible shock liver abnormal cxr respiratory failure, acute PLAN post op care neuro follow up cultures noted IV antibiotics ID follow up GI follow up BIPAP management may need airway ICU care pain control plan for extensive rehab once cleared monitor for aspiration repeat cultures Subjective Allergies: Coded Allergies: No Known Allergies (Unverified , 10/28/18) Subjective events noted on BIPAP awake no significant improvement Objective Last 24 Hour Vital Signs Date Time Temp Pulse Resp B/P (MAP) Pulse Ox O2 Delivery O2 Flow Rate FiO2 11/11/18 07:29 62 17 100 Facial 80 11/11/18 07:21 100 Bi-pap 80 11/11/18 07:21 63 22 Bi-pap 80 11/11/18 07:21 Bi-pap 80 11/11/18 07:00 99.0 59 14 110/64 (79) 100 11/11/18 06:00 98.2 52 14 105/64 (78) 100 11/11/18 05:00 59 17 106/63 (77) 100 11/11/18 04:44 59 19 100 Facial 75 11/11/18 04:30 80 21 100 Facial 100 11/11/18 04:10 66 19 99 Bi-pap 80 11/11/18 04:00 59 18 102/63 (76) 100 11/11/18 04:00 Bi-pap Bi-pap 11/11/18 04:00 55 11/11/18 04:00 59 18 100 Bi-pap 100 11/11/18 03:50 59 17 100 Facial 80 11/11/18 03:00 62 19 108/67 (81) 100 11/11/18 02:00 98.8 58 15 104/59 (74) 100 11/11/18 01:00 60 14 103/66 (78) 100 11/11/18 00:41 61 15 100 Facial 80 11/11/18 00:00 62 15 115/70 (85) 100 11/11/18 00:00 60 11/11/18 00:00 Bi-pap Bi-pap 11/10/18 23:00 97.4 60 13 107/70 (82) 100 11/10/18 22:45 58 24 100 Full Face 80 11/10/18 22:00 64 13 109/67 (81) 100 11/10/18 21:00 74 17 110/63 (79) 100 11/10/18 20:36 Bi-pap 80 11/10/18 20:36 72 19 Bi-pap 80 11/10/18 20:36 100 Bi-pap 80 11/10/18 20:35 74 18 100 Full Face 80 11/10/18 20:00 Bi-pap Bi-pap 11/10/18 20:00 97.8 83 26 114/60 (78) 100 11/10/18 20:00 82 11/10/18 19:30 75 17 100 Full Face 80 11/10/18 19:00 110 25 133/80 (97) 99 11/10/18 18:00 68 20 128/66 (86) 99 11/10/18 17:26 67 20 100 Full Face 80 11/10/18 17:00 66 16 126/70 (88) 97 11/10/18 16:00 97.8 60 15 110/64 (79) 95 11/10/18 16:00 Bi-pap Bi-pap 11/10/18 15:59 65 11/10/18 15:17 66 30 92 Full Face 80 11/10/18 15:00 62 20 114/66 (82) 95 11/10/18 14:00 59 16 103/63 (76) 98 11/10/18 13:29 67 23 94 Full Face 80 11/10/18 13:00 60 17 107/60 (76) 99 11/10/18 12:00 59 11/10/18 12:00 Bi-pap Bi-pap 11/10/18 12:00 98.5 64 16 105/59 (74) 100 11/10/18 11:47 100 11/10/18 11:09 60 34 100 Full Face 60 11/10/18 11:00 61 16 108/61 (77) 100 11/10/18 10:00 63 17 103/58 (73) 100 Intake and Output 11/10/18 11/11/18 18:59 06:59 Intake Total 1595.000 ml 1221.458 ml Output Total 1075 ml 710 ml Balance 520.000 ml 511.458 ml IV Total 1595.000 ml 1221.458 ml Output Urine Total 1075 ml 710 ml # Bowel Movements 1 1 Laboratory Tests 11/10/18 17:00: Arterial Blood pH 7.409, Arterial Blood Partial Pressure CO2 47.7H, Arterial Blood Partial Pressure O2 81.1, Arterial Blood HCO3 29.5H, Arterial Blood Oxygen Saturation 94.7L, Arterial Blood Base Excess 4.2H, Carroll Test Positive 11/10/18 19:35: Arterial Blood pH 7.371, Arterial Blood Partial Pressure CO2 51.2H, Arterial Blood Partial Pressure O2 92.8, Arterial Blood HCO3 29.0H, Arterial Blood Oxygen Saturation 95.5, Arterial Blood Base Excess 3.1H, Carroll Test Positive 11/10/18 20:30: White Blood Count 14.9H, Red Blood Count 2.97L, Hemoglobin 8.6L, Hematocrit 25.6L, Mean Corpuscular Volume 86, Mean Corpuscular Hemoglobin 29.1, Mean Corpuscular Hemoglobin Concent 33.7, Red Cell Distribution Width 12.7, Platelet Count 247, Mean Platelet Volume 5.1L, Neutrophils (%) (Auto) , Lymphocytes (%) ( Auto) , Monocytes (%) (Auto) , Eosinophils (%) (Auto) , Basophils (%) (Auto) , Prothrombin Time 11.2, Prothromb Time International Ratio 1.1, Activated Partial Thromboplast Time 24, Sodium Level 140, Potassium Level 4.0, Chloride Level 106, Carbon Dioxide Level 29, Anion Gap 5, Blood Urea Nitrogen 21H, Creatinine 1.1, Estimat Glomerular Filtration Rate > 60, Glucose Level 155H, Calcium Level 8.6, Total Bilirubin 1.8H, Direct Bilirubin 1.4H, Aspartate Amino Transf (AST/SGOT) 154H, Alanine Aminotransferase (ALT/SGPT) 244H, Alkaline Phosphatase 746H, Troponin I 0.115H, Total Protein 5.7L, Albumin 1.6L, Globulin 4.1, Albumin/Globulin Ratio 0.4L Height (Feet): 5 Height (Inches): 7.00 Weight (Pounds): 170 Objective WDWN NAD clear breath sounds bilaterally without rhonchi or wheeze [id number] without MRG NABS nontender no HSM no CCE alert on BIPAP poor mobility of extremities Pradeep Alvarado MD Nov 11, 2018 09:08
[2018-11-11] MEDS: Docusate 250mg cap ORAL SCH (09:39)
--- NOTE | 2018-11-11 10:00 | NUR ---
NURSE NOTES: pt is refusing to bed turned. willing to have pillows adjusted and realigned but no turning. oral care proved, and hob >35. will continue to monitor pt.
--- NOTE | 2018-11-11 10:15 | NUR ---
NURSE NOTES: pt off unit for VQ scan. tolerating well.
[2018-11-11 10:17] LABS: HEMATOCRIT 26.4 % (42.0-52.0); HEMOGLOBIN 8.8 G/DL (14.2-18.0); MEAN CORPUSCULAR VOLUME 87 FL (80-99); PLATELET COUNT 263 K/UL (150-450); RED BLOOD COUNT 3.03 M/UL (4.70-6.10); RED CELL DISTRIBUTION WIDTH 12.9 % (11.6-14.8)
[2018-11-11 10:44] LABS: ANION GAP 4 mmol/L (5-15); BLOOD UREA NITROGEN 20 mg/dL (7-18); CARBON DIOXIDE 32 MMOL/L (21-32); CHLORIDE 107 MMOL/L (98-107); POTASSIUM 4.2 MMOL/L (3.5-5.1); SODIUM 143 MMOL/L (136-145)
[2018-11-11 10:45] LABS: ALANINE AMINOTRANSFERASE 222 U/L (12-78); ALBUMIN 1.7 G/DL (3.4-5.0); ALBUMIN/GLOBULIN RATIO 0.4 (1.0-2.7); ALKALINE PHOSPHATASE 711 U/L (46-116); ASPARTATE AMINO TRANSFERASE 83 U/L (15-37); BILIRUBIN,TOTAL 1.2 MG/DL (0.2-1.0); CALCIUM 8.9 MG/DL (8.5-10.1)
[2018-11-11 10:55] LABS: BILIRUBIN,DIRECT 0.8 MG/DL (0.0-0.3)
--- NOTE | 2018-11-11 11:00 | Infectious Diseases Prog Note ---
Assessment/Plan Assessment/Plan antibiotics : vancomycin iv, zosyn A 1. aspiration pneumonia 2. cervical spondylosis s/p surgery 3. fever improving P 1. continue iv vancomycin, zosyn 3 more days 2. will follow up cultures Subjective Constitutional: Denies: fever, chills Respiratory: Reports: shortness of breath, dry cough Gastrointestinal/Abdominal: Denies: nausea, vomiting, diarrhea Musculoskeletal: Denies: pain Allergies: Coded Allergies: No Known Allergies (Unverified , 10/28/18) Objective Vital Signs Last 24 Hour Vital Signs Date Time Temp Pulse Resp B/P (MAP) Pulse Ox O2 Delivery O2 Flow Rate FiO2 11/11/18 09:28 54 16 100 Facial 75 11/11/18 07:29 62 17 100 Facial 80 11/11/18 07:21 100 Bi-pap 80 11/11/18 07:21 63 22 Bi-pap 80 11/11/18 07:21 Bi-pap 80 11/11/18 07:00 99.0 59 14 110/64 (79) 100 11/11/18 06:00 98.2 52 14 105/64 (78) 100 11/11/18 05:00 59 17 106/63 (77) 100 11/11/18 04:44 59 19 100 Facial 75 11/11/18 04:30 80 21 100 Facial 100 11/11/18 04:10 66 19 99 Bi-pap 80 11/11/18 04:00 59 18 102/63 (76) 100 11/11/18 04:00 Bi-pap Bi-pap 11/11/18 04:00 55 11/11/18 04:00 59 18 100 Bi-pap 100 11/11/18 03:50 59 17 100 Facial 80 11/11/18 03:00 62 19 108/67 (81) 100 11/11/18 02:00 98.8 58 15 104/59 (74) 100 11/11/18 01:00 60 14 103/66 (78) 100 11/11/18 00:41 61 15 100 Facial 80 11/11/18 00:00 62 15 115/70 (85) 100 11/11/18 00:00 60 11/11/18 00:00 Bi-pap Bi-pap 11/10/18 23:00 97.4 60 13 107/70 (82) 100 11/10/18 22:45 58 24 100 Full Face 80 11/10/18 22:00 64 13 109/67 (81) 100 11/10/18 21:00 74 17 110/63 (79) 100 11/10/18 20:36 Bi-pap 80 11/10/18 20:36 72 19 Bi-pap 80 11/10/18 20:36 100 Bi-pap 80 11/10/18 20:35 74 18 100 Full Face 80 11/10/18 20:00 Bi-pap Bi-pap 11/10/18 20:00 97.8 83 26 114/60 (78) 100 11/10/18 20:00 82 11/10/18 19:30 75 17 100 Full Face 80 11/10/18 19:00 110 25 133/80 (97) 99 11/10/18 18:00 68 20 128/66 (86) 99 11/10/18 17:26 67 20 100 Full Face 80 11/10/18 17:00 66 16 126/70 (88) 97 11/10/18 16:00 97.8 60 15 110/64 (79) 95 11/10/18 16:00 Bi-pap Bi-pap 11/10/18 15:59 65 11/10/18 15:17 66 30 92 Full Face 80 11/10/18 15:00 62 20 114/66 (82) 95 11/10/18 14:00 59 16 103/63 (76) 98 11/10/18 13:29 67 23 94 Full Face 80 11/10/18 13:00 60 17 107/60 (76) 99 11/10/18 12:00 59 11/10/18 12:00 Bi-pap Bi-pap 11/10/18 12:00 98.5 64 16 105/59 (74) 100 11/10/18 11:47 100 11/10/18 11:09 60 34 100 Full Face 60 11/10/18 11:00 61 16 108/61 (77) 100 Height (Feet): 5 Height (Inches): 7.00 Weight (Pounds): 170 Respiratory/Chest: lungs clear Cardiovascular: normal rate, regular rhythm, no gallop/murmur Abdomen: soft, non tender Extremities: no edema Laboratory Tests Test 11/10/18 17:00 11/10/18 19:35 11/10/18 20:30 11/11/18 10:00 Arterial Blood pH 7.409 (7.350-7.450) 7.371 (7.350-7.450) Arterial Blood Partial Pressure CO2 47.7 mmHg (35.0-45.0) H 51.2 mmHg (35.0-45.0) H Arterial Blood Partial Pressure O2 81.1 mmHg (75.0-100.0) 92.8 mmHg (75.0-100.0) Arterial Blood HCO3 29.5 mmol/L (22.0-26.0) H 29.0 mmol/L (22.0-26.0) H Arterial Blood Oxygen Saturation 94.7 % (95-100) L 95.5 % (95-100) Arterial Blood Base Excess 4.2 (-2-2) H 3.1 (-2-2) H Carroll Test Positive Positive White Blood Count 14.9 K/UL (4.8-10.8) H 12.0 K/UL (4.8-10.8) H Red Blood Count 2.97 M/UL (4.70-6.10) L 3.03 M/UL (4.70-6.10) L Hemoglobin 8.6 G/DL (14.2-18.0) L 8.8 G/DL (14.2-18.0) L Hematocrit 25.6 % (42.0-52.0) L 26.4 % (42.0-52.0) L Mean Corpuscular Volume 86 FL (80-99) 87 FL (80-99) Mean Corpuscular Hemoglobin 29.1 PG (27.0-31.0) 29.2 PG (27.0-31.0) Mean Corpuscular Hemoglobin Concent 33.7 G/DL (32.0-36.0) 33.6 G/DL (32.0-36.0) Red Cell Distribution Width 12.7 % (11.6-14.8) 12.9 % (11.6-14.8) Platelet Count 247 K/UL (150-450) 263 K/UL (150-450) Mean Platelet Volume 5.1 FL (6.5-10.1) L 5.9 FL (6.5-10.1) L Neutrophils (%) (Auto) % (45.0-75.0) % (45.0-75.0) Lymphocytes (%) (Auto) % (20.0-45.0) % (20.0-45.0) Monocytes (%) (Auto) % (1.0-10.0) % (1.0-10.0) Eosinophils (%) (Auto) % (0.0-3.0) % (0.0-3.0) Basophils (%) (Auto) % (0.0-2.0) % (0.0-2.0) Prothrombin Time 11.2 SEC (9.30-11.50) Prothromb Time International Ratio 1.1 (0.9-1.1) Activated Partial Thromboplast Time 24 SEC (23-33) Sodium Level 140 MMOL/L (136-145) 143 MMOL/L (136-145) Potassium Level 4.0 MMOL/L (3.5-5.1) 4.2 MMOL/L (3.5-5.1) Chloride Level 106 MMOL/L (98-107) 107 MMOL/L (98-107) Carbon Dioxide Level 29 MMOL/L (21-32) 32 MMOL/L (21-32) Anion Gap 5 mmol/L (5-15) 4 mmol/L (5-15) L Blood Urea Nitrogen 21 mg/dL (7-18) H 20 mg/dL (7-18) H Creatinine 1.1 MG/DL (0.55-1.30) 1.0 MG/DL (0.55-1.30) Estimat Glomerular Filtration Rate > 60 mL/min (>60) > 60 mL/min (>60) Glucose Level 155 MG/DL (74-106) H 110 MG/DL (74-106) H Calcium Level 8.6 MG/DL (8.5-10.1) 8.9 MG/DL (8.5-10.1) Total Bilirubin 1.8 MG/DL (0.2-1.0) H 1.2 MG/DL (0.2-1.0) H Direct Bilirubin 1.4 MG/DL (0.0-0.3) H 0.8 MG/DL (0.0-0.3) H Aspartate Amino Transf (AST/SGOT) 154 U/L (15-37) H 83 U/L (15-37) H Alanine Aminotransferase (ALT/SGPT) 244 U/L (12-78) H 222 U/L (12-78) H Alkaline Phosphatase 746 U/L (46-116) H 711 U/L (46-116) H Troponin I 0.115 ng/mL (0.000-0.056) 0.128 ng/mL (0.000-0.056) Total Protein 5.7 G/DL (6.4-8.2) L 6.0 G/DL (6.4-8.2) L Albumin 1.6 G/DL (3.4-5.0) L 1.7 G/DL (3.4-5.0) L Globulin 4.1 g/dL 4.3 g/dL Albumin/Globulin Ratio 0.4 (1.0-2.7) L 0.4 (1.0-2.7) L Differential Total Cells Counted 100 Neutrophils % (Manual) 88 % (45-75) H Lymphocytes % (Manual) 5 % (20-45) L Monocytes % (Manual) 6 % (1-10) Eosinophils % (Manual) 1 % (0-3) Basophils % (Manual) 0 % (0-2) Band Neutrophils 0 % (0-8) Platelet Estimate Adequate Platelet Morphology Normal Red Blood Cell Morphology Normal Current Medications Medications (Trade) Dose Ordered Sig/Sharon Route PRN Reason Start Time Stop Time Status Last Admin Dose Admin Albuterol/ Ipratropium (Albuterol/ Ipratropium) 3 ml Q4H PRN HHN Shortness of Breath 11/06/18 19:45 11/11/18 19:44 11/11/18 04:00 Barium Sulfate (Readi-Cat 2) 450 ml NOW PRN ORAL Radiology Procedure 11/10/18 09:00 11/11/18 17:51 Dextrose/ Electrolytes 1,000 ml @ 75 mls/hr [id number] IV 10/28/18 22:46 11/27/18 22:45 11/10/18 13:00 Docusate Sodium (Colace) 250 mg DAILY ORAL 11/03/18 15:45 12/03/18 15:44 11/11/18 09:39 Gadobutrol (Gadavist) 7.5 mmol NOW PRN IV Radiology Procedure 11/08/18 00:00 11/11/18 23:46 Iopamidol (Isovue-300 100ml) 100 ml NOW PRN INJ Radiology Procedure 11/10/18 09:00 11/12/18 08:59 Metoclopramide HCl (Reglan) 5 mg Q8H IVP 11/10/18 13:00 12/10/18 12:59 11/11/18 05:35 Morphine Sulfate (Morphine Sulfate) 1 mg Q4H PRN IVP Severe Pain (Pain Scale 7-10) 11/10/18 08:19 11/15/18 08:18 11/10/18 21:17 Naloxone HCl (Narcan) 0.1 mg PRN PRN IVP RR<12/min, pt unarousable 10/28/18 23:00 11/27/18 22:59 Ondansetron HCl (Zofran) 4 mg Q6H PRN IVP Nausea & Vomiting 11/08/18 21:30 12/08/18 21:29 11/11/18 07:05 Piperacillin Sod/ Tazobactam Sod 3.375 gm/Dextrose 110 ml @ 27.5 mls/hr EVERY 8 HOURS IVPB 11/08/18 14:00 11/13/18 13:59 11/11/18 05:35 Vancomycin HCl (Vanco rx to dose) 1 ea DAILY PRN MISC Per rx protocol 10/31/18 06:30 11/30/18 06:29 Vancomycin HCl 750 mg/Sodium Chloride 275 ml @ 183.333 mls/hr Q8H IVPB 11/08/18 16:00 11/13/18 15:59 11/11/18 09:37 Kenyon Moran MD Nov 11, 2018 11:00
--- NOTE | 2018-11-11 11:29 | General Surgery Progress Note ---
General Surgery-Progress Note Subjective Procedure Performed ACDF C3-4, Disc Arthroplasty C4-5 Additional Comments Patient has refused MRI of abdomen and V/Q scan as he doesn't want to be moved from ICU. Objective Last 24 Hour Vital Signs Date Time Temp Pulse Resp B/P (MAP) Pulse Ox O2 Delivery O2 Flow Rate FiO2 11/11/18 11:09 63 13 100 Non-Rebreather 15.0 100 11/11/18 11:08 100 11/11/18 11:00 61 14 99 Non-Rebreather 15.0 100 11/11/18 09:28 54 16 100 Facial 75 11/11/18 07:29 62 17 100 Facial 80 11/11/18 07:21 100 Bi-pap 80 11/11/18 07:21 63 22 Bi-pap 80 11/11/18 07:21 Bi-pap 80 11/11/18 07:00 99.0 59 14 110/64 (79) 100 11/11/18 06:00 98.2 52 14 105/64 (78) 100 11/11/18 05:00 59 17 106/63 (77) 100 11/11/18 04:44 59 19 100 Facial 75 11/11/18 04:30 80 21 100 Facial 100 11/11/18 04:10 66 19 99 Bi-pap 80 11/11/18 04:00 59 18 102/63 (76) 100 11/11/18 04:00 Bi-pap Bi-pap 11/11/18 04:00 55 11/11/18 04:00 59 18 100 Bi-pap 100 11/11/18 03:50 59 17 100 Facial 80 11/11/18 03:00 62 19 108/67 (81) 100 11/11/18 02:00 98.8 58 15 104/59 (74) 100 11/11/18 01:00 60 14 103/66 (78) 100 11/11/18 00:41 61 15 100 Facial 80 11/11/18 00:00 62 15 115/70 (85) 100 11/11/18 00:00 60 11/11/18 00:00 Bi-pap Bi-pap 11/10/18 23:00 97.4 60 13 107/70 (82) 100 11/10/18 22:45 58 24 100 Full Face 80 11/10/18 22:00 64 13 109/67 (81) 100 11/10/18 21:00 74 17 110/63 (79) 100 11/10/18 20:36 Bi-pap 80 11/10/18 20:36 72 19 Bi-pap 80 11/10/18 20:36 100 Bi-pap 80 11/10/18 20:35 74 18 100 Full Face 80 11/10/18 20:00 Bi-pap Bi-pap 11/10/18 20:00 97.8 83 26 114/60 (78) 100 11/10/18 20:00 82 11/10/18 19:30 75 17 100 Full Face 80 11/10/18 19:00 110 25 133/80 (97) 99 11/10/18 18:00 68 20 128/66 (86) 99 11/10/18 17:26 67 20 100 Full Face 80 11/10/18 17:00 66 16 126/70 (88) 97 11/10/18 16:00 97.8 60 15 110/64 (79) 95 11/10/18 16:00 Bi-pap Bi-pap 11/10/18 15:59 65 11/10/18 15:17 66 30 92 Full Face 80 11/10/18 15:00 62 20 114/66 (82) 95 11/10/18 14:00 59 16 103/63 (76) 98 11/10/18 13:29 67 23 94 Full Face 80 11/10/18 13:00 60 17 107/60 (76) 99 11/10/18 12:00 59 11/10/18 12:00 Bi-pap Bi-pap 11/10/18 12:00 98.5 64 16 105/59 (74) 100 11/10/18 11:47 100 I&O Intake and Output 11/10/18 11/11/18 18:59 06:59 Intake Total 1595.000 ml 1221.458 ml Output Total 1075 ml 710 ml Balance 520.000 ml 511.458 ml IV Total 1595.000 ml 1221.458 ml Output Urine Total 1075 ml 710 ml # Bowel Movements 1 1 Wound: clean Drains: none Laboratory Tests Test 11/10/18 17:00 11/10/18 19:35 11/10/18 20:30 11/11/18 10:00 Arterial Blood pH 7.409 (7.350-7.450) 7.371 (7.350-7.450) Arterial Blood Partial Pressure CO2 47.7 mmHg (35.0-45.0) H 51.2 mmHg (35.0-45.0) H Arterial Blood Partial Pressure O2 81.1 mmHg (75.0-100.0) 92.8 mmHg (75.0-100.0) Arterial Blood HCO3 29.5 mmol/L (22.0-26.0) H 29.0 mmol/L (22.0-26.0) H Arterial Blood Oxygen Saturation 94.7 % (95-100) L 95.5 % (95-100) Arterial Blood Base Excess 4.2 (-2-2) H 3.1 (-2-2) H Carroll Test Positive Positive White Blood Count 14.9 K/UL (4.8-10.8) H 12.0 K/UL (4.8-10.8) H Red Blood Count 2.97 M/UL (4.70-6.10) L 3.03 M/UL (4.70-6.10) L Hemoglobin 8.6 G/DL (14.2-18.0) L 8.8 G/DL (14.2-18.0) L Hematocrit 25.6 % (42.0-52.0) L 26.4 % (42.0-52.0) L Mean Corpuscular Volume 86 FL (80-99) 87 FL (80-99) Mean Corpuscular Hemoglobin 29.1 PG (27.0-31.0) 29.2 PG (27.0-31.0) Mean Corpuscular Hemoglobin Concent 33.7 G/DL (32.0-36.0) 33.6 G/DL (32.0-36.0) Red Cell Distribution Width 12.7 % (11.6-14.8) 12.9 % (11.6-14.8) Platelet Count 247 K/UL (150-450) 263 K/UL (150-450) Mean Platelet Volume 5.1 FL (6.5-10.1) L 5.9 FL (6.5-10.1) L Neutrophils (%) (Auto) % (45.0-75.0) % (45.0-75.0) Lymphocytes (%) (Auto) % (20.0-45.0) % (20.0-45.0) Monocytes (%) (Auto) % (1.0-10.0) % (1.0-10.0) Eosinophils (%) (Auto) % (0.0-3.0) % (0.0-3.0) Basophils (%) (Auto) % (0.0-2.0) % (0.0-2.0) Prothrombin Time 11.2 SEC (9.30-11.50) Prothromb Time International Ratio 1.1 (0.9-1.1) Activated Partial Thromboplast Time 24 SEC (23-33) Sodium Level 140 MMOL/L (136-145) 143 MMOL/L (136-145) Potassium Level 4.0 MMOL/L (3.5-5.1) 4.2 MMOL/L (3.5-5.1) Chloride Level 106 MMOL/L (98-107) 107 MMOL/L (98-107) Carbon Dioxide Level 29 MMOL/L (21-32) 32 MMOL/L (21-32) Anion Gap 5 mmol/L (5-15) 4 mmol/L (5-15) L Blood Urea Nitrogen 21 mg/dL (7-18) H 20 mg/dL (7-18) H Creatinine 1.1 MG/DL (0.55-1.30) 1.0 MG/DL (0.55-1.30) Estimat Glomerular Filtration Rate > 60 mL/min (>60) > 60 mL/min (>60) Glucose Level 155 MG/DL (74-106) H 110 MG/DL (74-106) H Calcium Level 8.6 MG/DL (8.5-10.1) 8.9 MG/DL (8.5-10.1) Total Bilirubin 1.8 MG/DL (0.2-1.0) H 1.2 MG/DL (0.2-1.0) H Direct Bilirubin 1.4 MG/DL (0.0-0.3) H 0.8 MG/DL (0.0-0.3) H Aspartate Amino Transf (AST/SGOT) 154 U/L (15-37) H 83 U/L (15-37) H Alanine Aminotransferase (ALT/SGPT) 244 U/L (12-78) H 222 U/L (12-78) H Alkaline Phosphatase 746 U/L (46-116) H 711 U/L (46-116) H Troponin I 0.115 ng/mL (0.000-0.056) 0.128 ng/mL (0.000-0.056) Total Protein 5.7 G/DL (6.4-8.2) L 6.0 G/DL (6.4-8.2) L Albumin 1.6 G/DL (3.4-5.0) L 1.7 G/DL (3.4-5.0) L Globulin 4.1 g/dL 4.3 g/dL Albumin/Globulin Ratio 0.4 (1.0-2.7) L 0.4 (1.0-2.7) L Differential Total Cells Counted 100 Neutrophils % (Manual) 88 % (45-75) H Lymphocytes % (Manual) 5 % (20-45) L Monocytes % (Manual) 6 % (1-10) Eosinophils % (Manual) 1 % (0-3) Basophils % (Manual) 0 % (0-2) Band Neutrophils 0 % (0-8) Platelet Estimate Adequate Platelet Morphology Normal Red Blood Cell Morphology Normal Additional Comments On exam today, patient pulls left leg away from Babinski testing from hip flexor. DTR's left upper 2+ left 2+ Right triceps, trace Right biceps, and brachioradialis. Absent Right low extremity. Sensation is present in all extremities. Assessment Post-op Diagnosis Spinal Cord compression Additional Comments Patient had respiratory arrest yesterday, responded to emergency measures. He is now refusing any off unit testing and is fearful of movements by nursing for personal care. Dr. Alvarado asked to address pulmonary status and need for off unit testing. Infectious Disease, Gastrointestinal and Neurology following. Steve Tinajero in frequent contact with family representatives. Leoncio Ventura Nov 11, 2018 11:28
--- NOTE | 2018-11-11 11:42 | NUR ---
V/Q Scan: Nuclear Medicine lung perfusion scan complete. Pt not able to tolerate lung ventilation portion.
--- NOTE | 2018-11-11 12:30 | Diagnostic Imaging Report ---
Indications: Reason For Exam: PE Technique: IV administration 5.1 mCi 99m technetium macroaggregated albumin. Images obtained over the lungs in multiple projections. Aerosol images could not be obtained, as patient unable to tolerate ring removal from BiPAP Comparison: Reference made to chest radiograph 11/10/2018 Findings: Exam is very limited in the absence of aerosol images Perfusion is overall heterogeneous. Apparent decreased perfusion is seen diffusely in the right lower lobe, and more strikingly in the superior and anterior basilar segments. There is apparent decreased perfusion in the posterior superior left lung as well. Suspect that these findings are in the basis of soft tissue attenuation or related to pleural and parenchymal disease described on recent chest radiograph, but make it impossible to adequately evaluate for possible pulmonary emboli Impression: Very limited exam, due to lack of aerosol images. Due to lack of aerosol images, a probability cannot be assigned. However, exam is deemed essentially nondiagnostic as regards the absence or presence of pulmonary emboli
--- NOTE | 2018-11-11 13:31 | Consultation ---
DATE OF CONSULTATION: 11/11/2018 INTERNAL MEDICINE CONSULTATION CONSULTING PHYSICIAN: Terrance Donahue M.D. REASON FOR CONSULTATION: General medical management, status post cardiac arrest. HISTORY OF PRESENT ILLNESS: The patient is a 63-year-old male, who recently underwent an elective cervical spine decompression and anterior diskectomy and fusion. He had a second surgery because of concerns about cord compression and weakness in the upper and lower extremities. He has had persistent weakness in the upper and lower extremities. He has been in the intensive care unit. On the day of consultation, the patient was apparently being cleaned . He was on BiPAP at that time and developed worsening shortness of breath. Eventually became bradycardic and had a full cardiac arrest. According to the staff, he underwent CPR for approximately 10 minutes with return of spontaneous circulation. Currently, he is awake, he is alert, he respond to questions and commands appropriately. He has family at the bedside. He denies any chest pain. He denies any shortness of breath. He complains of some mild abdominal distention and mild neck pain. PAST MEDICAL HISTORY: None. PAST SURGICAL HISTORY: Include knee surgery. CURRENT MEDICATIONS: Reviewed. ALLERGIES: None. FAMILY HISTORY: None. SOCIAL HISTORY: Negative for tobacco, ethanol, or drugs. REVIEW OF SYSTEMS: GENERAL: Positive for chills, but no fevers. HEENT: Mild neck pain. No headaches. CARDIOPULMONARY: No chest pain or shortness of breath. GASTROINTESTINAL: No nausea or vomiting. GENITOURINARY: No urgency or frequency. MUSCULOSKELETAL: No joint pain or swelling. NEUROLOGIC: No evidence of seizures. PHYSICAL EXAMINATION: VITAL SIGNS: Temperature 98.2, pulse 52, respirations 14, blood pressure 105/64. GENERAL: The patient is a well-developed male, currently on BiPAP. He is awake, alert, responds to commands appropriately. NECK: He has a soft collar on. HEART: Regular rate and rhythm. LUNGS: Clear anteriorly. ABDOMEN: Soft, nontender, and nondistended. EXTREMITIES: Without clubbing or cyanosis. There is trace edema noted. LABORATORY DATA: White count was 15,000, hemoglobin 8.6, hematocrit 25.6, and platelets of 247. ABG showed a pH of 7.37, pCO2 of 51, pO2 of 92, bicarb 29, O2 saturation of 95%. Sodium was 140, potassium 4, chloride 106, bicarb 29, BUN 21, and creatinine 1.1. Bilirubin of 1.8. AST 154, ALT of 244, and alkaline phosphatase of 746. Troponin was 0.15. Albumin was 1.6. Hepatitis serologies are negative. Chest x-ray done yesterday shows interval bilateral perihilar airspace opacities. X-ray of the abdomen shows dilated stomach. Abdominal ultrasound shows mild hepatomegaly, no stones. ASSESSMENT: This is a 63-year-old male, no significant past medical history, status post elective cervical spine surgery. The patient is noted to have both upper and lower extremity weakness in the postoperative period, who sustained a cardiopulmonary arrest, suspected a respiratory arrest. The patient has also had extensive pulmonary infiltrate concerning for pneumonia, elevated liver function tests, unclear etiology. RECOMMENDATIONS: Continue antibiotics. Follow sputum cultures. Check venous duplex of the lower extremities. Consider ENT evaluation to assess the patient's airway. Cardiology consultation. Plan of care was discussed with the patient and the patient's family member at the bedside. His status is critical and guarded. Terrance Donahue M.D. DR: YUE JOB#: [id number] CC:
--- NOTE | 2018-11-11 13:57 | NUR ---
NURSE NOTES: Result of VQ Scan read to Leoncio LORA
--- NOTE | 2018-11-11 14:23 | General Surgery Progress Note ---
General Surgery-Progress Note Subjective Day of Surgery: 11-25-2018 Procedure Performed C3-4 ACDF, C4-5 Disc Arthroplasty (11-25-2018) Revision decompression C3-4 (11-25-2018) Objective Last 24 Hour Vital Signs Date Time Temp Pulse Resp B/P (MAP) Pulse Ox O2 Delivery O2 Flow Rate FiO2 11/11/18 12:49 64 12 100 15.0 100 11/11/18 11:09 63 13 100 Non-Rebreather 15.0 100 11/11/18 11:08 100 11/11/18 11:00 61 14 99 Non-Rebreather 15.0 100 11/11/18 09:28 54 16 100 Facial 75 11/11/18 07:29 62 17 100 Facial 80 11/11/18 07:21 100 Bi-pap 80 11/11/18 07:21 63 22 Bi-pap 80 11/11/18 07:21 Bi-pap 80 11/11/18 07:00 99.0 59 14 110/64 (79) 100 11/11/18 06:00 98.2 52 14 105/64 (78) 100 11/11/18 05:00 59 17 106/63 (77) 100 11/11/18 04:44 59 19 100 Facial 75 11/11/18 04:30 80 21 100 Facial 100 11/11/18 04:10 66 19 99 Bi-pap 80 11/11/18 04:00 59 18 102/63 (76) 100 11/11/18 04:00 Bi-pap Bi-pap 11/11/18 04:00 55 11/11/18 04:00 59 18 100 Bi-pap 100 11/11/18 03:50 59 17 100 Facial 80 11/11/18 03:00 62 19 108/67 (81) 100 11/11/18 02:00 98.8 58 15 104/59 (74) 100 11/11/18 01:00 60 14 103/66 (78) 100 11/11/18 00:41 61 15 100 Facial 80 11/11/18 00:00 62 15 115/70 (85) 100 11/11/18 00:00 60 11/11/18 00:00 Bi-pap Bi-pap 11/10/18 23:00 97.4 60 13 107/70 (82) 100 11/10/18 22:45 58 24 100 Full Face 80 11/10/18 22:00 64 13 109/67 (81) 100 11/10/18 21:00 74 17 110/63 (79) 100 11/10/18 20:36 Bi-pap 80 11/10/18 20:36 72 19 Bi-pap 80 11/10/18 20:36 100 Bi-pap 80 11/10/18 20:35 74 18 100 Full Face 80 11/10/18 20:00 Bi-pap Bi-pap 11/10/18 20:00 97.8 83 26 114/60 (78) 100 11/10/18 20:00 82 11/10/18 19:30 75 17 100 Full Face 80 11/10/18 19:00 110 25 133/80 (97) 99 11/10/18 18:00 68 20 128/66 (86) 99 11/10/18 17:26 67 20 100 Full Face 80 11/10/18 17:00 66 16 126/70 (88) 97 11/10/18 16:00 97.8 60 15 110/64 (79) 95 11/10/18 16:00 Bi-pap Bi-pap 11/10/18 15:59 65 11/10/18 15:17 66 30 92 Full Face 80 11/10/18 15:00 62 20 114/66 (82) 95 I&O Intake and Output 11/10/18 11/11/18 19:00 07:00 Intake Total 1595.000 ml 1248.958 ml Output Total 1080 ml 680 ml Balance 515.000 ml 568.958 ml IV Total 1595.000 ml 1248.958 ml Output Urine Total 1080 ml 680 ml # Bowel Movements 1 1 Laboratory Tests Test 11/10/18 17:00 11/10/18 19:35 11/10/18 20:30 11/11/18 10:00 Arterial Blood pH 7.409 (7.350-7.450) 7.371 (7.350-7.450) Arterial Blood Partial Pressure CO2 47.7 mmHg (35.0-45.0) H 51.2 mmHg (35.0-45.0) H Arterial Blood Partial Pressure O2 81.1 mmHg (75.0-100.0) 92.8 mmHg (75.0-100.0) Arterial Blood HCO3 29.5 mmol/L (22.0-26.0) H 29.0 mmol/L (22.0-26.0) H Arterial Blood Oxygen Saturation 94.7 % (95-100) L 95.5 % (95-100) Arterial Blood Base Excess 4.2 (-2-2) H 3.1 (-2-2) H Carroll Test Positive Positive White Blood Count 14.9 K/UL (4.8-10.8) H 12.0 K/UL (4.8-10.8) H Red Blood Count 2.97 M/UL (4.70-6.10) L 3.03 M/UL (4.70-6.10) L Hemoglobin 8.6 G/DL (14.2-18.0) L 8.8 G/DL (14.2-18.0) L Hematocrit 25.6 % (42.0-52.0) L 26.4 % (42.0-52.0) L Mean Corpuscular Volume 86 FL (80-99) 87 FL (80-99) Mean Corpuscular Hemoglobin 29.1 PG (27.0-31.0) 29.2 PG (27.0-31.0) Mean Corpuscular Hemoglobin Concent 33.7 G/DL (32.0-36.0) 33.6 G/DL (32.0-36.0) Red Cell Distribution Width 12.7 % (11.6-14.8) 12.9 % (11.6-14.8) Platelet Count 247 K/UL (150-450) 263 K/UL (150-450) Mean Platelet Volume 5.1 FL (6.5-10.1) L 5.9 FL (6.5-10.1) L Neutrophils (%) (Auto) % (45.0-75.0) % (45.0-75.0) Lymphocytes (%) (Auto) % (20.0-45.0) % (20.0-45.0) Monocytes (%) (Auto) % (1.0-10.0) % (1.0-10.0) Eosinophils (%) (Auto) % (0.0-3.0) % (0.0-3.0) Basophils (%) (Auto) % (0.0-2.0) % (0.0-2.0) Prothrombin Time 11.2 SEC (9.30-11.50) Prothromb Time International Ratio 1.1 (0.9-1.1) Activated Partial Thromboplast Time 24 SEC (23-33) Sodium Level 140 MMOL/L (136-145) 143 MMOL/L (136-145) Potassium Level 4.0 MMOL/L (3.5-5.1) 4.2 MMOL/L (3.5-5.1) Chloride Level 106 MMOL/L (98-107) 107 MMOL/L (98-107) Carbon Dioxide Level 29 MMOL/L (21-32) 32 MMOL/L (21-32) Anion Gap 5 mmol/L (5-15) 4 mmol/L (5-15) L Blood Urea Nitrogen 21 mg/dL (7-18) H 20 mg/dL (7-18) H Creatinine 1.1 MG/DL (0.55-1.30) 1.0 MG/DL (0.55-1.30) Estimat Glomerular Filtration Rate > 60 mL/min (>60) > 60 mL/min (>60) Glucose Level 155 MG/DL (74-106) H 110 MG/DL (74-106) H Calcium Level 8.6 MG/DL (8.5-10.1) 8.9 MG/DL (8.5-10.1) Total Bilirubin 1.8 MG/DL (0.2-1.0) H 1.2 MG/DL (0.2-1.0) H Direct Bilirubin 1.4 MG/DL (0.0-0.3) H 0.8 MG/DL (0.0-0.3) H Aspartate Amino Transf (AST/SGOT) 154 U/L (15-37) H 83 U/L (15-37) H Alanine Aminotransferase (ALT/SGPT) 244 U/L (12-78) H 222 U/L (12-78) H Alkaline Phosphatase 746 U/L (46-116) H 711 U/L (46-116) H Troponin I 0.115 ng/mL (0.000-0.056) 0.128 ng/mL (0.000-0.056) Total Protein 5.7 G/DL (6.4-8.2) L 6.0 G/DL (6.4-8.2) L Albumin 1.6 G/DL (3.4-5.0) L 1.7 G/DL (3.4-5.0) L Globulin 4.1 g/dL 4.3 g/dL Albumin/Globulin Ratio 0.4 (1.0-2.7) L 0.4 (1.0-2.7) L Differential Total Cells Counted 100 Neutrophils % (Manual) 88 % (45-75) H Lymphocytes % (Manual) 5 % (20-45) L Monocytes % (Manual) 6 % (1-10) Eosinophils % (Manual) 1 % (0-3) Basophils % (Manual) 0 % (0-2) Band Neutrophils 0 % (0-8) Platelet Estimate Adequate Platelet Morphology Normal Red Blood Cell Morphology Normal Imaging NM Lung Perfusion scan 11-11-18: Non Diagnostic (per report) Additional Comments I saw this patient Sunday and Sunday, spoke at length with patient and family. On Sunday the patient declined transport off unit to have MRI of abdomen for evaluation of elevated LFT's. On Sunday, the patient had a respiratory arrest, and was successfully restored. I was present when patient declined intubation should the need arise again. At that point and to the present, patient is intent on not being moved off unit for any testing. I have discussed situation with Dr. Alvarado and Dr. Painter ( Pulmonary). Leoncio Wilson MD Nov 11, 2018 14:23
--- NOTE | 2018-11-11 15:23 | NUR ---
CASE MANAGEMENT:REVIEW 11/11/18 SI: CERVICAL SPONDYLOSIS S/P ACDF C3-4, DISC ARTHROPLASTY C4-5 ASPIRATION PNEUMONIA 99.6 68 18 121/58 99% on 15L VIA SIMPLE MASK 15L @ 100% FIO2 WBC+12.0 H/H-8.8/26.4 BUN+20 TBILI+1.2 DBILI+0.8 AST/ALT+83/222 TROPONIN(+) 0.128 IS: IV VANCOMYCIN Q8HRS IV ZOSYN Q8HRS IV REGLAN Q8HRS DUONEB HHN Q4HRS PRN IVF@75/HR : ICU STATUS
--- NOTE | 2018-11-11 15:46 | Progress Note ---
DATE: 11/11/2018 SUBJECTIVE: The patient is undergoing 2D echocardiogram at this time. The patient has some return of increased tone; however, the patient has to be followed up later. Jeffrey Solorio MD DR: LATIA JOB#: [id number] CC:
--- NOTE | 2018-11-11 16:00 | NUR ---
NURSE NOTES: pt is refusing to bed turned. willing to be realigned but no turning. suction provided, and hob >35. will continue to monitor pt.
--- NOTE | 2018-11-11 16:30 | NUR ---
NURSE NOTES: pt off unit, to CT scan.
--- NOTE | 2018-11-11 17:08 | Diagnostic Imaging Report ---
Clinical Indication: Abdominal distention. Abnormal liver function tests. Gastric distention. Technique: Patient ingested oral contrast IV administration nonionic contrast. Venous phase spiral acquisition obtained through the abdomen and pelvis. Multiplanar reconstructions were generated. Total dose length product 1008.77 mGycm. CTDIvol(s) 17.93 mGy. Dose reduction achieved using automated exposure control Comparison: none Findings: There is a rectal catheter in place. No evidence of diverticulosis or diverticulitis. The proximal colon is mildly gas and fluid-filled. What is probably a normal appendix is demonstrated. A small amount of free intraperitoneal fluid is seen in the right lower quadrant. Contrast is seen throughout the entirety of the small bowel, and reaches the cecum and proximal ascending colon. No small bowel distention. The stomach is somewhat distended with gas and contrast. No obstructive lesion is demonstrated, however. No free intraperitoneal gas. The distal esophagus is unremarkable. The spleen is enlarged, measuring 14.3 cm long axis dimension. The liver demonstrates a subcentimeter low-attenuation lesion in segment 2 which is too small to characterize. It is otherwise unremarkable. The gallbladder, bile ducts, pancreas, adrenals, left kidney are unremarkable. Right kidney demonstrates 2 subcentimeter low-attenuation lesions which are too small to characterize, most likely representing benign simple cortical cysts. No renal or ureteral calculi, hydronephrosis, or hydroureter. No retroperitoneal or mesenteric mass or adenopathy. No pelvic mass or adenopathy. A Elkins catheter is present within the bladder lumen. The bladder contains some gas, presumably related to the Elkins catheterization. There is also a moderate amount of fluid within the bladder despite the presence of Elkins catheter. There is diffuse edema of the bilateral flank, buttock, and lumbar region subcutaneous fat. There is diffuse edema of the mesenteric fat. There are bilateral small to moderate-sized pleural effusions. There is extensive consolidation and atelectasis of the lower lobes of both lungs, as well as of the right middle lobe. The heart is mildly enlarged. The bones demonstrate degenerative spondylosis changes. Impression: Evidence of mild anasarca, with bilateral pleural effusions, bilateral flank, lumbar, and buttock edema, edema of the mesenteric fat, and a small amount of ascites in the right lower quadrant No definite acute abdominal process otherwise. No evidence of bowel obstruction or appendicitis. Fairly extensive bilateral lower lobe consolidation, likely pneumonia. There may be a component of atelectasis as well Mildly distended bladder, despite the presence of a Elkins catheter. Gas within the bladder lumen is likely related to the Elkins catheter. Splenomegaly Subcentimeter low-attenuation left lobe liver lesion, too small to characterize, most likely benign simple cyst or bile hamartoma. 2 subcentimeter low-attenuation right renal lesions, too small to characterize, most likely representing benign simple cortical cysts. No further follow-up necessary. Mild cardiomegaly Other findings as noted, including degenerative spondylosis, rectal tube The CT scanner at [facility] is accredited by the [employer] and the scans are performed using protocols designed to limit radiation exposure to as low as reasonably achievable to attain images of sufficient resolution adequate for diagnostic evaluation.
--- NOTE | 2018-11-11 17:10 | NUR ---
REHAB/P.T WEEKLY NOTES: PATIENT SEEN FOR TOTAL OF 6 P.T SESSIONS. TREATMENT CONSISTED OF THERA EX'S INCLUDE BUE/BLE PROM EX'S , GENTLE HEEL CORD STRETCHES AND PROPER BED POSITIONING. PATIENT HAS BEEN COOPERATIVE IN THE COURSE OF THERAPY SESSIONS. SUBJECTIVE: PATIENT C/O CENTRALIZED PAIN FROM THE HEAD AND CERVICAL REGION RATED 1-5/10. OBJECTIVE: MMT: BUE/BLE: REMAINS 0/5 EXCEPT FOR SHOULDERS SHRUGS AND DEPRESSORS GRADED 3/5 . INVOLUNTARY MUSCLE CONTRACTIONS DESCRIBED EXTENSOR TONICITY ON BLE DEVELOPED OVER THE PAST WEEK. SENSORY: REMAINS DIMINISHED ON PROPRIOCEPTION , LIGHT TOUCH AND DEEP PRESSURE ON BUE/LE. PATIENT REMAINS DEPENDENT/MAX A X 2 FOR ALL BED MOBILITIES. PLAN: WILL CONTINUE POC TO INCLUDE FAMILY EDUCATION RE: HOME EX'S PROGRAM FOR FAMILY TO CARRY OVER DURING NON THERAPY DAYS. P.T ALSO WILL RECOMMEND MULTI PODUS BOOT TO PREVENT HEEL CORD TIGHTNESS OR POTENTIAL PLANTAR FLEXION CONTRACTURES.
[2018-11-11] MEDS: Morphine Sulfate 2mg/ml Inj(IV/IM USE ONLY) IVP PRN (18:58)
--- NOTE | 2018-11-11 19:00 | NUR ---
HAND-OFF: Report given to endorsed. meal to pm shift
--- NOTE | 2018-11-11 19:10 | NUR ---
RESPIRATORY THERAPY Received patient on BIPAP 19/04 with a back up rate of 14 on 100%. Patient is stable on current settings. Alarms are on and audible. Bipap plugged into red outlet. Patient is alert and awake. Tape in place, skin intact. Will continue to monitor.
--- NOTE | 2018-11-11 19:30 | NUR ---
NURSE NOTES: Report received from GRAHAM Porter. Pt's resting in bed, comfortably, in no acute distress at this time. Pt alert and oriented x4, able to make needs known. Pt on Bipap 19/04, FiO2 95% saturating 100%. Afebrile at this time, VS stable, SR on panel monitor. Elkins intact and draining clear yellow urine to gravity. Neck incision clean, dry and intact. Left FA 20 G and R hand 18 G intact. D5 1/2 NS + 20meq KCl running at 75 cc/hr. Unable to move bilateral upper and lower extremities. Safety measures in place with bed locked and in lowest position, side rails x 3 up and bed alarm on. Call light within reach. Will continue to monitor and continue plan of care.
--- NOTE | 2018-11-11 20:10 | NUR ---
NURSE NOTES: pt is refusing to bed turned. willing to have pillows adjusted and realigned but no turning. oral care proved, and hob >35. will continue to monitor pt. Addendum: 11/11/18 at 2012 by Swati Porter RN wrong time
--- NOTE | 2018-11-11 22:00 | NUR ---
NURSE NOTES: Pt's resting in bed, in no acute distress. VS stable. Afebrile. Will continue to monitor.
--- NOTE | 2018-11-11 22:39 | General Progress Note ---
Assessment/Plan Assessment/Plan Assessment - Elevated LFT, ? etiology, ? ischemic injury, - hepatitis serologies neg - CMV PCR (-) - HSV IgM (-) - [place] negative - U/S negative - CT negative - s/p C spine operation - Gastric distention, ? narcotic related Recommendations - Follow LFT - Abx per ID - Avoid hepatotoxic meds - avoid volume depletion / hypotension - Reglan Subjective Allergies: Coded Allergies: No Known Allergies (Unverified , 10/28/18) Subjective Above noted no complaints d/w family at bedside Objective Last 24 Hour Vital Signs Date Time Temp Pulse Resp B/P (MAP) Pulse Ox O2 Delivery O2 Flow Rate FiO2 11/11/18 22:04 100 11/11/18 21:13 67 19 100 Facial 95 11/11/18 19:07 73 18 Bi-pap 100 11/11/18 19:07 72 20 100 Facial 100 11/11/18 19:07 100 Bi-pap 100 11/11/18 19:07 Bi-pap 100 11/11/18 19:00 78 21 117/67 (84) 99 11/11/18 18:00 72 18 112/62 (79) 100 11/11/18 17:07 76 21 96 Facial 100 11/11/18 17:00 64 21 108/58 (75) 85 11/11/18 17:00 63 18 88 15.0 100 11/11/18 16:58 63 18 89 Non-Rebreather 15.0 100 11/11/18 16:52 63 18 89 Non-Rebreather 15.0 100 11/11/18 16:00 64 11/11/18 16:00 Simple Mask 15.0 Simple Mask 15.0 11/11/18 16:00 97.8 64 16 119/62 (81) 100 11/11/18 15:15 61 12 100 15.0 100 11/11/18 15:00 72 18 115/58 (77) 100 11/11/18 14:00 75 18 121/58 (79) 100 11/11/18 13:00 68 16 121/62 (81) 100 11/11/18 12:49 64 12 100 15.0 100 11/11/18 12:00 71 11/11/18 12:00 Simple Mask 15.0 Simple Mask 15.0 11/11/18 12:00 99.6 68 15 115/58 (77) 99 11/11/18 11:09 63 13 100 Non-Rebreather 15.0 100 11/11/18 11:08 100 11/11/18 11:00 103/57 (72) 11/11/18 11:00 61 14 99 Non-Rebreather 15.0 100 11/11/18 10:00 60 15 108/62 (77) 100 11/11/18 09:28 54 16 100 Facial 75 11/11/18 09:00 59 18 115/65 (82) 100 11/11/18 08:00 97.7 57 19 104/61 (75) 100 11/11/18 08:00 Bi-pap Bi-pap 11/11/18 08:00 57 11/11/18 07:29 62 17 100 Facial 80 11/11/18 07:21 100 Bi-pap 80 11/11/18 07:21 63 22 Bi-pap 80 11/11/18 07:21 Bi-pap 80 11/11/18 07:00 99.0 59 14 110/64 (79) 100 11/11/18 06:00 98.2 52 14 105/64 (78) 100 11/11/18 05:00 59 17 106/63 (77) 100 11/11/18 04:44 59 19 100 Facial 75 11/11/18 04:30 80 21 100 Facial 100 11/11/18 04:10 66 19 99 Bi-pap 80 11/11/18 04:00 59 18 102/63 (76) 100 11/11/18 04:00 Bi-pap Bi-pap 11/11/18 04:00 55 11/11/18 04:00 59 18 100 Bi-pap 100 11/11/18 03:50 59 17 100 Facial 80 11/11/18 03:00 62 19 108/67 (81) 100 11/11/18 02:00 98.8 58 15 104/59 (74) 100 11/11/18 01:00 60 14 103/66 (78) 100 11/11/18 00:41 61 15 100 Facial 80 11/11/18 00:00 62 15 115/70 (85) 100 11/11/18 00:00 60 11/11/18 00:00 Bi-pap Bi-pap 11/10/18 23:00 97.4 60 13 107/70 (82) 100 11/10/18 22:45 58 24 100 Full Face 80 Intake and Output 11/10/18 11/11/18 19:00 07:00 Intake Total 1595.000 ml 1248.958 ml Output Total 1080 ml 680 ml Balance 515.000 ml 568.958 ml IV Total 1595.000 ml 1248.958 ml Output Urine Total 1080 ml 680 ml # Bowel Movements 1 1 Laboratory Tests 11/11/18 10:00: White Blood Count 12.0H, Red Blood Count 3.03L, Hemoglobin 8.8L, Hematocrit 26.4L, Mean Corpuscular Volume 87, Mean Corpuscular Hemoglobin 29.2, Mean Corpuscular Hemoglobin Concent 33.6, Red Cell Distribution Width 12.9, Platelet Count 263, Mean Platelet Volume 5.9L, Neutrophils (%) (Auto) , Lymphocytes (%) ( Auto) , Monocytes (%) (Auto) , Eosinophils (%) (Auto) , Basophils (%) (Auto) , Differential Total Cells Counted 100, Neutrophils % (Manual) 88H, Lymphocytes % (Manual) 5L, Monocytes % (Manual) 6, Eosinophils % (Manual) 1, Basophils % ( Manual) 0, Band Neutrophils 0, Platelet Estimate Adequate, Platelet Morphology Normal, Red Blood Cell Morphology Normal, Sodium Level 143, Potassium Level 4.2 , Chloride Level 107, Carbon Dioxide Level 32, Anion Gap 4L, Blood Urea Nitrogen 20H, Creatinine 1.0, Estimat Glomerular Filtration Rate > 60, Glucose Level 110H, Calcium Level 8.9, Total Bilirubin 1.2H, Direct Bilirubin 0.8H, Aspartate Amino Transf (AST/SGOT) 83H, Alanine Aminotransferase (ALT/SGPT) 222H , Alkaline Phosphatase 711H, Troponin I 0.128H, Total Protein 6.0L, Albumin 1.7L , Globulin 4.3, Albumin/Globulin Ratio 0.4L Height (Feet): 5 Height (Inches): 7.00 Weight (Pounds): 170 Objective Thin AA man NCAT C spine collar CTA RRR soft ND NT no edema Oscar Sinha MD Nov 11, 2018 22:39
[2018-11-12] VITALS (24 sets, daily range): BP systolic 102–124; BP diastolic 56–73
--- NOTE | 2018-11-12 | NUR ---
NURSE NOTES: Pt's resting in bed, asleep with eyes closed, in no acute distress. VS stable. Afebrile. Will continue to monitor.
[2018-11-12] MEDS: Vancomycin 750 MG in NS 275 ML IVPB SCH ×3 (00:49→16:57)
[2018-11-12] MEDS: Morphine Sulfate 2mg/ml Inj(IV/IM USE ONLY) IVP PRN ×4 (00:50→21:14)
--- NOTE | 2018-11-12 02:00 | NUR ---
NURSE NOTES: Pt's resting in bed, asleep with eyes closed, in no acute distress. VS stable. Afebrile. Will continue to monitor.
--- NOTE | 2018-11-12 02:30 | Progress Note ---
SUBJECTIVE: The patient had an abdominal and pelvic CT scan with contrast revealed evidence of: 1. Ascites. 2. He has had fairly extensive bilateral lower lobe consolidation, likely due to pneumonia. 3. There is splenomegaly. The right middle lobe of the lung is also consolidated. The liver is unremarkable except for low attenuation lesion in segment 2, probably unremarkable or significant. The patient is not in any pain. PHYSICAL EXAMINATION: VITAL SIGNS: Blood pressure 121/58, pulse is 76, respiratory rate is 21. FiO2 is 100% with a non-rebreather mask. Pulse oximetry is 96. Respiratory rate is fairly set as 21. MENTAL STATUS EXAMINATION: The patient is awake and alert. He could follow commands and answers to questions. CRANIAL NERVE EXAMINATION: CRANIAL NERVES III, IV, AND : Extraocular motility is full. CRANIAL NERVE VII: Facial strength appears 5/5. CRANIAL NERVE XII: Tongue protrudes in the midline. MUSCLE EXAMINATION: He has increased tone in the left upper and probably lower extremities. He has some extensor spasm, maybe on the left side. Reflexes are 0 in the upper extremities, +1 at the left knee, 0 at the right knee, 0 at the ankles with upgoing toes and testing for Babinski response. The patient is still quadriplegic except for shoulder shrugging. SENSORY EXAMINATION: sensory level at c-4 on left and c-3 on right IMPRESSION: . Unfortunately, there is no warmth of the wound. The patient now has significant medical problems including pneumonia and problems with liver. Anemia has gotten slight worse since 11/05/2018, hemoglobin is now 8.8, white count is now 12,000 today with a left shift. Platelet count is 263,000. His troponins have been slightly elevated. I do not except the patient to improve at all especially with his metabolic problems that he has at this point. The prognosis again appears to be guarded to poor, however, it is still pretty early. Plan is to follow the patient. Jeffrey Solorio MD DR: REGLA JOB#: [id number] CC: JAY
[2018-11-12] MEDS: Albuterol/Ipratropium 3ml neb HHN PRN ×4 (02:49→23:37)
--- NOTE | 2018-11-12 04:00 | NUR ---
NURSE NOTES: Pt's resting in bed, asleep with eyes closed, in no acute distress. VS stable. Afebrile. Will continue to monitor.
--- NOTE | 2018-11-12 06:00 | NUR ---
NURSE NOTES: Pt's resting in bed, asleep with eyes closed, in no acute distress. VS stable. Afebrile. Will continue to monitor.
[2018-11-12] MEDS: Metoclopramide 10mg/2ml Inj IVP SCH ×3 (06:02→20:39)
[2018-11-12] MEDS: D5 1/2NS w/KCl 20mEq 1,000 ML IV SCH ×2 (06:03→20:40)
[2018-11-12] MEDS: Piperacillin/Tazobactam 3.375 GM in D5W 110 ML IVPB SCH ×3 (06:03→21:18)
--- NOTE | 2018-11-12 07:00 | NUR ---
Received Patient on BIPAP 17/ PS +9 BUR 14 FIO2 95%. Patient is alert and awake. Patient currently on full face mask. Tape is in place around face. Patient is currently stable on BIPAP settings. Alarms on and audible. Bipap plugged into red outlet. Will continue to monitor patient throughout the day.
--- NOTE | 2018-11-12 07:01 | NUR ---
Took patient off bipap. Placed on NRB 100% FIO2.
--- NOTE | 2018-11-12 07:15 | NUR ---
HAND-OFF: Report given to GRAHAM Porter.
--- NOTE | 2018-11-12 07:33 | NUR ---
NURSE NOTES: Report received from GRAHAM Underwodo. Pt A/Ox3, drowsy. responds to name. pt connected to monitor. Pt on BIPAP 18/5, sating 99%. npo except meds. Abdomen round, hypoactive bowel sounds. No BM. Elkins catheter secure and draining dark kahlil urine. skin-surgical wound, EXERCISE SCIENTIST. Pt has a LFA 20G and a RT Hand 18G with D1/2NS +20KCl running @ 75 ml/hr. cooling blanket. Bed in lowest position. Bed alarms placed. Call light within reach. Will continue to monitor and with patients plan of care. family at bedside.
[2018-11-12] MEDS: Docusate 250mg cap ORAL SCH (08:23)
--- NOTE | 2018-11-12 08:26 | General Progress Note ---
Assessment/Plan Problem List: (1) Weakness ICD Codes: R53.1 - Weakness SNOMED: 70333613 (2) Cervical spine arthritis ICD Codes: M47.812 - Spondylosis without myelopathy or radiculopathy, cervical region SNOMED: 950027524 (3) Cervical disc disorder ICD Codes: M50.90 - Cervical disc disorder, unspecified, unspecified cervical region SNOMED: 363152166 (4) Hospital acquired PNA ICD Codes: J18.9 - Pneumonia, unspecified organism SNOMED: 232855580 (5) Sepsis ICD Codes: A41.9 - Sepsis, unspecified organism SNOMED: 83215519 (6) Cardiac arrest ICD Codes: I46.9 - Cardiac arrest, cause unspecified SNOMED: 851940070 (7) Hepatitis ICD Codes: K75.9 - Inflammatory liver disease, unspecified SNOMED: 487838377 Status: stable, progressing Assessment/Plan resp care o2- wean as able pain rx ivf iv abx per id dvt/stress ulcer prophylaxis spine follow up remains critical and guarded Subjective ROS Limited/Unobtainable: No Constitutional: Reports: malaise, weakness HEENT: Reports: no symptoms Cardiovascular: Reports: no symptoms Respiratory: Reports: shortness of breath Gastrointestinal/Abdominal: Reports: no symptoms Genitourinary: Reports: no symptoms Neurologic/Psychiatric: Reports: pre-existing deficit, weakness Endocrine: Reports: no symptoms Hematologic/Lymphatic: Reports: no symptoms Allergies: Coded Allergies: No Known Allergies (Unverified , 10/28/18) All Systems: reviewed and negative except above Subjective no events. w/o complaints. still cant move arms or legs. remains on venti mask. denies chest pain or sob. v/w nondiagnostic ct with melo lower lobe pna Objective Last 24 Hour Vital Signs Date Time Temp Pulse Resp B/P (MAP) Pulse Ox O2 Delivery O2 Flow Rate FiO2 11/12/18 07:27 66 16 100 15.0 100 11/12/18 07:09 64 16 Non-Rebreather 15.0 100 11/12/18 07:09 Non-Rebreather 15.0 100 11/12/18 07:09 100 Non-Rebreather 15.0 100 11/12/18 07:00 98.0 61 14 123/73 (90) 100 11/12/18 06:00 98.6 64 14 113/61 (78) 100 11/12/18 05:00 98.6 68 18 109/58 (75) 99 11/12/18 04:54 64 22 100 Full Face 95 11/12/18 04:00 95 11/12/18 04:00 60 11/12/18 04:00 Bi-pap Bi-pap 11/12/18 04:00 98.6 66 16 121/67 (85) 100 11/12/18 03:00 97.9 55 16 103/59 (74) 100 11/12/18 02:59 62 18 100 Bi-pap 100 11/12/18 02:51 61 26 100 Bi-pap 100 11/12/18 02:49 59 17 100 Full Face 100 11/12/18 02:00 63 16 104/60 (75) 100 11/12/18 01:11 63 26 100 Full Face 100 11/12/18 01:00 65 25 103/65 (78) 100 11/12/18 00:00 67 11/12/18 00:00 Bi-pap Bi-pap 11/12/18 00:00 98.5 57 22 102/62 (75) 100 11/11/18 23:12 64 25 100 Full Face 100 11/11/18 23:00 65 24 107/66 (80) 100 11/11/18 22:04 100 11/11/18 22:00 61 28 98/59 (72) 100 11/11/18 21:13 67 19 100 Facial 95 11/11/18 21:00 68 18 104/59 (74) 100 11/11/18 20:00 64 11/11/18 20:00 98.1 66 16 107/60 (76) 100 11/11/18 20:00 Bi-pap Bi-pap 11/11/18 19:07 73 18 Bi-pap 100 11/11/18 19:07 72 20 100 Facial 100 11/11/18 19:07 100 Bi-pap 100 11/11/18 19:07 Bi-pap 100 11/11/18 19:00 78 21 117/67 (84) 99 11/11/18 18:00 72 18 112/62 (79) 100 11/11/18 17:07 76 21 96 Facial 100 11/11/18 17:00 64 21 108/58 (75) 85 11/11/18 17:00 63 18 88 15.0 100 11/11/18 16:58 63 18 89 Non-Rebreather 15.0 100 11/11/18 16:52 63 18 89 Non-Rebreather 15.0 100 11/11/18 16:00 64 11/11/18 16:00 Simple Mask 15.0 Simple Mask 15.0 11/11/18 16:00 97.8 64 16 119/62 (81) 100 11/11/18 15:15 61 12 100 15.0 100 11/11/18 15:00 72 18 115/58 (77) 100 11/11/18 14:00 75 18 121/58 (79) 100 11/11/18 13:00 68 16 121/62 (81) 100 11/11/18 12:49 64 12 100 15.0 100 11/11/18 12:00 71 11/11/18 12:00 Simple Mask 15.0 Simple Mask 15.0 11/11/18 12:00 99.6 68 15 115/58 (77) 99 11/11/18 11:09 63 13 100 Non-Rebreather 15.0 100 11/11/18 11:08 100 11/11/18 11:00 103/57 (72) 11/11/18 11:00 61 14 99 Non-Rebreather 15.0 100 11/11/18 10:00 60 15 108/62 (77) 100 11/11/18 09:28 54 16 100 Facial 75 11/11/18 09:00 59 18 115/65 (82) 100 Intake and Output 11/11/18 11/12/18 18:59 06:59 Intake Total 809.166 ml 1722.500 ml Output Total 805 ml 725 ml Balance 4.166 ml 997.500 ml Intake Oral 360 ml IV Total 809.166 ml 1362.500 ml Output Urine Total 805 ml 725 ml Laboratory Tests 11/11/18 10:00: White Blood Count 12.0H, Red Blood Count 3.03L, Hemoglobin 8.8L, Hematocrit 26.4L, Mean Corpuscular Volume 87, Mean Corpuscular Hemoglobin 29.2, Mean Corpuscular Hemoglobin Concent 33.6, Red Cell Distribution Width 12.9, Platelet Count 263, Mean Platelet Volume 5.9L, Neutrophils (%) (Auto) , Lymphocytes (%) ( Auto) , Monocytes (%) (Auto) , Eosinophils (%) (Auto) , Basophils (%) (Auto) , Differential Total Cells Counted 100, Neutrophils % (Manual) 88H, Lymphocytes % (Manual) 5L, Monocytes % (Manual) 6, Eosinophils % (Manual) 1, Basophils % ( Manual) 0, Band Neutrophils 0, Platelet Estimate Adequate, Platelet Morphology Normal, Red Blood Cell Morphology Normal, Sodium Level 143, Potassium Level 4.2 , Chloride Level 107, Carbon Dioxide Level 32, Anion Gap 4L, Blood Urea Nitrogen 20H, Creatinine 1.0, Estimat Glomerular Filtration Rate > 60, Glucose Level 110H, Calcium Level 8.9, Total Bilirubin 1.2H, Direct Bilirubin 0.8H, Aspartate Amino Transf (AST/SGOT) 83H, Alanine Aminotransferase (ALT/SGPT) 222H , Alkaline Phosphatase 711H, Troponin I 0.128H, Total Protein 6.0L, Albumin 1.7L , Globulin 4.3, Albumin/Globulin Ratio 0.4L Height (Feet): 5 Height (Inches): 7.00 Weight (Pounds): 170 General Appearance: WD/WN, alert Neck: supple Cardiovascular: regular rhythm Respiratory/Chest: lungs clear, normal breath sounds, no respiratory distress, no accessory muscle use Abdomen: normal bowel sounds, non tender, soft, no organomegaly Edema: no edema noted Arm (L), no edema noted Arm (R), no edema noted Leg (L), no edema noted Leg (R), no edema noted Pedal (L), no edema noted Pedal (R), no edema noted Generalized Neurologic: motor weakness Terrance Donahue MD Nov 12, 2018 08:26
--- NOTE | 2018-11-12 08:53 | General Progress Note ---
Assessment/Plan Assessment/Plan Status post anterior cervical corpectomy-discectomy at C3-4 and corpectomy/ discectomy C4-5. ACDF C3-4, Disc Arthroplasty C4-5 Spinal Cord compression fevers concern for aspiration spinal cord shock elevated LFT possible shock liver abnormal cxr respiratory failure, acute pneumonia hypoxemia anasarca PLAN post op care neuro follow up cultures noted IV antibiotics ID follow up GI follow up -discussed; eating- monitor adequate nutrition BIPAP management as needed may need airway still labile ICU care pain control plan for extensive rehab once cleared monitor for aspiration repeat cultures Subjective Allergies: Coded Allergies: No Known Allergies (Unverified , 10/28/18) Subjective events noted on BIPAP now off and on 100% awake no significant improvement Objective Last 24 Hour Vital Signs Date Time Temp Pulse Resp B/P (MAP) Pulse Ox O2 Delivery O2 Flow Rate FiO2 11/12/18 08:41 62 12 94 15.0 100 11/12/18 07:27 66 16 100 15.0 100 11/12/18 07:09 64 16 Non-Rebreather 15.0 100 11/12/18 07:09 Non-Rebreather 15.0 100 11/12/18 07:09 100 Non-Rebreather 15.0 100 11/12/18 07:00 98.0 61 14 123/73 (90) 100 11/12/18 06:00 98.6 64 14 113/61 (78) 100 11/12/18 05:00 98.6 68 18 109/58 (75) 99 11/12/18 04:54 64 22 100 Full Face 95 11/12/18 04:00 95 11/12/18 04:00 60 11/12/18 04:00 Bi-pap Bi-pap 11/12/18 04:00 98.6 66 16 121/67 (85) 100 11/12/18 03:00 97.9 55 16 103/59 (74) 100 11/12/18 02:59 62 18 100 Bi-pap 100 11/12/18 02:51 61 26 100 Bi-pap 100 11/12/18 02:49 59 17 100 Full Face 100 11/12/18 02:00 63 16 104/60 (75) 100 11/12/18 01:11 63 26 100 Full Face 100 11/12/18 01:00 65 25 103/65 (78) 100 11/12/18 00:00 67 11/12/18 00:00 Bi-pap Bi-pap 11/12/18 00:00 98.5 57 22 102/62 (75) 100 11/11/18 23:12 64 25 100 Full Face 100 11/11/18 23:00 65 24 107/66 (80) 100 11/11/18 22:04 100 11/11/18 22:00 61 28 98/59 (72) 100 11/11/18 21:13 67 19 100 Facial 95 11/11/18 21:00 68 18 104/59 (74) 100 11/11/18 20:00 64 11/11/18 20:00 98.1 66 16 107/60 (76) 100 11/11/18 20:00 Bi-pap Bi-pap 11/11/18 19:07 73 18 Bi-pap 100 11/11/18 19:07 72 20 100 Facial 100 11/11/18 19:07 100 Bi-pap 100 11/11/18 19:07 Bi-pap 100 11/11/18 19:00 78 21 117/67 (84) 99 11/11/18 18:00 72 18 112/62 (79) 100 11/11/18 17:07 76 21 96 Facial 100 11/11/18 17:00 64 21 108/58 (75) 85 11/11/18 17:00 63 18 88 15.0 100 11/11/18 16:58 63 18 89 Non-Rebreather 15.0 100 11/11/18 16:52 63 18 89 Non-Rebreather 15.0 100 11/11/18 16:00 64 11/11/18 16:00 Simple Mask 15.0 Simple Mask 15.0 11/11/18 16:00 97.8 64 16 119/62 (81) 100 11/11/18 15:15 61 12 100 15.0 100 11/11/18 15:00 72 18 115/58 (77) 100 11/11/18 14:00 75 18 121/58 (79) 100 11/11/18 13:00 68 16 121/62 (81) 100 11/11/18 12:49 64 12 100 15.0 100 11/11/18 12:00 71 11/11/18 12:00 Simple Mask 15.0 Simple Mask 15.0 11/11/18 12:00 99.6 68 15 115/58 (77) 99 11/11/18 11:09 63 13 100 Non-Rebreather 15.0 100 11/11/18 11:08 100 11/11/18 11:00 103/57 (72) 11/11/18 11:00 61 14 99 Non-Rebreather 15.0 100 11/11/18 10:00 60 15 108/62 (77) 100 11/11/18 09:28 54 16 100 Facial 75 11/11/18 09:00 59 18 115/65 (82) 100 Intake and Output 11/11/18 11/12/18 18:59 06:59 Intake Total 809.166 ml 1722.500 ml Output Total 805 ml 725 ml Balance 4.166 ml 997.500 ml Intake Oral 360 ml IV Total 809.166 ml 1362.500 ml Output Urine Total 805 ml 725 ml Laboratory Tests 11/11/18 10:00: White Blood Count 12.0H, Red Blood Count 3.03L, Hemoglobin 8.8L, Hematocrit 26.4L, Mean Corpuscular Volume 87, Mean Corpuscular Hemoglobin 29.2, Mean Corpuscular Hemoglobin Concent 33.6, Red Cell Distribution Width 12.9, Platelet Count 263, Mean Platelet Volume 5.9L, Neutrophils (%) (Auto) , Lymphocytes (%) ( Auto) , Monocytes (%) (Auto) , Eosinophils (%) (Auto) , Basophils (%) (Auto) , Differential Total Cells Counted 100, Neutrophils % (Manual) 88H, Lymphocytes % (Manual) 5L, Monocytes % (Manual) 6, Eosinophils % (Manual) 1, Basophils % ( Manual) 0, Band Neutrophils 0, Platelet Estimate Adequate, Platelet Morphology Normal, Red Blood Cell Morphology Normal, Sodium Level 143, Potassium Level 4.2 , Chloride Level 107, Carbon Dioxide Level 32, Anion Gap 4L, Blood Urea Nitrogen 20H, Creatinine 1.0, Estimat Glomerular Filtration Rate > 60, Glucose Level 110H, Calcium Level 8.9, Total Bilirubin 1.2H, Direct Bilirubin 0.8H, Aspartate Amino Transf (AST/SGOT) 83H, Alanine Aminotransferase (ALT/SGPT) 222H , Alkaline Phosphatase 711H, Troponin I 0.128H, Total Protein 6.0L, Albumin 1.7L , Globulin 4.3, Albumin/Globulin Ratio 0.4L Height (Feet): 5 Height (Inches): 7.00 Weight (Pounds): 170 Objective WDWN NAD clear breath sounds bilaterally without rhonchi or wheeze [id number] without MRG NABS nontender no HSM no CCE alert on BIPAP poor mobility of extremities Pradeep Alvarado MD Nov 12, 2018 08:53
--- NOTE | 2018-11-12 09:33 | NUR ---
NURSE NOTES: tech here to do duplex of lower extremities, negative for dvt
--- NOTE | 2018-11-12 09:37 | NUR ---
NURSE NOTES: Lu filed nurse- case manger calling to check in with pt and details of case.
--- NOTE | 2018-11-12 10:00 | NUR ---
NURSE NOTES: pt refuses to be repositioned. hydration offered and breathing treatment provided. hob>30
--- NOTE | 2018-11-12 10:24 | Diagnostic Imaging Report ---
APPROVED REPORT CPT Code: 09222 Present Symptoms Lower Extremity Pain: BILATERAL: Imaging reveals a patent deep venous system bilaterally. There is no evidence of thrombus within the femoral, popliteal or tibial segments. The greater saphenous veins are also within normal limits. Doppler indicates normal spontaneous flow within these segments.
--- NOTE | 2018-11-12 10:25 | Infectious Diseases Prog Note ---
Assessment/Plan Assessment/Plan antibiotics : vancomycin iv, zosyn A 1. aspiration pneumonia 2. cervical spondylosis s/p surgery 3. fever improving P 1. continue iv vancomycin, zosyn 2 more days 2. will follow up cultures Subjective Constitutional: Denies: fever, chills Respiratory: Reports: shortness of breath, dry cough Gastrointestinal/Abdominal: Reports: other - heartburn; Denies: nausea, vomiting, diarrhea Musculoskeletal: Denies: pain Allergies: Coded Allergies: No Known Allergies (Unverified , 10/28/18) Objective Vital Signs Last 24 Hour Vital Signs Date Time Temp Pulse Resp B/P (MAP) Pulse Ox O2 Delivery O2 Flow Rate FiO2 11/12/18 08:41 62 12 94 15.0 100 11/12/18 07:27 66 16 100 15.0 100 11/12/18 07:09 64 16 Non-Rebreather 15.0 100 11/12/18 07:09 Non-Rebreather 15.0 100 11/12/18 07:09 100 Non-Rebreather 15.0 100 11/12/18 07:00 98.0 61 14 123/73 (90) 100 11/12/18 06:00 98.6 64 14 113/61 (78) 100 11/12/18 05:00 98.6 68 18 109/58 (75) 99 11/12/18 04:54 64 22 100 Full Face 95 11/12/18 04:00 95 11/12/18 04:00 60 11/12/18 04:00 Bi-pap Bi-pap 11/12/18 04:00 98.6 66 16 121/67 (85) 100 11/12/18 03:00 97.9 55 16 103/59 (74) 100 11/12/18 02:59 62 18 100 Bi-pap 100 11/12/18 02:51 61 26 100 Bi-pap 100 11/12/18 02:49 59 17 100 Full Face 100 11/12/18 02:00 63 16 104/60 (75) 100 11/12/18 01:11 63 26 100 Full Face 100 11/12/18 01:00 65 25 103/65 (78) 100 11/12/18 00:00 67 11/12/18 00:00 Bi-pap Bi-pap 11/12/18 00:00 98.5 57 22 102/62 (75) 100 11/11/18 23:12 64 25 100 Full Face 100 11/11/18 23:00 65 24 107/66 (80) 100 11/11/18 22:04 100 11/11/18 22:00 61 28 98/59 (72) 100 11/11/18 21:13 67 19 100 Facial 95 11/11/18 21:00 68 18 104/59 (74) 100 11/11/18 20:00 64 11/11/18 20:00 98.1 66 16 107/60 (76) 100 11/11/18 20:00 Bi-pap Bi-pap 11/11/18 19:07 73 18 Bi-pap 100 11/11/18 19:07 72 20 100 Facial 100 11/11/18 19:07 100 Bi-pap 100 11/11/18 19:07 Bi-pap 100 11/11/18 19:00 78 21 117/67 (84) 99 11/11/18 18:00 72 18 112/62 (79) 100 11/11/18 17:07 76 21 96 Facial 100 11/11/18 17:00 64 21 108/58 (75) 85 11/11/18 17:00 63 18 88 15.0 100 11/11/18 16:58 63 18 89 Non-Rebreather 15.0 100 11/11/18 16:52 63 18 89 Non-Rebreather 15.0 100 11/11/18 16:00 64 11/11/18 16:00 Simple Mask 15.0 Simple Mask 15.0 11/11/18 16:00 97.8 64 16 119/62 (81) 100 11/11/18 15:15 61 12 100 15.0 100 11/11/18 15:00 72 18 115/58 (77) 100 11/11/18 14:00 75 18 121/58 (79) 100 11/11/18 13:00 68 16 121/62 (81) 100 11/11/18 12:49 64 12 100 15.0 100 11/11/18 12:00 71 11/11/18 12:00 Simple Mask 15.0 Simple Mask 15.0 11/11/18 12:00 99.6 68 15 115/58 (77) 99 11/11/18 11:09 63 13 100 Non-Rebreather 15.0 100 11/11/18 11:08 100 11/11/18 11:00 103/57 (72) 11/11/18 11:00 61 14 99 Non-Rebreather 15.0 100 Height (Feet): 5 Height (Inches): 7.00 Weight (Pounds): 170 Respiratory/Chest: lungs clear Cardiovascular: normal rate, regular rhythm, no gallop/murmur Abdomen: soft, non tender Extremities: other - + edema Current Medications Medications (Trade) Dose Ordered Sig/Sharon Route PRN Reason Start Time Stop Time Status Last Admin Dose Admin Albuterol/ Ipratropium (Albuterol/ Ipratropium) 3 ml Q4H PRN HHN Shortness of Breath 11/12/18 02:45 11/17/18 02:44 11/12/18 02:49 Dextrose/ Electrolytes 1,000 ml @ 75 mls/hr [id number] IV 10/28/18 22:46 11/27/18 22:45 11/12/18 06:03 Docusate Sodium (Colace) 250 mg DAILY ORAL 11/03/18 15:45 12/03/18 15:44 11/12/18 08:23 Metoclopramide HCl (Reglan) 5 mg Q8H IVP 11/10/18 13:00 12/10/18 12:59 11/12/18 06:02 Morphine Sulfate (Morphine Sulfate) 1 mg Q4H PRN IVP Severe Pain (Pain Scale 7-10) 11/10/18 08:19 11/15/18 08:18 11/12/18 09:07 Naloxone HCl (Narcan) 0.1 mg PRN PRN IVP RR<12/min, pt unarousable 10/28/18 23:00 11/27/18 22:59 Ondansetron HCl (Zofran) 4 mg Q6H PRN IVP Nausea & Vomiting 11/08/18 21:30 12/08/18 21:29 11/12/18 09:05 Piperacillin Sod/ Tazobactam Sod 3.375 gm/Dextrose 110 ml @ 27.5 mls/hr EVERY 8 HOURS IVPB 11/11/18 14:00 11/16/18 13:59 11/12/18 06:03 Vancomycin HCl (Vanco rx to dose) 1 ea DAILY PRN MISC Per rx protocol 10/31/18 06:30 11/30/18 06:29 Vancomycin HCl 750 mg/Sodium Chloride 275 ml @ 183.333 mls/hr Q8H IVPB 11/11/18 16:00 11/16/18 15:59 11/12/18 08:22 Kenyon Moran MD Nov 12, 2018 10:25
--- NOTE | 2018-11-12 10:30 | NUR ---
Social Service Note MUSHTAQ met with patient to address appointment of a decision maker in the event that patient is unable to make medical decision for himself and to address end of life wishes. Patient was alert, oriented and verbally responsive while wearing bipap. Patient doesn't have an advance directive. Patient states his primary decision maker is his dgt Mar Wilks. If Mar is unable to make a decision on patient's behalf, patient states the next person to contact would be his ex- Mile, then his brother Wojciech and then his [id number] Mamie. Patient expressed that he would hope that his family would discussed treatment all together. Patient states his girlfriend Lia is not to make decisions on his behalf and wouldn't be able to handle the stress. SW address code status, including intubation. Patient would like to remain full code. Patient stated he would like his family to give him a chance, however agreed that if there was no chance of meaningful recovery he would not want his life prolonged artificially. Patient didn't want to complete an advance directive and stated his family knows his wishes. MUSHTAQ discussed with immigration case worker.
--- NOTE | 2018-11-12 10:48 | NUR ---
NURSE NOTES: offered to reposition pt, was very anxious after duplex of lower extremities. called R.T to be present when reposition, pt did not want cervical collar applied. was informed by MD request collar must be applied when repositioning or transferring pt. 02sat 100, pt requested suctioning, audible congestion heard. naso suction done. pt insisted on being placed on bipap, was reassured that o2sat 100%
--- NOTE | 2018-11-12 11:15 | Consultation ---
DATE OF CONSULTATION: 11/11/2018 CARDIOLOGY CONSULTATION CONSULTING PHYSICIAN: Ho Scott M.D. REQUESTING PHYSICIAN: 1. Terrance Donahue M.D. 2. . REASON FOR CONSULTATION: Cardiovascular management following full arrest. HISTORY OF PRESENT ILLNESS: This 63-year-old male underwent cervical spine decompression surgery and anterior diskectomy with fusion several days ago because of cord compression considerations and weakness in the upper and lower extremities. Second surgery was undertaken as well. The patient apparently was on a BiPAP support and being cleaned in the intensive care unit postoperatively. When he became increasingly short of breath, bradycardiac, and then arrested, he had CPR performed for 10 minutes with return of spontaneous circulation, and subsequently he regained his mentations with presently alert and responsive. No prior history of cardiovascular disease noted. SOCIAL HISTORY: Nonsmoker. No alcohol abuse. ALLERGIES: None current. MEDICATIONS: Reviewed. PHYSICAL EXAMINATION: VITAL SIGNS: Blood pressure 98/59, pulse rate 61, respirations 28, afebrile. LUNGS: Few rhonchi. HEART: Regular rhythm and rate. Normal S1 and S2. ABDOMEN: Soft. EXTREMITIES: No edema. LABORATORY AND DIAGNOSTIC DATA: Echocardiogram is pending. Troponin level increased to 0.128. Labs are reviewed. IMPRESSION: 1. Probable primary respiratory failure with secondary bradyarrhythmia leading to full arrest. 2. Shock liver. 3. Postop surgical spine surgery with no signs of acute cord compression. 4. Hypertensive heart disease with labile blood pressure at times. PLAN: 1. Antiplatelet therapy if no surgical contraindications. 2. Cardiac monitoring. 3. ICU care. 4. Avoid beta-blockers at this time due to low range blood pressure readings and heart rate. 5. Trend troponin levels. 6. Check echocardiogram and natriuretic peptide assays. 7. Further recommendations will follow. It is critical to maintain adequate respiratory parameters on ventilation with close monitoring of acid-base status. Ho Scott M.D. DR: JOE JOB#: [id number] CC:
--- NOTE | 2018-11-12 11:16 | NUR ---
RD ASSESSMENT & RECOMMENDATIONS SEE CARE ACTIVITY FOR COMPLETE ASSESSMENT DAILY ESTIMATED NEEDS: Needs based on Surgery, bedbound currently 75kg 25-30 kcals/kg 9119-0919 total kcals 1-2 g protein/kg 75-150 g total protein 25-30 mL/kg 4184-0962 total fluid mLs NUTRITION DIAGNOSIS: Swallowing difficulty r/t cervical spinal surgery as evidenced by pt is s/p anterior cervical corpectomy-discectomy at C3-4 and corpectomy/discectomy, currently w/ cervical collar, previously on liquify pureed, NTL, on BIPAP. PO DIET RECOMMENDATIONS: IF SAFE FOR PO -> liberalized REGULAR/ texture per PHOTOGRAPHER'S MODEL ENTERAL NUTRITION RECOMMENDATIONS: Glucerna 1.5 @ 55ml/hr x 24 hrs to provide 1320ml, 1980kcal, 109g prot, 1002ml free water * IF NOT SAFE FOR PO AND TF MEDICALLY APPROPRIATE, REC TO OBTAIN GI ACCESS, INITIATE TF * Rec carb controlled formula for mildly elev FBGs. * Initiate Glucerna 1.5 @ 15ml/hr 6 hrs, advance 10ml q 4-6 hrs as tolerated to goal rate. * HOB over 30 degrees/ water flush per MD ADDITIONAL RECOMMENDATIONS: * Obtain a calibrated bed scale wt as able * Monitor NPO status, ability for feeds (pt on BIPAP, dysphagia) * Monitor need for TF (TF rec as above) * Ensure TID w/ variable intake * Check A1C for eval of glycemic control * Monitor lytes, replete as needed * W/ GI access or diet order -> add Alex 1pkt BID for skin integrity
--- NOTE | 2018-11-12 11:48 | NUR ---
CASE MANAGEMENT:REVIEW 11/12/18 SI: CERVICAL SPONDYLOSIS S/P ACDF C3-4, DISC ARTHROPLASTY C4-5. ASPIRATION PNEUMONIA 98.0 59 20 116/66 100% ON BIPAP NO LABS NOTED AT THIS TIME IS: IV VANCOMYCIN Q8HRS IV ZOSYN Q8HRS IV REGLAN Q8HRS DUONEB HHN Q4HRS PRN IVF@75/HR IV MORPHINE Q4HRS PRN : ICU STATUS
--- NOTE | 2018-11-12 13:34 | General Surgery Progress Note ---
General Surgery-Progress Note Subjective Procedure Performed ACDF C3-4, Disc Arthroplasty C4-5 Objective Last 24 Hour Vital Signs Date Time Temp Pulse Resp B/P (MAP) Pulse Ox O2 Delivery O2 Flow Rate FiO2 11/12/18 12:51 56 18 99 Facial 90 11/12/18 12:00 54 11/12/18 12:00 98.5 54 18 117/65 (82) 100 11/12/18 11:00 98.0 59 20 116/66 (83) 100 11/12/18 10:51 60 16 99 Facial 100 11/12/18 10:31 64 12 96 15.0 100 11/12/18 10:00 98.3 69 16 112/64 (80) 97 11/12/18 09:00 97.8 66 14 113/64 (80) 96 11/12/18 08:41 62 12 94 15.0 100 11/12/18 08:00 97.6 65 15 111/68 (82) 95 11/12/18 08:00 68 11/12/18 08:00 Simple Mask 15.0 Simple Mask 15.0 11/12/18 07:27 66 16 100 15.0 100 11/12/18 07:09 64 16 Non-Rebreather 15.0 100 11/12/18 07:09 Non-Rebreather 15.0 100 11/12/18 07:09 100 Non-Rebreather 15.0 100 11/12/18 07:00 98.0 61 14 123/73 (90) 100 11/12/18 06:00 98.6 64 14 113/61 (78) 100 11/12/18 05:00 98.6 68 18 109/58 (75) 99 11/12/18 04:54 64 22 100 Full Face 95 11/12/18 04:00 95 11/12/18 04:00 60 11/12/18 04:00 Bi-pap Bi-pap 11/12/18 04:00 98.6 66 16 121/67 (85) 100 11/12/18 03:00 97.9 55 16 103/59 (74) 100 11/12/18 02:59 62 18 100 Bi-pap 100 11/12/18 02:51 61 26 100 Bi-pap 100 11/12/18 02:49 59 17 100 Full Face 100 11/12/18 02:00 63 16 104/60 (75) 100 11/12/18 01:11 63 26 100 Full Face 100 11/12/18 01:00 65 25 103/65 (78) 100 11/12/18 00:00 67 11/12/18 00:00 Bi-pap Bi-pap 11/12/18 00:00 98.5 57 22 102/62 (75) 100 11/11/18 23:12 64 25 100 Full Face 100 11/11/18 23:00 65 24 107/66 (80) 100 11/11/18 22:04 100 11/11/18 22:00 61 28 98/59 (72) 100 11/11/18 21:13 67 19 100 Facial 95 11/11/18 21:00 68 18 104/59 (74) 100 11/11/18 20:00 64 11/11/18 20:00 98.1 66 16 107/60 (76) 100 11/11/18 20:00 Bi-pap Bi-pap 11/11/18 19:07 73 18 Bi-pap 100 11/11/18 19:07 72 20 100 Facial 100 11/11/18 19:07 100 Bi-pap 100 11/11/18 19:07 Bi-pap 100 11/11/18 19:00 78 21 117/67 (84) 99 11/11/18 18:00 72 18 112/62 (79) 100 11/11/18 17:07 76 21 96 Facial 100 11/11/18 17:00 64 21 108/58 (75) 85 11/11/18 17:00 63 18 88 15.0 100 11/11/18 16:58 63 18 89 Non-Rebreather 15.0 100 11/11/18 16:52 63 18 89 Non-Rebreather 15.0 100 11/11/18 16:00 64 11/11/18 16:00 Simple Mask 15.0 Simple Mask 15.0 11/11/18 16:00 97.8 64 16 119/62 (81) 100 11/11/18 15:15 61 12 100 15.0 100 11/11/18 15:00 72 18 115/58 (77) 100 11/11/18 14:00 75 18 121/58 (79) 100 I&O Intake and Output 11/11/18 11/12/18 18:59 06:59 Intake Total 809.166 ml 1722.500 ml Output Total 805 ml 725 ml Balance 4.166 ml 997.500 ml Intake Oral 360 ml IV Total 809.166 ml 1362.500 ml Output Urine Total 805 ml 725 ml Wound: clean Drains: none Abdomen: soft, non-tender, non-distended Imaging MRI of Abdomen: per report. Additional Comments Neuro: DTR's: Right upper 2+ triceps, 1+ biceps, brachioradialis. Right lower: Patella absent, 1+ Achilles, Left upper 2+ all, Lower, Trace Patella, 1+ Achilles. Babinski elicits mass internal flexion / pull away.Sensory intact in all four extremities. Assessment Post-op Diagnosis Spinal Cord compression Additional Comments Respiratory more stable last 24 hrs. Temp remaining down. Dr. Alvarado following. ID, Pulmonary, GI and Neuro following. Sr. Wilson sees patient daily and is in frequent contact with family. Patient improving toward rehab transfer. Leoncio Ventura Nov 12, 2018 13:34
--- NOTE | 2018-11-12 13:42 | NUR ---
NURSE NOTES: pJeffreyPJeffreyT working with pt. bp 111/61, hr 63, rr 16. tolerating well. no c/o pain. family at bedside. will continue to monitor.
--- NOTE | 2018-11-12 14:00 | NUR ---
NURSE NOTES: P.T here to do passive ROM. pt vss. will continue to monitor pt.
--- NOTE | 2018-11-12 15:35 | NUR ---
TRANSFER UPDATE INFORMATION DELIVERY ANALYST NOTED TRANSFER ORDER CALLED DR YU AND ASKED HIM TO PLACE PATIENT ON THE [facility] TRANSFER CENTER LIST FOR TRANSFER TO THEIR NEURO ICU. INFORMATION DELIVERY ANALYST FAXED FACESHEET TO [facility] T: [phone] F: [phone] Addendum: 11/12/18 at 1542 by ANSLEY KELLY LVN LVN FAXED TRANSFER ORDER TO [employer] INFORMATION DELIVERY ANALYST EDUARD BUSTOS T: [phone] F: [phone] Addendum: 11/12/18 at 1555 by ANSLEY KELLY LVN LVN CALLED [facility] AND SPOKE WITH MIKI LIVINGSTON WITH DR MARIE'S, DR YU'S AND THE ICU PHONE NUMBERS ALSO FAXED REQUESTED DOCUMENTS TO MIKI AT [facility] T: [phone] F: [phone]
--- NOTE | 2018-11-12 15:35 | NUR ---
NURSE NOTES: pt c/o pain in neck at 10/10 aching. administer zofran with morphine per MD order. will continue to monitor pt.
--- NOTE | 2018-11-12 15:42 | NUR ---
NURSE NOTES:WOUND CARE FOLLOW-UP NOTES:Pt's spouse was at bedside and was initially resistive to pt being assessed by this wound nurse. Pt's spouse insisted that pt was sleeping and did not wish pt to be disturbed. Spoke to pt's spouse and informed spouse of reason for visit and spouse reluctantly agreed to having pt skin assessed. RT and Nurse in charge Along with 2 assists logged rolled pt for skin assessment.Back, sacrum ,heels and both elbows without any evidence of skin breakdown. Perineal care provided by charge nurse. Protective foam drsg placed on sacrum and both heels as preventive care. Pt then repositioned with pillows .Rt at bedside during entire wound assessment and pt did not exhibit any resp distress . Spoke with Rt regarding previous incident where pt had developed erythema on bridge of nose from Bi-Pap mask.Pt is currently wearing short mask and has Foam tape across bridge of nose and around cheeks and unable to re-evaluate skin. Per Rt Pt declined full facial mask and expressed preference for short mask. Rt stated pt is aware of redness from mask and still expressed preference to wearing short mask. Rt stated skin is being monitored closely. Tx.Plan:Apply Moisture Barrier paste to Sacrum. Cover with Optifoam drsg .Change Q 3 days and prn. Apply Cavilon Skin Barrier to both heels .Cover each heel with Optifoam drsg .Change Q 7 days and prn. APM/FRANCHESKA mattress (already on bed) Reposition at least every 2 hours or as tolerated. Off-Load heels with Pillow.
--- NOTE | 2018-11-12 16:00 | NUR ---
NURSE NOTES: pt refuses to be repositioned. hydration offered and breathing treatment provided. hob>30
--- NOTE | 2018-11-12 16:57 | Cardiology Report ---
APPROVED REPORT EKG Measurement Heart [id number] ME [id number] Normal sinus rhythm Normal ECG
--- NOTE | 2018-11-12 19:00 | NUR ---
HAND-OFF: Report given to roxi. pt in no acute distress. family at bedside.
--- NOTE | 2018-11-12 19:30 | NUR ---
NURSE NOTES: Report received from GRAHAM Porter. Pt's resting in bed, comfortably, in no acute distress at this time. Pt alert and oriented x4, able to make needs known. Pt on Venturi mask FiO2 55% saturating 100%. Afebrile at this time, VS stable, SR on cardiac sonographer. Elkins intact and draining clear yellow urine to gravity. Neck incision clean, dry and intact. Left FA 20 G and R hand 18 G intact. D5 1/2 NS + 20meq KCl running at 75 cc/hr. Unable to move bilateral upper and lower extremities. Safety measures in place with bed locked and in lowest position, side rails x 3 up and bed alarm on. Call light within reach. Will continue to monitor and continue plan of care.
--- NOTE | 2018-11-12 22:00 | NUR ---
NURSE NOTES: Pt was turned with helps from staff, with no acute distress. VS stable. Will continue to monitor.
[2018-11-13] VITALS (24 sets, daily range): BP systolic 104–147; BP diastolic 59–80
--- NOTE | 2018-11-13 | NUR ---
NURSE NOTES: Pt's resting in bed, in no acute distress. VS stable. Will continue to monitor.
[2018-11-13] MEDS: Vancomycin 750 MG in NS 275 ML IVPB SCH ×3 (00:08→16:00)
--- NOTE | 2018-11-13 02:00 | NUR ---
NURSE NOTES: Pt's resting in bed, in no acute distress. VS stable. Will continue to monitor.
--- NOTE | 2018-11-13 04:00 | NUR ---
NURSE NOTES: Pt's resting in bed, in no acute distress. VS stable. Will continue to monitor.
[2018-11-13] MEDS: Morphine Sulfate 2mg/ml Inj(IV/IM USE ONLY) IVP PRN ×2 (04:06→22:59)
[2018-11-13] MEDS: Piperacillin/Tazobactam 3.375 GM in D5W 110 ML IVPB SCH (05:06)
[2018-11-13] MEDS: Metoclopramide 10mg/2ml Inj IVP SCH ×3 (05:06→21:00)
--- NOTE | 2018-11-13 06:00 | NUR ---
NURSE NOTES: Pt's resting in bed, in no acute distress. VS stable. Will continue to monitor.
[2018-11-13 06:05] LABS: HEMATOCRIT 24.7 % (42.0-52.0); HEMOGLOBIN 8.3 G/DL (14.2-18.0); MEAN CORPUSCULAR VOLUME 86 FL (80-99); PLATELET COUNT 312 K/UL (150-450); RED BLOOD COUNT 2.86 M/UL (4.70-6.10); RED CELL DISTRIBUTION WIDTH 12.8 % (11.6-14.8); WHITE BLOOD COUNT 9.7 K/UL (4.8-10.8)
[2018-11-13 06:18] LABS: INR 1.1 (0.9-1.1)
[2018-11-13 06:29] LABS: AMMONIA 38 umol/L (11-32)
[2018-11-13 06:40] LABS: ALANINE AMINOTRANSFERASE 149 U/L (12-78); ALBUMIN 1.6 G/DL (3.4-5.0); ALBUMIN/GLOBULIN RATIO 0.4 (1.0-2.7); ALKALINE PHOSPHATASE 571 U/L (46-116); ANION GAP 3 mmol/L (5-15); ASPARTATE AMINO TRANSFERASE 47 U/L (15-37); BILIRUBIN,TOTAL 0.9 MG/DL (0.2-1.0); BLOOD UREA NITROGEN 15 mg/dL (7-18); CALCIUM 8.6 MG/DL (8.5-10.1); CARBON DIOXIDE 32 MMOL/L (21-32); CHLORIDE 104 MMOL/L (98-107); POTASSIUM 4.4 MMOL/L (3.5-5.1); SODIUM 139 MMOL/L (136-145)
--- NOTE | 2018-11-13 07:25 | NUR ---
RESPIRATORY NOTE: Patient received on BiPAP on facial mask with current ordered settings. BiPAP is connected to a red outlet and the the alarms are functional and audible. Removed face mask to asses facial skin to reveal minimal redness at the bridge of the nose with no skin breakdown noted, RN notified. Cleaned face and added moisturizer to lips. Patient requested to be off the BiPAP, I explained to patient to notify RT/RN when he felt he needed to be placed back, patient agreed. Placed patient on Venturi mask 55% at 14L. There is no respiratory distress or shortness of breath noted. Patient is tolerating venturi mask and maintaining oxygen levels. RN was notified. Will continue to monitor.
--- NOTE | 2018-11-13 07:30 | NUR ---
HAND-OFF: Report given to GRAHAM Marquez.
--- NOTE | 2018-11-13 07:45 | NUR ---
NURSE NOTES: Received the patient from GRAHAM Underwood. Patient awake, alert and oriented, verbally responsive, resting in bed comfortably. On Bipap 17/8, FIO2 to 45%, O2 sat 96%. Afebrile. SR noted on the monitor. Elkins cath intact and patent, draining kahlil urine by gravity. Right hand 18G and left forearm 20G intact, running D51/2NS w/ 20meq KCl at 75ml/hr. Surgical site with steri strips intact, clean, and dry. Unable to move all extremities. Bed in lowest position, locked, side rails upx3. Bed alarm on. Call light within reach. Will continue to monitor.
--- NOTE | 2018-11-13 07:56 | General Progress Note ---
Assessment/Plan Problem List: (1) Weakness ICD Codes: R53.1 - Weakness SNOMED: 45232131 (2) Cervical spine arthritis ICD Codes: M47.812 - Spondylosis without myelopathy or radiculopathy, cervical region SNOMED: 264709594 (3) Cervical disc disorder ICD Codes: M50.90 - Cervical disc disorder, unspecified, unspecified cervical region SNOMED: 352433747 (4) Hospital acquired PNA ICD Codes: J18.9 - Pneumonia, unspecified organism SNOMED: 552428577 (5) Sepsis ICD Codes: A41.9 - Sepsis, unspecified organism SNOMED: 66638297 (6) Cardiac arrest ICD Codes: I46.9 - Cardiac arrest, cause unspecified SNOMED: 596000741 (7) Hepatitis ICD Codes: K75.9 - Inflammatory liver disease, unspecified SNOMED: 934560405 Status: stable, not improved Assessment/Plan resp care o2- wean as able pain rx ivf iv abx per id dvt/stress ulcer prophylaxis spine follow up bowel regime remains critical and guarded Subjective ROS Limited/Unobtainable: No Constitutional: Reports: weakness HEENT: Reports: no symptoms Cardiovascular: Reports: no symptoms Respiratory: Reports: no symptoms Gastrointestinal/Abdominal: Reports: constipated Genitourinary: Reports: no symptoms Neurologic/Psychiatric: Reports: no symptoms, pre-existing deficit, weakness Hematologic/Lymphatic: Reports: no symptoms Allergies: Coded Allergies: No Known Allergies (Unverified , 10/28/18) All Systems: reviewed and negative except above Subjective no events. remains on venti mask. c/o constipation. no cp/sob. awaiting bed at [facility] Objective Last 24 Hour Vital Signs Date Time Temp Pulse Resp B/P (MAP) Pulse Ox O2 Delivery O2 Flow Rate FiO2 11/13/18 07:00 98.0 63 15 130/70 (90) 100 11/13/18 06:00 98.4 54 15 141/74 (96) 100 11/13/18 05:18 54 14 100 Facial 45 11/13/18 05:00 98.0 59 15 104/65 (78) 100 11/13/18 04:00 Simple Mask 15.0 Simple Mask 15.0 11/13/18 04:00 55 11/13/18 04:00 70 11/13/18 04:00 98.2 59 15 135/76 (95) 100 11/13/18 03:00 98.0 61 15 129/69 (89) 100 11/13/18 02:40 60 14 100 Facial 50 11/13/18 02:40 60 14 100 Facial 45 11/13/18 02:00 97.8 56 15 115/59 (77) 100 11/13/18 01:00 97.8 60 15 130/59 (82) 100 11/13/18 00:35 59 17 100 Facial 55 11/13/18 00:00 Simple Mask 15.0 Simple Mask 15.0 11/13/18 00:00 98.2 60 15 126/67 (86) 100 11/13/18 00:00 57 11/13/18 00:00 95 11/12/18 23:48 65 27 100 Bi-pap 55 11/12/18 23:37 65 19 100 Facial 55 11/12/18 23:37 71 35 99 Bi-pap 55 11/12/18 23:00 98.0 70 15 123/63 (83) 100 11/12/18 22:00 98.3 76 15 120/58 (78) 97 11/12/18 21:00 98.2 82 13 118/62 (80) 95 11/12/18 21:00 69 14 98 14.0 55 11/12/18 20:05 73 13 100 Venturi Mask 14.0 55 11/12/18 20:00 73 11/12/18 20:00 Simple Mask 15.0 Simple Mask 15.0 11/12/18 20:00 98.2 70 13 122/65 (84) 100 11/12/18 19:54 66 18 98 Venturi Mask 14.0 55 11/12/18 19:13 67 13 98 14.0 55 11/12/18 19:11 98 Venturi Mask 14.0 55 11/12/18 19:11 70 16 Venturi Mask 14.0 55 11/12/18 19:11 Venturi Mask 14.0 55 11/12/18 19:00 98.6 68 16 124/65 (84) 95 11/12/18 18:00 98.8 73 20 116/66 (83) 96 11/12/18 17:14 72 12 98 15.0 100 11/12/18 17:00 99.0 63 11 114/56 (75) 100 11/12/18 16:00 79 11/12/18 16:00 97.6 68 10 114/56 (75) 100 11/12/18 16:00 Simple Mask 15.0 Simple Mask 15.0 11/12/18 15:00 98.3 87 17 114/57 (76) 95 11/12/18 14:38 76 16 99 14.0 55 11/12/18 14:24 63 11 100 Non-Rebreather 15.0 100 11/12/18 14:14 64 12 100 Non-Rebreather 15.0 100 11/12/18 14:00 98.3 66 14 112/63 (79) 98 11/12/18 13:49 59 16 100 15.0 100 11/12/18 13:00 99.6 56 10 111/61 (78) 100 11/12/18 12:51 56 18 99 Facial 90 11/12/18 12:00 Simple Mask 15.0 Simple Mask 15.0 11/12/18 12:00 54 11/12/18 12:00 98.5 54 18 117/65 (82) 100 11/12/18 11:00 98.0 59 20 116/66 (83) 100 11/12/18 10:51 60 16 99 Facial 100 11/12/18 10:31 64 12 96 15.0 100 11/12/18 10:00 98.3 69 16 112/64 (80) 97 11/12/18 09:00 97.8 66 14 113/64 (80) 96 11/12/18 08:41 62 12 94 15.0 100 11/12/18 08:00 97.6 65 15 111/68 (82) 95 11/12/18 08:00 68 11/12/18 08:00 Simple Mask 15.0 Simple Mask 15.0 Intake and Output 11/12/18 11/13/18 19:00 07:00 Intake Total 2195.832 ml 312.5 ml Output Total 710 ml 660 ml Balance 1485.832 ml -347.5 ml Intake Oral 520 ml 60 ml IV Total 1675.832 ml 252.5 ml Output Urine Total 710 ml 660 ml Laboratory Tests 11/13/18 05:35: White Blood Count 9.7, Red Blood Count 2.86L, Hemoglobin 8.3L, Hematocrit 24.7L , Mean Corpuscular Volume 86, Mean Corpuscular Hemoglobin 29.2, Mean Corpuscular Hemoglobin Concent 33.8, Red Cell Distribution Width 12.8, Platelet Count 312, Mean Platelet Volume 5.2L, Neutrophils (%) (Auto) , Lymphocytes (%) ( Auto) , Monocytes (%) (Auto) , Eosinophils (%) (Auto) , Basophils (%) (Auto) , Prothrombin Time 11.4, Prothromb Time International Ratio 1.1, Sodium Level 139 , Potassium Level 4.4, Chloride Level 104, Carbon Dioxide Level 32, Anion Gap 3L , Blood Urea Nitrogen 15, Creatinine 1.0, Estimat Glomerular Filtration Rate > 60, Glucose Level 111H, Calcium Level 8.6, Total Bilirubin 0.9, Aspartate Amino Transf (AST/SGOT) 47H, Alanine Aminotransferase (ALT/SGPT) 149H, Alkaline Phosphatase 571H, Ammonia 38H, Total Protein 5.6L, Albumin 1.6L, Globulin 4.0, Albumin/Globulin Ratio 0.4L Height (Feet): 5 Height (Inches): 7.00 Weight (Pounds): 170 Objective General Appearance: WD/WN, alert Neck: supple Cardiovascular: regular rhythm Respiratory/Chest: lungs clear, normal breath sounds, no respiratory distress, no accessory muscle use Abdomen: normal bowel sounds, non tender, soft, no organomegaly Edema: no edema noted Arm (L), no edema noted Arm (R), no edema noted Leg (L), no edema noted Leg (R), no edema noted Pedal (L), no edema noted Pedal (R), no edema noted Generalized Neurologic: motor weakness- quadraplegic Terrance Donahue MD Nov 13, 2018 07:56
[2018-11-13] MEDS: Docusate 250mg cap ORAL SCH (08:55)
[2018-11-13] MEDS: Milk of Magnesia 30ml Ud ORAL PRN (09:36)
--- NOTE | 2018-11-13 10:00 | NUR ---
NURSE NOTES: Patient had 75% of breakfast, 1:1 feed. HOB elevated. VSS, afebrile. Patient kept clean and dry.
--- NOTE | 2018-11-13 10:06 | NUR ---
RESPIRATORY NOTE: Patient requested to be placed back on BiPAP. Re-taped face with extra layers of foam tape for skin protection and placed on full face mask. Patient tolerating well and oxygen levels are maintained above 95%. No respiratory distress or shortness of breath noted at this time. RN notified. Will continue to monitor.
--- NOTE | 2018-11-13 10:28 | General Progress Note ---
Assessment/Plan Assessment/Plan Status post anterior cervical corpectomy-discectomy at C3-4 and corpectomy/ discectomy C4-5. ACDF C3-4, Disc Arthroplasty C4-5 Spinal Cord compression fevers concern for aspiration spinal cord shock elevated LFT possible shock liver abnormal cxr respiratory failure, acute pneumonia hypoxemia anasarca PLAN post op care neuro follow up cultures noted IV antibiotics ID follow up GI follow up -discussed; eating- monitor adequate nutrition BIPAP management as needed may need airway still labile ICU care pain control plan for extensive rehab once cleared monitor for aspiration repeat cultures Subjective Allergies: Coded Allergies: No Known Allergies (Unverified , 10/28/18) Subjective events noted on BIPAP now off and on 100% same no significant improvement Objective Last 24 Hour Vital Signs Date Time Temp Pulse Resp B/P (MAP) Pulse Ox O2 Delivery O2 Flow Rate FiO2 11/13/18 10:00 76 17 127/63 (84) 99 11/13/18 09:16 99 11/13/18 09:00 98.6 65 16 139/74 (95) 100 11/13/18 08:00 63 15 134/72 (92) 100 11/13/18 08:00 Venturi Mask 14.0 11/13/18 07:25 Venturi Mask 14.0 55 11/13/18 07:24 98 Venturi Mask 14.0 55 11/13/18 07:23 97 20 Venturi Mask 14.0 55 11/13/18 07:22 98 11/13/18 07:00 98.0 63 15 130/70 (90) 100 11/13/18 06:00 98.4 54 15 141/74 (96) 100 11/13/18 05:18 54 14 100 Facial 45 11/13/18 05:00 98.0 59 15 104/65 (78) 100 11/13/18 04:00 Simple Mask 15.0 Simple Mask 15.0 11/13/18 04:00 55 11/13/18 04:00 70 11/13/18 04:00 98.2 59 15 135/76 (95) 100 11/13/18 03:00 98.0 61 15 129/69 (89) 100 11/13/18 02:40 60 14 100 Facial 50 11/13/18 02:40 60 14 100 Facial 45 11/13/18 02:00 97.8 56 15 115/59 (77) 100 11/13/18 01:00 97.8 60 15 130/59 (82) 100 11/13/18 00:35 59 17 100 Facial 55 11/13/18 00:00 Simple Mask 15.0 Simple Mask 15.0 11/13/18 00:00 98.2 60 15 126/67 (86) 100 11/13/18 00:00 57 11/13/18 00:00 95 11/12/18 23:48 65 27 100 Bi-pap 55 11/12/18 23:37 65 19 100 Facial 55 11/12/18 23:37 71 35 99 Bi-pap 55 11/12/18 23:00 98.0 70 15 123/63 (83) 100 11/12/18 22:00 98.3 76 15 120/58 (78) 97 11/12/18 21:00 98.2 82 13 118/62 (80) 95 11/12/18 21:00 69 14 98 14.0 55 11/12/18 20:05 73 13 100 Venturi Mask 14.0 55 11/12/18 20:00 73 11/12/18 20:00 Simple Mask 15.0 Simple Mask 15.0 11/12/18 20:00 98.2 70 13 122/65 (84) 100 11/12/18 19:54 66 18 98 Venturi Mask 14.0 55 11/12/18 19:13 67 13 98 14.0 55 11/12/18 19:11 98 Venturi Mask 14.0 55 11/12/18 19:11 70 16 Venturi Mask 14.0 55 11/12/18 19:11 Venturi Mask 14.0 55 11/12/18 19:00 98.6 68 16 124/65 (84) 95 11/12/18 18:00 98.8 73 20 116/66 (83) 96 11/12/18 17:14 72 12 98 15.0 100 11/12/18 17:00 99.0 63 11 114/56 (75) 100 11/12/18 16:00 79 11/12/18 16:00 97.6 68 10 114/56 (75) 100 11/12/18 16:00 Simple Mask 15.0 Simple Mask 15.0 11/12/18 15:00 98.3 87 17 114/57 (76) 95 11/12/18 14:38 76 16 99 14.0 55 11/12/18 14:24 63 11 100 Non-Rebreather 15.0 100 11/12/18 14:14 64 12 100 Non-Rebreather 15.0 100 11/12/18 14:00 98.3 66 14 112/63 (79) 98 11/12/18 13:49 59 16 100 15.0 100 11/12/18 13:00 99.6 56 10 111/61 (78) 100 11/12/18 12:51 56 18 99 Facial 90 11/12/18 12:00 Simple Mask 15.0 Simple Mask 15.0 11/12/18 12:00 54 11/12/18 12:00 98.5 54 18 117/65 (82) 100 11/12/18 11:00 98.0 59 20 116/66 (83) 100 11/12/18 10:51 60 16 99 Facial 100 11/12/18 10:31 64 12 96 15.0 100 Intake and Output 11/12/18 11/13/18 19:00 07:00 Intake Total 2195.832 ml 1400.000 ml Output Total 710 ml 660 ml Balance 1485.832 ml 740.000 ml Intake Oral 520 ml 60 ml IV Total 1675.832 ml 1340.000 ml Output Urine Total 710 ml 660 ml Laboratory Tests 11/13/18 05:35: White Blood Count 9.7, Red Blood Count 2.86L, Hemoglobin 8.3L, Hematocrit 24.7L , Mean Corpuscular Volume 86, Mean Corpuscular Hemoglobin 29.2, Mean Corpuscular Hemoglobin Concent 33.8, Red Cell Distribution Width 12.8, Platelet Count 312, Mean Platelet Volume 5.2L, Neutrophils (%) (Auto) , Lymphocytes (%) ( Auto) , Monocytes (%) (Auto) , Eosinophils (%) (Auto) , Basophils (%) (Auto) , Prothrombin Time 11.4, Prothromb Time International Ratio 1.1, Sodium Level 139 , Potassium Level 4.4, Chloride Level 104, Carbon Dioxide Level 32, Anion Gap 3L , Blood Urea Nitrogen 15, Creatinine 1.0, Estimat Glomerular Filtration Rate > 60, Glucose Level 111H, Calcium Level 8.6, Total Bilirubin 0.9, Aspartate Amino Transf (AST/SGOT) 47H, Alanine Aminotransferase (ALT/SGPT) 149H, Alkaline Phosphatase 571H, Ammonia 38H, Total Protein 5.6L, Albumin 1.6L, Globulin 4.0, Albumin/Globulin Ratio 0.4L Height (Feet): 5 Height (Inches): 7.00 Weight (Pounds): 170 Objective WDWN NAD clear breath sounds bilaterally without rhonchi or wheeze [id number] without MRG NABS nontender no HSM no CCE alert on BIPAP poor mobility of extremities Pradeep Alvarado MD Nov 13, 2018 10:28
--- NOTE | 2018-11-13 10:40 | Infectious Diseases Prog Note ---
Assessment/Plan Assessment/Plan antibiotics : vancomycin iv, zosyn A 1. aspiration pneumonia 2. cervical spondylosis s/p surgery 3. respiratory failure P 1. continue iv vancomycin 2. d/c zosyn 3. start meropenem 4. sputum culture 5. will follow up cultures Subjective Constitutional: Denies: fever, chills Respiratory: Reports: shortness of breath, dry cough Gastrointestinal/Abdominal: Denies: nausea, vomiting, diarrhea Musculoskeletal: Denies: pain Allergies: Coded Allergies: No Known Allergies (Unverified , 10/28/18) Objective Vital Signs Last 24 Hour Vital Signs Date Time Temp Pulse Resp B/P (MAP) Pulse Ox O2 Delivery O2 Flow Rate FiO2 11/13/18 10:00 76 17 127/63 (84) 99 11/13/18 09:16 99 11/13/18 09:00 98.6 65 16 139/74 (95) 100 11/13/18 08:00 63 15 134/72 (92) 100 11/13/18 08:00 Venturi Mask 14.0 11/13/18 07:25 Venturi Mask 14.0 55 11/13/18 07:24 98 Venturi Mask 14.0 55 11/13/18 07:23 97 20 Venturi Mask 14.0 55 11/13/18 07:22 98 11/13/18 07:00 98.0 63 15 130/70 (90) 100 11/13/18 06:00 98.4 54 15 141/74 (96) 100 11/13/18 05:18 54 14 100 Facial 45 11/13/18 05:00 98.0 59 15 104/65 (78) 100 11/13/18 04:00 Simple Mask 15.0 Simple Mask 15.0 11/13/18 04:00 55 11/13/18 04:00 70 11/13/18 04:00 98.2 59 15 135/76 (95) 100 11/13/18 03:00 98.0 61 15 129/69 (89) 100 11/13/18 02:40 60 14 100 Facial 50 11/13/18 02:40 60 14 100 Facial 45 11/13/18 02:00 97.8 56 15 115/59 (77) 100 11/13/18 01:00 97.8 60 15 130/59 (82) 100 11/13/18 00:35 59 17 100 Facial 55 11/13/18 00:00 Simple Mask 15.0 Simple Mask 15.0 11/13/18 00:00 98.2 60 15 126/67 (86) 100 11/13/18 00:00 57 11/13/18 00:00 95 11/12/18 23:48 65 27 100 Bi-pap 55 11/12/18 23:37 65 19 100 Facial 55 11/12/18 23:37 71 35 99 Bi-pap 55 11/12/18 23:00 98.0 70 15 123/63 (83) 100 11/12/18 22:00 98.3 76 15 120/58 (78) 97 11/12/18 21:00 98.2 82 13 118/62 (80) 95 11/12/18 21:00 69 14 98 14.0 55 11/12/18 20:05 73 13 100 Venturi Mask 14.0 55 11/12/18 20:00 73 11/12/18 20:00 Simple Mask 15.0 Simple Mask 15.0 11/12/18 20:00 98.2 70 13 122/65 (84) 100 11/12/18 19:54 66 18 98 Venturi Mask 14.0 55 11/12/18 19:13 67 13 98 14.0 55 11/12/18 19:11 98 Venturi Mask 14.0 55 11/12/18 19:11 70 16 Venturi Mask 14.0 55 11/12/18 19:11 Venturi Mask 14.0 55 11/12/18 19:00 98.6 68 16 124/65 (84) 95 11/12/18 18:00 98.8 73 20 116/66 (83) 96 11/12/18 17:14 72 12 98 15.0 100 11/12/18 17:00 99.0 63 11 114/56 (75) 100 11/12/18 16:00 79 11/12/18 16:00 97.6 68 10 114/56 (75) 100 11/12/18 16:00 Simple Mask 15.0 Simple Mask 15.0 11/12/18 15:00 98.3 87 17 114/57 (76) 95 11/12/18 14:38 76 16 99 14.0 55 11/12/18 14:24 63 11 100 Non-Rebreather 15.0 100 3/12/19 14:14 64 12 100 Non-Rebreather 15.0 100 11/12/18 14:00 98.3 66 14 112/63 (79) 98 11/12/18 13:49 59 16 100 15.0 100 11/12/18 13:00 99.6 56 10 111/61 (78) 100 11/12/18 12:51 56 18 99 Facial 90 11/12/18 12:00 Simple Mask 15.0 Simple Mask 15.0 11/12/18 12:00 54 11/12/18 12:00 98.5 54 18 117/65 (82) 100 11/12/18 11:00 98.0 59 20 116/66 (83) 100 11/12/18 10:51 60 16 99 Facial 100 Height (Feet): 5 Height (Inches): 7.00 Weight (Pounds): 170 HEENT: other - on bipap Respiratory/Chest: lungs clear Cardiovascular: normal rate, regular rhythm, no gallop/murmur Abdomen: soft, non tender Extremities: other - + edema Laboratory Tests Test 11/13/18 05:35 White Blood Count 9.7 K/UL (4.8-10.8) Red Blood Count 2.86 M/UL (4.70-6.10) L Hemoglobin 8.3 G/DL (14.2-18.0) L Hematocrit 24.7 % (42.0-52.0) L Mean Corpuscular Volume 86 FL (80-99) Mean Corpuscular Hemoglobin 29.2 PG (27.0-31.0) Mean Corpuscular Hemoglobin Concent 33.8 G/DL (32.0-36.0) Red Cell Distribution Width 12.8 % (11.6-14.8) Platelet Count 312 K/UL (150-450) Mean Platelet Volume 5.2 FL (6.5-10.1) L Neutrophils (%) (Auto) % (45.0-75.0) Lymphocytes (%) (Auto) % (20.0-45.0) Monocytes (%) (Auto) % (1.0-10.0) Eosinophils (%) (Auto) % (0.0-3.0) Basophils (%) (Auto) % (0.0-2.0) Prothrombin Time 11.4 SEC (9.30-11.50) Prothromb Time International Ratio 1.1 (0.9-1.1) Sodium Level 139 MMOL/L (136-145) Potassium Level 4.4 MMOL/L (3.5-5.1) Chloride Level 104 MMOL/L (98-107) Carbon Dioxide Level 32 MMOL/L (21-32) Anion Gap 3 mmol/L (5-15) L Blood Urea Nitrogen 15 mg/dL (7-18) Creatinine 1.0 MG/DL (0.55-1.30) Estimat Glomerular Filtration Rate > 60 mL/min (>60) Glucose Level 111 MG/DL (74-106) H Calcium Level 8.6 MG/DL (8.5-10.1) Total Bilirubin 0.9 MG/DL (0.2-1.0) Aspartate Amino Transf (AST/SGOT) 47 U/L (15-37) H Alanine Aminotransferase (ALT/SGPT) 149 U/L (12-78) H Alkaline Phosphatase 571 U/L (46-116) H Ammonia 38 umol/L (11-32) H Total Protein 5.6 G/DL (6.4-8.2) L Albumin 1.6 G/DL (3.4-5.0) L Globulin 4.0 g/dL Albumin/Globulin Ratio 0.4 (1.0-2.7) L Current Medications Medications (Trade) Dose Ordered Sig/Sharon Route PRN Reason Start Time Stop Time Status Last Admin Dose Admin Albuterol/ Ipratropium (Albuterol/ Ipratropium) 3 ml Q4H PRN HHN Shortness of Breath 11/12/18 02:45 11/17/18 02:44 11/12/18 23:37 Dextrose/ Electrolytes 1,000 ml @ 75 mls/hr [id number] IV 10/28/18 22:46 11/27/18 22:45 11/12/18 20:40 Diphenhydramine HCl (Benadryl) 25 mg HSPRN PRN ORAL Insomnia 11/12/18 18:45 12/12/18 18:44 11/13/18 00:12 Docusate Sodium (Colace) 250 mg DAILY ORAL 11/03/18 15:45 12/03/18 15:44 11/13/18 08:55 Magnesium Hydroxide (Mom) 30 ml DAILY PRN ORAL Constipation 11/13/18 08:28 12/13/18 20:59 11/13/18 09:36 Metoclopramide HCl (Reglan) 5 mg Q8H IVP 11/10/18 13:00 12/10/18 12:59 11/13/18 05:06 Morphine Sulfate (Morphine Sulfate) 1 mg Q4H PRN IVP Severe Pain (Pain Scale 7-10) 11/10/18 08:19 11/15/18 08:18 11/13/18 04:06 Naloxone HCl (Narcan) 0.1 mg PRN PRN IVP RR<12/min, pt unarousable 10/28/18 23:00 11/27/18 22:59 Ondansetron HCl (Zofran) 4 mg Q6H PRN IVP Nausea & Vomiting 11/08/18 21:30 12/08/18 21:29 11/12/18 15:34 Piperacillin Sod/ Tazobactam Sod 3.375 gm/Dextrose 110 ml @ 27.5 mls/hr EVERY 8 HOURS IVPB 11/11/18 14:00 11/16/18 13:59 11/13/18 05:06 Vancomycin HCl (Vanco rx to dose) 1 ea DAILY PRN MISC Per rx protocol 10/31/18 06:30 11/30/18 06:29 Vancomycin HCl 750 mg/Sodium Chloride 275 ml @ 183.333 mls/hr Q8H IVPB 11/11/18 16:00 11/16/18 15:59 11/13/18 08:55 Kenyon Moran MD Nov 13, 2018 10:40
--- NOTE | 2018-11-13 10:58 | NUR ---
HAND-OFF: Report given to GRAHAM Leon.
--- NOTE | 2018-11-13 11:14 | NUR ---
NURSE NOTES: Received the patient from GRAHAM Flores. Family at bedside. Patient asleep, verbally responsive when aroused, resting in bed comfortably. On Bipap 17/8, FIO2 to 45%, O2 sat 99%. Lung sounds clear bilaterally. 99.4 Temp cooling blanket on. SB noted on the monitor HR of 58. Hypoactive bowel sounds present on all 4 quadrants. Elkins cath intact and patent, draining kahlil urine by gravity. Right hand 18G and left forearm 20G intact, running D51/2NS w/ 20meq KCl at 75ml/hr. Surgical site with steri strips intact, clean, and dry. Unable to move all extremities. Bed in lowest position, locked, side rails upx2. Bed alarm on. Call light within reach. Will continue to monitor patient and follow plan of care.
[2018-11-13] MEDS: Meropenem 1 GM in NS 55 ML IVPB SCH ×2 (12:00→21:00)
--- NOTE | 2018-11-13 12:00 | NUR ---
NURSE NOTES: Refused repositioning. Patient on Bipap. Family at bedside. Will continue plan of care. VSS. Episodes of bradicaria HR 55-59 when asleep.
[2018-11-13] MEDS: D5 1/2NS w/KCl 20mEq 1,000 ML IV SCH (12:33)
--- NOTE | 2018-11-13 13:09 | NUR ---
PT NOTE: Pt refused participation in PT treatment session due to feeling SOB. Pt educated on the importance of therapeutic exercises and PROM. Will attempt PT at a later time. Notified nurse.
--- NOTE | 2018-11-13 13:14 | General Surgery Progress Note ---
General Surgery-Progress Note Subjective Procedure Performed ACDF C3-4, Disc Arthroplasty C4-5 Objective Last 24 Hour Vital Signs Date Time Temp Pulse Resp B/P (MAP) Pulse Ox O2 Delivery O2 Flow Rate FiO2 11/13/18 12:56 69 23 100 Full Face 45 11/13/18 12:00 63 17 144/75 (98) 99 11/13/18 12:00 Venturi Mask 14.0 11/13/18 12:00 45 11/13/18 12:00 59 11/13/18 11:00 55 17 133/69 (90) 99 11/13/18 10:30 75 26 97 Full Face 45 11/13/18 10:06 97 11/13/18 10:00 76 17 127/63 (84) 99 11/13/18 09:16 99 11/13/18 09:00 98.6 65 16 139/74 (95) 100 11/13/18 08:00 62 11/13/18 08:00 45 11/13/18 08:00 63 15 134/72 (92) 100 11/13/18 08:00 Venturi Mask 14.0 11/13/18 07:25 Venturi Mask 14.0 55 11/13/18 07:24 98 Venturi Mask 14.0 55 11/13/18 07:23 97 20 Venturi Mask 14.0 55 11/13/18 07:22 98 11/13/18 07:00 98.0 63 15 130/70 (90) 100 11/13/18 06:00 98.4 54 15 141/74 (96) 100 11/13/18 05:18 54 14 100 Facial 45 11/13/18 05:00 98.0 59 15 104/65 (78) 100 11/13/18 04:00 Simple Mask 15.0 Simple Mask 15.0 11/13/18 04:00 55 11/13/18 04:00 70 11/13/18 04:00 98.2 59 15 135/76 (95) 100 11/13/18 03:00 98.0 61 15 129/69 (89) 100 11/13/18 02:40 60 14 100 Facial 50 11/13/18 02:40 60 14 100 Facial 45 11/13/18 02:00 97.8 56 15 115/59 (77) 100 11/13/18 01:00 97.8 60 15 130/59 (82) 100 11/13/18 00:35 59 17 100 Facial 55 11/13/18 00:00 Simple Mask 15.0 Simple Mask 15.0 11/13/18 00:00 98.2 60 15 126/67 (86) 100 11/13/18 00:00 57 11/13/18 00:00 95 11/12/18 23:48 65 27 100 Bi-pap 55 11/12/18 23:37 65 19 100 Facial 55 11/12/18 23:37 71 35 99 Bi-pap 55 11/12/18 23:00 98.0 70 15 123/63 (83) 100 11/12/18 22:00 98.3 76 15 120/58 (78) 97 11/12/18 21:00 98.2 82 13 118/62 (80) 95 11/12/18 21:00 69 14 98 14.0 55 11/12/18 20:05 73 13 100 Venturi Mask 14.0 55 11/12/18 20:00 73 11/12/18 20:00 Simple Mask 15.0 Simple Mask 15.0 11/12/18 20:00 98.2 70 13 122/65 (84) 100 11/12/18 19:54 66 18 98 Venturi Mask 14.0 55 11/12/18 19:13 67 13 98 14.0 55 11/12/18 19:11 98 Venturi Mask 14.0 55 11/12/18 19:11 70 16 Venturi Mask 14.0 55 11/12/18 19:11 Venturi Mask 14.0 55 11/12/18 19:00 98.6 68 16 124/65 (84) 95 11/12/18 18:00 98.8 73 20 116/66 (83) 96 11/12/18 17:14 72 12 98 15.0 100 11/12/18 17:00 99.0 63 11 114/56 (75) 100 11/12/18 16:00 79 11/12/18 16:00 97.6 68 10 114/56 (75) 100 11/12/18 16:00 Simple Mask 15.0 Simple Mask 15.0 11/12/18 15:00 98.3 87 17 114/57 (76) 95 11/12/18 14:38 76 16 99 14.0 55 11/12/18 14:24 63 11 100 Non-Rebreather 15.0 100 11/12/18 14:14 64 12 100 Non-Rebreather 15.0 100 11/12/18 14:00 98.3 66 14 112/63 (79) 98 11/12/18 13:49 59 16 100 15.0 100 I&O Intake and Output 11/12/18 11/13/18 19:00 07:00 Intake Total 2195.832 ml 1400.000 ml Output Total 710 ml 660 ml Balance 1485.832 ml 740.000 ml Intake Oral 520 ml 60 ml IV Total 1675.832 ml 1340.000 ml Output Urine Total 710 ml 660 ml Wound: clean Drains: none Laboratory Tests Test 11/13/18 05:35 White Blood Count 9.7 K/UL (4.8-10.8) Red Blood Count 2.86 M/UL (4.70-6.10) L Hemoglobin 8.3 G/DL (14.2-18.0) L Hematocrit 24.7 % (42.0-52.0) L Mean Corpuscular Volume 86 FL (80-99) Mean Corpuscular Hemoglobin 29.2 PG (27.0-31.0) Mean Corpuscular Hemoglobin Concent 33.8 G/DL (32.0-36.0) Red Cell Distribution Width 12.8 % (11.6-14.8) Platelet Count 312 K/UL (150-450) Mean Platelet Volume 5.2 FL (6.5-10.1) L Neutrophils (%) (Auto) % (45.0-75.0) Lymphocytes (%) (Auto) % (20.0-45.0) Monocytes (%) (Auto) % (1.0-10.0) Eosinophils (%) (Auto) % (0.0-3.0) Basophils (%) (Auto) % (0.0-2.0) Prothrombin Time 11.4 SEC (9.30-11.50) Prothromb Time International Ratio 1.1 (0.9-1.1) Sodium Level 139 MMOL/L (136-145) Potassium Level 4.4 MMOL/L (3.5-5.1) Chloride Level 104 MMOL/L (98-107) Carbon Dioxide Level 32 MMOL/L (21-32) Anion Gap 3 mmol/L (5-15) L Blood Urea Nitrogen 15 mg/dL (7-18) Creatinine 1.0 MG/DL (0.55-1.30) Estimat Glomerular Filtration Rate > 60 mL/min (>60) Glucose Level 111 MG/DL (74-106) H Calcium Level 8.6 MG/DL (8.5-10.1) Total Bilirubin 0.9 MG/DL (0.2-1.0) Aspartate Amino Transf (AST/SGOT) 47 U/L (15-37) H Alanine Aminotransferase (ALT/SGPT) 149 U/L (12-78) H Alkaline Phosphatase 571 U/L (46-116) H Ammonia 38 umol/L (11-32) H Total Protein 5.6 G/DL (6.4-8.2) L Albumin 1.6 G/DL (3.4-5.0) L Globulin 4.0 g/dL Albumin/Globulin Ratio 0.4 (1.0-2.7) L Additional Comments Neurological exam: DTR's Right upper / lowers absent, Left upper / lowers 1+. Babinski: Right no response Left mass withdraw. sensory deminished / present on right upper / lower, Left intact in upper / lower. Assessment Post-op Diagnosis Spinal Cord compression Additional Comments Yesterday afternoon, Dr. Wilson discussed with family transferring patient to Neurological ICU facility. Patient and family communications representative rejected this option. [facility] contacted to evaluate patient and complete necessary authorization, in preparation for transfer to that facility. Patient afebrile and stable for periods of time off BIPAP. Dr. Alvarado, Pulmonary, ID, GI and Neurology following. Leoncio Ventura Nov 13, 2018 13:14
--- NOTE | 2018-11-13 14:01 | NUR ---
NURSE NOTES: Patient requested benadryl, upon administration patient refused benedryl and asked for his incentive spirometer instead due to family's involvement. Benadryl returned in pyxes. RT notified regarding bipap change of request per family.
--- NOTE | 2018-11-13 14:30 | NUR ---
RESPIRATORY NOTE: Patient and family member requested to be taken off BiPAP. Patient wanted to eat RN aware. Placed patient on NC 4L with bubble humidifier. Patient tolerating well with no shortness of breath or respiratory distress noted at this time. RN notified. Will continue to monitor.
--- NOTE | 2018-11-13 16:00 | NUR ---
NURSE NOTES: Patient stable. VSS. No new orders at this time. Will continue plan of care.
--- NOTE | 2018-11-13 16:12 | NUR ---
CASE MANAGEMENT:REVIEW 11/13/18 SI: CERVICAL SPONDYLOSIS S/P ACDF C3-4, DISC ARTHROPLASTY C4-5. ASPIRATION PNEUMONIA 98.8 66 17 135/74 99% ON VENTURI MASK 14L @ 45% FIO2 H/H-8.3/24.7 GLUCOSE+111 AST/ALT+47/149 AMMONIA+38 ALB-1.6 IS: IV MEROPENEM Q8HRS IV VANCOMYCIN Q8HRS IV ZOSYN Q8HRS IV REGLAN Q8HRS DUONEB HHN Q4HRS PRN IVF@75/HR IV MORPHINE Q4HRS PRN : ICU STATUS PLAN: PATIENT HAS BEEN REFERRED TO BOTH [facility] AND [facility]
--- NOTE | 2018-11-13 16:16 | NUR ---
TRANSFER UPDATE [facility] SPOKE WITH MARTA FROM THE TRANSFER CENTER. SHE WILL PRESENT THE CASE TO HER PHYSICIANS HOWEVER [facility] IS IN "CRITICAL RED CENSUS ALERT" AND THEIR ER IS CLOSED THUS THEY ARE UNABLE TO ACCEPT ANY PATIENTS AT THIS TIME. THIS STAFF RADIATION THERAPIST WILL CHECK DAILY SPOKE WITH [facility] IN THEIR FINACE DEPARTMENT AND PROVIDED HIM WITH DATE OF INJURY ALONG WITH NAME AND PHONE NUMBER OF PARTS CASTING MACHINE OPERATOR AND STAFF RADIATION THERAPIST FOR WORKERS COMP SO HE CAN VERIFY THE FINANCIALS [facility] SPOKE WITH FARZANA AT [facility] TRANSFER CENTER WHO STATED THEY ARE WAITING FOR FINANCIAL CLEARANCE ALSO SPOKE WITH PETR WITH [facility] FINANCE DEPARTMENT AND PROVIDED HER WITH PARTS CASTING MACHINE OPERATOR AND STAFF RADIATION THERAPIST'S PHONE NUMBER. ONCE PATIENT CLEARS FINANCIALS THEY WILL TRY TO FIND AN ACCEPTING NEUROLOGIST/NEURO SURGEON THIS STAFF RADIATION THERAPIST WILL FOLLOW UP DAILY
[2018-11-13] MEDS ORDERED: Tubing IV Secondary IV ONE (17:44)
[2018-11-13] MEDS ORDERED: NS 275ml ONE (17:44)
[2018-11-13] MEDS ORDERED: NS Irrig 1000ml ONE (17:57)
--- NOTE | 2018-11-13 18:00 | NUR ---
NURSE NOTES: No no new orders at this time. VSS. Family at [facility]. Patient comfortable. Denies pain at this time. Will continue to monitor patient.
--- NOTE | 2018-11-13 19:08 | NUR ---
HAND-OFF: Report given to Renay STEVENSON using sbar. VSS. No distress noted. RT at bedside.
[2018-11-13] MEDS: Albuterol/Ipratropium 3ml neb HHN PRN ×2 (19:12→22:14)
--- NOTE | 2018-11-13 19:15 | NUR ---
NURSE NOTES: Report received from GRAHAM Leon. Pt A/Ox4. alarm security or surveillance monitor shows SR. Pt currently on 4L/min NC. Current O2 saturation @ 98% Coarse Ronchi heard throughout all lobes after breathing txt. RT called for deep suctioning. Pt showing no signs of cardiac or respiratory distress at the moment. Pt currently on a nectar thick pureed diet with a 1:1 feed. Elkins cathter present and draining appropriately. No skin issues noted. Pt has a LFA20g and a RH18g with [id number] running @ 75 ml/hr. Pt to have MRI of head tomorrow. Currently awaiting process of transfer to [facility]. Bed in lowest position, call light within reach, bed alarms placed, room close to nurses station. Will continue to monitor and with patients plan of care.
[2018-11-13] MEDS ORDERED: Milk of Magnesia 30ml Ud ORAL PRN (21:00)
--- NOTE | 2018-11-13 21:01 | General Progress Note ---
Assessment/Plan Assessment/Plan Assessment - Elevated LFT, ? etiology, ? ischemic injury, - hepatitis serologies neg - CMV PCR (-) - HSV IgM (-) - [place] negative - U/S negative - CT negative - s/p C spine operation - Gastric distention, ? narcotic related Recommendations - Follow LFT - Abx per ID - Avoid hepatotoxic meds - avoid volume depletion / hypotension - Reglan Subjective Allergies: Coded Allergies: No Known Allergies (Unverified , 10/28/18) Subjective Delayed entry note for 11/12/18 visit Above noted no complaints d/w RN Objective Last 24 Hour Vital Signs Date Time Temp Pulse Resp B/P (MAP) Pulse Ox O2 Delivery O2 Flow Rate FiO2 11/13/18 20:00 Nasal Cannula 4.0 11/13/18 20:00 4.0 11/13/18 19:19 64 20 100 Nasal Cannula 3.0 32 11/13/18 19:14 61 18 98 32 11/13/18 19:13 98 Nasal Cannula 3.0 32 11/13/18 19:13 Nasal Cannula 3.0 32 11/13/18 19:12 61 18 Nasal Cannula 3.0 32 11/13/18 19:06 62 20 98 Nasal Cannula 3.0 32 11/13/18 19:00 65 17 144/80 (101) 99 11/13/18 18:00 98.0 55 17 133/70 (91) 99 11/13/18 17:00 70 17 145/77 (99) 99 11/13/18 16:00 64 11/13/18 16:00 2.0 11/13/18 16:00 65 17 144/70 (94) 99 11/13/18 16:00 Venturi Mask 14.0 11/13/18 15:00 66 17 140/75 (96) 99 11/13/18 14:00 64 17 138/77 (97) 99 11/13/18 13:00 98.8 66 17 135/74 (94) 99 11/13/18 12:56 69 23 100 Full Face 45 11/13/18 12:00 63 17 144/75 (98) 99 11/13/18 12:00 Venturi Mask 14.0 11/13/18 12:00 45 11/13/18 12:00 59 11/13/18 11:00 55 17 133/69 (90) 99 11/13/18 10:30 75 26 97 Full Face 45 11/13/18 10:06 97 11/13/18 10:00 76 17 127/63 (84) 99 11/13/18 09:16 99 11/13/18 09:00 98.6 65 16 139/74 (95) 100 11/13/18 08:00 62 11/13/18 08:00 45 11/13/18 08:00 63 15 134/72 (92) 100 11/13/18 08:00 Venturi Mask 14.0 11/13/18 07:25 Venturi Mask 14.0 55 11/13/18 07:24 98 Venturi Mask 14.0 55 11/13/18 07:23 97 20 Venturi Mask 14.0 55 11/13/18 07:22 98 11/13/18 07:00 98.0 63 15 130/70 (90) 100 11/13/18 06:00 98.4 54 15 141/74 (96) 100 11/13/18 05:18 54 14 100 Facial 45 11/13/18 05:00 98.0 59 15 104/65 (78) 100 11/13/18 04:00 Simple Mask 15.0 Simple Mask 15.0 11/13/18 04:00 55 11/13/18 04:00 70 11/13/18 04:00 98.2 59 15 135/76 (95) 100 11/13/18 03:00 98.0 61 15 129/69 (89) 100 11/13/18 02:40 60 14 100 Facial 50 11/13/18 02:40 60 14 100 Facial 45 11/13/18 02:00 97.8 56 15 115/59 (77) 100 11/13/18 01:00 97.8 60 15 130/59 (82) 100 11/13/18 00:35 59 17 100 Facial 55 11/13/18 00:00 Simple Mask 15.0 Simple Mask 15.0 11/13/18 00:00 98.2 60 15 126/67 (86) 100 11/13/18 00:00 57 11/13/18 00:00 95 11/12/18 23:48 65 27 100 Bi-pap 55 11/12/18 23:37 65 19 100 Facial 55 11/12/18 23:37 71 35 99 Bi-pap 55 11/12/18 23:00 98.0 70 15 123/63 (83) 100 11/12/18 22:00 98.3 76 15 120/58 (78) 97 Intake and Output 11/12/18 11/13/18 19:00 07:00 Intake Total 2195.832 ml 1400.000 ml Output Total 710 ml 660 ml Balance 1485.832 ml 740.000 ml Intake Oral 520 ml 60 ml IV Total 1675.832 ml 1340.000 ml Output Urine Total 710 ml 660 ml Laboratory Tests 11/13/18 05:35: White Blood Count 9.7, Red Blood Count 2.86L, Hemoglobin 8.3L, Hematocrit 24.7L , Mean Corpuscular Volume 86, Mean Corpuscular Hemoglobin 29.2, Mean Corpuscular Hemoglobin Concent 33.8, Red Cell Distribution Width 12.8, Platelet Count 312, Mean Platelet Volume 5.2L, Neutrophils (%) (Auto) , Lymphocytes (%) ( Auto) , Monocytes (%) (Auto) , Eosinophils (%) (Auto) , Basophils (%) (Auto) , Prothrombin Time 11.4, Prothromb Time International Ratio 1.1, Sodium Level 139 , Potassium Level 4.4, Chloride Level 104, Carbon Dioxide Level 32, Anion Gap 3L , Blood Urea Nitrogen 15, Creatinine 1.0, Estimat Glomerular Filtration Rate > 60, Glucose Level 111H, Calcium Level 8.6, Total Bilirubin 0.9, Aspartate Amino Transf (AST/SGOT) 47H, Alanine Aminotransferase (ALT/SGPT) 149H, Alkaline Phosphatase 571H, Ammonia 38H, Total Protein 5.6L, Albumin 1.6L, Globulin 4.0, Albumin/Globulin Ratio 0.4L Height (Feet): 5 Height (Inches): 7.00 Weight (Pounds): 170 Objective Thin AA man NCAT C spine collar CTA RRR soft ND NT no edema Oscar Sinha MD Nov 13, 2018 21:01
--- NOTE | 2018-11-13 21:05 | General Progress Note ---
Assessment/Plan Assessment/Plan Assessment - Elevated LFT, ? etiology, ? ischemic injury - gradually improving - hepatitis serologies neg - CMV PCR (-) - HSV IgM (-) - [place] negative - U/S negative - CT negative - s/p C spine operation - Gastric distention, ? narcotic related Recommendations - Follow LFT conservatively, since improving - Abx per ID - Avoid hepatotoxic meds - avoid volume depletion / hypotension - Reglan Subjective Allergies: Coded Allergies: No Known Allergies (Unverified , 10/28/18) Subjective Above noted no complaints d/w family psychologist requesting another swallow eval to clarify po liquid safety Objective Last 24 Hour Vital Signs Date Time Temp Pulse Resp B/P (MAP) Pulse Ox O2 Delivery O2 Flow Rate FiO2 11/13/18 20:00 Nasal Cannula 4.0 11/13/18 20:00 4.0 11/13/18 19:19 64 20 100 Nasal Cannula 3.0 32 11/13/18 19:14 61 18 98 32 11/13/18 19:13 98 Nasal Cannula 3.0 32 11/13/18 19:13 Nasal Cannula 3.0 32 11/13/18 19:12 61 18 Nasal Cannula 3.0 32 11/13/18 19:06 62 20 98 Nasal Cannula 3.0 32 11/13/18 19:00 65 17 144/80 (101) 99 11/13/18 18:00 98.0 55 17 133/70 (91) 99 11/13/18 17:00 70 17 145/77 (99) 99 11/13/18 16:00 64 11/13/18 16:00 2.0 11/13/18 16:00 65 17 144/70 (94) 99 11/13/18 16:00 Venturi Mask 14.0 11/13/18 15:00 66 17 140/75 (96) 99 11/13/18 14:00 64 17 138/77 (97) 99 11/13/18 13:00 98.8 66 17 135/74 (94) 99 11/13/18 12:56 69 23 100 Full Face 45 11/13/18 12:00 63 17 144/75 (98) 99 11/13/18 12:00 Venturi Mask 14.0 11/13/18 12:00 45 11/13/18 12:00 59 11/13/18 11:00 55 17 133/69 (90) 99 11/13/18 10:30 75 26 97 Full Face 45 11/13/18 10:06 97 11/13/18 10:00 76 17 127/63 (84) 99 11/13/18 09:16 99 11/13/18 09:00 98.6 65 16 139/74 (95) 100 11/13/18 08:00 62 11/13/18 08:00 45 11/13/18 08:00 63 15 134/72 (92) 100 11/13/18 08:00 Venturi Mask 14.0 11/13/18 07:25 Venturi Mask 14.0 55 11/13/18 07:24 98 Venturi Mask 14.0 55 11/13/18 07:23 97 20 Venturi Mask 14.0 55 11/13/18 07:22 98 11/13/18 07:00 98.0 63 15 130/70 (90) 100 11/13/18 06:00 98.4 54 15 141/74 (96) 100 11/13/18 05:18 54 14 100 Facial 45 11/13/18 05:00 98.0 59 15 104/65 (78) 100 11/13/18 04:00 Simple Mask 15.0 Simple Mask 15.0 11/13/18 04:00 55 11/13/18 04:00 70 11/13/18 04:00 98.2 59 15 135/76 (95) 100 11/13/18 03:00 98.0 61 15 129/69 (89) 100 11/13/18 02:40 60 14 100 Facial 50 11/13/18 02:40 60 14 100 Facial 45 11/13/18 02:00 97.8 56 15 115/59 (77) 100 11/13/18 01:00 97.8 60 15 130/59 (82) 100 11/13/18 00:35 59 17 100 Facial 55 11/13/18 00:00 Simple Mask 15.0 Simple Mask 15.0 11/13/18 00:00 98.2 60 15 126/67 (86) 100 11/13/18 00:00 57 11/13/18 00:00 95 11/12/18 23:48 65 27 100 Bi-pap 55 11/12/18 23:37 65 19 100 Facial 55 11/12/18 23:37 71 35 99 Bi-pap 55 11/12/18 23:00 98.0 70 15 123/63 (83) 100 11/12/18 22:00 98.3 76 15 120/58 (78) 97 Intake and Output 11/12/18 11/13/18 19:00 07:00 Intake Total 2195.832 ml 1400.000 ml Output Total 710 ml 660 ml Balance 1485.832 ml 740.000 ml Intake Oral 520 ml 60 ml IV Total 1675.832 ml 1340.000 ml Output Urine Total 710 ml 660 ml Laboratory Tests 11/13/18 05:35: White Blood Count 9.7, Red Blood Count 2.86L, Hemoglobin 8.3L, Hematocrit 24.7L , Mean Corpuscular Volume 86, Mean Corpuscular Hemoglobin 29.2, Mean Corpuscular Hemoglobin Concent 33.8, Red Cell Distribution Width 12.8, Platelet Count 312, Mean Platelet Volume 5.2L, Neutrophils (%) (Auto) , Lymphocytes (%) ( Auto) , Monocytes (%) (Auto) , Eosinophils (%) (Auto) , Basophils (%) (Auto) , Prothrombin Time 11.4, Prothromb Time International Ratio 1.1, Sodium Level 139 , Potassium Level 4.4, Chloride Level 104, Carbon Dioxide Level 32, Anion Gap 3L , Blood Urea Nitrogen 15, Creatinine 1.0, Estimat Glomerular Filtration Rate > 60, Glucose Level 111H, Calcium Level 8.6, Total Bilirubin 0.9, Aspartate Amino Transf (AST/SGOT) 47H, Alanine Aminotransferase (ALT/SGPT) 149H, Alkaline Phosphatase 571H, Ammonia 38H, Total Protein 5.6L, Albumin 1.6L, Globulin 4.0, Albumin/Globulin Ratio 0.4L Height (Feet): 5 Height (Inches): 7.00 Weight (Pounds): 170 Objective Thin AA man NCAT C spine collar CTA RRR soft ND NT no edema Oscar Sinha MD Nov 13, 2018 21:05
--- NOTE | 2018-11-13 22:00 | NUR ---
NURSE NOTES: Pt resting comfortably. Family at bedside. Showing no signs of acute respiratory or cardiac distress. SpO2: @ 98%, all other vitals WNL. Tolerating NC well. Pt refused to be repositioned at the moment. Will continue to monitor.
--- NOTE | 2018-11-13 23:30 | NUR ---
NURSE NOTES: Pt repositioned with assistance of additional nurse and RT at bedside. Pt placed on BiPAP and administered pain meds per request of pt. Shows no signs of acute distress. Will continue to monitor.
[2018-11-14] VITALS (25 sets, daily range): BP systolic 111–154; BP diastolic 57–126
--- NOTE | 2018-11-14 | NUR ---
NURSE NOTES: Pt resting comfortably. Repositioned to liking. VSS. In signs of acute distress. Will monitor.
[2018-11-14] MEDS: D5 1/2NS w/KCl 20mEq 1,000 ML IV SCH ×2 (00:30→14:27)
[2018-11-14] MEDS: Vancomycin 750 MG in NS 275 ML IVPB SCH ×3 (00:30→17:22)
--- NOTE | 2018-11-14 02:00 | NUR ---
NURSE NOTES: Pt refused cleaning in PM and breathing treatment, would prefer to rest at the moment. Pt repositioned and all needs were met. VSS. Shows no signs of distress. Will continue to monitor and with patients plan of care.
[2018-11-14] MEDS: Morphine Sulfate 2mg/ml Inj(IV/IM USE ONLY) IVP PRN (02:59)
--- NOTE | 2018-11-14 04:00 | NUR ---
NURSE NOTES: Pt sleeping comfortably. VSS. Showing no signs of distress. Will continue to monitor.
[2018-11-14] MEDS: Meropenem 1 GM in NS 55 ML IVPB SCH ×3 (05:25→22:19)
[2018-11-14] MEDS: Metoclopramide 10mg/2ml Inj IVP SCH ×3 (05:25→21:46)
--- NOTE | 2018-11-14 06:00 | NUR ---
NURSE NOTES: Pt resting comfortably. VSS aside from low grade fever. Cooling measures applied, temperature improving slowly. Showing no signs of acute distress. Will continue to monitor and with patients plan of care.
[2018-11-14 06:09] LABS: HEMATOCRIT 24.4 % (42.0-52.0); HEMOGLOBIN 8.3 G/DL (14.2-18.0); MEAN CORPUSCULAR VOLUME 86 FL (80-99); PLATELET COUNT 317 K/UL (150-450); RED BLOOD COUNT 2.84 M/UL (4.70-6.10); RED CELL DISTRIBUTION WIDTH 12.9 % (11.6-14.8); WHITE BLOOD COUNT 7.4 K/UL (4.8-10.8)
[2018-11-14 06:40] LABS: ALANINE AMINOTRANSFERASE 130 U/L (12-78); ALBUMIN 1.6 G/DL (3.4-5.0); ALBUMIN/GLOBULIN RATIO 0.4 (1.0-2.7); ALKALINE PHOSPHATASE 543 U/L (46-116); ANION GAP 0 mmol/L (5-15); ASPARTATE AMINO TRANSFERASE 39 U/L (15-37); BILIRUBIN,TOTAL 0.8 MG/DL (0.2-1.0); BLOOD UREA NITROGEN 14 mg/dL (7-18); CALCIUM 8.5 MG/DL (8.5-10.1); CARBON DIOXIDE 33 MMOL/L (21-32); CHLORIDE 104 MMOL/L (98-107); CREATININE 0.9 MG/DL (0.55-1.30); POTASSIUM 4.6 MMOL/L (3.5-5.1); SODIUM 137 MMOL/L (136-145)
--- NOTE | 2018-11-14 06:55 | NUR ---
RESPIRATORY NOTE: Patient received on BiPAP with current ordered settings. Patient of full face mask. Removed mask to reveal facial skin to be intact with no redness or breakdown noted. Re-tapped face and continued on BiPAP. BiPAP is connected to a red outlet. BiPAP alarms are functional and audible. Patient appears comfortable at this time. Will continue to monitor.
[2018-11-14] MEDS: Albuterol/Ipratropium 3ml neb HHN PRN ×4 (07:28→20:08)
--- NOTE | 2018-11-14 07:38 | NUR ---
RESPIRATORY NOTE: Patient requested to be taken on BiPAP and breathing treatment was given per patient's request. Breathing treatment tolerated well with no adverse reaction. Patient placed on Nasal Cannula 4L with a bubble humidifier. Patient tolerating well and maintaining oxygen saturation within normal level. Post treatment Incentive Spirometer was practiced. Will continue to monitor.
--- NOTE | 2018-11-14 08:11 | General Progress Note ---
Assessment/Plan Assessment/Plan Status post anterior cervical corpectomy-discectomy at C3-4 and corpectomy/ discectomy C4-5. ACDF C3-4, Disc Arthroplasty C4-5 Spinal Cord compression fevers concern for aspiration spinal cord shock elevated LFT possible shock liver abnormal cxr respiratory failure, acute pneumonia hypoxemia anasarca PLAN attempt transfer to higher level of care neuro follow up cultures noted IV antibiotics ID follow up GI follow up -discussed; eating- monitor adequate nutrition BIPAP management as needed may need airway still labile ICU care pain control plan for extensive rehab once cleared monitor for aspiration repeat cultures Subjective Allergies: Coded Allergies: No Known Allergies (Unverified , 10/28/18) Subjective events noted on high o2 same no significant improvement Objective Last 24 Hour Vital Signs Date Time Temp Pulse Resp B/P (MAP) Pulse Ox O2 Delivery O2 Flow Rate FiO2 11/14/18 07:38 69 16 100 Nasal Cannula 3.0 32 11/14/18 07:28 71 18 100 Nasal Cannula 3.0 32 11/14/18 07:00 60 14 114/59 (77) 100 11/14/18 06:50 53 17 100 Full Face 45 11/14/18 06:49 53 17 Bi-pap 45 11/14/18 06:48 Bi-pap 11/14/18 06:47 100 Bi-pap 100 11/14/18 06:00 56 14 118/57 (77) 100 11/14/18 05:36 61 18 100 Full Face 45 11/14/18 05:00 58 15 135/71 (92) 100 11/14/18 04:00 45 11/14/18 04:00 52 11/14/18 04:00 55 14 117/59 (78) 100 11/14/18 04:00 Bi-pap 11/14/18 03:29 98.0 11/14/18 03:27 62 19 99 Facial 45 11/14/18 03:00 98.7 54 15 111/59 (76) 100 11/14/18 02:00 63 20 117/75 (89) 100 11/14/18 01:26 65 20 98 Full Face 45 11/14/18 01:00 63 17 136/72 (93) 100 11/14/18 00:00 Bi-pap 11/14/18 00:00 71 15 143/72 (95) 100 11/13/18 23:30 72 21 98 Full Face 50 11/13/18 23:00 85 16 147/68 (94) 100 11/13/18 22:24 92 20 100 Nasal Cannula 3.0 32 11/13/18 22:13 82 20 98 Nasal Cannula 3.0 32 11/13/18 22:00 64 16 145/70 (95) 99 11/13/18 21:12 60 18 98 32 11/13/18 21:00 68 13 140/72 (94) 99 11/13/18 20:00 97.7 75 17 144/72 (96) 97 11/13/18 20:00 67 11/13/18 20:00 Nasal Cannula 4.0 11/13/18 20:00 4.0 11/13/18 19:19 64 20 100 Nasal Cannula 3.0 32 11/13/18 19:14 61 18 98 32 11/13/18 19:13 98 Nasal Cannula 3.0 32 11/13/18 19:13 Nasal Cannula 3.0 32 11/13/18 19:12 61 18 Nasal Cannula 3.0 32 11/13/18 19:06 62 20 98 Nasal Cannula 3.0 32 11/13/18 19:00 65 17 144/80 (101) 99 11/13/18 18:00 98.0 55 17 133/70 (91) 99 11/13/18 17:00 70 17 145/77 (99) 99 11/13/18 16:00 64 11/13/18 16:00 2.0 11/13/18 16:00 65 17 144/70 (94) 99 11/13/18 16:00 Venturi Mask 14.0 11/13/18 15:00 66 17 140/75 (96) 99 11/13/18 14:00 64 17 138/77 (97) 99 11/13/18 13:00 98.8 66 17 135/74 (94) 99 11/13/18 12:56 69 23 100 Full Face 45 11/13/18 12:00 63 17 144/75 (98) 99 11/13/18 12:00 Venturi Mask 14.0 11/13/18 12:00 45 11/13/18 12:00 59 11/13/18 11:00 55 17 133/69 (90) 99 11/13/18 10:30 75 26 97 Full Face 45 11/13/18 10:06 97 11/13/18 10:00 76 17 127/63 (84) 99 11/13/18 09:16 99 11/13/18 09:00 98.6 65 16 139/74 (95) 100 Intake and Output 11/13/18 11/14/18 19:00 07:00 Intake Total 1348.333 ml 1452.500 ml Output Total 625 ml 1440 ml Balance 723.333 ml 12.500 ml Intake Oral 160 ml 280 ml IV Total 1188.333 ml 1172.500 ml Output Urine Total 625 ml 1440 ml Laboratory Tests 11/14/18 04:45: White Blood Count 7.4, Red Blood Count 2.84L, Hemoglobin 8.3L, Hematocrit 24.4L , Mean Corpuscular Volume 86, Mean Corpuscular Hemoglobin 29.3, Mean Corpuscular Hemoglobin Concent 34.2, Red Cell Distribution Width 12.9, Platelet Count 317, Mean Platelet Volume 5.5L, Neutrophils (%) (Auto) , Lymphocytes (%) ( Auto) , Monocytes (%) (Auto) , Eosinophils (%) (Auto) , Basophils (%) (Auto) , Neutrophils % (Manual) [Pending], Lymphocytes % (Manual) [Pending], Platelet Estimate [Pending], Platelet Morphology [Pending], Sodium Level 137, Potassium Level 4.6, Chloride Level 104, Carbon Dioxide Level 33H, Anion Gap 0L, Blood Urea Nitrogen 14, Creatinine 0.9, Estimat Glomerular Filtration Rate > 60, Glucose Level 109H, Calcium Level 8.5, Total Bilirubin 0.8, Aspartate Amino Transf (AST/SGOT) 39H, Alanine Aminotransferase (ALT/SGPT) 130H, Alkaline Phosphatase 543H, Troponin I 0.007, Pro-B-Type Natriuretic Peptide 2519H, Total Protein 5.4L, Albumin 1.6L, Globulin 3.8, Albumin/Globulin Ratio 0.4L Height (Feet): 5 Height (Inches): 7.00 Weight (Pounds): 170 Objective WDWN NAD clear breath sounds bilaterally without rhonchi or wheeze [id number] without MRG NABS nontender no HSM no CCE alert on BIPAP poor mobility of extremities Pradeep Alvarado MD Nov 14, 2018 08:11
--- NOTE | 2018-11-14 08:15 | NUR ---
NURSE NOTES: Patient assessed this morning and is able to communicate with no slurred, communicated coherently and answers questions accurately, patient denies any pain, his is able to squeeze hands at 0.5/5 bilaterally and feet are 0/5 with no movement, He is on Nasal cannula at 3 L/min with saturations of 94-98% with no distress, patient has a weak cough and gets SOB when sips through a straw, his lungs bilaterally are diminished, his hands are able to he has a [place] draining clear pale urine, he is placed on a cooling blanket, will continue to monitor.
[2018-11-14] MEDS: Docusate 250mg cap ORAL SCH (08:25)
[2018-11-14] MEDS: Milk of Magnesia 30ml Ud ORAL PRN (08:25)
--- NOTE | 2018-11-14 08:33 | General Progress Note ---
Assessment/Plan Problem List: (1) Weakness ICD Codes: R53.1 - Weakness SNOMED: 82271331 (2) Cervical spine arthritis ICD Codes: M47.812 - Spondylosis without myelopathy or radiculopathy, cervical region SNOMED: 282937645 (3) Cervical disc disorder ICD Codes: M50.90 - Cervical disc disorder, unspecified, unspecified cervical region SNOMED: 328045906 (4) Hospital acquired PNA ICD Codes: J18.9 - Pneumonia, unspecified organism SNOMED: 049357171 (5) Sepsis ICD Codes: A41.9 - Sepsis, unspecified organism SNOMED: 93422861 (6) Cardiac arrest ICD Codes: I46.9 - Cardiac arrest, cause unspecified SNOMED: 401262151 (7) Hepatitis ICD Codes: K75.9 - Inflammatory liver disease, unspecified SNOMED: 053292929 Status: stable, progressing Assessment/Plan resp care o2- wean as able pain rx ivf iv abx per id dvt/stress ulcer prophylaxis spine follow up bowel regime remains critical and guarded await bed at [facility] Subjective ROS Limited/Unobtainable: No Constitutional: Reports: malaise, weakness HEENT: Reports: no symptoms Cardiovascular: Reports: no symptoms Respiratory: Reports: cough, shortness of breath Gastrointestinal/Abdominal: Reports: no symptoms Genitourinary: Reports: no symptoms Neurologic/Psychiatric: Reports: pre-existing deficit Endocrine: Reports: no symptoms Hematologic/Lymphatic: Reports: anemia Allergies: Coded Allergies: No Known Allergies (Unverified , 10/28/18) All Systems: reviewed and negative except above Subjective no events. now on nasal cannula. c/o constipation. no cp/sob. awaiting bed at [facility] Objective Last 24 Hour Vital Signs Date Time Temp Pulse Resp B/P (MAP) Pulse Ox O2 Delivery O2 Flow Rate FiO2 11/14/18 07:38 69 16 100 Nasal Cannula 3.0 32 11/14/18 07:28 71 18 100 Nasal Cannula 3.0 32 11/14/18 07:00 60 14 114/59 (77) 100 11/14/18 06:50 53 17 100 Full Face 45 11/14/18 06:49 53 17 Bi-pap 45 11/14/18 06:48 Bi-pap 11/14/18 06:47 100 Bi-pap 100 11/14/18 06:00 56 14 118/57 (77) 100 11/14/18 05:36 61 18 100 Full Face 45 11/14/18 05:00 58 15 135/71 (92) 100 11/14/18 04:00 45 11/14/18 04:00 52 11/14/18 04:00 55 14 117/59 (78) 100 11/14/18 04:00 Bi-pap 11/14/18 03:29 98.0 11/14/18 03:27 62 19 99 Facial 45 11/14/18 03:00 98.7 54 15 111/59 (76) 100 11/14/18 02:00 63 20 117/75 (89) 100 11/14/18 01:26 65 20 98 Full Face 45 11/14/18 01:00 63 17 136/72 (93) 100 11/14/18 00:00 Bi-pap 11/14/18 00:00 71 15 143/72 (95) 100 11/13/18 23:30 72 21 98 Full Face 50 11/13/18 23:00 85 16 147/68 (94) 100 11/13/18 22:24 92 20 100 Nasal Cannula 3.0 32 11/13/18 22:13 82 20 98 Nasal Cannula 3.0 32 11/13/18 22:00 64 16 145/70 (95) 99 11/13/18 21:12 60 18 98 32 11/13/18 21:00 68 13 140/72 (94) 99 11/13/18 20:00 97.7 75 17 144/72 (96) 97 11/13/18 20:00 67 11/13/18 20:00 Nasal Cannula 4.0 11/13/18 20:00 4.0 11/13/18 19:19 64 20 100 Nasal Cannula 3.0 32 11/13/18 19:14 61 18 98 32 11/13/18 19:13 98 Nasal Cannula 3.0 32 11/13/18 19:13 Nasal Cannula 3.0 32 11/13/18 19:12 61 18 Nasal Cannula 3.0 32 11/13/18 19:06 62 20 98 Nasal Cannula 3.0 32 11/13/18 19:00 65 17 144/80 (101) 99 11/13/18 18:00 98.0 55 17 133/70 (91) 99 11/13/18 17:00 70 17 145/77 (99) 99 11/13/18 16:00 64 11/13/18 16:00 2.0 11/13/18 16:00 65 17 144/70 (94) 99 11/13/18 16:00 Venturi Mask 14.0 11/13/18 15:00 66 17 140/75 (96) 99 11/13/18 14:00 64 17 138/77 (97) 99 11/13/18 13:00 98.8 66 17 135/74 (94) 99 11/13/18 12:56 69 23 100 Full Face 45 11/13/18 12:00 63 17 144/75 (98) 99 11/13/18 12:00 Venturi Mask 14.0 11/13/18 12:00 45 11/13/18 12:00 59 11/13/18 11:00 55 17 133/69 (90) 99 11/13/18 10:30 75 26 97 Full Face 45 11/13/18 10:06 97 11/13/18 10:00 76 17 127/63 (84) 99 11/13/18 09:16 99 11/13/18 09:00 98.6 65 16 139/74 (95) 100 Intake and Output 11/13/18 11/14/18 19:00 07:00 Intake Total 1348.333 ml 1452.500 ml Output Total 625 ml 1440 ml Balance 723.333 ml 12.500 ml Intake Oral 160 ml 280 ml IV Total 1188.333 ml 1172.500 ml Output Urine Total 625 ml 1440 ml Laboratory Tests 11/14/18 04:45: White Blood Count 7.4, Red Blood Count 2.84L, Hemoglobin 8.3L, Hematocrit 24.4L , Mean Corpuscular Volume 86, Mean Corpuscular Hemoglobin 29.3, Mean Corpuscular Hemoglobin Concent 34.2, Red Cell Distribution Width 12.9, Platelet Count 317, Mean Platelet Volume 5.5L, Neutrophils (%) (Auto) , Lymphocytes (%) ( Auto) , Monocytes (%) (Auto) , Eosinophils (%) (Auto) , Basophils (%) (Auto) , Differential Total Cells Counted 100, Neutrophils % (Manual) 82H, Lymphocytes % (Manual) 6L, Monocytes % (Manual) 9, Eosinophils % (Manual) 2, Basophils % ( Manual) 1, Platelet Estimate [Pending], Platelet Morphology [Pending], Sodium Level 137, Potassium Level 4.6, Chloride Level 104, Carbon Dioxide Level 33H, Anion Gap 0L, Blood Urea Nitrogen 14, Creatinine 0.9, Estimat Glomerular Filtration Rate > 60, Glucose Level 109H, Calcium Level 8.5, Total Bilirubin 0.8 , Aspartate Amino Transf (AST/SGOT) 39H, Alanine Aminotransferase (ALT/SGPT) 130H, Alkaline Phosphatase 543H, Troponin I 0.007, Pro-B-Type Natriuretic Peptide 2519H, Total Protein 5.4L, Albumin 1.6L, Globulin 3.8, Albumin/Globulin Ratio 0.4L Height (Feet): 5 Height (Inches): 7.00 Weight (Pounds): 170 Objective General Appearance: WD/WN, alert Neck: supple Cardiovascular: regular rhythm Respiratory/Chest: lungs clear, normal breath sounds, no respiratory distress, no accessory muscle use Abdomen: normal bowel sounds, non tender, soft, no organomegaly Edema: no edema noted Arm (L), no edema noted Arm (R), no edema noted Leg (L), no edema noted Leg (R), no edema noted Pedal (L), no edema noted Pedal (R), no edema noted Generalized Neurologic: motor weakness- quadraplegic Terrance Donahue MD Nov 14, 2018 08:33
--- NOTE | 2018-11-14 09:34 | Diagnostic Imaging Report ---
APPROVED REPORT CPT Code: 72857 Present Symptoms Shortness of breath BILATERAL: Imaging reveals a patent deep venous system bilaterally. There is no evidence of thrombus within the femoral, popliteal or tibial segments. The greater saphenous veins are also within normal limits. Doppler indicates normal spontaneous flow within these segments.
--- NOTE | 2018-11-14 10:15 | NUR ---
NURSE NOTES: Dr. Sinha updated of patient condition at the bedside, no verbal orders given at this time, will continue plan of care.
--- NOTE | 2018-11-14 10:27 | NUR ---
MRI on hold, pt wishes to speak to sister before deciding to go. 11/14/18 10:28tjb
--- NOTE | 2018-11-14 11:02 | Infectious Diseases Prog Note ---
Assessment/Plan Assessment/Plan antibiotics : vancomycin iv, meropenem A 1. aspiration pneumonia 2. cervical spondylosis s/p surgery 3. respiratory failure P 1. continue iv vancomycin, meropenem 2. will follow up cultures Subjective Constitutional: Denies: fever, chills Respiratory: Reports: shortness of breath - decreased; Denies: dry cough Gastrointestinal/Abdominal: Denies: nausea, vomiting, diarrhea Musculoskeletal: Denies: pain Allergies: Coded Allergies: No Known Allergies (Unverified , 10/28/18) Objective Vital Signs Last 24 Hour Vital Signs Date Time Temp Pulse Resp B/P (MAP) Pulse Ox O2 Delivery O2 Flow Rate FiO2 11/14/18 10:00 98.2 97 13 120/65 (83) 100 11/14/18 09:00 72 14 126/68 (87) 100 11/14/18 08:00 3.0 11/14/18 08:00 70 11/14/18 08:00 99.2 76 13 137/72 (93) 100 11/14/18 07:38 69 16 100 Nasal Cannula 3.0 32 11/14/18 07:28 71 18 100 Nasal Cannula 3.0 32 11/14/18 07:00 60 14 114/59 (77) 100 11/14/18 06:50 53 17 100 Full Face 45 11/14/18 06:49 53 17 Bi-pap 45 11/14/18 06:48 Bi-pap 11/14/18 06:47 100 Bi-pap 100 11/14/18 06:00 56 14 118/57 (77) 100 11/14/18 05:36 61 18 100 Full Face 45 11/14/18 05:00 58 15 135/71 (92) 100 11/14/18 04:00 45 11/14/18 04:00 52 11/14/18 04:00 55 14 117/59 (78) 100 11/14/18 04:00 Bi-pap 11/14/18 03:29 98.0 11/14/18 03:27 62 19 99 Facial 45 11/14/18 03:00 98.7 54 15 111/59 (76) 100 11/14/18 02:00 63 20 117/75 (89) 100 11/14/18 01:26 65 20 98 Full Face 45 11/14/18 01:00 63 17 136/72 (93) 100 11/14/18 00:00 Bi-pap 11/14/18 00:00 71 15 143/72 (95) 100 11/13/18 23:30 72 21 98 Full Face 50 11/13/18 23:00 85 16 147/68 (94) 100 11/13/18 22:24 92 20 100 Nasal Cannula 3.0 32 11/13/18 22:13 82 20 98 Nasal Cannula 3.0 32 11/13/18 22:00 64 16 145/70 (95) 99 11/13/18 21:12 60 18 98 32 11/13/18 21:00 68 13 140/72 (94) 99 11/13/18 20:00 97.7 75 17 144/72 (96) 97 11/13/18 20:00 67 11/13/18 20:00 Nasal Cannula 4.0 11/13/18 20:00 4.0 11/13/18 19:19 64 20 100 Nasal Cannula 3.0 32 11/13/18 19:14 61 18 98 32 11/13/18 19:13 98 Nasal Cannula 3.0 32 11/13/18 19:13 Nasal Cannula 3.0 32 11/13/18 19:12 61 18 Nasal Cannula 3.0 32 11/13/18 19:06 62 20 98 Nasal Cannula 3.0 32 11/13/18 19:00 65 17 144/80 (101) 99 11/13/18 18:00 98.0 55 17 133/70 (91) 99 11/13/18 17:00 70 17 145/77 (99) 99 11/13/18 16:00 64 11/13/18 16:00 2.0 11/13/18 16:00 65 17 144/70 (94) 99 11/13/18 16:00 Venturi Mask 14.0 11/13/18 15:00 66 17 140/75 (96) 99 11/13/18 14:00 64 17 138/77 (97) 99 11/13/18 13:00 98.8 66 17 135/74 (94) 99 11/13/18 12:56 69 23 100 Full Face 45 11/13/18 12:00 63 17 144/75 (98) 99 11/13/18 12:00 Venturi Mask 14.0 11/13/18 12:00 45 11/13/18 12:00 59 11/13/18 11:00 55 17 133/69 (90) 99 Height (Feet): 5 Height (Inches): 7.00 Weight (Pounds): 170 Respiratory/Chest: lungs clear Cardiovascular: normal rate, regular rhythm, no gallop/murmur Abdomen: soft, non tender Extremities: no edema Laboratory Tests Test 11/14/18 04:45 White Blood Count 7.4 K/UL (4.8-10.8) Red Blood Count 2.84 M/UL (4.70-6.10) L Hemoglobin 8.3 G/DL (14.2-18.0) L Hematocrit 24.4 % (42.0-52.0) L Mean Corpuscular Volume 86 FL (80-99) Mean Corpuscular Hemoglobin 29.3 PG (27.0-31.0) Mean Corpuscular Hemoglobin Concent 34.2 G/DL (32.0-36.0) Red Cell Distribution Width 12.9 % (11.6-14.8) Platelet Count 317 K/UL (150-450) Mean Platelet Volume 5.5 FL (6.5-10.1) L Neutrophils (%) (Auto) % (45.0-75.0) Lymphocytes (%) (Auto) % (20.0-45.0) Monocytes (%) (Auto) % (1.0-10.0) Eosinophils (%) (Auto) % (0.0-3.0) Basophils (%) (Auto) % (0.0-2.0) Differential Total Cells Counted 100 Neutrophils % (Manual) 82 % (45-75) H Lymphocytes % (Manual) 6 % (20-45) L Monocytes % (Manual) 9 % (1-10) Eosinophils % (Manual) 2 % (0-3) Basophils % (Manual) 1 % (0-2) Band Neutrophils 0 % (0-8) Platelet Estimate Adequate Platelet Morphology Normal Sodium Level 137 MMOL/L (136-145) Potassium Level 4.6 MMOL/L (3.5-5.1) Chloride Level 104 MMOL/L (98-107) Carbon Dioxide Level 33 MMOL/L (21-32) H Anion Gap 0 mmol/L (5-15) L Blood Urea Nitrogen 14 mg/dL (7-18) Creatinine 0.9 MG/DL (0.55-1.30) Estimat Glomerular Filtration Rate > 60 mL/min (>60) Glucose Level 109 MG/DL (74-106) H Calcium Level 8.5 MG/DL (8.5-10.1) Total Bilirubin 0.8 MG/DL (0.2-1.0) Aspartate Amino Transf (AST/SGOT) 39 U/L (15-37) H Alanine Aminotransferase (ALT/SGPT) 130 U/L (12-78) H Alkaline Phosphatase 543 U/L (46-116) H Troponin I 0.007 ng/mL (0.000-0.056) Pro-B-Type Natriuretic Peptide 2519 pg/mL (0-125) H Total Protein 5.4 G/DL (6.4-8.2) L Albumin 1.6 G/DL (3.4-5.0) L Globulin 3.8 g/dL Albumin/Globulin Ratio 0.4 (1.0-2.7) L Current Medications Medications (Trade) Dose Ordered Sig/Sharon Route PRN Reason Start Time Stop Time Status Last Admin Dose Admin Albuterol/ Ipratropium (Albuterol/ Ipratropium) 3 ml Q4H PRN HHN Shortness of Breath 11/12/18 02:45 11/17/18 02:44 11/14/18 07:28 Dextrose/ Electrolytes 1,000 ml @ 75 mls/hr [id number] IV 10/28/18 22:46 11/27/18 22:45 11/14/18 00:30 Diphenhydramine HCl (Benadryl) 25 mg HSPRN PRN ORAL Insomnia 11/12/18 18:45 12/12/18 18:44 11/14/18 01:57 Docusate Sodium (Colace) 250 mg DAILY ORAL 11/03/18 15:45 12/03/18 15:44 11/14/18 08:25 Magnesium Hydroxide (Mom) 30 ml DAILY PRN ORAL Constipation 11/13/18 08:28 12/13/18 20:59 11/14/18 08:25 Meropenem 1 gm/ Sodium Chloride 55 ml @ 110 mls/hr Q8HR IVPB 11/13/18 12:00 11/18/18 11:59 11/14/18 05:25 Metoclopramide HCl (Reglan) 5 mg Q8H IVP 11/10/18 13:00 12/10/18 12:59 11/14/18 05:25 Morphine Sulfate (Morphine Sulfate) 1 mg Q4H PRN IVP Severe Pain (Pain Scale 7-10) 11/10/18 08:19 11/15/18 08:18 11/14/18 02:59 Naloxone HCl (Narcan) 0.1 mg PRN PRN IVP RR<12/min, pt unarousable 10/28/18 23:00 11/27/18 22:59 Ondansetron HCl (Zofran) 4 mg Q6H PRN IVP Nausea & Vomiting 11/08/18 21:30 12/08/18 21:29 11/12/18 15:34 Vancomycin HCl (Vanco rx to dose) 1 ea DAILY PRN MISC Per rx protocol 10/31/18 06:30 11/30/18 06:29 Vancomycin HCl 750 mg/Sodium Chloride 275 ml @ 183.333 mls/hr Q8H IVPB 11/11/18 16:00 11/16/18 15:59 11/14/18 08:25 Kenyon Moran MD Nov 14, 2018 11:02
--- NOTE | 2018-11-14 11:45 | NUR ---
NURSE NOTES: Patient remains calm and resting with no distress noted, Briseida is at the bedside with patient, patient remains on Nasal cannula at 3L/min with no distress noted, apodaca remains draining clear pale urine, Patient made aware of possible MRI scan around 1400, will continue to monitor.
--- NOTE | 2018-11-14 12:01 | NUR ---
ST NOTE: SWALLOW STATUS: RECEIVED REPEAT BEDSIDE SWALLOW EVAL ORDER. REFERRED BY DR. DR. EVANGELISTA. SPOKE TO DR. JEAN CARLOS AYON RE: PT'S CONDITIONS AND REQUESTED MODIFIED BARIUM SWALLOW STUDY(MBSS). APPROVED. CALLED PT'S EX-, FAYE RE:PT'S CONDITIONS AND MBSS TO OBJECTIVELY ASSESS PT'S SWALLOWING FUNCTION. PER FAYE, OKAY TO DO MBSS. ALSO DISCUSSED WITH PT RE:POC, PT AGREES, HOWEVER, MRI WAS SCHEDULED TODAY. AND PER PT, WOULD LIKE TO COMPLETE MBSS TOMORROW INSTEAD OF TODAY. DISCUSSED WITH RNALEX RE:PT'S CONDITIONS AND PLAN OF CARE. PER RN, PT TOLERATED CURRENT DIET WITHOUT OVERT S/S OF ASPIRATION. WILL FOLLOW.
--- NOTE | 2018-11-14 13:13 | NUR ---
CASE MANAGEMENT:REVIEW 11/14/18 SI: CERVICAL SPONDYLOSIS S/P ACDF C3-4, DISC ARTHROPLASTY C4-5. ASPIRATION PNEUMONIA 99.4 76 17 134/60 100% ON 3L/NC H/H-8.3/24.4 AST/ALT+39/130 BNP+2519 IS: IV MEROPENEM Q8HRS IV VANCOMYCIN Q8HRS IV REGLAN Q8HRS DUONEB HHN Q4HRS PRN IVF@75/HR IV MORPHINE Q4HRS PRN : ICU STATUS PLAN: PATIENT HAS BEEN REFERRED TO BOTH [facility] AND [facility] ~ PENDING FINANCIAL CLEARANCE FROM WORKERS COMP
--- NOTE | 2018-11-14 13:14 | Progress Note ---
DATE: 11/12/2018 CARDIOLOGY PROGRESS NOTE SUBJECTIVE: The patient has to return on BiPAP support this evening due to hypoxia and respiratory distress. He had been stable for most of the day and early evening. He has no chest pain. OBJECTIVE: VITAL SIGNS: Blood pressure 123/63, pulse 70, respiratory rate 15, afebrile. LUNGS: Coarse breath sounds. Few rhonchi. HEART: Regular rhythm and rate. Normal S1 and S2. ABDOMEN: Soft. EXTREMITIES: Trace edema. IMPRESSIONS: 1. Status post primary respiratory failure and ____ postop spine surgery. 2. Hypertensive heart disease with stabilizing blood pressure trend. 3. Shock liver, improving. 4. Remains at high risk for pulmonary decompensation. PLAN: 1. BiPAP as needed. 2. Antimicrobials with respiratory hygiene. 3. Titrate antihypertensives. 4. Monitor volume status and cardiorenal parameters. 5. Trend natriuretic peptide assay. Ho Scott M.D. DR: OTF JOB#: [id number] CC:
--- NOTE | 2018-11-14 13:14 | Progress Note ---
DATE: 11/13/2018 SUBJECTIVE: Still on BiPAP support intermittently. Still with congestion and episodes of shortness of breath with hypoxia. He remains on IV antimicrobials. OBJECTIVE: VITAL SIGNS: Blood pressure 127/63, pulse 76, and respiratory rate 17. LUNGS: Coarse breath sounds. Few rhonchi. No wheezing. HEART: Regular rhythm and rate. Normal S1 and S2. ABDOMEN: Soft. No edema. LABORATORY DATA: Sodium 139, potassium 4.4, bicarb 32, BUN 15, and creatinine 1. Liver function tests are slightly improving. Albumin is 1.6. White count 9.7 and hemoglobin 8.3. IMPRESSION: 1. Status post respiratory arrest with associated transient bradyarrhythmia, now resolved. 2. Postop spine surgery. 3. Respiratory failure. 4. Postoperative consultation. 5. Severe protein-calorie malnutrition. 6. Postoperative anemia. PLAN: 1. Discontinue intravenous fluids nutrition. No support with protein supplement. 2. Trend natriuretic peptide assay. 3. DVT prophylaxis. Ho Scott M.D. DR: OTF JOB#: [id number] CC:
--- NOTE | 2018-11-14 14:32 | NUR ---
NURSE NOTES: Dr. Wilson rounded on patient as he is being taken to MRI scan, Mr Wilks and Dr. Wilson are having a conversation, remains on Nasal cannula at 4L/min with no distress noted, he is able to take deep breaths and cough slightly, patient remains on awake and alert to name, time, place and situation. currently denies any pain, will continue plan of care.
--- NOTE | 2018-11-14 15:15 | NUR ---
NURSE NOTES: MRI scan started and patient remains awake and alert, BP is 158/84 with HR at 65 in sinus rhythm, remains on nasal cannula at 4L/min with saturations at 94% with RR of 19, Will continue plan of care.
--- NOTE | 2018-11-14 15:40 | NUR ---
MRI BRAIN COMPLETED. KIANAB 15:42
--- NOTE | 2018-11-14 16:05 | NUR ---
NURSE NOTES: Tolerated MRI scan well with no distress noted, remains saturating at 92-94% with RR of 13-15 with HR at 61-65bpm in sinus rhythm, RT and RN at with patient while procedure is being completed, will continue to monitor.
--- NOTE | 2018-11-14 16:19 | NUR ---
TRANSFER UPDATE GENERAL SUPERINTENDENT AKASH IS WORKING WITH [employer] TO SECURE FINANCIAL CLEARANCE FOR TRANSFER THIS GENERAL SUPERINTENDENT SPOKE WITH [facility] TRANSFER [facility] COORDINATOR, MARTA. PER MARTA [facility] IS STILL IN "RED CENSUS ALERT" WHICH MEANS THEY DO NOT HAVE ANY BEDS FOR TRANSFER THIS GENERAL SUPERINTENDENT ENCOURAGE MARTA TO HAVE HER PHYSICIAN CONTACT OUR PHYSICIAN FOR MD TO MD CONVERSATION ABOUT THIS CASE . WE STILL NEED AN ACCEPTING PHYSICIAN AT EITHER [facility] OR [facility]
--- NOTE | 2018-11-14 16:29 | Diagnostic Imaging Report ---
Indication: Altered mental status Technique: sagittal T1 fast spin echo, axial T1 FLAIR, axial T2 FLAIR, axial T2 FS PROPELLER, axial T2* GRE, axial diffusion weighted images. ADC and exponential ADC maps generated Comparison: none Findings: There is a tiny punctate focus of restricted diffusion in the high right parietal cortex. No other abnormal foci of restricted diffusion are demonstrated. No acute intracranial hemorrhage. No edema. Small focus of high T2 signal is seen in the left high parietal lobe, likely reflecting a focus of chronic microvascular ischemic change No mass effect nor midline shift. Normal size, for age, ventricles and extra axial CSF spaces. The orbits are unremarkable. The maxillofacial sinuses are clear. However, there is extensive bilateral mastoid fluid. The vascular flow voids are preserved. Impression: Tiny focus restricted diffusion in the high right parietal lobe, likely representing a small acute infarct Negative for acute intracranial bleed or mass effect Critical value findings phoned to Dr. Donahue at the time of interpretation
[2018-11-14] MEDS ORDERED: Sorbitol Solution UD 30ml ORAL SCH (17:10)
--- NOTE | 2018-11-14 17:30 | NUR ---
NURSE NOTES: Patient given Sorbitol 30gm per Dr. Sinha, patient remains without bowel movement since 11/10/18, abdomen remains distended and large with non-tenderness, patient denies any symptoms of nausea, will continue to monitor.
--- NOTE | 2018-11-14 19:30 | NUR ---
HAND-OFF: Report given to GRAHAM Mercer. Dr. Warner called to order ativan PO 1mg at bedtime for sleep, and may repeat in 2 hours if not causeing sleep. read results of MRI scan at this time, no further verbal orders given at this time. .
--- NOTE | 2018-11-14 19:35 | NUR ---
NURSE NOTES: Received report from Ho STEVENSON. Patient in bed awake,alert able to verbalize needs to staff. Patient On Oxygen 3L via N/C satting 100%. HOB elevated. Denies any pain or discomfort. Skim warm and dry to touch. Temp 98.1 Axillary. Brother at bedside. Elkins draining. IV line intact no s/s of infiltration running D5 1/2 NS with KCl 20 mEq at 75cc/hr. talked to the patient regarding the plan of care. Patient unable to use call light will do frequent rounds every 15 min. bed alarm on. bed locked and in low position. Will continue plan of care.
--- NOTE | 2018-11-14 20:45 | Cardiology Report ---
APPROVED REPORT EXAM: Two-dimensional and M-mode echocardiogram with Doppler and color Doppler. INDICATION Atherosclerosis M-Mode DIMENSIONS IVSd1.2 (0.7-1.1cm)Left Atrium (MM)4.0 (1.6-4.0cm) LVDd4.5 (3.5-5.6cm)Aortic Root3.0 (2.0-3.7cm) PWd1.2 (0.7-1.1cm)Aortic Cusp Exc.1.7 (1.5-2.0cm) LVDs2.7 (2.5-4.0cm) PWs1.9 cm Technically difficult study due to patient on ventilator. Study quality precludes accurate assessment of regional wall motion. Normal left ventricular chamber size, systolic function and wall motion. Left ventricular ejection fraction estimated to be 60 %. Mild left ventricular hypertrophy. No evidence of pericardial effusion. All other cardiac chamber sizes are within normal limits. Focal aortic valve sclerosis with adequate cusp excursion. Mildly thickened mitral valve leaflets with normal excursion. Mild mitral annulus and aortic root calcification. Pulmonic valve not well visualized. Normal tricuspid valve structure. IVC dilated at 2.4 cm with physiological collapse. A color flow and spectral Doppler study was performed and revealed: No aortic insufficiency. Trace mitral regurgitation. Normal left ventricular diastolic function. Trace tricuspid regurgitation. Tricuspid systolic velocities suggests peak right ventricular systolic pressure of 25 mmHg.
--- NOTE | 2018-11-14 21:00 | NUR ---
NURSE NOTES: Patient in bed sleeping comfortably, family at bedside.
--- NOTE | 2018-11-14 21:01 | Cardiology Report ---
APPROVED REPORT EKG Measurement Heart [id number] DC 142P62 [id number] Sinus tachycardia with premature atrial complexes with aberrant conduction Nonspecific ST and T wave abnormality Abnormal ECG
--- NOTE | 2018-11-14 22:00 | NUR ---
NURSE NOTES: Repositioned patient. With X1 episode of watery BM kept clean and dry. Offered Ativan for anxiety/sleep encouraged patient to verbalize needs,fears and feelings to staff, per patient he is okay right now. will monitor patient.
--- NOTE | 2018-11-14 22:22 | General Progress Note ---
Assessment/Plan Assessment/Plan Assessment - Elevated LFT, ? etiology, ? ischemic injury - gradually improving - hepatitis serologies neg - CMV PCR (-) - HSV IgM (-) - Amite negative - U/S negative - CT negative - s/p C spine operation - Gastric distention, ? narcotic related Recommendations - Follow LFT conservatively, since improving - Abx per ID - Avoid hepatotoxic meds - avoid volume depletion / hypotension - Reglan Subjective HEENT: Denies: double vision Allergies: Coded Allergies: No Known Allergies (Unverified , 10/28/18) Subjective Above noted no complaints d/w RN off C spine collar per DTR request Objective Last 24 Hour Vital Signs Date Time Temp Pulse Resp B/P (MAP) Pulse Ox O2 Delivery O2 Flow Rate FiO2 11/14/18 20:11 72 20 100 Nasal Cannula 3.0 32 11/14/18 20:00 98.1 77 16 142/65 (90) 99 11/14/18 20:00 4.0 11/14/18 20:00 Nasal Cannula 4.0 11/14/18 20:00 70 18 98 Nasal Cannula 3.0 32 11/14/18 19:37 32 3.0 11/14/18 19:37 Nasal Cannula 3.0 32 11/14/18 19:36 65 18 Nasal Cannula 3.0 32 11/14/18 19:36 100 Nasal Cannula 3.0 32 11/14/18 19:00 98.1 63 16 117/63 (81) 100 11/14/18 18:00 66 12 133/66 (88) 100 11/14/18 17:30 99 11/14/18 17:00 97.9 66 13 151/126 (134) 100 11/14/18 16:00 68 11/14/18 16:00 4.0 11/14/18 16:00 Nasal Cannula 4.0 11/14/18 16:00 68 13 148/76 (100) 100 11/14/18 15:58 64 18 98 Nasal Cannula 3.0 32 11/14/18 15:01 99 11/14/18 15:00 64 19 154/88 (110) 93 11/14/18 14:41 65 21 146/73 (97) 100 11/14/18 14:00 73 17 132/73 (92) 100 11/14/18 13:00 72 13 137/70 (92) 100 11/14/18 12:57 99 11/14/18 12:00 3.0 11/14/18 12:00 99.4 76 17 134/60 (84) 100 11/14/18 12:00 81 11/14/18 12:00 Nasal Cannula 3.0 11/14/18 11:06 68 15 100 Nasal Cannula 3.0 32 11/14/18 11:00 98.8 69 25 129/62 (84) 100 11/14/18 10:00 98.2 97 13 120/65 (83) 100 11/14/18 09:00 72 14 126/68 (87) 100 11/14/18 08:00 3.0 11/14/18 08:00 70 11/14/18 08:00 Nasal Cannula 3.0 11/14/18 08:00 99.2 76 13 137/72 (93) 100 11/14/18 07:38 69 16 100 Nasal Cannula 3.0 32 11/14/18 07:28 71 18 100 Nasal Cannula 3.0 32 11/14/18 07:00 60 14 114/59 (77) 100 11/14/18 06:50 53 17 100 Full Face 45 11/14/18 06:49 53 17 Bi-pap 45 11/14/18 06:48 Bi-pap 11/14/18 06:47 100 Bi-pap 100 11/14/18 06:00 56 14 118/57 (77) 100 11/14/18 05:36 61 18 100 Full Face 45 11/14/18 05:00 58 15 135/71 (92) 100 11/14/18 04:00 45 11/14/18 04:00 52 11/14/18 04:00 55 14 117/59 (78) 100 11/14/18 04:00 Bi-pap 11/14/18 03:29 98.0 11/14/18 03:27 62 19 99 Facial 45 11/14/18 03:00 98.7 54 15 111/59 (76) 100 11/14/18 02:00 63 20 117/75 (89) 100 11/14/18 01:26 65 20 98 Full Face 45 11/14/18 01:00 63 17 136/72 (93) 100 11/14/18 00:00 Bi-pap 11/14/18 00:00 71 15 143/72 (95) 100 11/13/18 23:30 72 21 98 Full Face 50 11/13/18 23:00 85 16 147/68 (94) 100 11/13/18 22:24 92 20 100 Nasal Cannula 3.0 32 Intake and Output 11/13/18 11/14/18 19:00 07:00 Intake Total 1348.333 ml 1527.500 ml Output Total 625 ml 1590 ml Balance 723.333 ml -62.500 ml Intake Oral 160 ml 280 ml IV Total 1188.333 ml 1247.500 ml Output Urine Total 625 ml 1590 ml Laboratory Tests 11/14/18 04:45: White Blood Count 7.4, Red Blood Count 2.84L, Hemoglobin 8.3L, Hematocrit 24.4L , Mean Corpuscular Volume 86, Mean Corpuscular Hemoglobin 29.3, Mean Corpuscular Hemoglobin Concent 34.2, Red Cell Distribution Width 12.9, Platelet Count 317, Mean Platelet Volume 5.5L, Neutrophils (%) (Auto) , Lymphocytes (%) ( Auto) , Monocytes (%) (Auto) , Eosinophils (%) (Auto) , Basophils (%) (Auto) , Differential Total Cells Counted 100, Neutrophils % (Manual) 82H, Lymphocytes % (Manual) 6L, Monocytes % (Manual) 9, Eosinophils % (Manual) 2, Basophils % ( Manual) 1, Band Neutrophils 0, Platelet Estimate Adequate, Platelet Morphology Normal, Sodium Level 137, Potassium Level 4.6, Chloride Level 104, Carbon Dioxide Level 33H, Anion Gap 0L, Blood Urea Nitrogen 14, Creatinine 0.9, Estimat Glomerular Filtration Rate > 60, Glucose Level 109H, Calcium Level 8.5, Total Bilirubin 0.8, Aspartate Amino Transf (AST/SGOT) 39H, Alanine Aminotransferase (ALT/SGPT) 130H, Alkaline Phosphatase 543H, Troponin I 0.007, Pro-B-Type Natriuretic Peptide 2519H, Total Protein 5.4L, Albumin 1.6L, Globulin 3.8, Albumin/Globulin Ratio 0.4L Height (Feet): 5 Height (Inches): 7.00 Weight (Pounds): 170 Objective Thin AA man NCAT C spine collar CTA RRR soft ND NT no edema Oscar Sinha MD Nov 14, 2018 22:22
[2018-11-15] VITALS (18 sets, daily range): BP systolic 102–134; BP diastolic 47–81
[2018-11-15] MEDS: Albuterol/Ipratropium 3ml neb HHN PRN ×3 (00:10→15:12)
[2018-11-15] MEDS: LORazepam 1mg tab ORAL PRN ×2 (00:29→02:36)
[2018-11-15] MEDS: Vancomycin 750 MG in NS 275 ML IVPB SCH ×2 (00:29→09:07)
--- NOTE | 2018-11-15 00:30 | NUR ---
NURSE NOTES: patient with episode of anxiety and unable to sleep talk therapy provided, TV and repositioned in bed not effective Ativan 1mg tab Po given for anxiety will continue to monitor patient. Placed BIPAP 19/04 fi02 45% satting 100%.
[2018-11-15] MEDS: Morphine Sulfate 2mg/ml Inj(IV/IM USE ONLY) IVP PRN (02:25)
--- NOTE | 2018-11-15 02:30 | Progress Note ---
DATE: 11/14/2018 CARDIOLOGY PROGRESS NOTE SUBJECTIVE: The patient remains on ___ BiPAP support. OBJECTIVE: VITAL SIGNS: Blood pressure 142/65, pulse 77, respiratory rate 16, and afebrile. LUNGS: Diminished breath sounds. HEART: Regular rhythm and rate. Normal S1 and S2. ABDOMEN: Soft. No edema. LABORATORY DATA: White count 7.4 and hemoglobin 8.3. BUN 14 and creatinine 0.9. Troponin negative. Pro-natriuretic peptide 2500. IMPRESSION: 1. Status post respiratory arrest. 2. Transient bradyarrhythmia. 3. Chronic ischemic heart disease. 4. Acute on chronic diastolic congestive heart failure. 5. Acute myocardial ischemia with no signs of acute myocardial infarction. PLAN: 1. Limit pain medications ____. 2. BiPAP support. 3. Diuresis. 4. Stress ulcer and DVT prophylaxis. Ho Scott M.D. DR: OTF JOB#: [id number] CC:
--- NOTE | 2018-11-15 02:36 | NUR ---
NURSE NOTES first dose of Ativan not effective, per order may repeat Ativan 1 mg in 2 hours if patient not asleep, given will continue to monitor patient.
--- NOTE | 2018-11-15 03:00 | NUR ---
NURSE NOTES: Patient complained of 7/10 neck and shoulder pain repositioned and talk therapy provided not effective Morphine 1mg IVP given effective.
[2018-11-15] MEDS: D5 1/2NS w/KCl 20mEq 1,000 ML IV SCH ×2 (03:45→07:26)
--- NOTE | 2018-11-15 04:15 | NUR ---
NURSE NOTES: Patient Temp 97.9 Rectal. Denies any pain or discomfort. Repositioned. No s/s of acute distress noted. On 3L oxygen via N/C satting 100%. Elkins draining. Will continue plan of care.
--- NOTE | 2018-11-15 05:49 | NUR ---
NURSE NOTES: Patient in bed sleeping comfortably. Temp 97.4 Rectal. Repositioned. Elevated upper and lower extremities with pillows. No /ss of acute distress noted. Will continue plan of care.
[2018-11-15] MEDS: Metoclopramide 10mg/2ml Inj IVP SCH ×2 (05:59→14:41)
[2018-11-15] MEDS: Meropenem 1 GM in NS 55 ML IVPB SCH ×2 (05:59→14:41)
--- NOTE | 2018-11-15 06:00 | NUR ---
NURSE NOTES: Seen and examined by Dr. Donahue.
--- NOTE | 2018-11-15 06:15 | NUR ---
NURSE NOTES: Repositioned. Placed rolled towel under patient neck, per patient he feels better. Will continue frequent visual checks. Ne fever Temp 97.7 rectal.
--- NOTE | 2018-11-15 07:10 | NUR ---
HAND-OFF: Report given to German STEVENSON.Patient able to used Incentive spirometer with RT tolerated well.Temp 97.9 rectal. Patient in bed denies any pain or discomfort.
--- NOTE | 2018-11-15 07:35 | NUR ---
NURSE NOTES: Report received from GRAHAM MCELROY. Pt A/Ox4. pt states feels better and rested. responds to name. pt connected to monitor. Pt on 3l NC, BIPAP 17/8 on standby, sating 100%. Abdomen round, hypoactive bowel sounds. No BM this shift. Elkins catheter secure and draining pale urine. cervical wound, COLIN. Pt has a LFA 20G, patent, mild redness and a RT Hand 18G with D1/2NS +20KCl running @ 75 ml/hr. cooling blanket, pt c/o feeling cold temp 98. Bed in lowest position. Bed alarms placed. Call light within reach. Will continue to monitor and with patients plan of care. pt informed of plan of care for today.
[2018-11-15] MEDS: Docusate 250mg cap ORAL SCH (09:07)
--- NOTE | 2018-11-15 09:07 | NUR ---
TRANSFER UPDATE RECEIVED MESSAGE FROM MARAL BARDALES [facility] T: [phone] OPT #3 [facility]'S NEURO ICU ATTENDING, DR RAPHAEL HARO IS REQUESTING PRE AND POST OP FILMS ON DISC AND TO BE SENT BY CARRIER TO [facility] MARAL BARDALES [id number] [id number] ATTENTION: TRANSFER CENTER [id number] ENGINEERING MANAGER SPOKE WITH DEWAYNE IN RADIOLOGY THIS MORNING ~ WE ARE WAITING FOR ONE MORE CD TO BE BURNED AND DELIVERED TO THE ICU. Addendum: 11/15/18 at 1038 by ANSLEY KELLY LVN LVN CD'S HAVE BEEN BURNED AND GIVEN TO EDENILSON IN OUR PURCHASING DEPARTMENT EDENILSON SAID HE WILL HAVE IT CARRIERED OVER TO MARAL BARDALES [facility] ATT: TRANSFER CENTER ~ [id number] [facility],[id number]
--- NOTE | 2018-11-15 09:27 | General Progress Note ---
Assessment/Plan Problem List: (1) Weakness ICD Codes: R53.1 - Weakness SNOMED: 91234504 (2) Cervical spine arthritis ICD Codes: M47.812 - Spondylosis without myelopathy or radiculopathy, cervical region SNOMED: 057858048 (3) Cervical disc disorder ICD Codes: M50.90 - Cervical disc disorder, unspecified, unspecified cervical region SNOMED: 515052319 (4) Hospital acquired PNA ICD Codes: J18.9 - Pneumonia, unspecified organism SNOMED: 289516062 (5) Sepsis ICD Codes: A41.9 - Sepsis, unspecified organism SNOMED: 24170330 (6) Cardiac arrest ICD Codes: I46.9 - Cardiac arrest, cause unspecified SNOMED: 860069250 (7) Hepatitis ICD Codes: K75.9 - Inflammatory liver disease, unspecified SNOMED: 828674592 Status: stable Assessment/Plan resp care o2- wean as able pain rx ivf iv abx per id neuro follow up regarding stroke check carotids and echo dvt/stress ulcer prophylaxis spine follow up bowel regime remains critical and guarded await bed at [facility] Subjective ROS Limited/Unobtainable: No Constitutional: Reports: malaise, weakness HEENT: Reports: no symptoms Cardiovascular: Reports: no symptoms Respiratory: Reports: no symptoms Gastrointestinal/Abdominal: Reports: no symptoms Genitourinary: Reports: no symptoms Neurologic/Psychiatric: Reports: pre-existing deficit Endocrine: Reports: no symptoms Hematologic/Lymphatic: Reports: anemia Allergies: Coded Allergies: No Known Allergies (Unverified , 10/28/18) All Systems: reviewed and negative except above Subjective no events. now on nasal cannula. c/o constipation. no cp/sob. awaiting bed at [facility] mri with small right parietal infarct Objective Last 24 Hour Vital Signs Date Time Temp Pulse Resp B/P (MAP) Pulse Ox O2 Delivery O2 Flow Rate FiO2 11/15/18 08:00 3.0 11/15/18 08:00 55 13 108/62 (77) 100 11/15/18 07:00 97.9 57 11 120/62 (81) 100 11/15/18 06:15 68 20 100 11/15/18 06:00 57 14 122/65 (84) 100 11/15/18 05:00 72 22 134/70 (91) 100 11/15/18 04:52 32 3.0 11/15/18 04:14 78 20 100 Nasal Cannula 3.0 32 11/15/18 04:00 76 11/15/18 04:00 3.0 11/15/18 04:00 Nasal Cannula 3.0 11/15/18 04:00 77 18 98 Nasal Cannula 3.0 32 11/15/18 04:00 97.9 71 19 126/67 (86) 100 11/15/18 03:30 72 15 97 Full Face 40 11/15/18 03:00 61 16 110/69 (83) 100 11/15/18 02:55 98.7 11/15/18 02:00 69 17 129/72 (91) 100 11/15/18 01:00 72 15 133/71 (91) 100 11/15/18 00:35 74 14 100 Full Face 40 11/15/18 00:30 45 11/15/18 00:13 3.0 11/15/18 00:11 71 20 100 Nasal Cannula 3.0 32 11/15/18 00:00 70 18 99 Nasal Cannula 3.0 32 11/15/18 00:00 Nasal Cannula 3.0 11/15/18 00:00 69 14 125/81 (96) 100 11/14/18 23:30 32 3.0 11/14/18 23:00 75 14 136/69 (91) 100 11/14/18 23:00 69 11/14/18 22:00 99.0 71 18 132/69 (90) 100 11/14/18 21:30 32 3.0 11/14/18 21:00 63 15 118/61 (80) 98 11/14/18 20:11 72 20 100 Nasal Cannula 3.0 32 11/14/18 20:00 98.1 77 16 142/65 (90) 99 11/14/18 20:00 4.0 11/14/18 20:00 Nasal Cannula 4.0 11/14/18 20:00 70 18 98 Nasal Cannula 3.0 32 11/14/18 19:37 32 3.0 11/14/18 19:37 Nasal Cannula 3.0 32 11/14/18 19:36 65 18 Nasal Cannula 3.0 32 11/14/18 19:36 100 Nasal Cannula 3.0 32 11/14/18 19:14 65 3/14/19 19:00 98.1 63 16 117/63 (81) 100 11/14/18 18:00 66 12 133/66 (88) 100 11/14/18 17:30 99 11/14/18 17:00 97.9 66 13 151/126 (134) 100 11/14/18 16:00 68 11/14/18 16:00 4.0 11/14/18 16:00 Nasal Cannula 4.0 11/14/18 16:00 68 13 148/76 (100) 100 11/14/18 15:58 64 18 98 Nasal Cannula 3.0 32 11/14/18 15:01 99 11/14/18 15:00 64 19 154/88 (110) 93 11/14/18 14:41 65 21 146/73 (97) 100 11/14/18 14:00 73 17 132/73 (92) 100 11/14/18 13:00 72 13 137/70 (92) 100 11/14/18 12:57 99 11/14/18 12:00 3.0 11/14/18 12:00 99.4 76 17 134/60 (84) 100 11/14/18 12:00 81 11/14/18 12:00 Nasal Cannula 3.0 11/14/18 11:06 68 15 100 Nasal Cannula 3.0 32 11/14/18 11:00 98.8 69 25 129/62 (84) 100 11/14/18 10:00 98.2 97 13 120/65 (83) 100 Intake and Output 11/14/18 11/15/18 19:00 07:00 Intake Total 2712 ml 1284.750 ml Output Total 1700 ml 3730 ml Balance 1012 ml -2445.250 ml Intake Oral 1340 ml IV Total 1322 ml 1284.750 ml Other 50 ml Output Urine Total 1700 ml 3730 ml # Bowel Movements 2 Height (Feet): 5 Height (Inches): 7.00 Weight (Pounds): 170 Objective General Appearance: WD/WN, alert Neck: supple Cardiovascular: regular rhythm Respiratory/Chest: lungs clear, normal breath sounds, no respiratory distress, no accessory muscle use Abdomen: normal bowel sounds, non tender, soft, no organomegaly Edema: no edema noted Arm (L), no edema noted Arm (R), no edema noted Leg (L), no edema noted Leg (R), no edema noted Pedal (L), no edema noted Pedal (R), no edema noted Generalized Neurologic: motor weakness- quadraplegic Terrance Donahue MD Nov 15, 2018 09:27
--- NOTE | 2018-11-15 09:41 | NUR ---
CASE MANAGEMENT:REVIEW 11/15/18 SI: CERVICAL SPONDYLOSIS S/P ACDF C3-4, DISC ARTHROPLASTY C4-5. ASPIRATION PNEUMONIA. 97.9 55 13 108/62 100% ON 3L/NC IS: IV MEROPENEM Q8HRS IV VANCOMYCIN Q8HRS IV REGLAN Q8HRS DUONEB HHN Q4HRS PRN IVF@75/HR IV MORPHINE Q4HRS PRN IV ATIVAN QHS PRN : ICU STATUS PLAN: VIDEO SWALLOW CAROTID DUPLEX 2DECHO WAITING FOR MARAL BARDALES [facility] TO ACCEPT PATIENT FOR TRANSFER
--- NOTE | 2018-11-15 09:45 | NUR ---
INSURANCE FAXED CLINICALS TO: [facility] COMP COAL AND ASH SUPERVISOR: ENRIQUETA T: [phone] F: [phone] AND UR AWNINGS MECHANIC CAMERON T: [phone] F: [phone] AND ACUTE CARE PHYSICIAN AKASH T: [phone] F: [phone] [facility] T: [phone] OPT 3 F: [phone] Addendum: 11/15/18 at 1640 by ANSLEY KELLY LVN LVN CLAIM NUMBER [id number] DOI: 03/25/2015
--- NOTE | 2018-11-15 10:00 | NUR ---
NURSE NOTES: P.T HERE TO WORK WITH PT AND TOLERATING ROM MOVEMENTS WELL.
--- NOTE | 2018-11-15 10:26 | Infectious Diseases Prog Note ---
Assessment/Plan Assessment/Plan antibiotics : vancomycin iv, meropenem A 1. aspiration pneumonia 2. cervical spondylosis s/p surgery 3. respiratory failure P 1. continue iv vancomycin, meropenem 4 more days 2. will follow up cultures Subjective Constitutional: Denies: fever, chills Respiratory: Reports: dry cough - decreasing; Denies: shortness of breath Gastrointestinal/Abdominal: Denies: nausea, vomiting, diarrhea Musculoskeletal: Denies: pain Allergies: Coded Allergies: No Known Allergies (Unverified , 10/28/18) Objective Vital Signs Last 24 Hour Vital Signs Date Time Temp Pulse Resp B/P (MAP) Pulse Ox O2 Delivery O2 Flow Rate FiO2 11/15/18 09:40 32 3.0 11/15/18 08:00 3.0 11/15/18 08:00 55 13 108/62 (77) 100 11/15/18 07:00 97.9 57 11 120/62 (81) 100 11/15/18 07:00 99 Nasal Cannula 3.0 32 11/15/18 07:00 32 3.0 11/15/18 07:00 Nasal Cannula 3.0 32 11/15/18 07:00 67 18 Nasal Cannula 3.0 32 11/15/18 06:15 68 20 100 11/15/18 06:00 57 14 122/65 (84) 100 11/15/18 05:00 72 22 134/70 (91) 100 11/15/18 04:52 32 3.0 11/15/18 04:14 78 20 100 Nasal Cannula 3.0 32 11/15/18 04:00 76 11/15/18 04:00 3.0 11/15/18 04:00 Nasal Cannula 3.0 11/15/18 04:00 77 18 98 Nasal Cannula 3.0 32 11/15/18 04:00 97.9 71 19 126/67 (86) 100 11/15/18 03:30 72 15 97 Full Face 40 11/15/18 03:00 61 16 110/69 (83) 100 11/15/18 02:55 98.7 11/15/18 02:00 69 17 129/72 (91) 100 11/15/18 01:00 72 15 133/71 (91) 100 11/15/18 00:35 74 14 100 Full Face 40 11/15/18 00:30 45 11/15/18 00:13 3.0 11/15/18 00:11 71 20 100 Nasal Cannula 3.0 32 11/15/18 00:00 70 18 99 Nasal Cannula 3.0 32 11/15/18 00:00 Nasal Cannula 3.0 11/15/18 00:00 69 14 125/81 (96) 100 11/14/18 23:30 32 3.0 11/14/18 23:00 75 14 136/69 (91) 100 11/14/18 23:00 69 11/14/18 22:00 99.0 71 18 132/69 (90) 100 11/14/18 21:30 32 3.0 11/14/18 21:00 63 15 118/61 (80) 98 11/14/18 20:11 72 20 100 Nasal Cannula 3.0 32 11/14/18 20:00 98.1 77 16 142/65 (90) 99 11/14/18 20:00 4.0 11/14/18 20:00 Nasal Cannula 4.0 11/14/18 20:00 70 18 98 Nasal Cannula 3.0 32 11/14/18 19:37 32 3.0 11/14/18 19:37 Nasal Cannula 3.0 32 11/14/18 19:36 65 18 Nasal Cannula 3.0 32 11/14/18 19:36 100 Nasal Cannula 3.0 32 11/14/18 19:14 65 11/14/18 19:00 98.1 63 16 117/63 (81) 100 11/14/18 18:00 66 12 133/66 (88) 100 11/14/18 17:30 99 11/14/18 17:00 97.9 66 13 151/126 (134) 100 11/14/18 16:00 68 11/14/18 16:00 4.0 11/14/18 16:00 Nasal Cannula 4.0 11/14/18 16:00 68 13 148/76 (100) 100 11/14/18 15:58 64 18 98 Nasal Cannula 3.0 32 11/14/18 15:01 99 11/14/18 15:00 64 19 154/88 (110) 93 11/14/18 14:41 65 21 146/73 (97) 100 11/14/18 14:00 73 17 132/73 (92) 100 11/14/18 13:00 72 13 137/70 (92) 100 11/14/18 12:57 99 11/14/18 12:00 3.0 11/14/18 12:00 99.4 76 17 134/60 (84) 100 11/14/18 12:00 81 11/14/18 12:00 Nasal Cannula 3.0 11/14/18 11:06 68 15 100 Nasal Cannula 3.0 32 11/14/18 11:00 98.8 69 25 129/62 (84) 100 Height (Feet): 5 Height (Inches): 7.00 Weight (Pounds): 170 Microbiology Date/Time Source Procedure Growth Status 11/14/18 11:30 Sputum Gram Stain - Final Resulted 11/14/18 11:30 Sputum Sputum Culture - Preliminary NO GROWTH Resulted Current Medications Medications (Trade) Dose Ordered Sig/Sharon Route PRN Reason Start Time Stop Time Status Last Admin Dose Admin Albuterol/ Ipratropium (Albuterol/ Ipratropium) 3 ml Q4H PRN HHN Shortness of Breath 11/12/18 02:45 11/17/18 02:44 11/15/18 04:09 Dextrose/ Electrolytes 1,000 ml @ 75 mls/hr [id number] IV 10/28/18 22:46 11/27/18 22:45 11/15/18 07:26 Docusate Sodium (Colace) 250 mg DAILY ORAL 11/03/18 15:45 12/03/18 15:44 11/15/18 09:07 Lorazepam (Ativan) 1 mg BEDTIME PRN ORAL For Anxiety 11/14/18 21:00 11/21/18 20:59 11/15/18 02:36 Magnesium Hydroxide (Mom) 30 ml DAILY PRN ORAL Constipation 11/13/18 08:28 12/13/18 20:59 11/14/18 08:25 Meropenem 1 gm/ Sodium Chloride 55 ml @ 110 mls/hr Q8HR IVPB 11/13/18 12:00 11/18/18 11:59 11/15/18 05:59 Metoclopramide HCl (Reglan) 5 mg Q8H IVP 11/10/18 13:00 12/10/18 12:59 11/15/18 05:59 Naloxone HCl (Narcan) 0.1 mg PRN PRN IVP RR<12/min, pt unarousable 10/28/18 23:00 11/27/18 22:59 Ondansetron HCl (Zofran) 4 mg Q6H PRN IVP Nausea & Vomiting 11/08/18 21:30 12/08/18 21:29 11/12/18 15:34 Vancomycin HCl (Vanco rx to dose) 1 ea DAILY PRN MISC Per rx protocol 10/31/18 06:30 11/30/18 06:29 Vancomycin HCl 750 mg/Sodium Chloride 275 ml @ 183.333 mls/hr Q8H IVPB 11/11/18 16:00 11/16/18 15:59 11/15/18 09:07 Kenyon Moran MD Nov 15, 2018 10:26
--- NOTE | 2018-11-15 10:29 | NUR ---
NURSE NOTES: Pt off unit for video swallow. VSS. Accompanied by RN, R.T, TRANSPORT AND A CHOSEN FAMILY MEMBER.
--- NOTE | 2018-11-15 12:11 | NUR ---
ST NOTE: MODIFIED BARIUM SWALLOW STUDY COMPLETED MODIFIED BARIUM SWALLOW STUDY(MBSS) FULL REPORT WILL FOLLOW IN ST NOTE UNDER CARE ACTIVITY RADIOLOGIST WAS INFORMED PRIOR THE MBSS. PT ALERT, COOPERATIVE, FOLLOW DIRECTIONS. PT WITH NC(3L) HR: 69; OXYGEN LEVEL: 100; RR: 15. ACCOMPANIED WITH RN, AND RT AND FAMILY MEMBER GIVEN PO TRIALS: THIN LIQUIDS: TSP/TSP WITH HEAD TURN TO L/MED CUP WITH HEAD TURN TO R/ STRAW-SINGLE SIP(LARGE BOLUS) WITH CHIN DOWN NECTAR THICK LIQUIDS: TSP/ MED CUP WITH CHIN DOWN/ STRAW-SEQUENTIAL WITH CHIN DOWN-LARGE BOLUS) HONEY THICK: TSP WITH CHIN DOWN PUDDING: TSP WITH CHIN DOWN 1/2 SALTINE CRACKER WITH 3CC PUDDING: WITH CHIN DOWN LIQUID WASH WITH THIN LIQUID VIA STRAW(ONE SIP) WITH CHIN DOWN ANTERIOR PLATE WITH SCREWS NOTED AT C3 TO C4(AT EPIGLOTTIS LEVEL); AND ARTIFICIAL DISC CAPS NOTED AT C5 TO C6. IMPRESSION: PT PRESENTS WITH MODERATE OROPHARYNGEAL DYSPHAGIA CHARACTERIZED BY MILD INCREASED ORAL TRANSIT TIME AND OROPHARYNGEAL TRANSIT TIME, MILD ORAL RESIDUE AFTER SWALLOW DUE TO SENSORIMOTOR DEFICITS. BASED ON THE DYSPHAGIA OUTCOME SEVERITY SCALE(GILBERT), PT IS AT LEVEL 3, MODERATE DYSPHAGIA. TRACE LARYNGEAL PENETRATION(LP) WITH MASTICATED SOLID AFTER SWALLOW, ABOVE THE VOCAL FOLDS, EJECTED WHEN TAKING THE THIN LIQUID(LIQUID WASH) SECONDARY TO REDUCED LARYNGEAL ELEVATION AND REDUCED LARYNGEAL CLOSURE. MILD TO MODERATE TONGUE BASE AND VALLECULAR RESIDUE WAS NOTED DUE TO REDUCED TONGUE BASE RETRACTION AND EPIGLOTTIC MOVEMENT. MILD PHARYNGEAL RESIDUE(PHARYNGEAL WALL, ARYEPIGLOTTIC FOLDS AND PYRIFORM SINUSES) WAS NOTED DUE TO REDUCED LARYNGEAL ELEVATION. NO SIGNIFICANT ASPIRATION WAS NOTED BUT HAS HIGH RISK IF PRECAUTIONS ARE NOT STRICTLY APPLIED. PT BENEFITS FROM BREATH HOLD WITH EFFORTFUL, CHIN DOWN, SWALLOW X 3 TIMES, LESS EFFECTIVE WITH HEAD TURN TO L, WHEN COMPARED TO HEAD TURN TO R. PT ALSO BENEFITS FROM LARGE BOLUS(BOLUS EFFECT) WHEN USING THE STRAW. RECOMMENDATIONS: 1. FOR QUALITY OF LIFE, CONTINUE ORAL DIET. CHANGED DIET TO MOIST PUREE WITH THIN LIQUIDS (PT REQUESTED TO HAVE REGULAR LIQUIDS AND MASTICATED SOLID) 2. STRICT ASPIRATION PRECAUTIONS WITH 1TO[address] SERVICE TO FOLLOW RE: SWALLOW TX. D/W PT, FAMILY MEMBER(FAYE) WITH MBSS IMAGES AND RNAMIRA. POSTED ASPIRATION PRECAUTIONS SIGN.
--- NOTE | 2018-11-15 12:44 | NUR ---
NURSE NOTES: pt in bed. awake. tech here doing 2D echo. will ask to reposition and oral care post procedure. bed alarm on. checking in in with pt every 30min to hour.
--- NOTE | 2018-11-15 13:29 | NUR ---
RD ASSESSMENT & RECOMMENDATIONS SEE CARE ACTIVITY FOR COMPLETE ASSESSMENT DAILY ESTIMATED NEEDS: Needs based on Surgery, bedbound currently 75kg 25-30 kcals/kg 5576-5611 total kcals 1-2 g protein/kg 75-150 g total protein 25-30 mL/kg 6214-6015 total fluid mLs NUTRITION DIAGNOSIS: Swallowing difficulty r/t cervical spinal surgery as evidenced by pt is s/p anterior cervical corpectomy-discectomy at C3-4 and corpectomy/discectomy, currently w/ cervical collar, previously on liquify pureed, NTL, now recs for puree moist w/ thin liquids, w/ less bipap time. CURRENT DIET:Regular liquify puree NTL PO DIET RECOMMENDATIONS: IF SAFE FOR PO -> liberalized REGULAR/ texture per SEWING MACHINE OPERATOR SEMIAUTOMATIC ADDITIONAL RECOMMENDATIONS: * Obtain a calibrated bed scale wt as able * W/ GI access or diet order -> add Alex 1pkt BID for skin integrity * Check A1C for eval of glycemic control * Monitor lytes, replete as needed * Add ENSURE BID in b/w meals (20g prot each) * Snacks in b/w meals .
--- NOTE | 2018-11-15 14:06 | Pulmonolgy Critical Care Note ---
Critical Care - Asmt/Plan Assessment/Plan: Pulmonary CCM Progress Note Assessment/Plan Status post anterior cervical corpectomy-discectomy at C3-4 and corpectomy/ discectomy C4-5. 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 Brain Spinal Cord compression fevers concern for aspiration spinal cord shock elevated LFT possible shock liver abnormal cxr respiratory failure, acute pneumonia hypoxemia anasarca PLAN attempt transfer to higher level of care neuro follow up cultures noted IV antibiotics ID follow up GI follow up -discussed; eating- monitor adequate nutrition BIPAP management as needed may need airway still labile ICU care pain control plan for extensive rehab once cleared monitor for aspiration repeat cultures Subjective Allergies: Coded Allergies: No Known Allergies (Unverified , 10/28/18) Subjective events noted on high o2 same no significant improvement Objective Vital Signs Noted Laboratory Tests 11/14/18 04:45: White Blood Count 7.4, Red Blood Count 2.84L, Hemoglobin 8.3L, Hematocrit 24.4L , Mean Corpuscular Volume 86, Mean Corpuscular Hemoglobin 29.3, Mean Corpuscular Hemoglobin Concent 34.2, Red Cell Distribution Width 12.9, Platelet Count 317, Mean Platelet Volume 5.5L, Neutrophils (%) (Auto) , Lymphocytes (%) ( Auto) , Monocytes (%) (Auto) , Eosinophils (%) (Auto) , Basophils (%) (Auto) , Neutrophils % (Manual) [Pending], Lymphocytes % (Manual) [Pending], Platelet Estimate [Pending], Platelet Morphology [Pending], Sodium Level 137, Potassium Level 4.6, Chloride Level 104, Carbon Dioxide Level 33H, Anion Gap 0L, Blood Urea Nitrogen 14, Creatinine 0.9, Estimat Glomerular Filtration Rate > 60, Glucose Level 109H, Calcium Level 8.5, Total Bilirubin 0.8, Aspartate Amino Transf (AST/SGOT) 39H, Alanine Aminotransferase (ALT/SGPT) 130H, Alkaline Phosphatase 543H, Troponin I 0.007, Pro-B-Type Natriuretic Peptide 2519H, Total Protein 5.4L, Albumin 1.6L, Globulin 3.8, Albumin/Globulin Ratio 0.4L Height (Feet): 5 Height (Inches): 7.00 Weight (Pounds): 170 Objective WDWN NAD clear breath sounds bilaterally without rhonchi or wheeze [id number] without MRG NABS nontender no HSM no CCE alert on BIPAP poor mobility of extremities Critical Care - Objective Last 24 Hour Vital Signs Date Time Temp Pulse Resp B/P (MAP) Pulse Ox O2 Delivery O2 Flow Rate FiO2 11/15/18 13:17 32 3.0 11/15/18 13:00 67 17 123/61 (81) 100 11/15/18 12:00 99.9 68 14 119/63 (81) 100 11/15/18 12:00 69 11/15/18 12:00 Nasal Cannula 3.0 11/15/18 12:00 3.0 11/15/18 11:12 32 3.0 11/15/18 11:04 68 18 102/47 (65) 100 11/15/18 10:00 99.3 75 14 115/59 (77) 100 11/15/18 09:40 32 3.0 11/15/18 09:00 98.7 67 17 112/62 (79) 100 11/15/18 08:00 3.0 11/15/18 08:00 55 13 108/62 (77) 100 11/15/18 08:00 Nasal Cannula 3.0 11/15/18 08:00 65 11/15/18 07:00 97.9 57 11 120/62 (81) 100 11/15/18 07:00 99 Nasal Cannula 3.0 32 11/15/18 07:00 32 3.0 11/15/18 07:00 Nasal Cannula 3.0 32 11/15/18 07:00 67 18 Nasal Cannula 3.0 32 11/15/18 06:15 68 20 100 11/15/18 06:00 57 14 122/65 (84) 100 11/15/18 05:00 72 22 134/70 (91) 100 11/15/18 04:52 32 3.0 11/15/18 04:14 78 20 100 Nasal Cannula 3.0 32 11/15/18 04:00 76 11/15/18 04:00 3.0 11/15/18 04:00 Nasal Cannula 3.0 11/15/18 04:00 77 18 98 Nasal Cannula 3.0 32 11/15/18 04:00 97.9 71 19 126/67 (86) 100 11/15/18 03:30 72 15 97 Full Face 40 11/15/18 03:00 61 16 110/69 (83) 100 11/15/18 02:55 98.7 11/15/18 02:00 69 17 129/72 (91) 100 11/15/18 01:00 72 15 133/71 (91) 100 11/15/18 00:35 74 14 100 Full Face 40 11/15/18 00:30 45 11/15/18 00:13 3.0 11/15/18 00:11 71 20 100 Nasal Cannula 3.0 32 11/15/18 00:00 70 18 99 Nasal Cannula 3.0 32 11/15/18 00:00 Nasal Cannula 3.0 11/15/18 00:00 69 14 125/81 (96) 100 11/14/18 23:30 32 3.0 11/14/18 23:00 75 14 136/69 (91) 100 11/14/18 23:00 69 11/14/18 22:00 99.0 71 18 132/69 (90) 100 11/14/18 21:30 32 3.0 11/14/18 21:00 63 15 118/61 (80) 98 11/14/18 20:11 72 20 100 Nasal Cannula 3.0 32 11/14/18 20:00 98.1 77 16 142/65 (90) 99 11/14/18 20:00 4.0 11/14/18 20:00 Nasal Cannula 4.0 11/14/18 20:00 70 18 98 Nasal Cannula 3.0 32 11/14/18 19:37 32 3.0 11/14/18 19:37 Nasal Cannula 3.0 32 11/14/18 19:36 65 18 Nasal Cannula 3.0 32 11/14/18 19:36 100 Nasal Cannula 3.0 32 11/14/18 19:14 65 11/14/18 19:00 98.1 63 16 117/63 (81) 100 11/14/18 18:00 66 12 133/66 (88) 100 11/14/18 17:30 99 11/14/18 17:00 97.9 66 13 151/126 (134) 100 11/14/18 16:00 68 11/14/18 16:00 4.0 11/14/18 16:00 Nasal Cannula 4.0 11/14/18 16:00 68 13 148/76 (100) 100 11/14/18 15:58 64 18 98 Nasal Cannula 3.0 32 11/14/18 15:01 99 11/14/18 15:00 64 19 154/88 (110) 93 11/14/18 14:41 65 21 146/73 (97) 100 Micro: Microbiology Date/Time Source Procedure Growth Status 11/14/18 11:30 Sputum Gram Stain - Final Resulted 11/14/18 11:30 Sputum Sputum Culture - Preliminary NO GROWTH Resulted Critical Care - Subjective ROS Limited/Unobtainable: No FI02: 32 Sputum Amount: None I&O: Intake and Output 11/14/18 11/15/18 19:00 07:00 Intake Total 2712 ml 1284.750 ml Output Total 1700 ml 3730 ml Balance 1012 ml -2445.250 ml Intake Oral 1340 ml IV Total 1322 ml 1284.750 ml Other 50 ml Output Urine Total 1700 ml 3730 ml # Bowel Movements 2 Ho Painter MD Nov 15, 2018 14:06
--- NOTE | 2018-11-15 15:36 | NUR ---
NURSE NOTES: pt repositioned and cleaned. hydration provided. pt in no acute distress. will continue to monitor pt closely
--- NOTE | 2018-11-15 16:49 | NUR ---
DISCHARGE PLANNED PATIENT HAS BEEN ACCEPTED AT [facility] [address] [facility] [address] NEURO ICU 6 ICU BED #2[address] RAPHAEL KAPLAN [facility] HAS BEEN ARRANGED FOR 1800 ALS TRANSPORT FROM ICU TO ICU
--- NOTE | 2018-11-15 17:34 | NUR ---
NURSE NOTES: called and gave report to Monique RN at [facility] ICU neuro unit. all questions answered. sbar used. rn request to call upon transport arrival.
--- NOTE | 2018-11-15 18:05 | NUR ---
NURSE NOTES: [facility] here for pt machine pecan picker, hand off report given to rn. pt in no distress.
[2018-11-15] MEDS ORDERED: NS 275ml ONE ×2 (18:14)
[2018-11-15] MEDS ORDERED: Tubing IV Secondary IV ONE (18:14)
[2018-11-15] MEDS ORDERED: Vancomycin 1gm/D5W 275ml IVPB SCH ×2 (21:00)
--- NOTE | 2018-11-15 21:08 | General Progress Note ---
Assessment/Plan Assessment/Plan Assessment - Elevated LFT, ? etiology, ? ischemic injury - gradually improving - hepatitis serologies neg - CMV PCR (-) - HSV IgM (-) - Ashley negative - U/S negative - CT negative - s/p C spine operation - Gastric distention, ? narcotic related Recommendations - Follow LFT conservatively, since improving - Abx per ID - Avoid hepatotoxic meds - avoid volume depletion / hypotension - Reglan Subjective Allergies: Coded Allergies: No Known Allergies (Unverified , 10/28/18) Subjective Above noted no complaints d/w RN for transfer to [facility] today Objective Last 24 Hour Vital Signs Date Time Temp Pulse Resp B/P (MAP) Pulse Ox O2 Delivery O2 Flow Rate FiO2 11/15/18 17:18 32 3.0 11/15/18 17:00 98.6 69 17 121/60 (80) 100 11/15/18 16:00 60 11/15/18 16:00 3.0 11/15/18 16:00 98.8 64 17 110/56 (74) 98 11/15/18 16:00 Nasal Cannula 3.0 11/15/18 15:12 60 18 100 Nasal Cannula 3.0 32 11/15/18 15:11 32 3.0 11/15/18 15:00 64 16 125/68 (87) 100 11/15/18 14:00 66 20 121/61 (81) 100 11/15/18 13:17 32 3.0 11/15/18 13:00 67 17 123/61 (81) 100 11/15/18 12:00 99.9 68 14 119/63 (81) 100 11/15/18 12:00 69 11/15/18 12:00 Nasal Cannula 3.0 11/15/18 12:00 3.0 11/15/18 11:12 32 3.0 11/15/18 11:04 68 18 102/47 (65) 100 11/15/18 10:00 99.3 75 14 115/59 (77) 100 11/15/18 09:40 32 3.0 11/15/18 09:00 98.7 67 17 112/62 (79) 100 11/15/18 08:00 3.0 11/15/18 08:00 55 13 108/62 (77) 100 11/15/18 08:00 Nasal Cannula 3.0 11/15/18 08:00 65 11/15/18 07:00 97.9 57 11 120/62 (81) 100 11/15/18 07:00 99 Nasal Cannula 3.0 32 11/15/18 07:00 32 3.0 11/15/18 07:00 Nasal Cannula 3.0 32 11/15/18 07:00 67 18 Nasal Cannula 3.0 32 11/15/18 06:15 68 20 100 11/15/18 06:00 57 14 122/65 (84) 100 11/15/18 05:00 72 22 134/70 (91) 100 11/15/18 04:52 32 3.0 11/15/18 04:14 78 20 100 Nasal Cannula 3.0 32 11/15/18 04:00 76 11/15/18 04:00 3.0 11/15/18 04:00 Nasal Cannula 3.0 11/15/18 04:00 77 18 98 Nasal Cannula 3.0 32 11/15/18 04:00 97.9 71 19 126/67 (86) 100 11/15/18 03:30 72 15 97 Full Face 40 11/15/18 03:00 61 16 110/69 (83) 100 11/15/18 02:55 98.7 11/15/18 02:00 69 17 129/72 (91) 100 11/15/18 01:00 72 15 133/71 (91) 100 11/15/18 00:35 74 14 100 Full Face 40 11/15/18 00:30 45 11/15/18 00:13 3.0 11/15/18 00:11 71 20 100 Nasal Cannula 3.0 32 11/15/18 00:00 70 18 99 Nasal Cannula 3.0 32 11/15/18 00:00 Nasal Cannula 3.0 11/15/18 00:00 69 14 125/81 (96) 100 11/14/18 23:30 32 3.0 11/14/18 23:00 75 14 136/69 (91) 100 11/14/18 23:00 69 11/14/18 22:00 99.0 71 18 132/69 (90) 100 11/14/18 21:30 32 3.0 Intake and Output 11/14/18 11/15/18 18:59 06:59 Intake Total 2712 ml 1284.750 ml Output Total 1850 ml 3230 ml Balance 862 ml -1945.250 ml Intake Oral 1340 ml IV Total 1322 ml 1284.750 ml Other 50 ml Output Urine Total 1850 ml 3230 ml # Bowel Movements 2 Laboratory Tests 11/15/18 15:20: Vancomycin Level Trough 19.7H Height (Feet): 5 Height (Inches): 7.00 Weight (Pounds): 170 Objective Thin AA man NCAT CTA RRR soft ND NT no edema Oscar Sinha MD Nov 15, 2018 21:08
--- NOTE | 2018-11-15 22:30 | Progress Note ---
DATE: 11/15/2018 CARDIOLOGY PROGRESS NOTE SUBJECTIVE: The patient's remains unchanged. He continues to require BiPAP support and has tenuous respiratory parameters. PHYSICAL EXAMINATION: VITAL SIGNS: Blood pressure 121/60, pulse 70, respiratory rate 17. HEART: Monitored rhythm sinus. LUNGS: Diminished breath sounds. Scattered rhonchi. HEART: Regular rhythm and rate. Normal S1 and S2. ABDOMEN: Soft. EXTREMITIES: Trace edema. IMPRESSION: 1. Cervical disk disease. 2. Status post diskectomy. 3. Acute on chronic respiratory acidosis, status post respiratory arrest with associated bradycardia. 4. Acute myocardial ischemia. 5. Ischemic cardiomyopathy. 6. Acute on chronic diastolic congestive heart failure. PLAN: 1. Continue BiPAP support. 2. Continue diuresis effort. 3. Optimize anti-failure and antianginal regimen. 4. DVT and stress ulcer prophylaxis. 5. Awaiting transfer to higher level of care for neuro and spine program and postoperative care. Ho Scott M.D. DR: Katerina JOB#: [id number] CC:
--- NOTE | 2018-11-18 08:44 | General Surgery Progress Note ---
General Surgery-Progress Note Subjective Procedure Performed C3-4 ACDF, C4-5 Disc Arthroplasty (11-25-2018) Revision decompression C3-4 (11-25-2018) Additional Comments This note being added after patient transferred. Objective Additional Comments Patient is reporting return of sensation in Right low leg. He demonstrates movement in Left upper arm and more movement in Left leg and foot. He is off assisted (BIPAP) ventilation. Assessment Additional Comments I evaluated this patient SundayNovember 15, 2018. I could not acces computer system at that time. Extensive discussion with patient and family has taken place again today. With the help of sourcing coordinator at [place] and seed production field supervisor for patients insurance carrier, [facility] Neuro ICU has agreed to accept and transfer this patient for ongoing rehab care in a facility appropriate for this patient. The patient and family understand and agree to this action. Leoncio Wilson MD Nov 18, 2018 08:44
--- NOTE | 2018-11-20 16:16 | Diagnostic Imaging Report ---
Indications: Dysphagia Technique: Patient ingested multiple substances under the supervision of speech pathology. Video fluoroscopic recording performed. Total fluoroscopy time 210 seconds. Total dose area product [id number] mGycm2 Total number of images-13 Comparison: none Findings: Prompt initiation of deglutition. With ingestion of multiple substances, no evidence of penetration or aspiration is demonstrated. However, ingestion of masticated solid this demonstrate trace penetration on repeat swallow Impression: Trace penetration of masticated solid No other evidence of aspiration or penetration. Please refer to speech pathology report for more detailed analysis
--- NOTE | 2018-11-22 09:17 | Discharge Summary ---
Discharge Summary Hospital Course Date of Admission Oct 28, 2018 at 05:47 Date of Discharge Nov 15, 2018 at 18:15 Admitting Diagnosis Severe cervical spondylosis, posttraumatic with spinal stenosis, grade 3 at both the C3-4 and C4-5 levels, causing significant neck pain, radicular pain, and limitation of cervical motion Reason for Hospitalization: elective suregry HPI Bennie Wilks is a 63 year old male who was admitted on Oct 28, 2018 at 05:47 for severe cervical spondylosis, posttraumatic with spinal stenosis, grade 3 at both the C3-4 and C4-5 levels, causing significant neck pain, radicular pain, and limitation of cervical motion. Patient was admitted for elective surgery. Consultations Dr. Rowan Alvarado - pulmonary Dr Scott -cardio Dr Moran - ID Dr. Solorio - neurologist Dr. Sinha - GI specialist Procedures s/p 10/28. by Dr Wilson ACDF C3-4, Disc Arthroplasty C4-5 s/p 10/28/[address] Wilson redo ACDF C3-4 Hospital Course s/p 10/28 ACDF C3-4, disk arthroplasty C4-5 postoperatively, the patient had some weakness that progressed to paresis of his arms and legs frequent neuro exams were done urgent CT scan was done , showing some material, possibly pressing on the cord ; no obvious postoperative hematoma or abnormal fluid collection decision to reoperate urgently was made to remove spinal cord compression patient made aware of findings and recommendation and agreed to reoperation patient subsequently undergone redo of ACDF at C3-4 with removal of fibular allograft and partial vertebrectomy replacement of anterior plate with allograft later the same day on 10/28 postoperatively patient was transferred to ICU and showed some improved neurological recovery neurology and internal medicine followed MRI of cervical spine, as ordered by neurologist, revealed essentially nondiagnostic examination at the level of C4-5 and very limited evaluation of C3 -4 due to hardware related magnetic susceptibility artifact. the visualized portion of the spinal canal and cord showed no acute findings above and below disc levels. no pressure was found in the spinal canal, no further surgical intervention was necessary patient was closely monitored physical therapy was engaged in appropriate therapy modality with assistance in preservation of function bracing. pain management was addressed supportive care provided patient was on IV hydration ICU care provided. patient had fever spike 102.4 on 10/31 incentive spirometry was encouraged ,while in the bed patient was pancultured and started on broad spectrum antibiotics ID consult was requested patient was continued on IV hydration patient was closely monitored for aspiration swallow evaluation revealed mild, mostly pharyngeal dysphagia with thin liquids speech therapist recommended barium swallow study when stable, since patient was at high risk for silent aspiration diet texture changed as per speech therapist recommendations with strict aspiration/ reflux precautions chest x-ray revealed right basilar atelectasis incentive spirometry was encouraged every hour x 10 supplemental oxygen titrated as needed fo keep pulse oximetry above 90%, pulmonary toilet provided as needed with bronchodilators intermittent fevers continued blood, urine, sputum culture were all negative ID specialist closely followed and optimized antibiotic regimen patient likely had aspiration pneumonia aggressive pulmonary toilet provided. patient was followed-up with chest x-lilia pain management was addressed. noted elevation in LFTs abdominal ultrasound revealed no gallstones or dilated bile ducts. Borderline hepatomegaly. Hepatitis panel was negative. Serology for cytomegalovirus, [employer] virus, Monoscreen , herpes simplex virus were all negative. GI and ID specialist closely followed LFT were closely monitored, hepatotoxic medication were avoided repeated r abdominal ultrasound revealed mild hepatomegaly, but no gallstones or dilated ducts. LFT trending down, elevated LFT were likely due to shock liver CT of the abdomen and pelvis revealed mild anasarca , bilateral pleural effusion , bilateral flank ,lumbar and buttock edema, small amount of ascites in the right lower quadrant., but no definite acute abdominal process otherwise fairly extensive bilateral lower lobe consolidation, likely pneumonia noted. Splenomegaly. neuro status was closely monitored. supportive care provided. patient closely monitored for aspiration. surgery closely followed with you frequent neuro exams fevers were improving. antibiotic provided as per ID recommendation repeated blood ,urine and sputum cultures were still all negative. patient status post respiratory arrest on 11/10 with associated bradycardia, responded to emergency measures patient declined elective intubation, and remained initially at low threshold for intubation patient was placed on BiPAP, pulmonary toilet provided ABG revealed respiratory acidosis with PCO2 60 mild elevation in troponin - 0.115 cardiology consult was requested EKG showed sinus tachycardia with premature atrial complexes and aberrant conduction IVF stopped, diuresis provided with close monitoring of volumes and cardiorenal parameters patient was followed up with ABG and CXR , BiPAP settings titrated accordingly DVT and GI prophylaxis provided serial troponin revealed second troponin still elevated- 0.128 , the last troponin negative Echocardiogram revealed preserved ejection fraction of 60% with mild left ventricular hypertrophy. No evidence of wall motion abnormality. No evidence of pericardial effusion. Right ventricular systolic pressure of 25. venous duplex bilateral lower extremity revealed no evidence of acute DVT. VQ scan was essentially nondiagnostic in regards to the presence or absence of pulmonary emboli repeated venous duplex still showed no evidence of acute DVT EKG on 11/12 revealed normal sinus rhythm antianginal and anti-failure medication regimen optimized fevers resolved antibiotics continued, pain management was addressed, transfer to higher level of care with spine program , neuro and post-operative care was pending MRI of the brain on revealed tiny focus of restricted diffusion in the right parietal lobe, likely representing a small acute infarct. no acute intracranial bleeding or mass-effect noted. video swallow evaluation on 11/15 revealed trace penetration of masticated solids. No other evidence of aspiration or penetration. speech therapist recommended oral diet with moist pured and thin liquid texture with strict aspiration precaution and one-to-one feeding surgeon evaluated patient on Wednesday 11/15 prior to transfer patient reported return of sensation in the right lower leg; he demonstrated movement in left upper arm and more movement in left leg and foot patient was off BiPAP; pulse oximetry was stable on 3 L of oxygen via nasal cannula on 11/15 transfer was arranged and secured to [facility] neuro ICU for higher level of care for further management. list of medications was sent to the accepting facility - patient will need to continue antibiotics for 4 additional days as per ID specialist recommendations to complete the course FINAL DIAGNOSES severe cervical spondylosis, posttraumatic spinal stenosis, grade 3 C3-4 and C4-5 levels, cervical disc disease with compression C3-4, C4-5 spinal cord compression s/p ACDF C3-4, Disc Arthroplasty C4-5 s/p redo ACDF C3-4 elevated LFT, likely shock liver acute hypoxemic respiratory failure aspiration PNA dysphagia status post respiratory arrest with associated bradycardia acute on chronic diastolic congestive heart failure acute myocardial ischemia with no signs of acute myocardial infarction acute on chronic respiratory acidosis, hypertensive heart disease chronic ischemic heart disease ischemic cardiomyopathy severe protein calorie malnutrition tiny acute CVA - per MRI report Discharge Condition Upon Discharge: stable Discharge Disposition Patient was transferred to [facility] Neuro ICU for higher level of care Discharge Instructions Discharge Instructions Special Instructions I have been assigned to complete a D/C Summary on this account. I was not involved in the patient management Sandrine Borjas NP Nov 22, 2018 09:17
== END 2018-11-15 18:15 | disposition short-term general hospital (02) | DRG 471 ==
LOC: SDSOVERFLO 05:47 → 3E 12:45 → ICU 23:52
DX: M48.32 Traumatic spondylopathy, cervical region (principal); A41.9 Sepsis, unspecified organism; S14.153A Other incomplete lesion at C3 level of cervical spinal cord, initial encounter; J69.0 Pneumonitis due to inhalation of food and vomit; J96.01 Acute respiratory failure with hypoxia; J96.02 Acute respiratory failure with hypercapnia; K72.00 Acute and subacute hepatic failure without coma; I46.9 Cardiac arrest, cause unspecified; I50.33 Acute on chronic diastolic (congestive) heart failure; G82.52 Quadriplegia, C1-C4 incomplete; E43 Unspecified severe protein-calorie malnutrition; I63.9 Cerebral infarction, unspecified; G95.29 Other cord compression; E87.2 Acidosis; T84.226A Displacement of internal fixation device of vertebrae, initial encounter; M48.02 Spinal stenosis, cervical region; I11.0 Hypertensive heart disease with heart failure; R00.1 Bradycardia, unspecified; I25.5 Ischemic cardiomyopathy; R13.10 Dysphagia, unspecified; Z68.26 Body mass index [BMI] 26.0-26.9, adult
CPT/HCPCS: 36415; 36600; 70551; 71045; 72040; 72125; 72156; 74018; 74177; 74230; 76000; 76700; 78579; 78580; 80048; 80053; 80202; 81001; 81003; 82140; 82248; 82803; 83605; 83880; 84484; 85007; 85025; 85610; 85730; 86308; 86665; 86695; 86705; 86709; 86803; 86850; 86900; 86901; 87040; 87070; 87081; 87086; 87205; 87340; 87497; 92950; 93005; 93306; 93880; 93970; 94003; 94150; 94640; 94660; 94664; 94760; A9503; A9585; J0171; J2250; J2405; J2710; J2765; J7620